=== PATIENT | male | born 1975 | race Caucasian/White ===

== ENCOUNTER 2018-10-03 23:44 | Emergency (ER) | payer OTHER ==
--- NOTE | 2018-10-04 01:49 | ER ---
Nurse's Notes [facility] Name: Tony Warner Age: 43 yrs Sex: Male : 1975 Arrival Date: 10/03/2018 Time: 23:44 Bed 25 Private MD: Diagnosis: Dermatitis, unspecified Presentation: 10/04 00:44 Presenting complaint: Patient states: he has a rash which started as an itch on Thursday bb but now has spread all over pt is diabetic with hypertension but has been off of his medication since May 2018. Transition of care: patient was not received from another setting of care. Onset of symptoms was October 01, 2018. Risk Assessment: Do you want to hurt yourself or someone else? Patient reports no desire to harm self or others. Initial Sepsis Screen: Does the patient meet any 2 criteria? No. Patient's initial sepsis screen is negative. Does the patient have a suspected source of infection? No. Patient's initial sepsis screen is negative. Care prior to arrival: None. 00:44 Method Of Arrival: Ambulatory bb 00:44 Acuity: JIMBO 2 bb Triage Assessment: 02:48 General: Behavior is calm, cooperative. jl3 Historical: - Allergies: 00:46 NKA; bb - Home Meds: 00:46 None [Active]; bb - PMHx: 00:46 Diabetes - NIDDM; Hypertension; CAD; bb - PSHx: 00:46 Heart stents; toe amputations; bb - Immunization history:: Adult Immunizations unknown. - Social history:: Smoking status: Patient uses tobacco products, smokes one pack cigarettes per day. Patient/guardian denies using alcohol, street drugs. - Ebola Screening: : No symptoms or risks identified at this time. Screenin:47 Abuse screen: none noted. Nutritional screening: No deficits noted. Tuberculosis jl3 screening: No symptoms or risk factors identified. Fall Risk None identified. Assessment: 01:08 General: Appears distressed, well developed, well nourished. General: Pt states rash jl3 began "a few days ago." c/o itching and pain to arms, itching to trunk and legs. States Benadryl "only helps a little." Pt also has blisters, redness BLE. All but small toe amputated bilat feet. Pt is diabetic, does not take meds. Pain: Complains of pain in abdomen, right arm, left arm, right leg and left leg. Neuro: No deficits noted. Cardiovascular: No deficits noted. Respiratory: No deficits noted. GI: No deficits noted. : No deficits noted. EENT: No deficits noted. Derm: Rash noted that is itchy, papular, red, raised, urticaria, vesicular, on abdomen, right arm, left arm, right leg and left leg. Derm: Reports itching. Musculoskeletal: No deficits noted. Vital Signs: 00:46 BP 199 / 108; Pulse 105; Resp 18 S; Temp 98.1(O); Pulse Ox 99% on R/A; Weight 127.01 kg bb (R); Height 5 ft. 10 in. (177.80 cm) (R); Pain 0/10; 02:47 BP 176 / 90; Pulse 98; Resp 18; Pulse Ox 97% ; Pain 3/10; jl3 00:46 Body Mass Index 40.18 (127.01 kg, 177.80 cm) bb ED Course: 10/03 23:44 Patient arrived in ED. am2 10/04 00:46 Triage completed. bb 00:46 Arm band placed on left wrist. Patient placed in waiting room, Patient notified of wait bb time. 00:59 Ian Dey RN is Primary Nurse. jl3 01:09 Yang Varma MD is Attending Physician. 02:48 No provider procedures requiring assistance completed. Patient did not have IV access jl3 during this emergency room visit. 02:49 Patient has correct armband on for positive identification. jl3 Administered Medications: 01:52 Drug: predniSONE 40 mg Route: PO; jl3 02:46 Follow up: Response: No adverse reaction jl3 Outcome: 01:48 Discharge ordered by . gs 02:48 Discharged to home ambulatory. jl3 02:48 Condition: stable 02:48 Discharge instructions given to patient, Prescriptions given X 2. 02:49 Patient left the ED. jl3 Signatures: Kayla Alvarado RN RN bb Lowman, John, RN RN jl3 Estella Skinner [facility] Yang Vrama MD MD
--- NOTE | 2018-10-04 01:49 | EDPHYS ---
Physician Documentation [facility] Name: Tony Warner Age: 43 yrs Sex: Male : 1975 Arrival Date: 10/03/2018 Time: 23:44 Bed 25 Private MD: ED Physician Yang Varma HPI: 10/04 02:45 This 43 yrs old Male presents to ER via Ambulatory with complaints of Rash. gs 02:45 The patient's rash thought to be caused by Dermatitis. The rash is located on the gs dorsal aspect of right forearm and palmar aspect of right forearm. The rash is located on the dorsal aspect of left forearm. The rash can be described as macular, papular, raised. Onset: The symptoms/episode began/occurred 5 day(s) ago, and became persistent. Associated signs and symptoms: Pertinent positives: burning sensation, itching, Pertinent negatives: fever, swelling of lips, swelling of throat, vomiting. Severity of symptoms: At their worst the symptoms were moderate in the emergency department the symptoms are unchanged. The patient has experienced similar episodes in the past, a few times. Historical: - Allergies: 00:46 NKA; bb - Home Meds: 00:46 None [Active]; bb - PMHx: 00:46 Diabetes - NIDDM; Hypertension; CAD; bb - PSHx: 00:46 Heart stents; toe amputations; bb - Immunization history:: Adult Immunizations unknown. - Social history:: Smoking status: Patient uses tobacco products, smokes one pack cigarettes per day. Patient/guardian denies using alcohol, street drugs. - Ebola Screening: : No symptoms or risks identified at this time. ROS: 02:45 All other systems are negative. gs Exam: 02:45 Head/Face: Normocephalic, atraumatic. Eyes: Pupils equal round and reactive to light, gs extra-ocular motions intact. Lids and lashes normal. Conjunctiva and sclera are non-icteric and not injected. Cornea within normal limits. Periorbital areas with no swelling, redness, or edema. ENT: Nares patent. No nasal discharge, no septal abnormalities noted. Tympanic membranes are normal and external auditory canals are clear. Oropharynx with no redness, swelling, or masses, exudates, or evidence of obstruction, uvula midline. Mucous membranes moist. Neck: Trachea midline, no thyromegaly or masses palpated, and no cervical lymphadenopathy. Supple, full range of motion without nuchal rigidity, or vertebral point tenderness. No Meningismus. Chest/axilla: Normal chest wall appearance and motion. Nontender with no deformity. No lesions are appreciated. Cardiovascular: Regular rate and rhythm with a normal S1 and S2. No gallops, murmurs, or rubs. Normal PMI, no JVD. No pulse deficits. Respiratory: Lungs have equal breath sounds bilaterally, clear to auscultation and percussion. No rales, rhonchi or wheezes noted. No increased work of breathing, no retractions or nasal flaring. Abdomen/GI: Soft, non-tender, with normal bowel sounds. No distension or tympany. No guarding or rebound. No evidence of tenderness throughout. Back: No spinal tenderness. No costovertebral tenderness. Full range of motion. MS/ Extremity: Pulses equal, no cyanosis. Neurovascular intact. Full, normal range of motion. Neuro: Awake and alert, GCS 15, oriented to person, place, time, and situation. Cranial nerves II-XII grossly intact. Motor strength 5/5 in all extremities. Sensory grossly intact. Cerebellar exam normal. Normal gait. 02:45 Constitutional: The patient appears alert, awake. 02:45 Skin: rash can be described as macular, papular, contact dermatitis, eczema, on the dorsal aspect of left forearm and palmar aspect of right forearm. Vital Signs: 00:46 BP 199 / 108; Pulse 105; Resp 18 S; Temp 98.1(O); Pulse Ox 99% on R/A; Weight 127.01 kg bb (R); Height 5 ft. 10 in. (177.80 cm) (R); Pain 0/10; 02:47 BP 176 / 90; Pulse 98; Resp 18; Pulse Ox 97% ; Pain 3/10; jl3 00:46 Body Mass Index 40.18 (127.01 kg, 177.80 cm) MDM: 01:43 Patient medically screened. 02:45 Data reviewed: vital signs, nurses notes. Counseling: I had a detailed discussion with gs the patient and/or guardian regarding: the historical points, exam findings, and any diagnostic results supporting the discharge/admit diagnosis, the need for outpatient follow up. Response to treatment: the patient's symptoms have mildly improved after treatment, and as a result, I will discharge patient. Administered Medications: 01:52 Drug: predniSONE 40 mg Route: PO; jl3 02:46 Follow up: Response: No adverse reaction jl3 Disposition: 10/04/18 01:48 Discharged to Home. Impression: Dermatitis, unspecified. - Condition is Stable. - Discharge Instructions: Rash. - Prescriptions for Prednisone 20 mg Oral Tablet - take 1 tablet by ORAL route once daily for 5 days; 5 tablet. Triamcinolone Acetonide 0.5 % Topical Cream - apply 1 application by TOPICAL route once daily As needed; 1 tube. - Medication Reconciliation Form, Thank You Letter, Antibiotic Education, Prescription Opioid Use form. - Follow up: Private Physician; When: 2 - 3 days; Reason: Re-evaluation by your physician. Signatures: Kayla Alvarado RN RN bb Ian Dey RN RN jl3 Yang Varma MD MD Corrections: (The following items were deleted from the chart) 02:49 01:48 10/04/2018 01:48 Discharged to Home. Impression: Dermatitis, unspecified. jl3 Condition is Stable. Forms are Medication Reconciliation Form, Thank You Letter, Antibiotic Education, Prescription Opioid Use. Follow up: Private Physician; When: 2 - 3 days; Reason: Re-evaluation by your physician. gs
[2018-10-04] MEDS ORDERED: predniSONE 20 MG TAB ONE (02:02)
== END 2018-10-04 02:49 | disposition home or self-care (01) ==
LOC: ER 23:44
DX: L30.9 Dermatitis, unspecified (principal); I10 Essential (primary) hypertension; F17.210 Nicotine dependence, cigarettes, uncomplicated; Z95.818 Presence of other cardiac implants and grafts
CPT/HCPCS: 99283; J7512

== ENCOUNTER 2018-10-25 20:58 | Emergency (ER) | payer OTHER ==
[2018-10-25 23:16] LABS: Absolute Lymphocytes (CBC) 1.1 K/uL (0.7-4.9); Absolute Monocytes 0.7 K/uL (0.1-1.3); Absolute Neutrophil 5.9 K/uL (1.8-8.0); Basophils % 1.3 % (0-1.3); Eosinophils % 7.6 % (0-4.4); Hematocrit 34.3 % (39.6-49.0); Lymphocytes % 13.3 % (15.3-44.8); MPV 9.5 fL (7.6-11.3); Monocytes % 8.3 % (3.3-12.3); RBC Red Blood Cell Count 3.87 M/uL (4.33-5.43)
[2018-10-25 23:37] LABS: Potassium 4.2 mmol/L (3.5-5.1)
[2018-10-26] MEDS ORDERED: HYDRALAZINE HCL 20 MG/ML VIAL ONE (00:31)
[2018-10-26] MEDS ORDERED: FUROSEMIDE 100 MG/10 ML VIAL IV ONE (00:31)
--- NOTE | 2018-10-26 01:03 | EDPHYS ---
Physician Documentation [facility] Name: Tony Warner Age: 43 yrs Sex: Male : 1975 Arrival Date: 10/25/2018 Time: 21:00 Bed 5 Private MD: Mike Pathak E ED Physician Yang Varma HPI: 10/26 00:57 This 43 yrs old Male presents to ER via Ambulatory with complaints of gs Testicular Swelling. 00:57 Onset: The symptoms/episode began/occurred 1 week(s) ago, and became worse. Associated gs signs and symptoms: Pertinent negatives: abdominal pain. Severity of symptoms: At their worst the symptoms were moderate, in the emergency department the symptoms are unchanged. The patient has experienced similar episodes in the past, a few times. 00:57 generalized swelling off bp meds for some time. gs Historical: - Allergies: 10/25 21:15 NKA; ak1 - PMHx: 21:15 CAD; Diabetes - NIDDM; Hypertension; ak1 - PSHx: 21:15 Heart stents; toe amputations; ak1 - Immunization history:: Adult Immunizations unknown. - Social history:: Smoking status: Patient uses tobacco products, smokes two packs cigarettes per day. - Ebola Screening: : No symptoms or risks identified at this time. ROS: 04 00:57 Cardiovascular: Negative for chest pain, orthopnea, palpitations. gs Respiratory: Negative for shortness of breath. All other systems are negative. Exam: 00:57 Head/Face: Normocephalic, atraumatic. Eyes: Pupils equal round and reactive to light, gs extra-ocular motions intact. Lids and lashes normal. Conjunctiva and sclera are non-icteric and not injected. Cornea within normal limits. Periorbital areas with no swelling, redness, or edema. ENT: Nares patent. No nasal discharge, no septal abnormalities noted. Tympanic membranes are normal and external auditory canals are clear. Oropharynx with no redness, swelling, or masses, exudates, or evidence of obstruction, uvula midline. Mucous membranes moist. Neck: Trachea midline, no thyromegaly or masses palpated, and no cervical lymphadenopathy. Supple, full range of motion without nuchal rigidity, or vertebral point tenderness. No Meningismus. Chest/axilla: Normal chest wall appearance and motion. Nontender with no deformity. No lesions are appreciated. Cardiovascular: Regular rate and rhythm with a normal S1 and S2. No gallops, murmurs, or rubs. Normal PMI, no JVD. No pulse deficits. Respiratory: Lungs have equal breath sounds bilaterally, clear to auscultation and percussion. No rales, rhonchi or wheezes noted. No increased work of breathing, no retractions or nasal flaring. Abdomen/GI: Soft, non-tender, with normal bowel sounds. No distension or tympany. No guarding or rebound. No evidence of tenderness throughout. Skin: Warm, dry with normal turgor. Normal color with no rashes, no lesions, and no evidence of cellulitis. Neuro: Awake and alert, GCS 15, oriented to person, place, time, and situation. Cranial nerves II-XII grossly intact. Motor strength 5/5 in all extremities. Sensory grossly intact. Cerebellar exam normal. Normal gait. 00:57 Constitutional: The patient appears alert, awake. 00:57 : Male external genitalia: swelling, scrotal. 00:57 Musculoskeletal/extremity: Perfusion: the patient is normally perfused throughout, Edema, 2+ to the left upper thigh and right upper thigh is noted. Vital Signs: 10/25 21:15 BP 206 / 117; Pulse 102; Resp 20; Temp 97.7(O); Pulse Ox 100% on R/A; Weight 129.27 kg ak1 (R); Height 5 ft. 10 in. (177.80 cm) (R); Pain 10/10; 22:45 BP 196 / 99; Pulse 94; Resp 18; Pulse Ox 100% on R/A; ea 23:30 BP 214 / 120; Pulse 91; Resp 20; Pulse Ox 99% on R/A; ea 10/26 00:22 BP 194 / 112; Pulse 91; Resp 19; Pulse Ox 97% on R/A; ea 00:36 BP 192 / 95; Pulse 100; Resp 18; Pulse Ox 98% on R/A; ea 10/25 21:15 Body Mass Index 40.89 (129.27 kg, 177.80 cm) ak1 MDM: 10/25 22:10 Patient medically screened. gs 10/26 00:57 Differential diagnosis: torsion, orchitis,peripheral edema kidney disease. Data gs reviewed: vital signs, nurses notes. Counseling: I had a detailed discussion with the patient and/or guardian regarding: the historical points, exam findings, and any diagnostic results supporting the discharge/admit diagnosis, lab results, radiology results, the need for outpatient follow up, nephrology. Response to treatment: the patient's symptoms have markedly improved after treatment. 10/25 21:34 Order name: Urine Microscopic Only; Complete Time: 01:37 10/25 22:10 Order name: CBC with Diff; Complete Time: 00:03 10/25 21:34 Order name: US Scrotum Testicles 10/25 22:10 Order name: Basic Metabolic Panel; Complete Time: 00:03 10/25 21:34 Order name: Urine Dipstick-Ancillary (obtain specimen); Complete Time: :08 Administered Medications: 00:22 Drug: hydrALAZINE 20 mg Route: IV; Rate: calculated rate; Site: right antecubital; ea 00:30 Follow up: Response: No adverse reaction; IV Status: Completed infusion 00:37 Drug: Lasix 60 mg Route: IVP; Site: right antecubital; ea 00:50 Follow up: Response: No adverse reaction ea Disposition: 10/26/18 01:02 Discharged to Home. Impression: Hypertensive chronic kidney disease with stage 1 through stage 4 chronic kidney disease, or unspecified chronic kidney disease. - Condition is Stable. - Discharge Instructions: Hypertension, Peripheral Edema. - Prescriptions for Lasix 80 mg Oral Tablet - take 1 tablet by ORAL route once daily; 10 tablet. Hydralazine 25 mg Oral Tablet - take 1 tablet by ORAL route 2 times per day with food; 20 tablet. - Work release form, Medication Reconciliation Form, Thank You Letter, Antibiotic Education, Prescription Opioid Use form. - Follow up: Nnamdi Varela MD; When: 1 - 2 days; Reason: Re-evaluation by your physician. Signatures: Dispatcher [employer] Em Rousseau RN RN Manuela Leigh RN RN ea Starr, Gregory, MD MD gs Corrections: (The following items were deleted from the chart) 01:51 01:02 10/26/2018 01:02 Discharged to Home. Impression: Hypertensive chronic kidney ea disease with stage 1 through stage 4 chronic kidney disease, or unspecified chronic kidney disease. Condition is Stable. Forms are Medication Reconciliation Form, Thank You Letter, Antibiotic Education, Prescription Opioid Use. Follow up: Nnamdi Varela; When: 1 - 2 days; Reason: Re-evaluation by your physician. gs
--- NOTE | 2018-10-26 01:03 | ER ---
Nurse's Notes [facility] Name: Tony Warner Age: 43 yrs Sex: Male : 1975 Arrival Date: 10/25/2018 Time: 21:00 Bed 5 Private MD: Mike Pathak E Diagnosis: Hypertensive chronic kidney disease with stage 1 through stage 4 chronic kidney disease, or unspecified chronic kidney disease Presentation: 10/25 21:10 Presenting complaint: Patient states: testicular swelling since yesterday. Transition ak1 of care: patient was not received from another setting of care. Onset of symptoms was October 24, 2018. Risk Assessment: Do you want to hurt yourself or someone else? Patient reports no desire to harm self or others. Note pt non compliant with home medications for "at least a month" due to financial issues. Care prior to arrival: None. 21:10 Method Of Arrival: Ambulatory ak1 21:10 Acuity: JIMBO 3 ak1 21:51 Initial Sepsis Screen: Does the patient meet any 2 criteria? HR > 90 bpm. Does the ea patient have a suspected source of infection? Yes: Other: testicular swelling. Triage Assessment: 21:15 General: Appears uncomfortable, obese, Behavior is calm, cooperative. ak1 Historical: - Allergies: 21:15 NKA; ak1 - PMHx: 21:15 CAD; Diabetes - NIDDM; Hypertension; ak1 - PSHx: 21:15 Heart stents; toe amputations; ak1 - Immunization history:: Adult Immunizations unknown. - Social history:: Smoking status: Patient uses tobacco products, smokes two packs cigarettes per day. - Ebola Screening: : No symptoms or risks identified at this time. Screenin:49 Abuse screen: Denies threats or abuse. Nutritional screening: No deficits noted. ea Tuberculosis screening: No symptoms or risk factors identified. Fall Risk None identified. Assessment: 21:45 General: Appears uncomfortable, Behavior is calm, cooperative. Pain: Complains of pain ea in groin. Neuro: Level of Consciousness is awake, alert, obeys commands, Oriented to person, place, time, situation. Cardiovascular: Patient's skin is warm and dry. Respiratory: Airway is patent Respiratory effort is even, unlabored, Respiratory pattern is regular, symmetrical. GI: Abdomen is round. : Reports Pt reports testicles are putting pressure on his penis and it is hard to start a urine stream. Derm: testicles are enlarged. 22:30 Reassessment: Patient and/or family updated on plan of care and expected duration. Pain ea level reassessed. Patient is alert, oriented x 3, equal unlabored respirations, skin warm/dry/pink. 23:35 Reassessment: Patient and/or family updated on plan of care and expected duration. Pain ea level reassessed. Pt resting with eyes closed, respirations even and unlabored, chest expansions even and symmetrical. 10/26 00:45 Reassessment: Patient and/or family updated on plan of care and expected duration. Pain ea level reassessed. Patient is alert, oriented x 3, equal unlabored respirations, skin warm/dry/pink. 01:47 Reassessment: Patient and/or family updated on plan of care and expected duration. Pain ea level reassessed. Patient is alert, oriented x 3, equal unlabored respirations, skin warm/dry/pink. Discharge instruction given to patient, verbalized the understanding of instruction. Vital Signs: 10/25 21:15 BP 206 / 117; Pulse 102; Resp 20; Temp 97.7(O); Pulse Ox 100% on R/A; Weight 129.27 kg ak1 (R); Height 5 ft. 10 in. (177.80 cm) (R); Pain 10/10; 22:45 BP 196 / 99; Pulse 94; Resp 18; Pulse Ox 100% on R/A; ea 23:30 BP 214 / 120; Pulse 91; Resp 20; Pulse Ox 99% on R/A; ea 10/26 00:22 BP 194 / 112; Pulse 91; Resp 19; Pulse Ox 97% on R/A; ea 00:36 BP 192 / 95; Pulse 100; Resp 18; Pulse Ox 98% on R/A; ea 10/25 21:15 Body Mass Index 40.89 (129.27 kg, 177.80 cm) ak1 ED Course: 10/25 21:00 Patient arrived in ED. am2 21:02 Mike Pathak MD is Private Physician. am2 21:05 Patient's name was called from ER lobby. No response. ak1 21:14 Triage completed. ak1 21:15 Arm band placed on Patient placed in an exam room, on a stretcher, Patient notified of ak1 wait time. 21:30 Patient has correct armband on for positive identification. Placed in gown. Bed in low ea position. Call light in reach. Side rails up X 1. 21:32 Yang Varma MD is Attending Physician. gs 21:44 Manuela Hernandez RN is Primary Nurse. ea 22:16 US Scrotum Testicles In Process Unspecified. EDMS 22:55 Inserted saline lock: 20 gauge in right antecubital area, using aseptic technique. ea Blood collected. 0409 01:01 Nnamdi Varela MD is Referral Physician. gs 01:49 No provider procedures requiring assistance completed. IV discontinued, intact, ea bleeding controlled, No redness/swelling at site. Pressure dressing applied. Administered Medications: 00:22 Drug: hydrALAZINE 20 mg Route: IV; Rate: calculated rate; Site: right antecubital; ea 00:30 Follow up: Response: No adverse reaction; IV Status: Completed infusion ea 00:37 Drug: Lasix 60 mg Route: IVP; Site: right antecubital; ea 00:50 Follow up: Response: No adverse reaction ea Outcome: 01:02 Discharge ordered by . gs 01:50 Discharged to home ambulatory. ea 01:50 Condition: improved 01:50 Discharge instructions given to patient, Instructed on discharge instructions, follow up and referral plans. medication usage, Demonstrated understanding of instructions, follow-up care, medications, Prescriptions given X 2. 01:51 Patient left the ED. ea Signatures: Dispatcher [employer] EDOK Em Broussard RN RN ak1 Estella Skinner am Manuela Hernandez RN RN ea Starr, Gregory, MD MD
[2018-10-26 01:29] LABS: Urine Bacteria <20 /HPF (NONE SEEN); Urine Culture Reflex Order NOT NEEDED
--- NOTE | 2018-10-26 12:07 | RAD REPORT ---
EXAM DESCRIPTION: KAILA BLANK [id number] - Scrotum Testicles CLINICAL HISTORY: PAIN COMPARISON: None. TECHNIQUE: US SCROTUM on 10/25/2018 9:34 PM CDT FINDINGS: There is extensive diffuse scrotal wall thickening. The right testicle measures 4.1 x 3.0 x 2.7 cm and is normal in echotexture with patent flow. The right epididymis measures 1.6 cm. Left te sticle measures 4.1 x 2.9 x 2.7 cm and is normal in echotexture with patent flow. Left epididymis stormy sures 1 cm. IMPRESSION: No evidence of testicular torsion or mass. Extensive scrotal wall thickening diffusely. Electronically signed by: Jhony Diaz MD 10/25/2018 10:35 PM CDT Due to temporary technical issues with the PACS/Fluency reporting system, reports are being signed by the in house radiologist as a courtesy to ensure prompt reporting. The interpreting radiologist is f ully responsible for the content of the report.
== END 2018-10-26 01:51 | disposition home or self-care (01) ==
LOC: ER 20:58
DX: I13.10 Hypertensive heart and chronic kidney disease without heart failure, with stage 1 through stage 4 chronic kidney disease, or unspecified chronic kidney disease (principal); N18.9 Chronic kidney disease, unspecified; E11.22 Type 2 diabetes mellitus with diabetic chronic kidney disease; N50.89 Other specified disorders of the male genital organs; F17.210 Nicotine dependence, cigarettes, uncomplicated
CPT/HCPCS: 85025; 80048; 36415; 81015; 76870; 96375; 96374; 99284; J0360

== ENCOUNTER 2018-10-27 15:18 | Inpatient (IN) | payer OTHER ==
[2018-10-27] MEDS ORDERED: FUROSEMIDE 100 MG/10 ML VIAL IV ONE (17:48)
[2018-10-27 17:54] LABS: Absolute Lymphocytes (CBC) 1.2 K/uL (0.7-4.9); Absolute Monocytes 0.6 K/uL (0.1-1.3); Absolute Neutrophil 5.9 K/uL (1.8-8.0); Basophils % 1.2 % (0-1.3); Eosinophils % 7.5 % (0-4.4); Hematocrit 35.9 % (39.6-49.0); Lymphocytes % 14.5 % (15.3-44.8); MPV 9.3 fL (7.6-11.3); Monocytes % 7.7 % (3.3-12.3); RBC Red Blood Cell Count 4.03 M/uL (4.33-5.43)
[2018-10-27 18:02] LABS: Protime INR 1.11
[2018-10-27 18:14] LABS: Albumin 1.8 g/dL (3.4-5.0); Bilirubin Direct 0.2 mg/dL (0-0.2); Bilirubin Total 0.4 mg/dL (0.2-1.0); Magnesium 1.8 mg/dL (1.8-2.4); Potassium 3.7 mmol/L (3.5-5.1); Protein, Total 6.2 g/dL (6.4-8.2)
--- NOTE | 2018-10-27 19:07 | RAD REPORT ---
EXAM DESCRIPTION: RAD - Chest Single View - 10/27/2018 5:31 pm CLINICAL HISTORY: Lower extremity swelling, shortness of breath COMPARISON: August 2016 TECHNIQUE: AP portable chest image was obtained 1726 hours . FINDINGS: No peripheral mass or consolidation. Significant cardiomegaly is present and represents a significant change from August 2016. This could be chamber enlargement, pericardial effusion or a c ombination. Interstitial markings have increased and there is vascular engorgement on the current chayo dy. No measurable pleural effusion and no pneumothorax. No acute bony abnormality seen. No acute aort ic findings suspected. IMPRESSION: Significant cardiomegaly, new from comparison, with a mild CHF/volume overload pattern.
--- NOTE | 2018-10-27 19:15 | ER ---
Nurse's Notes [facility] Name: Tony Warner Age: 43 yrs Sex: Male : 1975 Arrival Date: 10/27/2018 Time: 15:22 Bed 14 Private MD: Diagnosis: Acute diastolic (congestive) heart failure;Acute combined systolic (congestive) and diastolic (congestive) heart failure;Lower extremity swelling, venous stasis Presentation: 10/27 15:25 Presenting complaint: Patient states: i came here Thursday night for the same thing, they tw2 called it peripheral edema and hypertension and sent me home, since then it has gotten more swollen, i tried to urinate and its so swollen i cannot aim. Transition of care: patient was not received from another setting of care. Onset of symptoms was October 27, 2018. Risk Assessment: Do you want to hurt yourself or someone else? Patient reports no desire to harm self or others. Initial Sepsis Screen: Does the patient meet any 2 criteria? No. Patient's initial sepsis screen is negative. Does the patient have a suspected source of infection? No. Patient's initial sepsis screen is negative. Care prior to arrival: None. 15:25 Method Of Arrival: Ambulatory tw2 15:25 Acuity: JIMBO 3 tw2 Triage Assessment: 15:26 General: Appears uncomfortable, unkempt, Behavior is calm, cooperative, appropriate for tw2 age. Pain: Complains of pain in pelvis. : Reports pain testicle. Historical: - Allergies: 15:27 NKA; tw2 - PMHx: 15:27 CAD; Diabetes - NIDDM; Hypertension; tw2 - PSHx: 15:27 Heart stents; toe amputations; tw2 - Immunization history:: Adult Immunizations. - Social history:: Smoking status: Patient uses tobacco products, smokes one pack cigarettes per day. - Ebola Screening: : Patient denies travel to an Ebola-affected area in the 21 days before illness onset. Screenin:10 Abuse screen: Denies threats or abuse. Denies injuries from another. Nutritional sv screening: No deficits noted. Tuberculosis screening: No symptoms or risk factors identified. Fall Risk None identified. Assessment: 16:00 General: Appears in no apparent distress. uncomfortable, obese, Behavior is calm, ph cooperative, appropriate for age, Denies fever, feeling ill. Pain: Complains of pain in groin. Neuro: Level of Consciousness is awake, alert, obeys commands, Oriented to person, place, time, situation. Cardiovascular: Denies chest pain, nausea, palpitations, shortness of breath, Capillary refill < 3 seconds in bilateral fingers Patient's skin is warm and dry. Edema is 4+ to pubic area. Cardiovascular: Edema is 2+ to waist, left midcalf, left ankle, right midcalf and right ankle. Respiratory: Airway is patent Respiratory effort is even, unlabored, Respiratory pattern is regular, symmetrical, Denies shortness of breath at rest. GI: No signs and/or symptoms were reported involving the gastrointestinal system. : Swelling noted on scrotum Denies inability to void. Derm: Skin is intact, Skin is pink, warm \T\ dry. Musculoskeletal: Circulation, motion, and sensation intact. Range of motion: intact in all extremities. 17:10 Reassessment: Informed pt that I would be starting an IV and drawing blood work. Pt sv stated that he would like to speak to the MD before all of this is done. Pt stated that if all they are going to do is double his Lasix then he would rather just do all of this at home where he is more comfortable and he will f/u with his PCP. Informed Dr Espinoza. 18:00 Reassessment: Patient appears in no apparent distress at this time. No changes from sv previously documented assessment. Patient and/or family updated on plan of care and expected duration. Pain level reassessed. Patient is alert, oriented x 3, equal unlabored respirations, skin warm/dry/pink. 19:00 Reassessment: Patient appears in no apparent distress at this time. Patient and/or jb4 family updated on plan of care and expected duration. Pain level reassessed. Patient is alert, oriented x 3, equal unlabored respirations, skin warm/dry/pink. 20:00 Reassessment: Patient appears in no apparent distress at this time. Patient and/or jb4 family updated on plan of care and expected duration. Pain level reassessed. Patient is alert, oriented x 3, equal unlabored respirations, skin warm/dry/pink. 21:00 Reassessment: Patient appears in no apparent distress at this time. Patient and/or jb4 family updated on plan of care and expected duration. Pain level reassessed. Patient is alert, oriented x 3, equal unlabored respirations, skin warm/dry/pink. 21:37 Reassessment: Patient appears in no apparent distress at this time. Patient and/or jb4 family updated on plan of care and expected duration. Pain level reassessed. Patient is alert, oriented x 3, equal unlabored respirations, skin warm/dry/pink. Pt taken to room 206 by dairy lab technician via wheelchair. Vital Signs: 15:26 Pulse 96; Resp 18; Temp 97.9(O); Pulse Ox 97% on R/A; Weight 129.27 kg (R); Height 5 tw2 ft. 10 in. (177.80 cm); Pain 10/10; 15:27 BP 182 / 89; tw2 18:46 BP 182 / 95; Pulse 94; Resp 15; Pulse Ox 99% ; sv 20:33 BP 219 / 101; Pulse 100; Resp 18; Pulse Ox 99% on R/A; jb4 21:16 BP 190 / 95; Pulse 95; Resp 18; Pulse Ox 98% on R/A; jb4 15:26 Body Mass Index 40.89 (129.27 kg, 177.80 cm) tw2 20:33 Given Metoprolol per [employer] orders. jb4 ED Course: 15:22 Patient arrived in ED. mr 15:26 Triage completed. tw2 15:26 Arm band placed on. tw2 15:52 Fili Espinoza MD is Attending Physician. kdr 17:03 Cami Glover RN is Primary Nurse. sv 17:10 Patient has correct armband on for positive identification. Bed in low position. Call sv light in reach. Adult w/ patient. 17:30 Initial lab(s) drawn, by me, sent to lab. Inserted saline lock: 20 gauge in right sv antecubital area, using aseptic technique. Blood collected. Flushed right antecubital with 5 ml normal saline. 17:31 XRAY Chest (1 view) In Process Unspecified. EDMS 17:45 farm machine operator on. Pulse ox on. NIBP on. Door closed. Warm blanket given. Head of bed sv elevated. 17:58 EKG done, by emergency response technician. reviewed by Fili Espinoza MD. sm3 19:09 Report given to Terrance SANCHEZ. sv 19:12 Sylwia Packer MD is Hospitalizing Provider. kdr 19:15 Primary Nurse role handed off by Cami Glover RN sv 19:29 No provider procedures requiring assistance completed. Patient admitted, IV remains in ph place. 19:30 Jennifer Tiwari, RN is Primary Nurse. ph 20:10 Viral Melissa, RN is Primary Nurse. jb4 Administered Medications: 17:48 Drug: Lasix 100 mg Route: IVP; Infused Over: 5 mins; Site: right antecubital; sv 18:15 Follow up: Response: No adverse reaction sv Output: 18:05 Urine: 450ml (Voided); Total: 450ml. sv 19:06 Urine: 400ml (Voided); Total: 850ml. sv Outcome: 19:14 Decision to Hospitalize by Provider. kdr 21:39 Admitted to Med/surg accompanied by tech, via wheelchair, room 206, with chart, Report jb4 called to LAURA Harrington 21:39 Condition: stable 21:39 Discharge instructions given to patient, Instructed on the need for admit, Demonstrated understanding of instructions. 21:40 Patient left the ED. jb4 Signatures: Dispatcher [employer] EDMS Cami Glover RN RN Fili Espinoza MD MD kdr Arana, Jenny mr Jennifer Tiwari RN RN Minerva Davies RN RN 2 Viral Melissa, LAURA RN jb4 Emilee Miller [facility]
--- NOTE | 2018-10-27 19:15 | EDPHYS ---
Physician Documentation [facility] Name: Tony Warner Age: 43 yrs Sex: Male : 1975 Arrival Date: 10/27/2018 Time: 15:22 Bed 14 Private MD: ED Physician Fili Espinoza HPI: 10/27 19:14 This 43 yrs old Male presents to ER via Ambulatory with complaints of kdr Testicular Swelling. 19:14 The patient was seen here on the for the same problem though now it is much worse. kdr He was given 80 lasix QD without any relief. He denies chest pain, SOB or other related issues. Onset: The symptoms/episode began/occurred gradually, at an unknown time. Severity of symptoms: At their worst the symptoms were moderate in the emergency department the symptoms are unchanged. The patient has not experienced similar symptoms in the past. The patient has been recently seen by a physician: The patient has been recently seen at the [facility] Emergency Department, this week. Historical: - Allergies: 15:27 NKA; tw2 - PMHx: 15:27 CAD; Diabetes - NIDDM; Hypertension; tw2 - PSHx: 15:27 Heart stents; toe amputations; tw2 - Immunization history:: Adult Immunizations. - Social history:: Smoking status: Patient uses tobacco products, smokes one pack cigarettes per day. - Ebola Screening: : Patient denies travel to an Ebola-affected area in the 21 days before illness onset. ROS: 19:14 Constitutional: Negative for fever, chills, and weight loss, Eyes: Negative for injury, kdr pain, redness, and discharge, Neck: Negative for injury, pain, and swelling, Cardiovascular: Negative for chest pain, palpitations, and edema, Respiratory: Negative for shortness of breath, cough, wheezing, and pleuritic chest pain, Abdomen/GI: Negative for abdominal pain, nausea, vomiting, diarrhea, and constipation. 19:14 Abdomen/GI: Positive for Denies pain but is tense and swollen for below the umbilicus and suprapubic area. 19:14 : Positive for Swollen penis and scrotum, Negative for urinary symptoms, urinary frequency, small amounts, hematuria. Exam: 19:14 Constitutional: This is a well developed, well nourished patient who is awake, alert, kdr and in no acute distress. Head/Face: Normocephalic, atraumatic. Eyes: Pupils equal round and reactive to light, extra-ocular motions intact. Lids and lashes normal. Conjunctiva and sclera are non-icteric and not injected. Cornea within normal limits. Periorbital areas with no swelling, redness, or edema. Neck: Trachea midline, no thyromegaly or masses palpated, and no cervical lymphadenopathy. Supple, full range of motion without nuchal rigidity, or vertebral point tenderness. No Meningismus. Chest/axilla: Normal chest wall appearance and motion. Nontender with no deformity. No lesions are appreciated. Cardiovascular: Regular rate and rhythm with a normal S1 and S2. No gallops, murmurs, or rubs. Normal PMI, no JVD. No pulse deficits. Respiratory: Lungs have equal breath sounds bilaterally, clear to auscultation and percussion. No rales, rhonchi or wheezes noted. No increased work of breathing, no retractions or nasal flaring. Abdomen/GI: Soft, non-tender, with normal bowel sounds. No distension or tympany. No guarding or rebound. No evidence of tenderness throughout. Back: No spinal tenderness. No costovertebral tenderness. Full range of motion. Neuro: Awake and alert, GCS 15, oriented to person, place, time, and situation. Cranial nerves II-XII grossly intact. Motor strength 5/5 in all extremities. Sensory grossly intact. Cerebellar exam normal. Normal gait. Psych: Awake, alert, with orientation to person, place and time. Behavior, mood, and affect are within normal limits. 19:14 : Male external genitalia: swelling, scrotal, testicle, that is moderate, that is severe. 19:14 Skin: Venous stasis bilateral lower extremimties. Vital Signs: 15:26 Pulse 96; Resp 18; Temp 97.9(O); Pulse Ox 97% on R/A; Weight 129.27 kg (R); Height 5 tw2 ft. 10 in. (177.80 cm); Pain 10/10; 15:27 BP 182 / 89; tw2 18:46 BP 182 / 95; Pulse 94; Resp 15; Pulse Ox 99% ; sv 20:33 BP 219 / 101; Pulse 100; Resp 18; Pulse Ox 99% on R/A; jb4 21:16 BP 190 / 95; Pulse 95; Resp 18; Pulse Ox 98% on R/A; jb4 15:26 Body Mass Index 40.89 (129.27 kg, 177.80 cm) tw2 20:33 Given Metoprolol per [employer] orders. jb4 MDM: 19:14 Patient medically screened. kdr 19:14 Data reviewed: vital signs, nurses notes. Counseling: I had a detailed discussion with kdr the patient and/or guardian regarding: the historical points, exam findings, and any diagnostic results supporting the discharge/admit diagnosis, lab results, radiology results, the need for further work-up and treatment in the hospital. 10/27 17:06 Order name: Basic Metabolic Panel; Complete Time: 19:06 [facility] 10/27 17:06 Order name: CBC with Diff; Complete Time: 19:06 [facility] 10/27 17:06 Order name: LFT's; Complete Time: 19:06 [facility] 10/27 17:06 Order name: Magnesium; Complete Time: 19:06 [facility] 10/27 17:06 Order name: NT PRO-BNP; Complete Time: 19:06 [facility] 10/27 17:06 Order name: PT-INR; Complete Time: 19:06 [facility] 10/27 19:43 Order name: Comprehensive Metabolic Panel [facility] 10/27 19:43 Order name: Comprehensive Metabolic Panel [facility] 10/27 19:43 Order name: Lipid Profile [facility] 10/27 19:43 Order name: Lipid Profile [facility] 10/27 19:44 Order name: Magnesium [facility] 10/27 19:44 Order name: Magnesium [facility] 10/27 19:44 Order name: Phosphorus [facility] 10/27 19:44 Order name: Phosphorus [facility] 10/27 17:06 Order name: EKG - Nurse/Tech; Complete Time: 20:21 [facility] 10/27 17:06 Order name: XRAY Chest (1 view); Complete Time: 19:11 [facility] 10/27 17:06 Order name: EKG; Complete Time: 17:07 [facility] 10/27 17:06 Order name: IV Saline Lock; Complete Time: 17:53 [facility] 10/27 17:06 Order name: Labs collected and sent; Complete Time: 17:53 [facility] 10/27 19:43 Order name: Heart Healthy [facility] 10/27 19:43 Order name: Echo with Doppler [facility] 10/27 19:43 Order name: Echo with Doppler EDMS 10/27 19:44 Order name: NT PRO-BNP [facility] 10/27 19:44 Order name: NT PRO-BNP EDMS 10/27 19:44 Order name: Troponin I EDMS 10/27 19:44 Order name: Troponin I EDMS 10/27 19:44 Order name: Troponin I EDMS 10/27 19:44 Order name: CBC with Automated Diff EDMS 10/27 19:44 Order name: CBC with Automated Diff EDMS 10/27 17:06 Order name: O2 Per Protocol; Complete Time: 17:53 kdr 10/27 17:06 Order name: O2 Sat Monitoring; Complete Time: 17:53 kdr Administered Medications: 17:48 Drug: Lasix 100 mg Route: IVP; Infused Over: 5 mins; Site: right antecubital; sv 18:15 Follow up: Response: No adverse reaction sv Disposition: 10/27/18 19:14 Hospitalization ordered by Sylwia Packer for Inpatient Admission. Preliminary diagnosis are Acute diastolic (congestive) heart failure, Acute combined systolic (congestive) and diastolic (congestive) heart failure, Lower extremity swelling, venous stasis. - Bed requested for Telemetry/MedSurg (Inpatient). - Status is Inpatient Admission. jb4 - Condition is Fair. - Problem is an acute exacerbation. - Symptoms are unchanged. UTI on Admission? No Signatures: Dispatcher [employer] EDAR Cami Glover RN RN sv Webb, Martha, RN RN mw Rittger, Kevin, MD MD [facility] Minerva Davies RN RN 2 Viral Melissa RN RN jb4 Corrections: (The following items were deleted from the chart) 20:33 19:14 Hospitalization Ordered by Sylwia Packer MD for Inpatient Admission. Preliminary mw diagnosis is Acute diastolic (congestive) heart failure; Acute combined systolic (congestive) and diastolic (congestive) heart failure; Lower extremity swelling, venous stasis. Bed requested for Telemetry/MedSurg (Inpatient). Status is Inpatient Admission. Condition is Fair. Problem is an acute exacerbation. Symptoms are unchanged. UTI on Admission? No. kdr 21:40 20:33 10/27/2018 19:14 Hospitalization Ordered by Sylwia Packer MD for Inpatient jb4 Admission. Preliminary diagnosis is Acute diastolic (congestive) heart failure; Acute combined systolic (congestive) and diastolic (congestive) heart failure; Lower extremity swelling, venous stasis. Bed requested for Telemetry/MedSurg (Inpatient). Status is Inpatient Admission. Condition is Fair. Problem is an acute exacerbation. Symptoms are unchanged. UTI on Admission? No. mw
[2018-10-27] MEDS ORDERED: ALBUTEROL 2.5 MG/3 ML NEB SOL NEB PRN (19:39)
[2018-10-27] MEDS ORDERED: IPRATROPIUM BROM 0.5MG/2.5ML NEB PRN (19:39)
[2018-10-27] MEDS ORDERED: ACETAMINOPHEN 500 MG TAB PO PRN (19:39)
[2018-10-27] MEDS: METOPROLOL TAR 50 MG TAB PO SCH (20:44)
[2018-10-27] MEDS ORDERED: METOPROLOL TAR 25 MG TAB ONE (20:54)
[2018-10-28 05:36] LABS: Absolute Lymphocytes (CBC) 1.3 K/uL (0.7-4.9); Absolute Monocytes 0.7 K/uL (0.1-1.3); Absolute Neutrophil 5.2 K/uL (1.8-8.0); Eosinophils % 8.2 % (0-4.4); Lymphocytes % 16.7 % (15.3-44.8); MPV 9.3 fL (7.6-11.3); Monocytes % 8.3 % (3.3-12.3); RBC Red Blood Cell Count 3.72 M/uL (4.33-5.43)
[2018-10-28 05:55] LABS: Albumin 1.6 g/dL (3.4-5.0); Bilirubin Total 0.3 mg/dL (0.2-1.0); Magnesium 1.7 mg/dL (1.8-2.4); Phosphorus 4.5 mg/dL (2.5-4.9); Potassium 3.6 mmol/L (3.5-5.1); Protein, Total 5.6 g/dL (6.4-8.2)
[2018-10-28] MEDS ORDERED: MAGNESIUM SULFATE 1 gm IVPB 1 GM/100 ML BAG IV ONE (08:00)
[2018-10-28] MEDS: ENOXAPARIN 40 MG/0.4 ML SQ SCH ×2 (09:00→10:20)
[2018-10-28] MEDS ORDERED: POTASSIUM CL SA 10 MEQ TAB PO ONE (09:00)
[2018-10-28] MEDS ORDERED: FUROSEMIDE 40 MG/4 ML VIAL IV SCH (09:00)
[2018-10-28 09:05] LABS: Urine Appearance CLEAR; Urine Bilirubin NEGATIVE (NEG); Urine Blood TRACE (NEG); Urine Color YELLOW; Urine Glucose 1+ (NEG); Urine Protein 3+ (NEG); Urine Specific Gravity 1.015 (1.005-1.030)
[2018-10-28 09:07] LABS: Urine Microscopic Reflex ORDER UMIC
[2018-10-28 09:15] LABS: Urine Bacteria NONE SEEN /HPF (NONE SEEN); Urine Culture Reflex Order NOT NEEDED; Urine RBC 20-50 /HPF (NONE SEEN)
--- NOTE | 2018-10-28 10:02 | P.HP ---
Certification for Inpatient Patient admitted to: Inpatient With expected LOS: >2 Midnights Patient will require the following post-hospital care: None Practitioner: I am a practitioner with admitting privileges, knowledge of patient current condition, hospital course, and medical plan of care. Services: Services provided to patient in accordance with Admission requirements found in Title 42 Section 412.3 of the Code of Federal Regulations Patient History Date of Service: 10/27/18 Reason for admission: anasarca History of Present Illness: Patient is a 43-year-old gentleman who came to the hospital with generalized anasarca. Patient was diffusely edematous. And patient was diuresed in the emergency room. He also has wounds on his feet. He has been trying to care for them on his own. He has 2 wounds that are located on his both of his feet. We will consult [facility] to the help manage the wounds. We will also continue with diuresing. Reassess the patient in the morning. Anticipate discharge home in the next 24-48 hours. Allergies NKA Allergy (Uncoded 10/27/18 22:02) Unknown No Known Allergies Allergy (Uncoded 10/27/18 22:02) Unknown Home Medications: Lisinopril 10 mg PO DAILY 10/27/18 Metoprolol Tartrate 25 mg PO BID 10/27/18 - Past Medical/Surgical History Has patient received pneumonia vaccine in the past: No Diabetic: Yes -: CAD -: Diabetes- NIDDM -: Hypertension -: Heart Stent -: toe amputation - Family History Father Medical History: Heart disease, Hypertension - Social History Smoking Status: Current every day smoker Place of Residence: Home Review of Systems 10-point ROS is otherwise unremarkable Physical Examination - Vital Signs Temperature: 97.9 F Blood Pressure: 140/70 Pulse: 88 Respirations: 18 Pulse Ox (%): 96 - Physical Exam General: Alert, In no apparent distress, Oriented x3 HEENT: Atraumatic, PERRLA, Mucous membr. moist/pink, EOMI, Sclerae nonicteric Neck: Supple, 2+ carotid pulse no bruit, No LAD, Without JVD or thyroid abnormality Respiratory: Diminished, Crackles/rales Cardiovascular: Regular rate/rhythm, Normal S1 S2, Systolic murmur Gastrointestinal: Normal bowel sounds, Soft and benign, Non-distended, No tenderness Musculoskeletal: No tenderness, Swelling Integumentary: Diabetic ulcer Neurological: Normal gait, Normal speech, Normal strength at 5/5 x4 extr, Normal tone, Sensation intact, Cranial nerves 3-12 intact, Normal affect Lymphatics: No axilla or inguinal lymphadenopathy - Studies Laboratory Data (last 24 hrs) 10/27/18 17:30: PT 13.0 H, INR 1.11 10/27/18 17:30: WBC 8.5, Hgb 11.6 L, Hct 35.9 L, Plt Count 276 10/27/18 17:30: Sodium 145, Potassium 3.7, BUN 32 H, Creatinine 2.20 H, Glucose 140 H, Magnesium 1.8, Total Bilirubin 0.4, AST 14 L, ALT 16, Alkaline Phosphatase 184 H Assessment & Plan - Problems (Diagnosis) (1) History of diabetic ulcer of foot Current Visit: Yes Status: Acute (2) Anasarca Current Visit: Yes Status: Acute (3) Lower extremity edema Current Visit: Yes Status: Acute (4) CAD (coronary artery disease) Current Visit: Yes Status: Acute (5) DM2 (diabetes mellitus, type 2) Current Visit: Yes Status: Acute (6) HTN (hypertension) Current Visit: Yes Status: Acute - Plan Plan: 1. Continue with IV diuresing 2. Wound care 3. Monitor her volume status closely with strict intake and output 4. Consult wound healing center and may need home health with wound care 5. Monitor renal function closely 6. Monitor electrolytes closely 7. Strict blood pressure and blood sugar control 8. GI DVT prophylaxis Discharge Plan: Home Plan to discharge in: 48 Hours - Advance Directives Does patient have a Living Will: No Does patient have a Durable POA for Healthcare: No - Code Status/Comfort Care Code Status Assessed: Yes Code Status: Full Code Critical Care: No Time Spent Managing PTS Care (In Minutes): 40
[2018-10-28] MEDS: METOPROLOL TAR 50 MG TAB PO SCH ×2 (10:21→22:19)
[2018-10-28] MEDS: ENOXAPARIN 30 MG/0.3 ML SQ SCH (10:39)
--- NOTE | 2018-10-28 12:17 | ECHO ---
HEIGHT: 5 ft 10 in WEIGHT: 286 lb 14.4 oz DATE OF STUDY: 10/28/[address]: Sylwia Packer MD 2-DIMENSIONAL: YES M.MODE: YES DOPPLER: YES COLOR FLOW: YES TDS: PORTABLE: DEFINITY: BUBBLE STUDY: DIAGNOSIS: CONGESTIVE HEART FAILURE CARDIAC HISTORY: CATHERIZATION: YES SURGERY: NO PROSTHETIC VALVE: NO PACEMAKER: NO MEASUREMENTS (cm) DIASTOLIC (NORMALS) SYSTOLIC (NORMALS) IVSd 1.5 (0.6-1.2) LA Diam 4.5 (1.9-4.0) LVEF 45% LVIDd 5.2 (3.5-5.7) LVIDs 4.0 (2.0-3.5) %FS 23% LVPWd 1.5 (0.6-1.2) Ao Diam 3.4 (2.0-3.7) 2 DIMENSIONAL ASSESSMENT: RIGHT ATRIUM: NORMAL LEFT ATRIUM: DILATED RIGHT VENTRICLE: NORMAL LEFT VENTRICLE: NORMAL TRICUSPID VALVE: NORMAL MITRAL VALVE: NORMAL PULMONIC VALVE: NORMAL AORTIC VALVE: THREE LEFTLET SEEN PERICARDIAL EFFUSION: NONE AORTIC ROOT: NORMAL LEFT VENTRICULAR WALL MOTION: NORMAL DOPPLER/COLOR FLOW: MILD TRICUSPID REGURGITATION. NORMAL RIGHT VENTRICULAR SYSTOLIC PRSESURE. COMMENTS: NORMAL LEFT VENTRICULAR EJECTION FRACTION. DILATED LEFT ATRIUM. SMALL PERICARDIAL EFFUSION. MILD TRICUSPID REGURGITATION. TECHNOLOGIST: SAJI RYAN
[2018-10-28 12:33] LABS: Urine Protein/Creatinine Ratio 6.68 ratio (<0.15)
--- NOTE | 2018-10-28 13:56 | RAD REPORT ---
EXAM DESCRIPTION: US - Renal Ultrasound-Complete - 10/28/2018 1:38 pm CLINICAL HISTORY: proteinuria;hypoalbuminemia COMPARISON: No comparisons FINDINGS: Both kidneys are normal in size, shape and echotexture. The right kidney measures 12.5 x 7.7 x 7.2 cm. No hydronephrosis, focal mass or perinephric fluid. The left kidney measures 11.4 x 7.9 x 7.3 cm. No hydronephrosis, focal mass or perinephric fluid. The urinary bladder is incompletely distended without gross abnormality seen. IMPRESSION: Unremarkable renal sonogram.
[2018-10-28] MEDS: FUROSEMIDE 40 MG/4 ML VIAL IV SCH ×2 (14:02→22:19)
[2018-10-28] MEDS ORDERED: ALBUTEROL 2.5 MG/3 ML NEB SOL NEB PRN (15:00)
[2018-10-28] MEDS ORDERED: D50W 25 GM/50 ML SYRINGE IV PRN (17:17)
[2018-10-28] MEDS ORDERED: GLUCAGON 1 MG/VIAL IM PRN (17:17)
[2018-10-28] MEDS ORDERED: cloNIDine HCl 0.1 MG TAB PO ONE (17:23)
[2018-10-28] MEDS: INSULIN -REGULAR HUMAN 50 UNIT/0.5 ML ML SQ SCH ×2 (17:38→21:00)
[2018-10-28] MEDS ORDERED: METOPROLOL TAR 25 MG TAB PO SCH (21:00)
--- NOTE | 2018-10-28 21:10 | RAD REPORT ---
EXAM DESCRIPTION: MRIFoot Left Wo Cont10/28/2018 8:45 pm CLINICAL HISTORY: Left foot pain and swelling COMPARISON: none TECHNIQUE: Axial, sagittal and coronal magnetic resonance imaging of the left foot was obtained. FINDINGS: First, second and third toe amputations. A soft tissue ulceration first digit. Increased signal within the first metatarsal head and neck cons istent with osteomyelitis. Additional abnormal signal within the bones is not felt the represent osteomyelitis. IMPRESSION: Osteomyelitis involving the first metatarsal head and neck
[2018-10-29] MEDS ORDERED: Levofloxacin500mg IV 500 MG/100 ML BAG IV SCH (04:00)
--- NOTE | 2018-10-29 04:10 | CON ---
Date of Consultation: 10/28/2018 Reason For Consultation: Elevated BUN and creatinine, over volume, fluid management. History Of Present Illness: This is 43-year-old gentleman with significant past medical history of diabetes, complicated with neuropathy, has been diagnosed back in 2017; coronary artery disease, status post SC in 2017, status post stent, complicated with congestive heart failure, unknown ejection fraction ; hypertension. The patient unaware about any kidney disease. The patient came to the hospital as for the last few days, he started having shortness of breath, increase in leg swelling. The patient denied any change in his diet. No recent hospitalization, not taking any nonsteroidal. No recent IV contrast. Still compliant with his fluid restriction and his diuresis. The patient complaining some orthopnea. Allergies: NO KNOWN DRUG ALLERGY. PRIMARY WORKUP SHOWED ELEVATION IN BUN AND CREATININE, CREATININE ABOVE 2 GFR AROUND 30. REVIEWING THE RECORD, THE PATIENT HAD, BACK IN 2016, CREATININE 1.5. GFR AROUND 55. Home Medications: Include lisinopril and metoprolol. Past Surgical History: Include PTCA and right toe amputation. Past Medical History: Includes coronary artery disease, complicated with congestive heart failure; diabetes, complicated with neuropathy; hypertension; peripheral vascular disease; toe amputation. Past Surgical History: Includes cardiac cath and toe amputation. Family History: Positive for diabetes and hypertension. Social History: Denied alcohol. Denied drug abuse. Review of Systems: Head and Neck: No red eye. No ear pain. GI: No nausea, no vomiting. : No polyuria. No dysuria. No hematuria. Presentation Team Member: Not applicable. Respiratory: Has shortness of breath. Has orthopnea. Cardiovascular: Has leg swelling. Musculoskeletal: Has fatigue. Neuro: Has neuropathy. Endocrine: No polydipsia. Skin: No rash. Physical Examination: Vital Signs: Blood pressure 195/100, pulse of 85. Chest: Crackles bilateral. Heart: S1, S2. Systolic murmur. Abdomen: Soft, nontender. Extremities: +2 edema. Laboratory Data: H and H 10.8/33. Sodium 145, potassium 3.6, bicarb 27, BUN 30 , creatinine 2.3, calcium 7.4, GFR of 32, magnesium 1.7, protein creatinine of 6 , RBC of 50. Assessment And Plan: 1. Acute kidney injury, on chronic kidney disease, mostly progression of diabetes nephropathy nephrotic-range proteinuria. I am going to go ahead on the presence of anemia to rule out any light chain disease, any autoimmune disease. We will send for full workup including serology and SPEP. Currently, the patient is over volume. I am going to start the patient on increasing Lasix to 40 mg t.i.d. 2. Acute kidney injury on chronic kidney disease secondary to cardiorenal/ diabetes with nephrotic-range proteinuria and hematuria. Light chain disease needs to be ruled out. Autoimmune disease needs to be ruled out. We will send further workup. As I mentioned, the patient is over volume. We will increase Lasix to 40 mg t[address]., place the patient on fluid restriction, and we will follow up. 3. Hypertension. We will utilize the blood pressure for more ultrafiltration. 4. Anemia of chronic kidney disease. We will send further workup. 5. diabetes. As by primary. 6. Anasarca mostly secondary to renal failure on the cardiorenal. Increase Lasix. We will follow up with Cardiology. NESTOR Voice ID: [id number] Report ID: [id number] MTDD
--- NOTE | 2018-10-29 07:29 | P.PN ---
Subjective Date of Service: 10/28/18 Subjective: No new changes, No C/O voiced, Improving Review of Systems 10-point ROS is otherwise unremarkable Physical Examination - Vital Signs Temperature: 97.6 F Blood Pressure: 141/62 Pulse: 85 Respirations: 20 Pulse Ox (%): 93 - Physical Exam General: Alert, In no apparent distress, Oriented x3 HEENT: Atraumatic, PERRLA, EOMI Neck: Supple, JVD not distended Respiratory: Clear to auscultation bilaterally, Normal air movement Cardiovascular: Regular rate/rhythm, Normal S1 S2, No murmurs Gastrointestinal: Normal bowel sounds, Soft and benign, Non-distended, No tenderness Musculoskeletal: No clubbing, No swelling, No tenderness Integumentary: No rashes Neurological: Normal speech, Normal strength at 5/5 x4 extr, Normal tone, Normal affect Lymphatics: No axilla or inguinal lymphadenopathy - Studies Medications List Reviewed: Yes Assessment & Plan - Problems (Diagnosis) (1) History of diabetic ulcer of foot Current Visit: Yes Status: Acute (2) Anasarca Current Visit: Yes Status: Acute (3) Lower extremity edema Current Visit: Yes Status: Acute (4) CAD (coronary artery disease) Current Visit: Yes Status: Acute (5) DM2 (diabetes mellitus, type 2) Current Visit: Yes Status: Acute (6) HTN (hypertension) Current Visit: Yes Status: Acute - Plan Plan: 1. Continue with IV diuresing 2. Wound care-recommended MRI; results pending 3. Monitor volume status closely with strict intake and output; appreciate Nephrology recommendation 4. Monitor renal function closely; patient most likely has nephrotic syndrome 5. Monitor electrolytes closely 6. Strict blood pressure and blood sugar control 7. GI DVT prophylaxis Discharge Plan: Home Plan to discharge in: Greater than 2 days - Advance Directives Does patient have a Living Will: No Does patient have a Durable POA for Healthcare: No - Code Status/Comfort Care Code Status: Full Code Critical Care: No Time Spent Managing PTS Care (In Minutes): 25
[2018-10-29] MEDS: INSULIN -REGULAR HUMAN 50 UNIT/0.5 ML ML SQ SCH (07:30)
--- NOTE | 2018-10-29 07:38 | P.DS ---
Discharge Date: 10/29/18 Disposition: ROUTINE DISCHARGE Discharge Condition: GOOD Reason for Admission: anasarca - Problems (1) History of diabetic ulcer of foot Current Visit: Yes Status: Acute (2) Anasarca Current Visit: Yes Status: Acute (3) Lower extremity edema Current Visit: Yes Status: Acute (4) CAD (coronary artery disease) Current Visit: Yes Status: Acute (5) DM2 (diabetes mellitus, type 2) Current Visit: Yes Status: Acute (6) HTN (hypertension) Current Visit: Yes Status: Acute Brief History of Present Illness: Patient is a 43-year-old gentleman who came to the hospital with generalized anasarca. Patient was diffusely edematous. And patient was diuresed in the emergency room. He also has wounds on his feet. He has been trying to care for them on his own. He has 2 wounds that are located on his both of his feet. [facility] to the help manage the wounds. We will also continue with diuresing. Reassess the patient in the morning. Anticipate discharge home in the next 24-48 hours. Hospital Course: Patient had extensive workup which revealed that patient had nephrotic syndrome from diabetic nephropathy which was causing his fluid retention. Patient also was found have osteomyelitis present MRI. Spoke to patient about both of these issues as well as his echo showing his ejection fraction being around 45%. Patient states he does not want to be in the hospital any longer. He is unable work and unable to pay his bills. He is fairly adamant about leaving. I told him that he will probably lose his toe has eat oral antibiotics probably will not help his infection the way it that they recommended IV antibiotics would. His nephrotic syndrome needs to be better stabilize with better blood sugar control. He will need close follow with a color maker formulator as well as we recommended him going back to see his personnel generalist manager in [place]. I will go ahead and give him oral antibiotics with the understanding that this will probably not heal his osteomyelitis. However, he is not willing to stay in the hospital in get a PICC line placed for IV antibiotics as he would not be able to work. Hopefully patient will follow-up with his physicians so he can get this treated in a more appropriate fashion. In light of the fact that he does not want stay off procedure with discharge him with secondary treatment with oral antibiotics and also given diuretics as well as an YSABEL-inhibitor for is nephrotic syndrome. The knee close follow with a color maker formulator for this as well. For is cardiac status still need to follow with the clinical unit coordinator to help monitor his cardiac status. Vital Signs/Physical Exam: Temp Pulse Resp BP Pulse Ox 97.6 F 85 20 141/62 H 93 10/29/18 07:29 10/29/18 07:29 10/29/18 07:29 10/29/18 07:29 10/29/18 07:29 General: Alert, In no apparent distress, Oriented x3 Laboratory Data at Discharge: WBC 7.9 K/uL (4.3-10.9) 10/28/18 05:07 Hgb 10.8 g/dL (13.6-17.9) L 10/28/18 05:07 Hct 33.0 % (39.6-49.0) L 10/28/18 05:07 Plt Count 292 K/uL (152-406) 10/28/18 05:07 PT 13.0 SECONDS (9.5-12.5) H 10/27/18 17:30 INR 1.11 10/27/18 17:30 Sodium 145 mmol/L (136-145) 10/28/18 05:07 Potassium 3.6 mmol/L (3.5-5.1) 10/28/18 05:07 BUN 30 mg/dL (7-18) H 10/28/18 05:07 Creatinine 2.24 mg/dL (0.55-1.3) H 10/28/18 05:07 Glucose 159 mg/dL (74-106) H 10/28/18 05:07 Phosphorus 4.5 mg/dL (2.5-4.9) 10/28/18 05:07 Magnesium 1.7 mg/dL (1.8-2.4) L 10/28/18 05:07 Total Bilirubin 0.3 mg/dL (0.2-1.0) 10/28/18 05:07 AST 9 U/L (15-37) L 10/28/18 05:07 ALT 13 U/L (12-78) 10/28/18 05:07 Alkaline Phosphatase 170 U/L (45-117) H 10/28/18 05:07 Troponin I 0.02 ng/mL (0.0-0.045) 10/28/18 22:56 Triglycerides 108 mg/dL (<150) 10/28/18 05:07 Cholesterol 120 mg/dL (<200) 10/28/18 05:07 HDL Cholesterol 45 mg/dL (40-60) 10/28/18 05:07 Cholesterol/HDL Ratio 2.67 10/28/18 05:07 Home Medications: Lisinopril 10 mg PO DAILY 10/27/18 Metoprolol Tartrate 25 mg PO BID 10/27/18 Ciprofloxacin HCl 500 mg PO BID #60 tablet 10/29/18 Furosemide [Lasix] 40 mg PO DAILY #30 tablet 10/29/18 Lisinopril [Prinivil*] 10 mg PO DAILY #30 tab 10/29/18 Metoprolol Tartrate [Lopressor*] 25 mg PO BID #60 tab 10/29/18 Potassium Chloride [K-Dur] 10 meq PO DAILY #30 tab.er.prt 10/29/18 New Medications: Ciprofloxacin HCl 500 mg PO BID #60 tablet Furosemide [Lasix] 40 mg PO DAILY #30 tablet Lisinopril [Prinivil*] 10 mg PO DAILY #30 tab Metoprolol Tartrate [Lopressor*] 25 mg PO BID #60 tab Potassium Chloride [K-Dur] 10 meq PO DAILY #30 tab.er.prt Patient Discharge Instructions: OK TO DC IV AND DC HOME PATIENT DOES NOT WANT TO BE IN THE HOSPITAL ANY LONGER. FOLLOW-UP WITH PRIMARY CARE PROVIDER IN 1-2 WEEKS. FOLLOW-UP WITH CARDIOLOGY IN 1-2 WEEKS. FOLLOW-UP WITH NEPHROLOGY IN 1-2 WEEKS. FOLLOW-UP WITH SHEETROCK APPLICATOR IN 1-2 WEEKS. RETURN TO THE ER IF symptoms worsen. CALL or TEXT DR. ROMERO AT [phone] IF ANY QUESTIONS REGARDING HOSPITAL STAY. PLEASE CALL THE FLOOR AT [phone] IF ANY MEDICATION OR NURSING QUESTIONS. Diet: AHA Activity: Fall precautions Time spent managing pt's care (in minutes): 30
[2018-10-29] MEDS: ENOXAPARIN 30 MG/0.3 ML SQ SCH (07:54)
[2018-10-29] MEDS: FUROSEMIDE 40 MG/4 ML VIAL IV SCH (07:54)
[2018-10-29] MEDS: METOPROLOL TAR 50 MG TAB PO SCH (07:58)
--- NOTE | 2018-10-29 08:08 | RAD REPORT ---
EXAM DESCRIPTION: MRI - Foot Right Wo Cont - 10/28/2018 9:07 pm CLINICAL HISTORY: Open wound near the right first toe amputation site, soft tissue swelling, right f oot pain COMPARISON: MRI left foot October 28 TECHNIQUE: Multiplanar imaging of the right foot was performed using T1 weighted, T2 fat saturation and T2 stir sequencing. FINDINGS: No fracture changes are present. The second and third toes and distal second and third met atarsals have been resected. Degenerative changes are seen in the fourth and fifth toes. First toe parada s been resected. No abscess or drainable fluid collection in the soft tissues. There is prominent soft tissue edema th roughout the foot. No abscess or drainable fluid collection identifiable. No gross bone destruction of the first metatarsal. Abnormal hyperintense T2 signal is present in the head and distal shaft first metatarsal. Decreased T1 signal is present in the distal shaft and head o f the first metatarsal as well. The T1 signal abnormality is less prominent than seen on the left sukhdev t. No gross bone destruction at the distal first metatarsal. Osteomyelitis is still likely though thi s is less definitive than seen on the left foot. IMPRESSION: Abnormal signal intensity in the right first metatarsal head and distal shaft most likel y osteomyelitis. Findings are not quite as prominent as seen in the corresponding region of the left foot. No abscess or drainable fluid in the soft tissues. Prominent edematous or inflammatory soft tissue sw elling is present around the right foot.
[2018-10-29] MEDS ORDERED: LISINOPRIL 10 MG TAB PO SCH (09:00)
[2018-10-29] MEDS ORDERED: MEDIHONEY 44 ML TOPICAL TUBE TOP SCH (09:00)
== END 2018-10-29 10:00 | disposition home or self-care (01) | DRG 637 ==
LOC: ER 15:18 → ERHOLD 19:47 → 2ND 21:23
PROVIDERS: ADMIT Hospitalist; ATTEND Hospitalist
DX: E11.69 Type 2 diabetes mellitus with other specified complication (principal); I50.21 Acute systolic (congestive) heart failure; I13.0 Hypertensive heart and chronic kidney disease with heart failure and stage 1 through stage 4 chronic kidney disease, or unspecified chronic kidney disease; M86.9 Osteomyelitis, unspecified; N04.9 Nephrotic syndrome with unspecified morphologic changes; I25.10 Atherosclerotic heart disease of native coronary artery without angina pectoris; F17.210 Nicotine dependence, cigarettes, uncomplicated; E11.621 Type 2 diabetes mellitus with foot ulcer; E11.40 Type 2 diabetes mellitus with diabetic neuropathy, unspecified; E11.51 Type 2 diabetes mellitus with diabetic peripheral angiopathy without gangrene; E11.21 Type 2 diabetes mellitus with diabetic nephropathy; E11.22 Type 2 diabetes mellitus with diabetic chronic kidney disease; N18.3 Chronic kidney disease, stage 3 (moderate); R80.9 Proteinuria, unspecified; D63.1 Anemia in chronic kidney disease; R31.9 Hematuria, unspecified; N50.89 Other specified disorders of the male genital organs; I87.8 Other specified disorders of veins; Z89.421 Acquired absence of other right toe(s); Z95.5 Presence of coronary angioplasty implant and graft
CPT/HCPCS: 36415; 71045; 76770; 76870; 80048; 80053; 80061; 80076; 81003; 81015; 82570; 82962; 83735; 83880; 84100; 84156; 84484; 85025; 85610; 86038; 87070; 87077; 87186; 87205; 93306; 96374; 96375; 99284; 99285; J0360; J1650; J1940; J3475

== ENCOUNTER 2019-06-03 11:09 | Emergency (ER) | payer OTHER ==
[2019-06-03] MEDS ORDERED: ETOMIDATE 20 MG/10 ML VIAL IV ONE (11:10)
[2019-06-03] MEDS ORDERED: SUCCINYLCHOLINE 20 MG/ML (10 ML) IV ONE (11:10)
[2019-06-03] MEDS ORDERED: VECURONIUM 10 MG/VIAL IV ONE ×2 (11:10→11:16)
[2019-06-03] MEDS ORDERED: NA CHLORIDE 0.9% 1,000 ML ONE (11:17)
[2019-06-03] MEDS ORDERED: RSI MEDICATION KIT IV ONE (11:17)
[2019-06-03 11:24] LABS: Absolute Lymphocytes (CBC) 1.5 K/uL (0.7-4.9); Basophils % 1.3 % (0-1.3); Hematocrit 30.9 % (39.6-49.0); Lymphocytes % 22.2 % (15.3-44.8); RBC Red Blood Cell Count 3.47 M/uL (4.33-5.43)
[2019-06-03 11:28] LABS: Protime INR 1.02
[2019-06-03] MEDS ORDERED: FOSPHENYTOIN PE 1,000 MG in NA CHLORIDE 0.9% 100 ML IV ONE (11:30)
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
--- NOTE | 2019-06-03 11:59 | RAD REPORT ---
EXAM DESCRIPTION: CT - Ct Stroke Brain Wo Cont - 06/03/2019 11:29 am CLINICAL HISTORY: CONFUSED Headache, drowsiness, CVA symptomology COMPARISON: Head Brain Wo Cont dated 08/24/2016 TECHNIQUE: All CT scans are performed using dose optimization technique as appropriate and may inclu de automated exposure control or mA/KV adjustment according to patient size. FINDINGS: Large acute intercerebral hematoma is present within the left frontotemporal region and le ft anterior basal ganglia measuring 6 x 3 cm.Mild surrounding brain edema is seen with 5 mm of left-t o-right midline shift. No hydrocephalus. The paranasal sinuses and mastoids are clear. The calvarium is intact. IMPRESSION: Large (6 x 3 cm) left frontotemporal acute intercerebral hematoma. 5 mm [id number] mi dline shift. The findings were discussed with Dr. Espinoza in the ER On 06/03/2019 at 11:11 a.m. by telephone.
--- NOTE | 2019-06-03 12:00 | RAD REPORT ---
EXAM DESCRIPTION: Jose Manuel Single View06/03/2019 11:50 am CLINICAL HISTORY: Shortness breath COMPARISON: October 2018 FINDINGS: An endotracheal tube has its tip 4 centimeters above nuria. Nasogastric tube is present within the stomach Moderate bilateral pulmonary opacities probably pulmonary edema The heart is mildly to moderately enlarged
--- NOTE | 2019-06-03 12:00 | EDPHYS ---
Physician Documentation [facility] Name: Tony Warner Age: 43 yrs Sex: Male : 1975 Arrival Date: 06/03/2019 Time: 11:12 Bed 3 Private MD: ED Physician Fili Espinoza HPI: 06/03 11:35 This 43 yrs old Male presents to ER via EMS with complaints of S/S of kdr Possible Stroke, Unresponsive. 11:35 The patient's problem is reported as altered mental status. kdr 11:49 Onset: The symptoms/episode began/occurred acutely, suddenly, just prior to arrival. kdr Duration: This was a single incident. Context: the episode(s) was witnessed, by co-worker(s), symptoms became apparent. The symptoms are alleviated by nothing. The symptoms are aggravated by nothing. Associated signs and symptoms: The patient has no apparent associated signs or symptoms. Severity of symptoms: At their worst the symptoms were incapacitating in the emergency department the symptoms are unchanged. Patient's baseline: Neuro: alert and fully oriented, Motor: no deficits, Ambulation: walks without assistance, Speech: normal, The patient has a previous history of CVA. It is unknown whether or not the patient has had similar symptoms in the past. Historical: - Allergies: 11:20 NKA; sg - PMHx: 11:20 CAD; Hypertension; Diabetes - NIDDM; CVA; sg - PSHx: 11:20 Heart stents; toe amputations; sg - Immunization history:: Adult Immunizations unknown. - Social history:: Smoking status: unknown. - Ebola Screening: : Patient denies exposure to infectious person Patient denies travel to an Ebola-affected area in the 21 days before illness onset. ROS: 11:49 Constitutional: Unable to assess kdr 11:49 Unable to obtain ROS due to altered mental status, patient being uncooperative, patient is on ventilator. Exam: 11:49 Constitutional: This is a well developed, well nourished patient who is awake, alert, kdr and in no acute distress. Head/Face: Normocephalic, atraumatic. Eyes: Pupils equal round and reactive to light, extra-ocular motions intact. Lids and lashes normal. Conjunctiva and sclera are non-icteric and not injected. Cornea within normal limits. Periorbital areas with no swelling, redness, or edema. Neck: Trachea midline, no thyromegaly or masses palpated, and no cervical lymphadenopathy. Supple, full range of motion without nuchal rigidity, or vertebral point tenderness. No Meningismus. Chest/axilla: Normal chest wall appearance and motion. Nontender with no deformity. No lesions are appreciated. Cardiovascular: Regular rate and rhythm with a normal S1 and S2. No gallops, murmurs, or rubs. Normal PMI, no JVD. No pulse deficits. Respiratory: Lungs have equal breath sounds bilaterally, clear to auscultation and percussion. No rales, rhonchi or wheezes noted. No increased work of breathing, no retractions or nasal flaring. Abdomen/GI: Soft, non-tender, with normal bowel sounds. No distension or tympany. No guarding or rebound. No evidence of tenderness throughout. Back: No spinal tenderness. No costovertebral tenderness. Full range of motion. Skin: Warm, dry with normal turgor. Normal color with no rashes, no lesions, and no evidence of cellulitis. MS/ Extremity: Pulses equal, no cyanosis. Neurovascular intact. Full, normal range of motion. Psych: Awake, alert, with orientation to person, place and time. Behavior, mood, and affect are within normal limits. 11:49 Neuro: Orientation: unable to test, the patient is comatose. 19:20 Radiologist reports: Negative kdr Vital Signs: 11:19 BP 210 / 105; Pulse 88; Resp 19; Pulse Ox 100% on R/A; Weight 113.4 kg; ss 11:44 BP 254 / 112; Pulse 108; Resp 14 A; ss 11:49 BP 233 / 103; Pulse 111; Resp 12; Pulse Ox 100% on ETT vent; ss 11:56 BP 208 / 88; Pulse 99; Resp 12; Pulse Ox 100% on ETT vent; ss Procedures: 11:49 Intubation: Ventilated with 100% NRB prior to procedure. O2 saturation prior to kdr procedure was 100 %. Intubated orally using # 3 Eros blade with 7.5 mm ETT. was successful on first attempt. Ventilated with Ambu bag. ventilator. Tube secured with ETT cooper Placement verified by CO2 detector with (+) color change, auscultating bilateral breath sounds, O2 saturation after procedure was 100 %. Patient tolerated well. MDM: 11:49 Data reviewed: vital signs, nurses notes, lab test result(s), radiologic studies. kdr Counseling: I had a detailed discussion with the patient and/or guardian regarding: the historical points, exam findings, and any diagnostic results supporting the discharge/admit diagnosis, lab results, radiology results, the need to transfer to another facility. ED course: The patient was stable in the ED. His mental status did not improve prior to intubation. His BP was initially resistant to Cardene despite adjusting the dosing upwards at above normal rate. 11:58 Patient medically screened. kdr 06/03 11:17 Order name: Basic Metabolic Panel sg 06/03 11:17 Order name: CBC with Diff sg 06/03 11:17 Order name: Protime (+inr) 06/03 11:17 Order name: Ptt, Activated 06/03 11:17 Order name: CT Stroke Brain w/o Contrast 06/03 11:34 Order name: Glucose, Ancillary Testing EDMS 06/03 11:17 Order name: Stroke CXR 1 View 06/03 11:17 Order name: EKG; Complete Time: 11:18 06/03 11:17 Order name: Accucheck; Complete Time: 12:36 06/03 11:17 Order name: Cardiac monitoring; Complete Time: 12:37 06/03 11:17 Order name: EKG - Nurse/Tech; Complete Time: 12:37 06/03 11:17 Order name: IV Saline Lock; Complete Time: 12:37 06/03 11:17 Order name: Labs collected and sent; Complete Time: 12:36 06/03 11:17 Order name: NPO; Complete Time: 12:36 06/03 11:17 Order name: O2 Per Protocol; Complete Time: 12:36 06/03 11:17 Order name: O2 Sat Monitoring; Complete Time: 12:36 06/03 11:17 Order name: Stroke Swallow Screen; Complete Time: 12:36 sg Administered Medications: 11:24 Drug: Etomidate 20 mg Route: IVP; Site: left antecubital; ss 11:30 Follow up: Response: No adverse reaction [id number] 11:25 Drug: Succinylcholine 100 mg Route: IVP; Site: left antecubital; ss 11:30 Follow up: Response: No adverse reaction 7 11:30 Drug: CEREbyx 1 grams Route: IVPB; Site: right wrist; ss 11:45 Follow up: IV Status: Completed infusion 11:30 Drug: VecuroNIUM 10 mg Route: IVP; Site: left antecubital; ss 11:30 Follow up: Response: No adverse reaction 11:35 Drug: niCARdipine (25mg/250ml) 5 mg/hr {Note: administered to L AC by LAURA Douglas. ss Started at 5 mg/hr.} Route: IV; Rate: calculated rate; Site: left antecubital; 11:45 Follow up: IV Status: Infusion continued upon transfer 7 12:00 Drug: fentaNYL (PF) 50 mcg Route: IVP; Site: left antecubital; 12:01 Follow up: Response: No adverse reaction 7 Point of Care Testing: Blood Glucose: 11:25 Blood Glucose: 101 mg/dL; Ranges: Critical Glucose Levels:Adult <50 mg/dl or >400 mg/dl <40 mg/dl or >180 mg/dl Disposition: 06/03/19 11:58 Transfer ordered to [facility]. Diagnosis is Subarachnoid Bleed. - Reason for transfer: Higher level of care. - Accepting physician is Ahmed. - Condition is Critical. - Problem is new. - Symptoms are unchanged. Signatures: Dispatcher [employer] Ezra Thacker RN RN Fili Espinoza MD MD kdr Smirch, Shelby, RN RN ss Leal, Jahala, RN RN [id number] Corrections: (The following items were deleted from the chart) 12:36 11:58 06/03/2019 11:58 Transfer ordered to [facility]. ss Diagnosis is Subarachnoid Bleed. Reason for transfer: Higher level of care. Accepting physician is Ahmed. Condition is Critical. Problem is new. Symptoms are unchanged. kdr
[2019-06-03] MEDS ORDERED: FENTANYL CITR 100 MCG/2 ML ONE (12:01)
[2019-06-03 12:44] VITALS: O2SAT 100
[2019-06-03 12:52] VITALS: BP 208/88
--- NOTE | 2019-06-03 16:51 | EKG ---
Test Date: 2019-06-03 Test Time: 11:16:46 Rig Mechanic: VANESSA MEASUREMENT RESULTS: Intervals: Rate: 86 WY: 190 QRSD: 96 QT: 434 QTc: 519 [place]: P: 75 WY: 190 QRS: 45 T: 82 INTERPRETIVE STATEMENTS: Normal sinus rhythm Prolonged QT Abnormal ECG Compared to ECG 10/27/2018 17:33:21 Prolonged QT interval now present Myocardial infarct finding no longer present Electronically Signed On 06-03-19 16:49:46 STORE KEEPER by Tho Lay
== END 2019-06-03 12:36 | disposition short-term general hospital (02) ==
LOC: ER 11:09
PROC: 0BH17EZ Insertion of Endotracheal Airway into Trachea, Via Natural or Artificial Opening (ICD-10-PCS; principal; 2019-06-03)
PROC: 5A1935Z Respiratory Ventilation, Less than 24 Consecutive Hours (ICD-10-PCS; 2019-06-03)
DX: I60.9 Nontraumatic subarachnoid hemorrhage, unspecified (principal); Z95.5 Presence of coronary angioplasty implant and graft
CPT/HCPCS: 93005; 85025; 80048; 36415; 85610; 82947; 85730; 70450; 71045; 31500 ×2; 51702; 99291; 94002; J0330; J3010; Q2009; J7030

== ENCOUNTER 2019-06-10 13:37 | Inpatient (IN) | payer OTHER ==
--- NOTE | 2019-06-10 14:54 | R.PREADM ---
SCREENING DATE AND TIME 06/10/2019 13:44 (BOOM STICK WORKER) ANTICIPATED REHAB ADMISSION DATE 06/12/2019 REFERRING FACILITY [facility] REFERRAL DATE AND TIME 06/10/2019 13:44 (BOOM STICK WORKER) ACUTE ADMIT DATE 06/03/2019 Previous Rehabilitation(s): No. REFERRING PHYSICIAN Walter Phan REHAB FACILITY [facility] CLINICAL LIAISON Elmer Briones PHYSICIAN REVIEWER Dr. Kodak Leslie M.D. [id number] [id number] NAME KAILA BLANK ADDRESS [address] [facility] PHONE [facility] [id number] DATE OF 1975 AGE 43 SSN# [id number] GENDER male MARITAL STATUS RACE white ADMIT FROM 02 - [facility] PRE-HOSPITAL LIVING SETTING 01 - Home (private home/apt. board/care, assisted living, snf, transitional living) HOME TYPE AND DETAILS Type of home: single family house # of steps to enter the residence: 0 # of steps within the residence: 0 # of levels in the residence: 1 PRE-HOSPITAL LIVING WITH Alone FAMILY SUPPORT Yes PRIMARY FAMILY CONTACT NAME Meghan Blank PRIMARY FAMILY CONTACT PHONE PHONE PRIMARY FAMILY CONTACT ON ADM.? no IS PRIMARY FAMILY CONTACT AUTH. REP.? no 1ST EMERGENCY CONTACT Meghan Blank 1ST CONTACT PHONE PHONE 1ST CONTACT ON ADM. no IS 1ST CONTACT AUTH. REP.? no PHONE 2ND CONTACT ON ADM.? 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 No ANOTHER DEMOCRAT RESPONSIBLE? No ONSET DATE 06/03/2019 REHAB IMPAIRMENT CATEGORY (ANNI): 01 Stroke (STR) MEETS 60% rule AFFECTED EXTREMITIES: RLE, and RUE PRIMARY DIAGNOSIS-RELATED SURGERIES: No surgeries related to the primary diagnosis were performed. SUMMARY OF ACUTE HOSPITALIZATION: Pt. is a 43 yo Right-handed white male. On 06/03/2019 Pt. presented to [facility] with sudden onset of right-side weakness. On 06/03/2019 he was admitted to [facility] with diagnosis Nontraumatic intracerebral hemorrhage, unspecified (I61.9) . His impairment category is Stroke 01 - Right Body (Left Brain) (01.2). Pre-morbidly, Pt. was independent/mod-I in Locomotion, Self-Care, Endurance, Balance, Transfers Contr ol, Social Cognition, Safety Awareness, Communication, Functional mobility, and Sphincter Control; an d he had good Ambulation. Currently, he has deficits of Locomotion, Self-Care, Endurance, Balance, Transfers Control, Ambulatio n, and Functional mobility. Pt. is now referred to [facility] for acute in-patient rehabilitation in order to maximize patient's functional independence in activities of daily living, strength, ROM, and mobi lity. Patient has realistic goal of being discharged at assistance level 6-Cari to reside at Home with Fam desiree/Relatives. MEDICATION ALLERGIES: No Known Drug Allergies (NKDA) ENVIRONMENTAL ALLERGIES: - Substance Allergies None Known - Other Allergies None Known CODE STATUS: Full code WEIGHT/HEIGHT/BMI: WEIGHT 236 lbs HEIGHT 5' 8" BMI 35.9 DIET: - Diet Type Regular - Diet - Solid Texture Regular - Diet - Liquid Texture Regular - Tube Feed N/A REVIEW OF SYSTEMS: - Gen Alert and awake Lying in bed No apparent distress Oriented to: person, time, and place - Vital Signs Vital signs stable, afebrile - CVS RRR VITAL SIGNS Temperature: 98 F SBP/DBP: 174/92 Pulse: 74 Resp: 17 Vital signs stable, afebrile MEDICATIONS/TREATMENT: Other- See attached MAR (Medication Administration Record). CURRENT SPHINCTER CONTROL: Pre-hospital bladder status: continent # of bladder accidents in the last 7 days prior to screenin Pre-hospital bowel status: continent # of bowel accidents in the last 7 days prior to screenin Last Bowel Movement Date: 06/10/2019 CURRENT LOCOMOTION STATUS: distance traveled in wheelchair 0 feet distance walked 0 feet DETAILED CURRENT FUNCTIONAL STATUS: - Bladder accident frequency: Ind - No accidents in the past 7 days - Bowel accident frequency: Ind - No accidents in the past 7 days - Walking score based on distance walked: 1(<=50ft) - Wheelchair score based on distance traveled: 1(<=50ft) QI SCORES: - Self-Care A. Eating 88-Not attempted due to medical condition or safety concerns B. Oral hygiene 05-Setup or clean-up assistance C. Toileting hygiene 01-Dependent E. Shower/bathe self 88-Not attempted due to medical condition or safety concerns F. Upper body dressing 01-Dependent G. Lower body dressing 01-Dependent H. Putting on/taking off footwear 88-Not attempted due to medical condition or safety concerns - Mobility A. Roll left and right 01-Dependent B. Sit to lying 01-Dependent C. Lying to sitting on side of bed 01-Dependent D. Sit to stand 01-Dependent E. Chair/nmd-wr-xfola transfer 01-Dependent F. Toilet transfer 01-Dependent G. Car transfer 88-Not attempted due to medical condition or safety concerns I. Walk 10 feet 88-Not attempted due to medical condition or safety concerns J. Walk 50 feet with two turns 88-Not attempted due to medical condition or safety concerns K. Walk 150 feet 88-Not attempted due to medical condition or safety concerns L. Walking 10 feet on uneven surfaces 88-Not attempted due to medical condition or safety concerns M. 1 step (curb) 88-Not attempted due to medical condition or safety concerns N. 4 steps 88-Not attempted due to medical condition or safety concerns O. 12 steps 88-Not attempted due to medical condition or safety concerns P. Picking up object 88-Not attempted due to medical condition or safety concerns R. Wheel 50 feet with two turns 88-Not attempted due to medical condition or safety concerns S. Wheel 150 feet 88-Not attempted due to medical condition or safety concerns - Bladder and Bowel Bladder continence 0-Always continent Bowel continence 0-Always continent - Endurance Poor - Balance Poor - Safety Awareness Fair CURRENT [facility]. DEFICITS: Mobility, Endurance, Balance, Safety Awareness, and Self-Care CURRENT / PREVIOUS ASSISTIVE DEVICES: 3-in-1 Commode [facility] Raised Toilet Rolling Walker Shower Chair Wheelchair HISTORY OF FALLS. HAS THE PATIENT HAD TWO OR MORE FALLS IN THE PAST YEAR OR ANY FALL WITH INJURY IN T HE PAST YEAR?: No PRIOR SURGERY. DID THE PATIENT HAVE MAJOR SURGERY DURING THE 100 DAYS PRIOR TO ADMISSION?: No THERAPY NOTES FROM ACUTE CARE: Attached. SPECIAL NEEDS: - Safety Concerns Skin breakdown precautions needed due to skin breakdown risk PRECAUTIONS: - Weight Bearing Precaution WBAT right LE PATIENT NEEDS ACTIVE AND ONGOING THERAPEUTIC INTERVENTION OF MULTIPLE THERAPY DISCIPLINES, INCLUDING: - Occupational Therapy Cognitive Retraining. Visual Perceptual Training. - Dietary and Nutrition Adequate Nutrition. Nutritional Education. Nutritional Supplements. - Speech Therapy Cognitive Training. Expressive Language Skills. Memory Strategies. Receptive Language Skills. Speech Intelligibility Training. PATIENT NEEDS CLOSE MEDICAL SUPERVISION BY A REHABILITATION PHYSICIAN FOR: Coordination of Treatment Team PATIENT REQUIRES 24X7 REHAB NURSING FOR MEDICAL AND FUNCTIONAL MGT. OF THE FOLLOWING DEFICITS: Disease Management Medication Management Patient/Family Education Providing Safe Environment PATIENT REQUIRES INTENSIVE, COORDINATED INTERDISCIPLINARY APPROACH TO REHAB: Arranging Home Equipment/Services Discharge Planning Family Intervention/Training Anchorer/Case Management PATIENT REHAB POTENTIAL: Janki BLANK is able and expected to receive 3 hours of individualized therapy daily on at least 5 of e very 7 days Janki BLANK's prognosis for significant practical improvement within a reasonable period of time appea rs Good Expected level of measurable improvement will be of a practical value to Janki BLANK's functional capa city or adaptations to impairments Has a viable Discharge Plan Medically appropriate; condition is sufficiently stable to participate in intensive rehab program DISCHARGE PLAN: - Estimated Length of Stay (days) 17. - Consensus on plan Discharge plan has been discussed with primary caregiver. Patient/Family is in agreement with the miguel n. Primary caregiver is in agreement with the plan. - Patient/Family Goals Return home with assistance. - Planned Living Setting Upon Discharge Home, to live alone. RECOMMENDED CARE LEVEL: IRF RECOMMENDATION DETAILS: Recommended Admission to Comprehensive Rehabilitation Program to Increase Functional [place] SCREENER'S COMPLETENESS CONFIRMATION: - Screening Confirmation The patient data collection on this preadmission screening form is finished PHYSICIANS REVIEW AND ADMISSION DETERMINATION Admit - Based on my review of the Pre-Admission Screening results, in my medical judgment and experie nce, I concur with the findings and recommend admission to [facility], as this patient requires an IRF level of care. SIGNATURE PANEL: Clinical Liaison - [electronically] signed by Reta Xiong on 06/10/2019 at 13:59 (BOOM STICK WORKER) Clinical Liaison - [electronically] signed by Elmer Briones on 06/10/2019 at 14:06 (BOOM STICK WORKER) Physician Reviewer - [electronically] signed by Dr. Kodak Leslie M.D. on 06/10/2019 at 14:52 (BOOM STICK WORKER )
[2019-06-10] MEDS: HYDRALAZINE HCL 25 MG TABLET FT SCH (22:01)
[2019-06-11] MEDS ORDERED: TRAZODONE 50 MG TABLET PO PRN (00:27)
[2019-06-11] MEDS ORDERED: GLUCAGON 1 MG/VIAL IM PRN (00:28)
[2019-06-11] MEDS ORDERED: D50W 25 GM/50 ML SYRINGE/VIAL IV PRN (00:28)
[2019-06-11] MEDS ORDERED: NEPRO 1,000 ML BOT FT SCH (01:00)
[2019-06-11 02:57] LABS: Urine Appearance CLEAR; Urine Bilirubin NEGATIVE (NEG); Urine Blood 1+ (NEG); Urine Color YELLOW; Urine Glucose 1+ (NEG); Urine Protein 2+ (NEG); Urine Specific Gravity 1.015 (1.005-1.030); Urine Urobilinogen 0.2 mg/dL (0.2-1.0); Urine pH 5.5 (5.0-7.0)
[2019-06-11 03:22] LABS: Urine Bacteria <20 /HPF (NONE SEEN); Urine Culture Reflex Order NOT NEEDED
[2019-06-11] MEDS: carvediloL 25 MG TAB FT SCH ×2 (05:12→18:14)
[2019-06-11 05:48] LABS: Absolute Lymphocytes (CBC) 1.2 K/uL (0.7-4.9); Basophils % 1.5 % (0-1.3); Hematocrit 29.9 % (39.6-49.0); Lymphocytes % 14.7 % (15.3-44.8); MPV 10.1 fL (7.6-11.3); RBC Red Blood Cell Count 3.27 M/uL (4.33-5.43)
[2019-06-11 05:49] VITALS: BMI 33.9
[2019-06-11] MEDS: INSULIN -REGULAR HUMAN 50 UNIT/0.5 ML ML SQ SCH ×3 (06:00→18:00)
[2019-06-11 06:44] LABS: Albumin 2.3 g/dL (3.4-5.0); Magnesium 2.6 mg/dL (1.8-2.4); Potassium 4.4 mmol/L (3.5-5.1); Prealbumin 25.5 mg/dL (20-40)
[2019-06-11] MEDS: HYDRALAZINE HCL 25 MG TABLET FT SCH ×3 (10:00→20:41)
[2019-06-11] MEDS ORDERED: INFLUENZA VACCINE (for 3y+) 0.5 ML DOSE IMVAC ONE (10:00)
[2019-06-11] MEDS: AMLODIPINE 10 MG TAB FT SCH (10:00)
--- NOTE | 2019-06-11 12:48 | FAST ---
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 Kodak Leslie M.D. ROLL LEFT AND RIGHT: ROLL LEFT AND RIGHT - STEP 1: Does the patient complete the activity by him/herself with no assistance (physical, verbal/nonverbal cueing, setup/clean-up)? No. ROLL LEFT AND RIGHT - STEP 2: Does the patient need only setup/clean-up assistance from one helper? No. ROLL LEFT AND RIGHT - STEP 3: Does the patient need only verbal/nonverbal cueing or touching/steadying/contact guard assistance fro m one helper? No. ROLL LEFT AND RIGHT - STEP 4: Does the patient need physical assistance - for example lifting or trunk support from one helper - wi th the helper providing less than half of the effort? No. ROLL LEFT AND RIGHT - STEP 5: Does the patient need physical assistance - for example lifting or trunk support from one helper - wi th the helper providing more than half of the effort? Yes. 1. [id number] ADMISSION PERFORMANCE: Substantial/maximal assistance CODE: 02 [id number] - COMMENTS: Patient able to initiate rolling to R side, total A rolling to L side. SIT TO LYING: SIT TO LYING - STEP 1: Does the patient complete the activity by him/herself with no assistance (physical, verbal/nonverbal cueing, setup/clean-up)? No. SIT TO LYING - STEP 2: Does the patient need only setup/clean-up assistance from one helper? No. SIT TO LYING - STEP 3: Does the patient need only verbal/nonverbal cueing or touching/steadying/contact guard assistance fro m one helper? No. SIT TO LYING - STEP 4: Does the patient need physical assistance - for example lifting or trunk support from one helper - wi th the helper providing less than half of the effort? No. SIT TO LYING - STEP 5: Does the patient need physical assistance - for example lifting or trunk support from one helper - wi th the helper providing more than half of the effort? No. SIT TO LYING - STEP 6: Does the helper provide all of the effort? OR Is the assistance of two or more helpers required to co mplete the activity? Yes. 1. [id number] ADMISSION PERFORMANCE: Dependent CODE: [id number] - COMMENTS: Patient requires Total A to achieve supine position from sitting. LYING TO SITTING: LYING TO SITTING ON SIDE OF BED - STEP 1: Does the patient complete the activity by him/herself with no assistance (physical, verbal/nonverbal cueing, setup/clean-up)? No. LYING TO SITTING ON SIDE OF BED - STEP 2: Does the patient need only setup/clean-up assistance from one helper? No. LYING TO SITTING ON SIDE OF BED - STEP 3: Does the patient need only verbal/nonverbal cueing or touching/steadying/contact guard assistance fro m one helper? No. LYING TO SITTING ON SIDE OF BED - STEP 4: Does the patient need physical assistance - for example lifting or trunk support from one helper - wi th the helper providing less than half of the effort? No. LYING TO SITTING ON SIDE OF BED - STEP 5: Does the patient need physical assistance - for example lifting or trunk support from one helper - wi th the helper providing more than half of the effort? No. LYING TO SITTING ON SIDE OF BED - STEP 6: Does the helper provide all of the effort? OR Is the assistance of two or more helpers required to co mplete the activity? Yes. 1. [id number] ADMISSION PERFORMANCE: Dependent CODE: [id number] - COMMENTS: Total A supine to sitting with help on trunk and RLE. SIT TO STAND: SIT TO STAND - STEP 1: Does the patient complete the activity by him/herself with no assistance (physical, verbal/nonverbal cueing, setup/clean-up)? No. SIT TO STAND - STEP 2: Does the patient need only setup/clean-up assistance from one helper? No. SIT TO STAND - STEP 3: Does the patient need only verbal/nonverbal cueing or touching/steadying/contact guard assistance fro m one helper? No. SIT TO STAND - STEP 4: Does the patient need physical assistance - for example lifting or trunk support from one helper - wi th the helper providing less than half of the effort? No. SIT TO STAND - STEP 5: Does the patient need physical assistance - for example lifting or trunk support from one helper - wi th the helper providing more than half of the effort? No. SIT TO STAND - STEP 6: Does the helper provide all of the effort? OR Is the assistance of two or more helpers required to co mplete the activity? Yes. 1. [id number] ADMISSION PERFORMANCE: Dependent CODE: [id number] - COMMENTS: Pt requires +2 person Max Assist to achieve standing using // bar TRANSFERS: BED, CHAIR: CHAIR/XUS-JL-XNSLD TRANSFER - STEP 1: Does the patient complete the activity by him/herself with no assistance (physical, verbal/nonverbal cueing, setup/clean-up)? No. CHAIR/[id number]-[id number] TRANSFER - STEP 2: Does the patient need only setup/clean-up assistance from one helper? No. CHAIR/UAK-VW-MUMYO TRANSFER - STEP 3: Does the patient need only verbal/nonverbal cueing or touching/steadying/contact guard assistance fro m one helper? No. CHAIR/NWA-IV-XCYWZ TRANSFER - STEP 4: Does the patient need physical assistance - for example lifting or trunk support from one helper - wi th the helper providing less than half of the effort? No. CHAIR/IMJ-JF-MDAFT TRANSFER - STEP 5: Does the patient need physical assistance - for example lifting or trunk support from one helper - wi th the helper providing more than half of the effort? No. CHAIR/MBK-LU-NXBIP TRANSFER - STEP 6: Does the helper provide all of the effort? OR Is the assistance of two or more helpers required to co mplete the activity? Yes. 1. [id number] ADMISSION PERFORMANCE: Dependent CODE: [id number] - COMMENTS: Patient requires +2 person Max A bed<->w/c using sliding board TRANSFER TOILET: TOILET TRANSFER - STEP 1: Does the patient complete the activity by him/herself with no assistance (physical, verbal/nonverbal cueing, setup/clean-up)? No. TOILET TRANSFER - STEP 2: Does the patient need only setup/clean-up assistance from one helper? No. TOILET TRANSFER - STEP 3: Does the patient need only verbal/nonverbal cueing or touching/steadying/contact guard assistance fro m one helper? No. TOILET TRANSFER - STEP 4: Does the patient need physical assistance - for example lifting or trunk support from one helper - wi th the helper providing less than half of the effort? No. TOILET TRANSFER - STEP 5: Does the patient need physical assistance - for example lifting or trunk support from one helper - wi th the helper providing more than half of the effort? No. TOILET TRANSFER - STEP 6: Does the helper provide all of the effort? OR Is the assistance of two or more helpers required to co mplete the activity? Yes. 1. [id number] ADMISSION PERFORMANCE: Dependent CODE: [id number] - COMMENTS: Patient requires +2 Person Max A toilet transfers, pt exhibit an impulsive behavior. TRANSFERS: CAR: Not attempted due to medical condition or safety concerns CODE: [id number] - COMMENTS: Total A with car transfer WALK 10 FEET: Not attempted due to medical condition or safety concerns CODE: 88 [id number] - COMMENTS: Unable at this time due to medical condition WALK 50 FEET: Not attempted due to medical condition or safety concerns CODE: 88 WALK 150 FEET: Not attempted due to medical condition or safety concerns CODE: 88 WALK 10 FEET UNEVEN: Not attempted due to medical condition or safety concerns CODE: 88 1 STEP (CURB): Not attempted due to medical condition or safety concerns CODE: 88 4 STEPS: Not attempted due to medical condition or safety concerns CODE: 88 12 STEPS: PICKING UP OBJECT: Not attempted due to medical condition or safety concerns CODE: 88 DOES THE PATIENT USE A WHEELCHAIR/SCOOTER? Q1. DOES THE PATIENT USE A WHEELCHAIR/SCOOTER?: Yes CODE: 1 WHEEL 50 FEET WITH TWO TURNS: WHEEL 50 FEET WITH TWO TURNS - STEP 1: Does the patient complete the activity by him/herself with no assistance (physical, verbal/nonverbal cueing, setup/clean-up)? No. WHEEL 50 FEET WITH TWO TURNS - STEP 2: Does the patient need only setup/clean-up assistance from one helper? No. WHEEL 50 FEET WITH TWO TURNS - STEP 3: Does the patient need only verbal/nonverbal cueing or touching/steadying/contact guard assistance fro m one helper? No. WHEEL 50 FEET WITH TWO TURNS - STEP 4: Does the patient need physical assistance - for example lifting or trunk support from one helper - wi th the helper providing less than half of the effort? No. WHEEL 50 FEET WITH TWO TURNS - STEP 5: Does the patient need physical assistance - for example lifting or trunk support from one helper - wi th the helper providing more than half of the effort? Yes. 1. [id number] ADMISSION PERFORMANCE: Substantial/maximal assistance CODE: 70R - COMMENTS: Patient requires Mod A with turning, min A with straight path with use of LUE/LE INDICATE THE TYPE OF WHEELCHAIR/SCOOTER USED: RR1. INDICATE THE TYPE OF WHEELCHAIR/SCOOTER USED.: Manual CODE: 1 WHEEL 150 FEET: WHEEL 150 FEET - STEP 1: Does the patient complete the activity by him/herself with no assistance (physical, verbal/nonverbal cueing, setup/clean-up)? No. WHEEL 150 FEET - STEP 2: Does the patient need only setup/clean-up assistance from one helper? No. WHEEL 150 FEET - STEP 3: Does the patient need only verbal/nonverbal cueing or touching/steadying/contact guard assistance fro m one helper? No. WHEEL 150 FEET - STEP 4: Does the patient need physical assistance - for example lifting or trunk support from one helper - wi th the helper providing less than half of the effort? No. WHEEL 150 FEET - STEP 5: Does the patient need physical assistance - for example lifting or trunk support from one helper - wi th the helper providing more than half of the effort? Yes. 1. [id number] ADMISSION PERFORMANCE: Substantial/maximal assistance CODE: S - COMMENTS: Patient completed 180ft with w/c mobility Min/Mod A on a hallway. INDICATE THE TYPE OF WHEELCHAIR/SCOOTER USED: SS1. INDICATE THE TYPE OF WHEELCHAIR/SCOOTER USED.: Manual CODE: 1 BLADDER AND BOWEL: CODE: EXPR CODE: EXPR SIGNATURE PANEL: The following modified sections: 1. [id number] Admission Performance, PE3462B - Comments:, [id number] - Com ments:, 1. [id number] Admission Performance, LZ0685K - Comments:, 1. VR0441M Admission Performance, GG 70D - Comments:, [id number] - Comments:, JI3498V - Comments:, CH2096M - Comments:, [id number] - Comments:, SM6092G - Comments:, [id number] - Comments:, [id number] - Comments:, 1. [id number] Admission Performance, GG01 70F - Comments:, 1. YM5814V Admission Performance, RS2238L - Comments:, [id number] - Comments:, Q1. Does the patient use a wheelchair/scooter?, 1. XP9106F Admission Performance, 1. QI0595K Admission Perfor kim, NQ6387L - Comments:, RR1. Indicate the type of wheelchair/scooter used., 1. QK8263L Admission Performance, Code, 1. IS0623J Admission Performance, Code, SE4539A - Comments:, SS1. Indicate the typ e of wheelchair/scooter used., 1. YC6313T Admission Performance, 1. WU8480N Admission Performance, 1. XH8306D Admission Performance, 1. PL3510A Admission Performance, 1. ME6220Y Admission Performance, 1 . IM7359S Admission Performance were [electronically] signed by Speedy Torres on Sat Jun 11 2019 12 :47:20 GMT-0600 (Central Standard Time)
--- NOTE | 2019-06-11 13:05 | FAST ---
ENCOUNTER DATE AND TIME: 06/11/2019 08:00 (LVN) NAME KAILA BLANK DATE OF : 1975 DATE OF ADMISSION: 06/10/2019 18:25 (LVN) PHONE: AGE: 43 N# [id number] GENDER: Male ENCOUNTER PHYSICIAN: Dr. Kodak Leslie M.D. EATING: Not assessed/no information CODE: - ORAL HYGIENE: Not assessed/no information CODE: - TOILETING HYGIENE: Not assessed/no information CODE: - BATHING: Not assessed/no information SHOWER/BATHE SELF - STEP 1: Does the patient complete the activity by him/herself with no assistance (physical, verbal/nonverbal cueing, setup/clean-up)? No. SHOWER/BATHE SELF - STEP 2: Does the patient need only setup/clean-up assistance from one helper? No. SHOWER/BATHE SELF - STEP 3: Does the patient need only verbal/nonverbal cueing or touching/steadying/contact guard assistance fro m one helper? No. SHOWER/BATHE SELF - STEP 4: Does the patient need physical assistance - for example lifting or trunk support from one helper - wi th the helper providing less than half of the effort? No. SHOWER/BATHE SELF - STEP 5: Does the patient need physical assistance - for example lifting or trunk support from one helper - wi th the helper providing more than half of the effort? No. SHOWER/BATHE SELF - STEP 6: Does the helper provide all of the effort? OR Is the assistance of two or more helpers required to co mplete the activity? Yes. 1. [id number] ADMISSION PERFORMANCE: Dependent CODE: [id number] - COMMENTS: X2 people assist DRESSING - UPPER BODY: Not attempted due to environmental limitations (e.g., lack of equipment, weather constraints) CODE: 10 DRESSING - LOWER BODY: DRESSING - LOWER BODY - STEP 1: Does the patient complete the activity by him/herself with no assistance (physical, verbal/nonverbal cueing, setup/clean-up)? No. DRESSING - LOWER BODY - STEP 2: Does the patient need only setup/clean-up assistance from one helper? No. DRESSING - LOWER BODY - STEP 3: Does the patient need only verbal/nonverbal cueing or touching/steadying/contact guard assistance fro m one helper? No. DRESSING - LOWER BODY - STEP 4: Does the patient need physical assistance - for example lifting or trunk support from one helper - wi th the helper providing less than half of the effort? No. DRESSING - LOWER BODY - STEP 5: Does the patient need physical assistance - for example lifting or trunk support from one helper - wi th the helper providing more than half of the effort? No. DRESSING - LOWER BODY - STEP 6: Does the helper provide all of the effort? OR Is the assistance of two or more helpers required to co mplete the activity? Yes. 1. [id number] ADMISSION PERFORMANCE: Dependent CODE: 01 PUTTING ON/TAKING OFF FOOTWEAR: FOOTWEAR - STEP 1: Does the patient complete the activity by him/herself with no assistance (physical, verbal/nonverbal cueing, setup/clean-up)? No. FOOTWEAR - STEP 2: Does the patient need only setup/clean-up assistance from one helper? No. FOOTWEAR - STEP 3: Does the patient need only verbal/nonverbal cueing or touching/steadying/contact guard assistance fro m one helper? No. FOOTWEAR - STEP 4: Does the patient need physical assistance - for example lifting or trunk support from one helper - wi th the helper providing less than half of the effort? No. FOOTWEAR - STEP 5: Does the patient need physical assistance - for example lifting or trunk support from one helper - wi th the helper providing more than half of the effort? No. FOOTWEAR - STEP 6: Does the helper provide all of the effort? OR Is the assistance of two or more helpers required to co mplete the activity? Yes. 1. ADMISSION PERFORMANCE: Dependent CODE: 01 DOES THE PATIENT USE A WHEELCHAIR/SCOOTER? CODE: EXPR INDICATE THE TYPE OF WHEELCHAIR/SCOOTER USED: CODE: EXPR INDICATE THE TYPE OF WHEELCHAIR/SCOOTER USED: CODE: EXPR BLADDER AND BOWEL: CODE: EXPR CODE: EXPR SIGNATURE PANEL: The following modified sections: 1. [id number] Admission Performance, RN1850C - Comments:, 1. [id number] Ad mission Performance, 1. [id number] Admission Performance were [electronically] signed by Katie Lopez OT on Sat Jun 11 2019 13:04:10 T-0600 (Central Standard Time)
[2019-06-11] MEDS ORDERED: APIXABAN 2.5 MG TABLET PO SCH (20:00)
--- NOTE | 2019-06-11 20:10 | R.HP ---
FACILITY: [facility] ENCOUNTER DATE AND TIME: 06/11/2019 20:05 (WOOD AND HARDWARE OUTFITTER) MR#: [id number] NAME KAILA BLANK ADDRESS: [address] [place]: [place] [address] PHONE: DATE OF : 1975 AGE: 43 SSN# [id number] GENDER: Male DEXTERITY Right-handed MARITAL STATUS RACE White PRE-HOSPITAL LIVING SETTING 01 - Home (private home/apt. board/care, assisted living, custodial, transitional living) PRE-HOSPITAL LIVING WITH Alone ENCOUNTER PHYSICIAN: Dr. Kodak Leslie M.D. REFERRING DOCTOR: Walter Phan DATE OF ADMISSION: 06/10/2019 18:25 (WOOD AND HARDWARE OUTFITTER) REFERRING FACILITY [facility] HOME TYPE AND DETAILS: Type of home: single family house # of steps to enter the residence: 0 # of steps within the residence: 0 # of levels in the residence: 1 ONSET DATE: 06/03/2019 PRIMARY DIAGNOSIS-RELATED SURGERIES: No surgeries related to the primary diagnosis were performed. HISTORY OF PRESENT ILLNESS (HPI): Pt. is a 43 yo Right-handed white male. On 06/03/2019 Pt. presented to [facility] with sudden onset of right-side weakness. On 06/03/2019 he was admitted to [facility] with diagnosis Nontraumatic intracerebral hemorrhage, unspecified (I61.9) . His impairment category is Stroke 01 - Right Body (Left Brain) (01.2). Pre-morbidly, Pt. was independent/mod-I in Locomotion, Self-Care, Endurance, Balance, Transfers Contr ol, Social Cognition, Safety Awareness, Communication, Functional mobility, and Sphincter Control; an d he had good Ambulation. Currently, he has deficits of Locomotion, Self-Care, Endurance, Balance, Transfers Control, Ambulatio n, and Functional mobility. Pt. is now referred to [facility] for acute in-patient rehabilitation in order to maximize patient's functional independence in activities of daily living, strength, ROM, and mobi lity. Patient has realistic goal of being discharged at assistance level 6-Cari to reside at Home with Fam desiree/Relatives. MEDICATION ALLERGIES: No Known Drug Allergies (NKDA) ENVIRONMENTAL ALLERGIES: - Substance Allergies None Known - Other Allergies None Known FAMILY HISTORY: Family history is not contributory. SOCIAL HISTORY: - Home Living Alone REVIEW OF SYSTEMS: - Gen No Chills No Fatigue No Fever - Eyes No Double Vision No itchiness - ENMT Difficulty Swallowing - CVS Chest Discomfort No Chest Pain No Fatigue No Weight Gain - Resp No Cough Shortness of Breath - GI Continent No Abdominal Pain No Constipation No Diarrhea - Continent No Painful Urination No Urinary Urgency Valladares Cath in place - MSK No Joint Pain No Muscle Cramps Stiffness - Skin No Itching No Rash No Suspicious Lesions - Neuro Coordination Difficulty No Difficulty with Concentration No Memory Loss No Seizures Weakness - Psych No Anxiety No Depression No HIV Exposure No Persistent Infections No Seasonal Allergies - Endo No Cold/Heat Intolerance No Excessive Hunger No Excessive Thirst No Excessive Urination PHYSICAL EXAM - Gen Alert and awake Lying in bed No apparent distress Oriented to: person, time, and place - Skin No breakdown Normacephalic - Eyes No abnormalities - ENMT No abnormalities - Neck No abnormalities - CVS RRR - Chest Mildly decreased breath sounds bilaterally. - Resp Bilateral congestion. - Abd +bowel sounds - GI nondistended Deferred - Valladares catheter - Ext No significant edema - MSK 4+/5 weakness in right lower extremity - Neuro 4/5 strength right lower extremity. - Psych No abnormalities VITAL SIGNS Temperature: 98 F SBP/DBP: 174/92 Pulse: 74 Resp: 17 NURSING: - Shower allowing shower - Bladder care per protocol - Skin care per protocol PRECAUTIONS: - Weight Bearing Precaution WBAT right LE ACTIVITIES OOB only with supervision QI SCORES: - Self-Care A. Eating 88-Not attempted due to medical condition or safety concerns B. Oral hygiene 05-Setup or clean-up assistance C. Toileting hygiene 01-Dependent E. Shower/bathe self 88-Not attempted due to medical condition or safety concerns F. Upper body dressing 01-Dependent G. Lower body dressing 01-Dependent H. Putting on/taking off footwear 88-Not attempted due to medical condition or safety concerns - Mobility A. Roll left and right 01-Dependent B. Sit to lying 01-Dependent C. Lying to sitting on side of bed 01-Dependent D. Sit to stand 01-Dependent E. Chair/jef-rx-qgqez transfer 01-Dependent F. Toilet transfer 01-Dependent G. Car transfer 88-Not attempted due to medical condition or safety concerns I. Walk 10 feet 88-Not attempted due to medical condition or safety concerns J. Walk 50 feet with two turns 88-Not attempted due to medical condition or safety concerns K. Walk 150 feet 88-Not attempted due to medical condition or safety concerns L. Walking 10 feet on uneven surfaces 88-Not attempted due to medical condition or safety concerns M. 1 step (curb) 88-Not attempted due to medical condition or safety concerns N. 4 steps 88-Not attempted due to medical condition or safety concerns O. 12 steps 88-Not attempted due to medical condition or safety concerns P. Picking up object 88-Not attempted due to medical condition or safety concerns R. Wheel 50 feet with two turns 88-Not attempted due to medical condition or safety concerns S. Wheel 150 feet 88-Not attempted due to medical condition or safety concerns - Bladder and Bowel Bladder continence 0-Always continent Bowel continence 0-Always continent - Endurance Poor - Balance Poor - Safety Awareness Fair CURRENT FUNC. DEFICITS: Mobility, Endurance, Balance, Safety Awareness, and Self-Care MEDICATIONS: - Other See attached MAR (Medication Administration Record) ASSESSMENT: Pt. is a 43 yo Right-handed white male.On 06/03/2019 Pt. presented to [facility] with sudden onset of right-side weakness.On 06/03/2019 he was admitted to [facility] with diagnosis Nontraumatic intracerebral hemorrhage, unspecified (I61.9) .His impairment category is Str carmen 01 - Right Body (Left Brain) (01.2).Pre-morbidly, Pt. was independent/mod-I in Locomotion, Self- Care, Endurance, Balance, Transfers Control, Social Cognition, Safety Awareness, Communication, Funct ional mobility, and Sphincter Control; and he had good Ambulation.Currently, he has deficits of Locom otion, Self-Care, Endurance, Balance, Transfers Control, Ambulation, and Functional mobility.Pt. is n ow referred to [facility] for acute in-patient rehabilitation in order to maxi theodore patient's functional independence in activities of daily living, strength, ROM, and mobility.- R ehab Goal Patient has realistic goal of being discharged at assistance level 6-Cari to reside at Home with Fam desiree/Relatives. for Dementia, TBI, Stroke, or others - Physical Therapy Gait dysfunction - to improve, our physical therapists will perform initial evaluation of pt's status upon admission and devise an individualized program for Gait Training, and Wheel Chair mobility Inability to transfer - to improve, our physical therapists will perform initial evaluation of pt's s tatus upon admission and devise an individualized program for Bed mobility Need for home safety evaluation - to improve, our physical therapists will perform initial evaluation of pt's status upon admission and devise an individualized program for Home Evaluation Need in caregiver upon discharge - to improve, our physical therapists will perform initial evaluatio n of pt's status upon admission and devise an individualized program for Caregiver Training New precaution - to improve, our physical therapists will perform initial evaluation of pt's status u keith admission and devise an individualized program for Patient precaution education Edema - to improve, our physical therapists will perform initial evaluation of pt's status upon admi ssion and devise an individualized program for Elevation Training, and Lymphedema Therapy Poor balance - to improve, our physical therapists will perform initial evaluation of pt's status upo n admission and devise an individualized program for Balance Training Poor endurance - to improve, our physical therapists will perform initial evaluation of pt's status u keith admission and devise an individualized program for Endurance Training Weakness - to improve, our physical therapists will perform initial evaluation of pt's status upon ad mission and devise an individualized program for Aquatic Therapy, Neuromuscular Reeducation, and Stre ngthening Achieving independence - to improve, our physical therapists will perform initial evaluation of pt's status upon admission and devise an individualized program for Community Reintegration Activities - Occupational Therapy ADL deficits - to improve, our occupation therapists will perform initial evaluation of pt's status u keith admission and devise an individualized program for Bathing, Bed mobility, Community Reintegration , Cooking, Dressing, Eating, Fine Motor Skills, Grooming, Homemaking, Kitchen Mobility, Laundry, Angeline ent Education, Safety Awareness, Splinting - Positioning, Transfers(Toilet, Tub, Shower), and Wheel C hair Management Need for direct care specialist - to improve, our occupation therapists will perform initial evaluation of pt's s tatus upon admission and devise an individualized program for Caregiver Training Weakness - to improve, our occupation therapists will perform initial evaluation of pt's status upon admission and devise an individualized program for Aquatic Therapy, Balance, Endurance, UE ROM, and U E strengthening MEDICAL PLAN: - Diet Type Start Regular - Diet - Liquid Texture Start Regular - Tube Feed Start N/A - Bladder care per protocol - Weight Bearing Precaution WBAT right LE - Skin care per protocol - Other See attached MAR (Medication Administration Record) - Diet - Solid Texture Regular - Shower shower DISCHARGE PLAN: - Estimated Length of Stay (days) 17. - Consensus on plan Discharge plan has been discussed with primary caregiver. Patient/Family is in agreement with the miguel n. Primary caregiver is in agreement with the plan. - Patient/Family Goals Return home with assistance. - Planned Living Setting Upon Discharge Home, to live alone. SIGNATURE PANEL: (WOOD AND HARDWARE OUTFITTER)
[2019-06-11] MEDS: MELATONIN 3 MG TABLET PO SCH (20:40)
[2019-06-11] MEDS ORDERED: MELATONIN 3 MG TABLET PO SCH (21:00)
[2019-06-12] MEDS: carvediloL 25 MG TAB FT SCH ×2 (05:15→16:56)
[2019-06-12] MEDS: INSULIN -REGULAR HUMAN 50 UNIT/0.5 ML ML SQ SCH ×4 (06:00→17:12)
[2019-06-12 06:19] LABS: Potassium 4.5 mmol/L (3.5-5.1)
[2019-06-12] MEDS: APIXABAN 2.5 MG TABLET FT SCH ×2 (08:20→20:43)
[2019-06-12] MEDS: HYDRALAZINE HCL 25 MG TABLET FT SCH ×3 (08:20→20:44)
[2019-06-12] MEDS: AMLODIPINE 10 MG TAB FT SCH (08:20)
[2019-06-12] MEDS: DULOXETINE 20 MG CAP PO SCH (08:20)
[2019-06-12] MEDS ORDERED: D50W 25 GM/50 ML VIAL IV PRN (19:00)
[2019-06-12] MEDS: ACETAMINOPHEN 500 MG TAB PO PRN (20:43)
[2019-06-12] MEDS: MELATONIN 3 MG TABLET PO SCH (20:44)
[2019-06-12] MEDS: NICOTINE 14 MG/PAT TD SCH (22:11)
--- NOTE | 2019-06-13 02:13 | FAST ---
SHIFT START DATE/TIME: 06/12/2019 19:00 (TOP TILE DECORATOR) SHIFT END DATE/TIME: 06/13/2019 07:00 (TOP TILE DECORATOR) NAME KAILA BLANK DATE OF : 1975 DATE OF ADMISSION: 06/10/2019 18:25 (TOP TILE DECORATOR) PHONE: AGE: 43 N# [id number] GENDER: Male ENCOUNTER PHYSICIAN: Dr. Kodak Leslie M.D. EATING: Not assessed/no information CODE: - ORAL HYGIENE: ORAL HYGIENE - STEP 1: Does the patient complete the activity by him/herself with no assistance (physical, verbal/nonverbal cueing, setup/clean-up)? No. ORAL HYGIENE - STEP 2: Does the patient need only setup/clean-up assistance from one helper? Yes. 1. [id number] ADMISSION PERFORMANCE: Setup or clean-up assistance CODE: 05 TOILETING HYGIENE: Not assessed/no information CODE: - BATHING: Not assessed/no information CODE: - DRESSING - UPPER BODY: Not assessed/no information CODE: - DRESSING - LOWER BODY: Not assessed/no information CODE: - PUTTING ON/TAKING OFF FOOTWEAR: Not assessed/no information CODE: - TRANSFERS: CAR: Not assessed/no information CODE: - WALK 10 FEET: Not assessed/no information CODE: - 1 STEP (CURB): Not assessed/no information CODE: - PICKING UP OBJECT: Not assessed/no information CODE: - DOES THE PATIENT USE A WHEELCHAIR/SCOOTER? CODE: EXPR WHEEL 50 FEET WITH TWO TURNS: Not assessed/no information CODE: - INDICATE THE TYPE OF WHEELCHAIR/SCOOTER USED: CODE: EXPR WHEEL 150 FEET: Not assessed/no information CODE: - INDICATE THE TYPE OF WHEELCHAIR/SCOOTER USED: CODE: EXPR BLADDER AND BOWEL: H350. BLADDER CONTINENCE (3-DAY ASSESSMENT PERIOD): Not applicable (e.g., indwelling catheter) CODE: 9 H400. BOWEL CONTINENCE (3-DAY ASSESSMENT PERIOD): Always continent CODE: 0
[2019-06-13] MEDS: carvediloL 25 MG TAB FT SCH ×2 (05:23→17:35)
[2019-06-13] MEDS: INSULIN -REGULAR HUMAN 50 UNIT/0.5 ML ML SQ SCH ×4 (06:00→21:00)
[2019-06-13 07:41] LABS: Potassium 4.5 mmol/L (3.5-5.1)
[2019-06-13] MEDS: AMLODIPINE 10 MG TAB FT SCH (07:55)
[2019-06-13] MEDS: DULOXETINE 20 MG CAP PO SCH (07:55)
[2019-06-13] MEDS: APIXABAN 2.5 MG TABLET FT SCH ×2 (07:56→20:03)
[2019-06-13] MEDS: NICOTINE 14 MG/PAT TD SCH (07:56)
[2019-06-13] MEDS ORDERED: D50W 25 GM/50 ML SYRINGE/VIAL IV PRN (10:41)
[2019-06-13] MEDS ORDERED: GLUCERNA 1.5 CAL 1,000 ML BOT FT SCH (11:00)
[2019-06-13] MEDS: HYDRALAZINE HCL 25 MG TABLET FT SCH ×3 (12:01→20:04)
--- NOTE | 2019-06-13 12:21 | RAD REPORT ---
EXAM DESCRIPTION: RAD - Barium Swallow Modified - 06/13/2019 12:13 pm CLINICAL HISTORY: dysphagia COMPARISON: Renal Ultrasound-Complete dated 10/28/2018 TECHNIQUE: The patient was given liquid, semi-solid and solid forms of barium. Lateral view fluorosc opic imaging was performed in conjunction with speech pathology service. FINDINGS: Laryngeal penetration :not cleared with nectar Aspiration: no cough with thin and nectar Pharyngeal residue: vallecular , pyriform<posterior wall with puree and gram cracker, reduced to mild with honey liquid wash x2 swallows Other : Dobbhoff tube significantly reduces pharyngoesophageal space, suspect pharyngeal residues marlene l decrease s/p removal Total fluoroscopy time: 2 minutes and 21 seconds
--- NOTE | 2019-06-13 15:40 | PAPE ---
PATIENT: [facility] MR# [id number] REFERRING DOCTOR Walter Phan EVALUATION DATE AND TIME 06/11/2019 20:10 (MACHINE TAPER) NAME KAILA BLANK DATE OF 1975 AGE 43 PHONE SSN# [id number] GENDER male EVALUATING PHYSICIAN Dr. Kodak Leslie M.D. ONSET DATE 06/03/2019 POST-ADMISSION FUNCTIONAL/MEDICAL STATUS: - Bladder Same accident frequency: Ind - No accidents in the past 7 days - Bowel Same accident frequency: Ind - No accidents in the past 7 days - Walking Same score based on distance walked: 1(<=50ft) - Wheelchair Same score based on distance traveled: 1(<=50ft) STATUS CHANGE EVALUATION: No change in Functional or Medical Status is identified compared with Pre-Admission screening. PATIENT NEEDS CLOSE MEDICAL SUPERVISION BY A REHABILITATION PHYSICIAN FOR: Coordination of Treatment Team PATIENT REQUIRES 24X7 REHAB NURSING FOR MEDICAL AND FUNCTIONAL MGT. OF THE FOLLOWING DEFICITS: Disease Management Medication Management Patient/Family Education Providing Safe Environment PATIENT REQUIRES INTENSIVE, COORDINATED INTERDISCIPLINARY APPROACH TO REHAB: Arranging Home Equipment/Services Discharge Planning Family Intervention/Training Sapphire Stylus Grinder/Case Management LIST OF IDENTIFIED AND POTENTIAL PROBLEMS: Alteration in leisure activities Bladder, Incontinence Bowel, Incontinence Infection, Actual or Potential Mobility Impaired Pain, Alteration in Comfort Self Care Deficit Skin Integrity, Actual or Potential Urinary Tract Infection (UTI), Actual or Potential PATIENT COULD BE AT RISK FOR COMPLICATIONS FROM ADVERSE MEDICAL CONDITIONS DUE TO HIS/HER COMORBIDITI ES AND THE RIGORS OF THE INTENSIVE REHABILLITATION PROGRAM. METHODS OR INTERVENTIONS TO AVOID COMPLIC ATIONS INCLUDE: - Bleeding Stroke patients assessed for lethargy or change in status. - Infection Clinical staff to assess and manage the signs and symptoms of infection including fever, redness, war mth, etc. - Urinary Tract Infection - Aspiration Clinical staff will assess and manage coughing, drooling, congestion. - Falls Patient will be evaluated for Fall Precautions and will be placed on Fall Precautions as indicated pe r protocol. - Skin Breakdown Nursing will assess skin daily using assessment tool and will place on Skin Breakdown Precautions as indicated per protocol. - Pain Clinical staff may employ non-medication methods such as massage, distraction, decrease stimulus, etc . as needed. Clinical staff will assess patient's pain level every shift per protocol to assess and e nsure pain management effectiveness. Medications will be given and the pain level re-assessed. PRELIMINARY PLAN OF CARE: - Physical Therapy Patient needs Physical Therapy for a daily minimum of 1.5 hours at least 5 out of 7 days, to improve: Mobility, Strengthening, Transfers, Stretching, ROM, Endurance, Ability to manage stairs, Gait, and Balance. - Speech Therapy Patient needs Speech Therapy for a daily minimum of 0.5 hours at least 5 out of 7 days, to improve: S wallowing, Cognition, Language Skills, and Compensatory Strategies. - Rehabilitation Nursing Patient requires 24x7 Rehabilitation Nursing for: Pain Issues, Identifying and preventing risk factor s, Monitoring and reporting current medical conditions, Assisting with ambulation and transfer, Sabina ting with all ADL-s, Teaching patients about disease process and medications, Family teaching, Provid ing safe environment, Bowel and Bladder Issues, Skin Integrity, and Medication Management. Patient needs Sapphire Stylus Grinder and/or Case Management for: Discharge Planning, Arranging Home Equipmen t or Services, and Family Interventions. - Dietary and Nutrition Services Patient needs Dietary and Nutrition Services for: Adequate Nutrition, Nutritional Supplements, and Nu tritional Education. - Occupational Therapy Patient needs Occupational Therapy for a daily minimum of 1.5 hours at least 5 out of 7 days, to impr ove Activities of Daily Living, including: Eating, Grooming, Bathing, Dressing, Toileting, Toilet Tra nsfers, Community Reintegration, Higher functional activities, Adaptive Equipment, Splinting, Househo ld Tasks, and Other activities as determined. QI SCORES: - Self-Care A. Eating 88-Not attempted due to medical condition or safety concerns B. Oral hygiene 05-Setup or clean-up assistance C. Toileting hygiene 01-Dependent E. Shower/bathe self 88-Not attempted due to medical condition or safety concerns F. Upper body dressing 01-Dependent G. Lower body dressing 01-Dependent H. Putting on/taking off footwear 88-Not attempted due to medical condition or safety concerns - Mobility A. Roll left and right 01-Dependent B. Sit to lying 01-Dependent C. Lying to sitting on side of bed 01-Dependent D. Sit to stand 01-Dependent E. Chair/pvn-xq-[id number] transfer 01-Dependent F. Toilet transfer 01-Dependent G. Car transfer 88-Not attempted due to medical condition or safety concerns I. Walk 10 feet 88-Not attempted due to medical condition or safety concerns J. Walk 50 feet with two turns 88-Not attempted due to medical condition or safety concerns K. Walk 150 feet 88-Not attempted due to medical condition or safety concerns L. Walking 10 feet on uneven surfaces 88-Not attempted due to medical condition or safety concerns M. 1 step (curb) 88-Not attempted due to medical condition or safety concerns N. 4 steps 88-Not attempted due to medical condition or safety concerns O. 12 steps 88-Not attempted due to medical condition or safety concerns P. Picking up object 88-Not attempted due to medical condition or safety concerns R. Wheel 50 feet with two turns 88-Not attempted due to medical condition or safety concerns S. Wheel 150 feet 88-Not attempted due to medical condition or safety concerns - Bladder and Bowel Bladder continence 0-Always continent Bowel continence 0-Always continent - Endurance Poor - Balance Poor - Safety Awareness Fair POTENTIAL FUNCTIONAL GOALS FOR PATIENT TO ACHIEVE BY DISCHARGE: - Safety Precaution Patient will remain free from falls or injury at time of discharge. - Bed Mobility Patient will perform bed mobility at 4-Shivam level of assistance. - Transfers Patient will complete transfers from bed to chair at 4-Shivam level of assistance. - Mobility Patient will ambulate 150 ft with 4-Shivam level of assistance with RW. PATIENT REHAB POTENTIAL Janki BLANK is able and expected to receive 3 hours of individualized therapy daily on at least 5 of e very 7 days Janki BLANK's prognosis for significant practical improvement within a reasonable period of time appea rs Good Expected level of measurable improvement will be of a practical value to Janki BLANK's functional capa city or adaptations to impairments Has a viable Discharge Plan Medically appropriate; condition is sufficiently stable to participate in intensive rehab program DISCHARGE PLAN: - Estimated Length of Stay (days) 17. - Consensus on plan Discharge plan has been discussed with primary caregiver. Patient/Family is in agreement with the miguel n. Primary caregiver is in agreement with the plan. - Patient/Family Goals Return home with assistance. - Planned Living Setting Upon Discharge Home, to live alone. CONCLUSION ON REHABILITATION NECESSITY: I have evaluated patient's pre-admission functional status and, comparing it to the patient's post-ad mission functional status now, I conclude that the pre-admission assessment was accurate. Patient's c ondition on admission supports the medical necessity of admission to [facility]. It is safe to proceed with patient's therapy program. SIGNATURE PANEL: (MACHINE TAPER)
--- NOTE | 2019-06-13 15:40 | R.PN ---
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 Pt denied any Shortness of Breath. Still has elevated Na and Cl but improving. Elevated cardiac exercise physiologist of 2.89 but improved from 2.92. Elevated glu cose 133 to 177. Low calcium of 8.0. VITAL SIGNS Temperature: 97.4 F SBP/DBP: 153/73 Pulse: 65 Resp: 16 MEDICATION ALLERGIES: No Known Drug Allergies (NKDA) ENVIRONMENTAL ALLERGIES: - Substance Allergies None Known - Other Allergies None Known NURSING: - Shower allowing shower - Bladder care per protocol - Skin care per protocol PRECAUTIONS: - Weight Bearing Precaution WBAT right LE ACTIVITIES OOB only with supervision THERAPIES: - Occupational Therapy Cognitive Retraining. Visual Perceptual Training. - Dietary and Nutrition Adequate Nutrition. Nutritional Education. Nutritional Supplements. - Speech Therapy Cognitive Training. Expressive Language Skills. Memory Strategies. Receptive Language Skills. Speech Intelligibility Training. PHYSICAL EXAM - Gen Alert and awake Lying in bed No apparent distress Oriented to: person, time, and place - Skin No breakdown Normacephalic - Eyes No abnormalities - ENMT No abnormalities - Neck No abnormalities - CVS RRR - Chest Mildly decreased breath sounds bilaterally. - Resp Bilateral congestion. - Abd +bowel sounds - GI nondistended Deferred - Valladares catheter - Ext No significant edema - MSK 4+/5 weakness in right lower extremity - Neuro 4/5 strength right lower extremity. - Psych No abnormalities ASSESSMENT: Pt. is a 43 yo Right-handed white male.On 06/03/2019 Pt. presented to [facility] with sudden onset of right-side weakness.On 06/03/2019 he was admitted to [facility] with diagnosis Nontraumatic intracerebral hemorrhage, unspecified (I61.9) .His impairment category is Str carmen 01 - Right Body (Left Brain) (01.2).Pre-morbidly, Pt. was independent/mod-I in Locomotion, Self- Care, Endurance, Balance, Transfers Control, Social Cognition, Safety Awareness, Communication, Funct ional mobility, and Sphincter Control; and he had good Ambulation.Currently, he has deficits of Locom otion, Self-Care, Endurance, Balance, Transfers Control, Ambulation, and Functional mobility.Pt. is n ow referred to [facility] for acute in-patient rehabilitation in order to maxi theodore patient's functional independence in activities of daily living, strength, ROM, and mobility.- R ehab Goal Patient has realistic goal of being discharged at assistance level 6-Cari to reside at Home with Fam desiree/Relatives. MDM/PLAN: - Physical Therapy Gait dysfunction - to improve, our physical therapists will perform initial evaluation of pt's statu s upon admission and devise an individualized program for Gait Training, and Wheel Chair mobility Inability to transfer - to improve, our physical therapists will perform initial evaluation of pt's status upon admission and devise an individualized program for Bed mobility Need for home safety evaluation - to improve, our physical therapists will perform initial evaluatio n of pt's status upon admission and devise an individualized program for Home Evaluation Need in caregiver upon discharge - to improve, our physical therapists will perform initial evaluati on of pt's status upon admission and devise an individualized program for Caregiver Training New precaution - to improve, our physical therapists will perform initial evaluation of pt's status upon admission and devise an individualized program for Patient precaution education Edema - to improve, our physical therapists will perform initial evaluation of pt's status upon admis jhony and devise an individualized program for Elevation Training, and Lymphedema Therapy Poor balance - to improve, our physical therapists will perform initial evaluation of pt's status up on admission and devise an individualized program for Balance Training Poor endurance - to improve, our physical therapists will perform initial evaluation of pt's status upon admission and devise an individualized program for Endurance Training Weakness - to improve, our physical therapists will perform initial evaluation of pt's status upon a dmission and devise an individualized program for Aquatic Therapy, Neuromuscular Reeducation, and Str engthening Achieving independence - to improve, our physical therapists will perform initial evaluation of pt's status upon admission and devise an individualized program for Community Reintegration Activities - Occupational Therapy ADL deficits - to improve, our occupation therapists will perform initial evaluation of pt's status upon admission and devise an individualized program for Bathing, Bed mobility, Community Reintegratio n, Cooking, Dressing, Eating, Fine Motor Skills, Grooming, Homemaking, Kitchen Mobility, Laundry, Pat ient Education, Safety Awareness, Splinting - Positioning, Transfers(Toilet, Tub, Shower), and Wheel Chair Management Need for child adolescent care - to improve, our occupation therapists will perform initial evaluation of pt's status upon admission and devise an individualized program for Caregiver Training Weakness - to improve, our occupation therapists will perform initial evaluation of pt's status upon admission and devise an individualized program for Aquatic Therapy, Balance, Endurance, UE ROM, and UE strengthening - Other See attached MAR (Medication Administration Record) - Diet Type Continue Regular - Diet - Liquid Texture Continue Regular - Tube Feed Continue N/A - Bladder care per protocol - Weight Bearing Precaution WBAT right LE - Skin care per protocol - Diet - Solid Texture Continue Regular - Shower allowing shower for Dementia, TBI, Stroke, or others FUNCTIONAL STATUS: UPDATED AT WEEKLY TEAM CONFERENCE - Bladder Same accident frequency: 7-Ind - No accidents in the past 7 days - Bowel Same accident frequency: 7-Ind - No accidents in the past 7 days - Walking Same score based on distance walked: 1(<=50ft) - Wheelchair Same score based on distance traveled: 1(<=50ft) FUNCTIONAL STATUS: - Self-Care A. Eating maxA B. Grooming modA C. Bathing maxA D. Dressing - Upper modA E. Dressing - Lower maxA F. Toileting maxA - Sphincter Control G. Bladder control maxA H. Bowel control modA - Transfers Control I. Bed/Chair/Wheelchair maxA J. Toilet maxA K. Tub/Shower Cari - Locomotion L. Walk/Wheelchair (W) modA M. Stairs Dep - Communication N. Comprehension (B) Shivam O. Expression (B) Shivam - Social Cognition P. Social Interaction Cari Q. Problem Solving Cari R. Memory Cari - Endurance Good - Balance Good - Safety Awareness Good QI SCORES: - Self-Care A. Eating 88-Not attempted due to medical condition or safety concerns B. Oral hygiene 05-Setup or clean-up assistance C. Toileting hygiene 01-Dependent E. Shower/bathe self 88-Not attempted due to medical condition or safety concerns F. Upper body dressing 01-Dependent G. Lower body dressing 01-Dependent H. Putting on/taking off footwear 88-Not attempted due to medical condition or safety concerns - Mobility A. Roll left and right 01-Dependent B. Sit to lying 01-Dependent C. Lying to sitting on side of bed 01-Dependent D. Sit to stand 01-Dependent E. Chair/[id number]-df-[id number] transfer 01-Dependent F. Toilet transfer 01-Dependent G. Car transfer 88-Not attempted due to medical condition or safety concerns I. Walk 10 feet 88-Not attempted due to medical condition or safety concerns J. Walk 50 feet with two turns 88-Not attempted due to medical condition or safety concerns K. Walk 150 feet 88-Not attempted due to medical condition or safety concerns L. Walking 10 feet on uneven surfaces 88-Not attempted due to medical condition or safety concerns M. 1 step (curb) 88-Not attempted due to medical condition or safety concerns N. 4 steps 88-Not attempted due to medical condition or safety concerns O. 12 steps 88-Not attempted due to medical condition or safety concerns P. Picking up object 88-Not attempted due to medical condition or safety concerns R. Wheel 50 feet with two turns 88-Not attempted due to medical condition or safety concerns S. Wheel 150 feet 88-Not attempted due to medical condition or safety concerns - Bladder and Bowel Bladder continence 0-Always continent Bowel continence 0-Always continent - Endurance Poor - Balance Poor - Safety Awareness Fair CURRENT FUNC. DEFICITS: Mobility, Endurance, Balance, Safety Awareness, and Self-Care SIGNATURE PANEL: (BEATER BOSS)
--- NOTE | 2019-06-13 18:09 | FAST ---
SHIFT START DATE/TIME: 06/13/2019 07:00 (SPOOL WINDER) SHIFT END DATE/TIME: 06/13/2019 19:00 (SPOOL WINDER) NAME KAILA BLANK DATE OF : 1975 DATE OF ADMISSION: 06/10/2019 18:25 (SPOOL WINDER) PHONE: AGE: 43 N# [id number] GENDER: Male ENCOUNTER PHYSICIAN: Dr. Kodak Leslie M.D. 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 EATING: EATING - STEP 1: Does the patient complete the activity by him/herself with no assistance (physical, verbal/nonverbal cueing, setup/clean-up)? No. EATING - STEP 2: Does the patient need only setup/clean-up assistance from one helper? No. EATING - STEP 3: Does the patient need only verbal/nonverbal cueing or touching/steadying/contact guard assistance fro m one helper? Yes. 1. [id number] ADMISSION PERFORMANCE: Supervision or touching assistance CODE: 04 ORAL HYGIENE: ORAL HYGIENE - STEP 1: Does the patient complete the activity by him/herself with no assistance (physical, verbal/nonverbal cueing, setup/clean-up)? No. ORAL HYGIENE - STEP 2: Does the patient need only setup/clean-up assistance from one helper? No. ORAL HYGIENE - STEP 3: Does the patient need only verbal/nonverbal cueing or touching/steadying/contact guard assistance fro m one helper? No. ORAL HYGIENE - STEP 4: Does the patient need physical assistance - for example lifting or trunk support from one helper - wi th the helper providing less than half of the effort? Yes. 1. [id number] ADMISSION PERFORMANCE: Partial/moderate assistance CODE: 03 TOILETING HYGIENE: TOILETING HYGIENE - STEP 1: Does the patient complete the activity by him/herself with no assistance (physical, verbal/nonverbal cueing, setup/clean-up)? No. TOILETING HYGIENE - STEP 2: Does the patient need only setup/clean-up assistance from one helper? No. TOILETING HYGIENE - STEP 3: Does the patient need only verbal/nonverbal cueing or touching/steadying/contact guard assistance fro m one helper? No. TOILETING HYGIENE - STEP 4: Does the patient need physical assistance - for example lifting or trunk support from one helper - wi th the helper providing less than half of the effort? Yes. 1. [id number] ADMISSION PERFORMANCE: Partial/moderate assistance CODE: 03 BATHING: Not assessed/no information CODE: - DRESSING - UPPER BODY: Not assessed/no information CODE: - DRESSING - LOWER BODY: Not assessed/no information CODE: - PUTTING ON/TAKING OFF FOOTWEAR: Not assessed/no information CODE: - ROLL LEFT AND RIGHT: ROLL LEFT AND RIGHT - STEP 1: Does the patient complete the activity by him/herself with no assistance (physical, verbal/nonverbal cueing, setup/clean-up)? No. ROLL LEFT AND RIGHT - STEP 2: Does the patient need only setup/clean-up assistance from one helper? No. ROLL LEFT AND RIGHT - STEP 3: Does the patient need only verbal/nonverbal cueing or touching/steadying/contact guard assistance fro m one helper? No. ROLL LEFT AND RIGHT - STEP 4: Does the patient need physical assistance - for example lifting or trunk support from one helper - wi th the helper providing less than half of the effort? No. ROLL LEFT AND RIGHT - STEP 5: Does the patient need physical assistance - for example lifting or trunk support from one helper - wi th the helper providing more than half of the effort? Yes. 1. [id number] ADMISSION PERFORMANCE: Substantial/maximal assistance CODE: 02 SIT TO LYING: Not assessed/no information CODE: - LYING TO SITTING: Not assessed/no information CODE: - SIT TO STAND: SIT TO STAND - STEP 1: Does the patient complete the activity by him/herself with no assistance (physical, verbal/nonverbal cueing, setup/clean-up)? No. SIT TO STAND - STEP 2: Does the patient need only setup/clean-up assistance from one helper? No. SIT TO STAND - STEP 3: Does the patient need only verbal/nonverbal cueing or touching/steadying/contact guard assistance fro m one helper? No. SIT TO STAND - STEP 4: Does the patient need physical assistance - for example lifting or trunk support from one helper - wi th the helper providing less than half of the effort? No. SIT TO STAND - STEP 5: Does the patient need physical assistance - for example lifting or trunk support from one helper - wi th the helper providing more than half of the effort? Yes. 1. [id number] ADMISSION PERFORMANCE: Substantial/maximal assistance CODE: 02 TRANSFERS: BED, CHAIR: CHAIR/[id number] TRANSFER - STEP 1: Does the patient complete the activity by him/herself with no assistance (physical, verbal/nonverbal cueing, setup/clean-up)? No. CHAIR/[id number] TRANSFER - STEP 2: Does the patient need only setup/clean-up assistance from one helper? No. CHAIR/[id number] TRANSFER - STEP 3: Does the patient need only verbal/nonverbal cueing or touching/steadying/contact guard assistance fro m one helper? No. CHAIR/[id number] TRANSFER - STEP 4: Does the patient need physical assistance - for example lifting or trunk support from one helper - wi th the helper providing less than half of the effort? No. CHAIR/HTS-[id number] TRANSFER - STEP 5: Does the patient need physical assistance - for example lifting or trunk support from one helper - wi th the helper providing more than half of the effort? Yes. 1. [id number] ADMISSION PERFORMANCE: Substantial/maximal assistance CODE: 02 TRANSFER TOILET: TOILET TRANSFER - STEP 1: Does the patient complete the activity by him/herself with no assistance (physical, verbal/nonverbal cueing, setup/clean-up)? No. TOILET TRANSFER - STEP 2: Does the patient need only setup/clean-up assistance from one helper? No. TOILET TRANSFER - STEP 3: Does the patient need only verbal/nonverbal cueing or touching/steadying/contact guard assistance fro m one helper? No. TOILET TRANSFER - STEP 4: Does the patient need physical assistance - for example lifting or trunk support from one helper - wi th the helper providing less than half of the effort? No. TOILET TRANSFER - STEP 5: Does the patient need physical assistance - for example lifting or trunk support from one helper - wi th the helper providing more than half of the effort? Yes. 1. [id number] ADMISSION PERFORMANCE: Substantial/maximal assistance CODE: 02 TRANSFERS: CAR: Not assessed/no information CODE: - WALK 10 FEET: Not assessed/no information CODE: - 1 STEP (CURB): Not assessed/no information CODE: - PICKING UP OBJECT: Not assessed/no information CODE: - DOES THE PATIENT USE A WHEELCHAIR/SCOOTER? CODE: EXPR WHEEL 50 FEET WITH TWO TURNS: Not assessed/no information CODE: - INDICATE THE TYPE OF WHEELCHAIR/SCOOTER USED: CODE: EXPR WHEEL 150 FEET: Not assessed/no information CODE: - INDICATE THE TYPE OF WHEELCHAIR/SCOOTER USED: CODE: EXPR BLADDER AND BOWEL: H350. BLADDER CONTINENCE (3-DAY ASSESSMENT PERIOD): Incontinent less than daily (e.g., once or twice during the 3-day assessment period) CODE: 2 H400. BOWEL CONTINENCE (3-DAY ASSESSMENT PERIOD): Frequently incontinent (2 or more episodes of bowel incontinence, but at least one continent bowel mo vement) CODE: 2 SIGNATURE PANEL: The following modified sections: 1. [id number] Admission Performance, 1. [id number] Admission Performance, 1. [id number] Admission Performance, 1. [id number] Admission Performance, 1. [id number] Admission Performance, 1. [id number] Admission Performance, 1. [id number] Admission Performance, 1. [id number] Admission Performance , 1. [id number] Admission Performance, 1. [id number] Admission Performance, 1. [id number] Admission Performanc e, Code, H350. Bladder Continence (3-day assessment period), H400. Bowel Continence (3-day assessment period) were [electronically] signed by Bg Hsieh on ThuJun 13 2019 18:08:48 GMT-0600 ([place])
--- NOTE | 2019-06-13 19:16 | RAD REPORT ---
EXAM DESCRIPTION: RAD - Chest Single View - 06/13/2019 7:08 pm CLINICAL HISTORY: R/O aspiration Pneumonia Chest pain. COMPARISON: Chest Single View dated 06/03/2019; Chest Single View dated 10/27/2018; Chest Single View dated 08/24/2016 FINDINGS: Portable technique limits examination quality. The lungs are grossly clear. The heart is normal in size. No displaced fractures. IMPRESSION: No acute intrathoracic process suspected.
[2019-06-13] MEDS: MELATONIN 3 MG TABLET PO SCH (20:03)
[2019-06-13] MEDS ORDERED: GLUCAGON 1 MG/VIAL IM PRN (20:59)
[2019-06-14] MEDS: carvediloL 25 MG TAB FT SCH ×2 (05:32→16:59)
[2019-06-14 06:31] LABS: Potassium 4.3 mmol/L (3.5-5.1)
[2019-06-14] MEDS: INSULIN -REGULAR HUMAN 50 UNIT/0.5 ML ML SQ SCH ×4 (07:30→19:35)
[2019-06-14] MEDS: NICOTINE 14 MG/PAT TD SCH (08:30)
[2019-06-14] MEDS: DULOXETINE 20 MG CAP PO SCH (08:30)
[2019-06-14] MEDS: AMLODIPINE 10 MG TAB FT SCH (08:30)
[2019-06-14] MEDS: APIXABAN 2.5 MG TABLET FT SCH ×2 (08:31→19:38)
[2019-06-14] MEDS: HYDRALAZINE HCL 25 MG TABLET FT SCH ×3 (10:12→19:37)
[2019-06-14] MEDS: ACETAMINOPHEN 500 MG TAB PO PRN (10:12)
--- NOTE | 2019-06-14 10:56 | FAST ---
SHIFT START DATE/TIME: 06/14/2019 07:00 (SIX SIGMA BLACK BELT ENGINEER) SHIFT END DATE/TIME: 06/14/2019 19:00 (SIX SIGMA BLACK BELT ENGINEER) NAME KAILA BLANK DATE OF : 1975 DATE OF ADMISSION: 06/10/2019 18:25 (SIX SIGMA BLACK BELT ENGINEER) PHONE: AGE: 43 N# [id number] GENDER: Male ENCOUNTER PHYSICIAN: Dr. Kodak Leslie M.D. 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 EATING: EATING - STEP 1: Does the patient complete the activity by him/herself with no assistance (physical, verbal/nonverbal cueing, setup/clean-up)? No. EATING - STEP 2: Does the patient need only setup/clean-up assistance from one helper? No. EATING - STEP 3: Does the patient need only verbal/nonverbal cueing or touching/steadying/contact guard assistance fro m one helper? Yes. 1. [id number] ADMISSION PERFORMANCE: Supervision or touching assistance CODE: 04 ORAL HYGIENE: ORAL HYGIENE - STEP 1: Does the patient complete the activity by him/herself with no assistance (physical, verbal/nonverbal cueing, setup/clean-up)? No. ORAL HYGIENE - STEP 2: Does the patient need only setup/clean-up assistance from one helper? No. ORAL HYGIENE - STEP 3: Does the patient need only verbal/nonverbal cueing or touching/steadying/contact guard assistance fro m one helper? Yes. 1. [id number] ADMISSION PERFORMANCE: Supervision or touching assistance CODE: 04 TOILETING HYGIENE: TOILETING HYGIENE - STEP 1: Does the patient complete the activity by him/herself with no assistance (physical, verbal/nonverbal cueing, setup/clean-up)? No. TOILETING HYGIENE - STEP 2: Does the patient need only setup/clean-up assistance from one helper? No. TOILETING HYGIENE - STEP 3: Does the patient need only verbal/nonverbal cueing or touching/steadying/contact guard assistance fro m one helper? No. TOILETING HYGIENE - STEP 4: Does the patient need physical assistance - for example lifting or trunk support from one helper - wi th the helper providing less than half of the effort? No. TOILETING HYGIENE - STEP 5: Does the patient need physical assistance - for example lifting or trunk support from one helper - wi th the helper providing more than half of the effort? Yes. 1. [id number] ADMISSION PERFORMANCE: Substantial/maximal assistance CODE: 02 BATHING: Not assessed/no information CODE: - DRESSING - UPPER BODY: DRESSING - UPPER BODY - STEP 1: Does the patient complete the activity by him/herself with no assistance (physical, verbal/nonverbal cueing, setup/clean-up)? No. DRESSING - UPPER BODY - STEP 2: Does the patient need only setup/clean-up assistance from one helper? No. DRESSING - UPPER BODY - STEP 3: Does the patient need only verbal/nonverbal cueing or touching/steadying/contact guard assistance fro m one helper? No. DRESSING - UPPER BODY - STEP 4: Does the patient need physical assistance - for example lifting or trunk support from one helper - wi th the helper providing less than half of the effort? Yes. 1. [id number] ADMISSION PERFORMANCE: Partial/moderate assistance CODE: 03 DRESSING - LOWER BODY: DRESSING - LOWER BODY - STEP 1: Does the patient complete the activity by him/herself with no assistance (physical, verbal/nonverbal cueing, setup/clean-up)? No. DRESSING - LOWER BODY - STEP 2: Does the patient need only setup/clean-up assistance from one helper? No. DRESSING - LOWER BODY - STEP 3: Does the patient need only verbal/nonverbal cueing or touching/steadying/contact guard assistance fro m one helper? No. DRESSING - LOWER BODY - STEP 4: Does the patient need physical assistance - for example lifting or trunk support from one helper - wi th the helper providing less than half of the effort? Yes. 1. [id number] ADMISSION PERFORMANCE: Partial/moderate assistance CODE: 03 PUTTING ON/TAKING OFF FOOTWEAR: Not assessed/no information CODE: - ROLL LEFT AND RIGHT: Not assessed/no information CODE: - SIT TO LYING: Not assessed/no information CODE: - LYING TO SITTING: Not assessed/no information CODE: - SIT TO STAND: SIT TO STAND - STEP 1: Does the patient complete the activity by him/herself with no assistance (physical, verbal/nonverbal cueing, setup/clean-up)? No. SIT TO STAND - STEP 2: Does the patient need only setup/clean-up assistance from one helper? No. SIT TO STAND - STEP 3: Does the patient need only verbal/nonverbal cueing or touching/steadying/contact guard assistance fro m one helper? No. SIT TO STAND - STEP 4: Does the patient need physical assistance - for example lifting or trunk support from one helper - wi th the helper providing less than half of the effort? No. SIT TO STAND - STEP 5: Does the patient need physical assistance - for example lifting or trunk support from one helper - wi th the helper providing more than half of the effort? Yes. 1. [id number] ADMISSION PERFORMANCE: Substantial/maximal assistance CODE: 02 TRANSFERS: BED, CHAIR: CHAIR/VVT-JM-[id number] TRANSFER - STEP 1: Does the patient complete the activity by him/herself with no assistance (physical, verbal/nonverbal cueing, setup/clean-up)? No. CHAIR/[id number] TRANSFER - STEP 2: Does the patient need only setup/clean-up assistance from one helper? No. CHAIR/SDU-ZZ-[id number] TRANSFER - STEP 3: Does the patient need only verbal/nonverbal cueing or touching/steadying/contact guard assistance fro m one helper? No. CHAIR/[id number]-[id number] TRANSFER - STEP 4: Does the patient need physical assistance - for example lifting or trunk support from one helper - wi th the helper providing less than half of the effort? No. CHAIR/[id number]-[id number] TRANSFER - STEP 5: Does the patient need physical assistance - for example lifting or trunk support from one helper - wi th the helper providing more than half of the effort? Yes. 1. [id number] ADMISSION PERFORMANCE: Substantial/maximal assistance CODE: 02 TRANSFER TOILET: TOILET TRANSFER - STEP 1: Does the patient complete the activity by him/herself with no assistance (physical, verbal/nonverbal cueing, setup/clean-up)? No. TOILET TRANSFER - STEP 2: Does the patient need only setup/clean-up assistance from one helper? No. TOILET TRANSFER - STEP 3: Does the patient need only verbal/nonverbal cueing or touching/steadying/contact guard assistance fro m one helper? No. TOILET TRANSFER - STEP 4: Does the patient need physical assistance - for example lifting or trunk support from one helper - wi th the helper providing less than half of the effort? No. TOILET TRANSFER - STEP 5: Does the patient need physical assistance - for example lifting or trunk support from one helper - wi th the helper providing more than half of the effort? Yes. 1. [id number] ADMISSION PERFORMANCE: Substantial/maximal assistance CODE: 02 TRANSFERS: CAR: Not assessed/no information CODE: - WALK 10 FEET: Not assessed/no information CODE: - 1 STEP (CURB): Not assessed/no information CODE: - PICKING UP OBJECT: Not assessed/no information CODE: - DOES THE PATIENT USE A WHEELCHAIR/SCOOTER? CODE: EXPR WHEEL 50 FEET WITH TWO TURNS: Not assessed/no information CODE: - INDICATE THE TYPE OF WHEELCHAIR/SCOOTER USED: CODE: EXPR WHEEL 150 FEET: Not assessed/no information CODE: - INDICATE THE TYPE OF WHEELCHAIR/SCOOTER USED: CODE: EXPR BLADDER AND BOWEL: H350. BLADDER CONTINENCE (3-DAY ASSESSMENT PERIOD): Incontinent daily (at least once a day) CODE: 3 H400. BOWEL CONTINENCE (3-DAY ASSESSMENT PERIOD): Frequently incontinent (2 or more episodes of bowel incontinence, but at least one continent bowel mo vement) CODE: 2 SIGNATURE PANEL: The following modified sections: 1. [id number] Admission Performance, 1. [id number] Admission Performance, 1. [id number] Admission Performance, 1. HD7259v Admission Performance, 1. [id number] Admission Performance, 1. [id number] Admission Performance, 1. [id number] Admission Performance, 1. [id number] Admission Performance , 1. [id number] Admission Performance, Code, H350. Bladder Continence (3-day assessment period), H350. B ladder Continence (3-day assessment period), H400. Bowel Continence (3-day assessment period) were [e lectronically] signed by Bg Hsieh on ThuJun 14 2019 10:55:21 GMT-0600 (Central Standard Time)
--- NOTE | 2019-06-14 14:22 | FAST ---
ENCOUNTER DATE AND TIME: 06/14/2019 08:00 (LIVESTOCK COMMISSION AGENT) NAME KAILA BLANK DATE OF : 1975 DATE OF ADMISSION: 06/10/2019 18:25 (LIVESTOCK COMMISSION AGENT) PHONE: AGE: 43 N# [id number] GENDER: Male ENCOUNTER PHYSICIAN: Dr. Kodak Leslie M.D. 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 ROLL LEFT AND RIGHT: ROLL LEFT AND RIGHT - STEP 1: Does the patient complete the activity by him/herself with no assistance (physical, verbal/nonverbal cueing, setup/clean-up)? No. ROLL LEFT AND RIGHT - STEP 2: Does the patient need only setup/clean-up assistance from one helper? No. ROLL LEFT AND RIGHT - STEP 3: Does the patient need only verbal/nonverbal cueing or touching/steadying/contact guard assistance fro m one helper? No. ROLL LEFT AND RIGHT - STEP 4: Does the patient need physical assistance - for example lifting or trunk support from one helper - wi th the helper providing less than half of the effort? No. ROLL LEFT AND RIGHT - STEP 5: Does the patient need physical assistance - for example lifting or trunk support from one helper - wi th the helper providing more than half of the effort? Yes. 1. [id number] ADMISSION PERFORMANCE: Substantial/maximal assistance CODE: 02 SIT TO LYING: SIT TO LYING - STEP 1: Does the patient complete the activity by him/herself with no assistance (physical, verbal/nonverbal cueing, setup/clean-up)? No. SIT TO LYING - STEP 2: Does the patient need only setup/clean-up assistance from one helper? No. SIT TO LYING - STEP 3: Does the patient need only verbal/nonverbal cueing or touching/steadying/contact guard assistance fro m one helper? No. SIT TO LYING - STEP 4: Does the patient need physical assistance - for example lifting or trunk support from one helper - wi th the helper providing less than half of the effort? No. SIT TO LYING - STEP 5: Does the patient need physical assistance - for example lifting or trunk support from one helper - wi th the helper providing more than half of the effort? Yes. 1. [id number] ADMISSION PERFORMANCE: Substantial/maximal assistance CODE: 02 LYING TO SITTING: LYING TO SITTING ON SIDE OF BED - STEP 1: Does the patient complete the activity by him/herself with no assistance (physical, verbal/nonverbal cueing, setup/clean-up)? No. LYING TO SITTING ON SIDE OF BED - STEP 2: Does the patient need only setup/clean-up assistance from one helper? No. LYING TO SITTING ON SIDE OF BED - STEP 3: Does the patient need only verbal/nonverbal cueing or touching/steadying/contact guard assistance fro m one helper? No. LYING TO SITTING ON SIDE OF BED - STEP 4: Does the patient need physical assistance - for example lifting or trunk support from one helper - wi th the helper providing less than half of the effort? No. LYING TO SITTING ON SIDE OF BED - STEP 5: Does the patient need physical assistance - for example lifting or trunk support from one helper - wi th the helper providing more than half of the effort? Yes. 1. [id number] ADMISSION PERFORMANCE: Substantial/maximal assistance CODE: 02 SIT TO STAND: SIT TO STAND - STEP 1: Does the patient complete the activity by him/herself with no assistance (physical, verbal/nonverbal cueing, setup/clean-up)? No. SIT TO STAND - STEP 2: Does the patient need only setup/clean-up assistance from one helper? No. SIT TO STAND - STEP 3: Does the patient need only verbal/nonverbal cueing or touching/steadying/contact guard assistance fro m one helper? No. SIT TO STAND - STEP 4: Does the patient need physical assistance - for example lifting or trunk support from one helper - wi th the helper providing less than half of the effort? Yes. 1. [id number] ADMISSION PERFORMANCE: Partial/moderate assistance CODE: 03 TRANSFERS: BED, CHAIR: CHAIR/ALF-SO-[id number] TRANSFER - STEP 1: Does the patient complete the activity by him/herself with no assistance (physical, verbal/nonverbal cueing, setup/clean-up)? No. CHAIR/ERC-YE-[id number] TRANSFER - STEP 2: Does the patient need only setup/clean-up assistance from one helper? No. CHAIR/PYH-KL-[id number] TRANSFER - STEP 3: Does the patient need only verbal/nonverbal cueing or touching/steadying/contact guard assistance fro m one helper? No. CHAIR/QYC-JY-[id number] TRANSFER - STEP 4: Does the patient need physical assistance - for example lifting or trunk support from one helper - wi th the helper providing less than half of the effort? No. CHAIR/HIL-TM-VLSUG TRANSFER - STEP 5: Does the patient need physical assistance - for example lifting or trunk support from one helper - wi th the helper providing more than half of the effort? Yes. 1. [id number] ADMISSION PERFORMANCE: Substantial/maximal assistance CODE: 02 TRANSFER TOILET: TOILET TRANSFER - STEP 1: Does the patient complete the activity by him/herself with no assistance (physical, verbal/nonverbal cueing, setup/clean-up)? No. TOILET TRANSFER - STEP 2: Does the patient need only setup/clean-up assistance from one helper? No. TOILET TRANSFER - STEP 3: Does the patient need only verbal/nonverbal cueing or touching/steadying/contact guard assistance fro m one helper? No. TOILET TRANSFER - STEP 4: Does the patient need physical assistance - for example lifting or trunk support from one helper - wi th the helper providing less than half of the effort? No. TOILET TRANSFER - STEP 5: Does the patient need physical assistance - for example lifting or trunk support from one helper - wi th the helper providing more than half of the effort? Yes. 1. [id number] ADMISSION PERFORMANCE: Substantial/maximal assistance CODE: 02 TRANSFERS: CAR: Not attempted due to environmental limitations (e.g., lack of equipment, weather constraints) CODE: 10 WALK 10 FEET: Not attempted due to medical condition or safety concerns CODE: 88 1 STEP (CURB): Not attempted due to medical condition or safety concerns CODE: 88 PICKING UP OBJECT: Not attempted due to medical condition or safety concerns CODE: 88 DOES THE PATIENT USE A WHEELCHAIR/SCOOTER? Q1. DOES THE PATIENT USE A WHEELCHAIR/SCOOTER?: Yes CODE: 1 WHEEL 50 FEET WITH TWO TURNS: WHEEL 50 FEET WITH TWO TURNS - STEP 1: Does the patient complete the activity by him/herself with no assistance (physical, verbal/nonverbal cueing, setup/clean-up)? No. WHEEL 50 FEET WITH TWO TURNS - STEP 2: Does the patient need only setup/clean-up assistance from one helper? No. WHEEL 50 FEET WITH TWO TURNS - STEP 3: Does the patient need only verbal/nonverbal cueing or touching/steadying/contact guard assistance fro m one helper? Yes. 1. [id number] ADMISSION PERFORMANCE: Supervision or touching assistance CODE: 04 INDICATE THE TYPE OF WHEELCHAIR/SCOOTER USED: RR1. INDICATE THE TYPE OF WHEELCHAIR/SCOOTER USED.: Manual CODE: 1 WHEEL 150 FEET: Not attempted due to medical condition or safety concerns CODE: 88 INDICATE THE TYPE OF WHEELCHAIR/SCOOTER USED: CODE: EXPR BLADDER AND BOWEL: CODE: EXPR CODE: EXPR SIGNATURE PANEL: The following modified sections: 1. [id number] Admission Performance, 1. [id number] Admission Performance, 1. AO2090A Admission Performance, 1. [id number] Admission Performance, 1. [id number] Admission Performance, 1. [id number] Admission Performance, Q1. Does the patient use a wheelchair/scooter?, 1. [id number] Admissi on Performance, RR1. Indicate the type of wheelchair/scooter used., Code were [electronically] signed by Regis Chow PT on ThuJun 14 2019 14:21:07 GMT-0600 (Central Standard Time)
[2019-06-14] MEDS: MELATONIN 3 MG TABLET PO SCH (19:38)
[2019-06-15] MEDS: carvediloL 25 MG TAB FT SCH ×2 (05:09→17:10)
[2019-06-15 06:35] LABS: Absolute Lymphocytes (CBC) 1.5 K/uL (0.7-4.9); Basophils % 0.9 % (0-1.3); Hematocrit 31.1 % (39.6-49.0); MPV 10.6 fL (7.6-11.3); RBC Red Blood Cell Count 3.44 M/uL (4.33-5.43)
[2019-06-15 06:55] LABS: Albumin 2.4 g/dL (3.4-5.0); Magnesium 2.7 mg/dL (1.8-2.4); Potassium 4.7 mmol/L (3.5-5.1); Prealbumin 31.6 mg/dL (20-40)
[2019-06-15] MEDS: INSULIN -REGULAR HUMAN 50 UNIT/0.5 ML ML SQ SCH ×4 (07:30→20:24)
[2019-06-15] MEDS: NICOTINE 14 MG/PAT TD SCH (09:11)
[2019-06-15] MEDS: AMLODIPINE 10 MG TAB FT SCH (09:12)
[2019-06-15] MEDS: APIXABAN 2.5 MG TABLET FT SCH ×2 (09:12→20:25)
[2019-06-15] MEDS: DULOXETINE 20 MG CAP PO SCH (09:12)
[2019-06-15] MEDS: HYDRALAZINE HCL 25 MG TABLET FT SCH ×3 (09:12→20:25)
--- NOTE | 2019-06-15 09:32 | P.RH.PN ---
Estimated Length of Stay: 24 Expected Discharge Date: 07/03/19 Discharge Disposition Plan: Home Family Support: Yes Vital Signs: Last Vital Signs Temp 96.8 F 06/15/19 06:59 Pulse 67 06/15/19 09:12 Resp 16 06/15/19 06:59 BP 139/71 06/15/19 09:12 Pulse Ox 96 06/15/19 06:59 Laboratory: Laboratory Last Values WBC 10.2 K/uL (4.3-10.9) D 06/15/19 06:20 RBC 3.44 M/uL (4.33-5.43) L 06/15/19 06:20 Hgb 10.6 g/dL (13.6-17.9) L 06/15/19 06:20 Hct 31.1 % (39.6-49.0) L 06/15/19 06:20 MCV 90.4 fL (80-100) 06/15/19 06:20 MCH 30.7 pg (27.0-35.0) 06/15/19 06:20 MCHC 34.0 g/dL (32.0-36.0) 06/15/19 06:20 RDW 13.7 % (12.1-15.2) 06/15/19 06:20 Plt Count 200 K/uL (152-406) 06/15/19 06:20 MPV 10.6 fL (7.6-11.3) 06/15/19 06:20 Neutrophils % 75.5 % (41.7-73.7) H 06/15/19 06:20 Lymphocytes % 15.0 % (15.3-44.8) L 06/15/19 06:20 Monocytes % 6.4 % (3.3-12.3) 06/15/19 06:20 Eosinophils % 2.2 % (0-4.4) 06/15/19 06:20 Basophils % 0.9 % (0-1.3) 06/15/19 06:20 Absolute Neutrophils 7.7 K/uL (1.8-8.0) 06/15/19 06:20 Absolute Lymphocytes 1.5 K/uL (0.7-4.9) 06/15/19 06:20 Absolute Monocytes 0.7 K/uL (0.1-1.3) 06/15/19 06:20 Absolute Eosinophils 0.2 K/uL (0-0.5) 06/15/19 06:20 Absolute Basophils 0.1 K/uL (0-0.5) 06/15/19 06:20 Sodium 148 mmol/L (136-145) H 06/15/19 06:20 Potassium 4.7 mmol/L (3.5-5.1) 06/15/19 06:20 Chloride 120 mmol/L (98-107) H 06/15/19 06:20 Carbon Dioxide 22 mmol/L (21-32) 06/15/19 06:20 BUN 70 mg/dL (7-18) H 06/15/19 06:20 Creatinine 2.59 mg/dL (0.55-1.3) H 06/15/19 06:20 Estimated GFR 27 mL/min (=/>90) L 06/15/19 06:20 Glucose 175 mg/dL (74-106) H 06/15/19 06:20 POC Glucose 163 mg/dl (65-120) H 06/15/19 07:06 Calcium 8.0 mg/dL (8.5-10.1) L 06/15/19 06:20 Magnesium 2.7 mg/dL (1.8-2.4) H 06/15/19 06:20 Albumin 2.4 g/dL (3.4-5.0) L 06/15/19 06:20 Prealbumin 31.6 mg/dL (20-40) 06/15/19 06:20 Urine Color Yellow 06/11/19 01:48 Urine Appearance Clear 06/11/19 01:48 Urine pH 5.5 (5.0-7.0) 06/11/19 01:48 Ur Specific [place] 1.015 (1.005-1.030) 06/11/19 01:48 Urine Ketones Negative (NEG) 06/11/19 01:48 Urine Blood 1+ (NEG) H 06/11/19 01:48 Urine Nitrite Negative (NEG) 06/11/19 01:48 Urine Bilirubin Negative (NEG) 06/11/19 01:48 Urine Urobilinogen 0.2 mg/dL (0.2-1.0) 06/11/19 01:48 Ur Leukocyte Esterase Negative (NEG) 06/11/19 01:48 Urine RBC 10-20 /HPF (NONE SEEN) H 06/11/19 01:48 Urine WBC <5 /HPF (<5) 06/11/19 01:48 Ur Squamous Epith Cells <5 /HPF (NONE SEEN) 06/11/19 01:48 Urine Bacteria <20 /HPF (NONE SEEN) 06/11/19 01:48 Hyaline Casts 0-5 /LPF (NONE SEEN) 06/11/19 01:48 Urine Culture Reflexed Not needed 06/11/19 01:48 Urine Glucose 1+ (NEG) H 06/11/19 01:48 Urine Total Protein 2+ (NEG) H 06/11/19 01:48 Weight: 223 lb 4.8 oz Wound Present: Yes Closed Surgical Incision Present: Yes Negative Pressure Wound Therapy Present: No Physician Update: He is poorly compliant with speech therapy. He is refusing additive to his thin liquid to reduce the aspiration risk. He appears confused at time and has difficult with comprehension. His family is giving his ice chips and water without thickener. His WBCs are normal, Hgb is normal. 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 He is depressed and is taking Cymbalta. Will discuss his course with his family. Medical Issues: Patient is incontinent daily with bladder and occasional incontinent with bowel. Functional Improvement: pt is demonstrating a willingness to participate; however, depression is causing a limitation in her tolerance to activity and physical performance. pt continues to require skilled PT services to enhance his functional capabilities and safety with mobility and self cares. 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 Patient exhibits significant word-finding difficulties and becomes frustrated by them. Patient obtained a 4/30 on the MOCA and a Bedside Aphasia Score of 51. Patient had a Modified Barium Swallow study done on 06/13/19 which revealed silent aspiration with cup sip thin and deep laryngeal penetration with nectar, with poor cued cough. Patient is currently on pureed solids and honey thickened liquids, which he constantly complains about and requests for water. Patient tolerated 17/20 controlled trials of thin liquid (ice water) by tsp with head turned to the R without overt s/s of aspiration. Summary: Patient's care plan and terminal superintendent goals have been reviewed and revised as necessary. Please see the Rehabilitation Signature page for all necessary signatures.
--- NOTE | 2019-06-15 15:43 | FAST ---
ENCOUNTER DATE AND TIME: 06/15/2019 08:00 (FARMER GENERAL) NAME KAILA BLANK DATE OF : 1975 DATE OF ADMISSION: 06/10/2019 18:25 (FARMER GENERAL) PHONE: AGE: 43 N# [id number] GENDER: Male ENCOUNTER PHYSICIAN: Dr. Kodak Leslie M.D. 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 EATING: Not assessed/no information CODE: - ORAL HYGIENE: ORAL HYGIENE - STEP 1: Does the patient complete the activity by him/herself with no assistance (physical, verbal/nonverbal cueing, setup/clean-up)? No. ORAL HYGIENE - STEP 2: Does the patient need only setup/clean-up assistance from one helper? No. ORAL HYGIENE - STEP 3: Does the patient need only verbal/nonverbal cueing or touching/steadying/contact guard assistance fro m one helper? Yes. 1. [id number] ADMISSION PERFORMANCE: Supervision or touching assistance CODE: 04 TOILETING HYGIENE: TOILETING HYGIENE - STEP 1: Does the patient complete the activity by him/herself with no assistance (physical, verbal/nonverbal cueing, setup/clean-up)? No. TOILETING HYGIENE - STEP 2: Does the patient need only setup/clean-up assistance from one helper? No. TOILETING HYGIENE - STEP 3: Does the patient need only verbal/nonverbal cueing or touching/steadying/contact guard assistance fro m one helper? No. TOILETING HYGIENE - STEP 4: Does the patient need physical assistance - for example lifting or trunk support from one helper - wi th the helper providing less than half of the effort? No. TOILETING HYGIENE - STEP 5: Does the patient need physical assistance - for example lifting or trunk support from one helper - wi th the helper providing more than half of the effort? No. TOILETING HYGIENE - STEP 6: Does the helper provide all of the effort? OR Is the assistance of two or more helpers required to co mplete the activity? Yes. 1. [id number] ADMISSION PERFORMANCE: Dependent CODE: 01 BATHING: SHOWER/BATHE SELF - STEP 1: Does the patient complete the activity by him/herself with no assistance (physical, verbal/nonverbal cueing, setup/clean-up)? No. SHOWER/BATHE SELF - STEP 2: Does the patient need only setup/clean-up assistance from one helper? No. SHOWER/BATHE SELF - STEP 3: Does the patient need only verbal/nonverbal cueing or touching/steadying/contact guard assistance fro m one helper? No. SHOWER/BATHE SELF - STEP 4: Does the patient need physical assistance - for example lifting or trunk support from one helper - wi th the helper providing less than half of the effort? Yes. 1. [id number] ADMISSION PERFORMANCE: Partial/moderate assistance CODE: 03 DRESSING - UPPER BODY: DRESSING - UPPER BODY - STEP 1: Does the patient complete the activity by him/herself with no assistance (physical, verbal/nonverbal cueing, setup/clean-up)? No. DRESSING - UPPER BODY - STEP 2: Does the patient need only setup/clean-up assistance from one helper? No. DRESSING - UPPER BODY - STEP 3: Does the patient need only verbal/nonverbal cueing or touching/steadying/contact guard assistance fro m one helper? No. DRESSING - UPPER BODY - STEP 4: Does the patient need physical assistance - for example lifting or trunk support from one helper - wi th the helper providing less than half of the effort? Yes. 1. [id number] ADMISSION PERFORMANCE: Partial/moderate assistance CODE: 03 DRESSING - LOWER BODY: DRESSING - LOWER BODY - STEP 1: Does the patient complete the activity by him/herself with no assistance (physical, verbal/nonverbal cueing, setup/clean-up)? No. DRESSING - LOWER BODY - STEP 2: Does the patient need only setup/clean-up assistance from one helper? No. DRESSING - LOWER BODY - STEP 3: Does the patient need only verbal/nonverbal cueing or touching/steadying/contact guard assistance fro m one helper? No. DRESSING - LOWER BODY - STEP 4: Does the patient need physical assistance - for example lifting or trunk support from one helper - wi th the helper providing less than half of the effort? No. DRESSING - LOWER BODY - STEP 5: Does the patient need physical assistance - for example lifting or trunk support from one helper - wi th the helper providing more than half of the effort? Yes. 1. [id number] ADMISSION PERFORMANCE: Substantial/maximal assistance CODE: 02 PUTTING ON/TAKING OFF FOOTWEAR: FOOTWEAR - STEP 1: Does the patient complete the activity by him/herself with no assistance (physical, verbal/nonverbal cueing, setup/clean-up)? No. FOOTWEAR - STEP 2: Does the patient need only setup/clean-up assistance from one helper? No. FOOTWEAR - STEP 3: Does the patient need only verbal/nonverbal cueing or touching/steadying/contact guard assistance fro m one helper? No. FOOTWEAR - STEP 4: Does the patient need physical assistance - for example lifting or trunk support from one helper - wi th the helper providing less than half of the effort? No. FOOTWEAR - STEP 5: Does the patient need physical assistance - for example lifting or trunk support from one helper - wi th the helper providing more than half of the effort? No. FOOTWEAR - STEP 6: Does the helper provide all of the effort? OR Is the assistance of two or more helpers required to co mplete the activity? Yes. 1. [id number] ADMISSION PERFORMANCE: Dependent CODE: 01 DOES THE PATIENT USE A WHEELCHAIR/SCOOTER? CODE: EXPR INDICATE THE TYPE OF WHEELCHAIR/SCOOTER USED: CODE: EXPR INDICATE THE TYPE OF WHEELCHAIR/SCOOTER USED: CODE: EXPR BLADDER AND BOWEL: CODE: EXPR CODE: EXPR SIGNATURE PANEL: The following modified sections: 1. [id number] Admission Performance, 1. [id number] Admission Performance, 1. [id number] Admission Performance, 1. [id number] Admission Performance, 1. [id number] Admission Performance, 1. [id number] Admission Performance, 1. [id number] Admission Performance were [electronically] signed by Mir Lopez OT on ThuJun 15 2019 15:42:37 GMT-0600 (Central Standard Time)
[2019-06-15] MEDS: MELATONIN 3 MG TABLET PO SCH (20:26)
[2019-06-16] MEDS: carvediloL 25 MG TAB FT SCH ×2 (05:17→17:25)
[2019-06-16] MEDS: INSULIN -REGULAR HUMAN 50 UNIT/0.5 ML ML SQ SCH ×4 (07:30→20:45)
[2019-06-16] MEDS: NICOTINE 14 MG/PAT TD SCH (08:00)
[2019-06-16] MEDS: DULOXETINE 20 MG CAP PO SCH (08:19)
[2019-06-16] MEDS: APIXABAN 2.5 MG TABLET FT SCH ×2 (08:20→20:38)
[2019-06-16] MEDS: AMLODIPINE 10 MG TAB FT SCH (08:20)
[2019-06-16] MEDS: HYDRALAZINE HCL 25 MG TABLET FT SCH ×3 (08:20→20:43)
[2019-06-16 13:30] LABS: Absolute Lymphocytes (CBC) 1.5 K/uL (0.7-4.9); Hematocrit 33.1 % (39.6-49.0); RBC Red Blood Cell Count 3.69 M/uL (4.33-5.43)
[2019-06-16] MEDS: ONDANSETRON 4 MG (ODT) TAB PO PRN ×2 (13:40→19:37)
[2019-06-16 13:46] LABS: Potassium 4.9 mmol/L (3.5-5.1)
--- NOTE | 2019-06-16 13:49 | FAST ---
SHIFT START DATE/TIME: 06/15/2019 07:00 (COPIER REPAIR TECHNICIAN) SHIFT END DATE/TIME: 06/15/2019 19:00 (COPIER REPAIR TECHNICIAN) NAME KAILA BLANK DATE OF : 1975 DATE OF ADMISSION: 06/10/2019 18:25 (COPIER REPAIR TECHNICIAN) PHONE: AGE: 43 N# [id number] GENDER: Male ENCOUNTER PHYSICIAN: Dr. Kodak Leslie M.D. 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 EATING: EATING - STEP 1: Does the patient complete the activity by him/herself with no assistance (physical, verbal/nonverbal cueing, setup/clean-up)? No. EATING - STEP 2: Does the patient need only setup/clean-up assistance from one helper? No. EATING - STEP 3: Does the patient need only verbal/nonverbal cueing or touching/steadying/contact guard assistance fro m one helper? Yes. 1. [id number] ADMISSION PERFORMANCE: Supervision or touching assistance CODE: 04 ORAL HYGIENE: ORAL HYGIENE - STEP 1: Does the patient complete the activity by him/herself with no assistance (physical, verbal/nonverbal cueing, setup/clean-up)? No. ORAL HYGIENE - STEP 2: Does the patient need only setup/clean-up assistance from one helper? No. ORAL HYGIENE - STEP 3: Does the patient need only verbal/nonverbal cueing or touching/steadying/contact guard assistance fro m one helper? Yes. 1. [id number] ADMISSION PERFORMANCE: Supervision or touching assistance CODE: 04 TOILETING HYGIENE: TOILETING HYGIENE - STEP 1: Does the patient complete the activity by him/herself with no assistance (physical, verbal/nonverbal cueing, setup/clean-up)? No. TOILETING HYGIENE - STEP 2: Does the patient need only setup/clean-up assistance from one helper? No. TOILETING HYGIENE - STEP 3: Does the patient need only verbal/nonverbal cueing or touching/steadying/contact guard assistance fro m one helper? No. TOILETING HYGIENE - STEP 4: Does the patient need physical assistance - for example lifting or trunk support from one helper - wi th the helper providing less than half of the effort? Yes. 1. [id number] ADMISSION PERFORMANCE: Partial/moderate assistance CODE: 03 BATHING: Not assessed/no information CODE: - DRESSING - UPPER BODY: DRESSING - UPPER BODY - STEP 1: Does the patient complete the activity by him/herself with no assistance (physical, verbal/nonverbal cueing, setup/clean-up)? No. DRESSING - UPPER BODY - STEP 2: Does the patient need only setup/clean-up assistance from one helper? No. DRESSING - UPPER BODY - STEP 3: Does the patient need only verbal/nonverbal cueing or touching/steadying/contact guard assistance fro m one helper? No. DRESSING - UPPER BODY - STEP 4: Does the patient need physical assistance - for example lifting or trunk support from one helper - wi th the helper providing less than half of the effort? No. DRESSING - UPPER BODY - STEP 5: Does the patient need physical assistance - for example lifting or trunk support from one helper - wi th the helper providing more than half of the effort? Yes. 1. [id number] ADMISSION PERFORMANCE: Substantial/maximal assistance CODE: 02 DRESSING - LOWER BODY: DRESSING - LOWER BODY - STEP 1: Does the patient complete the activity by him/herself with no assistance (physical, verbal/nonverbal cueing, setup/clean-up)? No. DRESSING - LOWER BODY - STEP 2: Does the patient need only setup/clean-up assistance from one helper? No. DRESSING - LOWER BODY - STEP 3: Does the patient need only verbal/nonverbal cueing or touching/steadying/contact guard assistance fro m one helper? No. DRESSING - LOWER BODY - STEP 4: Does the patient need physical assistance - for example lifting or trunk support from one helper - wi th the helper providing less than half of the effort? No. DRESSING - LOWER BODY - STEP 5: Does the patient need physical assistance - for example lifting or trunk support from one helper - wi th the helper providing more than half of the effort? Yes. 1. [id number] ADMISSION PERFORMANCE: Substantial/maximal assistance CODE: 02 PUTTING ON/TAKING OFF FOOTWEAR: FOOTWEAR - STEP 1: Does the patient complete the activity by him/herself with no assistance (physical, verbal/nonverbal cueing, setup/clean-up)? No. FOOTWEAR - STEP 2: Does the patient need only setup/clean-up assistance from one helper? No. FOOTWEAR - STEP 3: Does the patient need only verbal/nonverbal cueing or touching/steadying/contact guard assistance fro m one helper? No. FOOTWEAR - STEP 4: Does the patient need physical assistance - for example lifting or trunk support from one helper - wi th the helper providing less than half of the effort? No. FOOTWEAR - STEP 5: Does the patient need physical assistance - for example lifting or trunk support from one helper - wi th the helper providing more than half of the effort? Yes. 1. [id number] ADMISSION PERFORMANCE: Substantial/maximal assistance CODE: 02 ROLL LEFT AND RIGHT: ROLL LEFT AND RIGHT - STEP 1: Does the patient complete the activity by him/herself with no assistance (physical, verbal/nonverbal cueing, setup/clean-up)? No. ROLL LEFT AND RIGHT - STEP 2: Does the patient need only setup/clean-up assistance from one helper? No. ROLL LEFT AND RIGHT - STEP 3: Does the patient need only verbal/nonverbal cueing or touching/steadying/contact guard assistance fro m one helper? No. ROLL LEFT AND RIGHT - STEP 4: Does the patient need physical assistance - for example lifting or trunk support from one helper - wi th the helper providing less than half of the effort? No. ROLL LEFT AND RIGHT - STEP 5: Does the patient need physical assistance - for example lifting or trunk support from one helper - wi th the helper providing more than half of the effort? Yes. 1. [id number] ADMISSION PERFORMANCE: Substantial/maximal assistance CODE: 02 SIT TO LYING: SIT TO LYING - STEP 1: Does the patient complete the activity by him/herself with no assistance (physical, verbal/nonverbal cueing, setup/clean-up)? No. SIT TO LYING - STEP 2: Does the patient need only setup/clean-up assistance from one helper? No. SIT TO LYING - STEP 3: Does the patient need only verbal/nonverbal cueing or touching/steadying/contact guard assistance fro m one helper? No. SIT TO LYING - STEP 4: Does the patient need physical assistance - for example lifting or trunk support from one helper - wi th the helper providing less than half of the effort? No. SIT TO LYING - STEP 5: Does the patient need physical assistance - for example lifting or trunk support from one helper - wi th the helper providing more than half of the effort? Yes. 1. [id number] ADMISSION PERFORMANCE: Substantial/maximal assistance CODE: 02 LYING TO SITTING: LYING TO SITTING ON SIDE OF BED - STEP 1: Does the patient complete the activity by him/herself with no assistance (physical, verbal/nonverbal cueing, setup/clean-up)? No. LYING TO SITTING ON SIDE OF BED - STEP 2: Does the patient need only setup/clean-up assistance from one helper? No. LYING TO SITTING ON SIDE OF BED - STEP 3: Does the patient need only verbal/nonverbal cueing or touching/steadying/contact guard assistance fro m one helper? No. LYING TO SITTING ON SIDE OF BED - STEP 4: Does the patient need physical assistance - for example lifting or trunk support from one helper - wi th the helper providing less than half of the effort? No. LYING TO SITTING ON SIDE OF BED - STEP 5: Does the patient need physical assistance - for example lifting or trunk support from one helper - wi th the helper providing more than half of the effort? Yes. 1. [id number] ADMISSION PERFORMANCE: Substantial/maximal assistance CODE: 02 SIT TO STAND: SIT TO STAND - STEP 1: Does the patient complete the activity by him/herself with no assistance (physical, verbal/nonverbal cueing, setup/clean-up)? No. SIT TO STAND - STEP 2: Does the patient need only setup/clean-up assistance from one helper? No. SIT TO STAND - STEP 3: Does the patient need only verbal/nonverbal cueing or touching/steadying/contact guard assistance fro m one helper? No. SIT TO STAND - STEP 4: Does the patient need physical assistance - for example lifting or trunk support from one helper - wi th the helper providing less than half of the effort? No. SIT TO STAND - STEP 5: Does the patient need physical assistance - for example lifting or trunk support from one helper - wi th the helper providing more than half of the effort? Yes. 1. [id number] ADMISSION PERFORMANCE: Substantial/maximal assistance CODE: 02 TRANSFERS: BED, CHAIR: CHAIR/[id number] TRANSFER - STEP 1: Does the patient complete the activity by him/herself with no assistance (physical, verbal/nonverbal cueing, setup/clean-up)? No. CHAIR/[id number] TRANSFER - STEP 2: Does the patient need only setup/clean-up assistance from one helper? No. CHAIR/[id number] TRANSFER - STEP 3: Does the patient need only verbal/nonverbal cueing or touching/steadying/contact guard assistance fro m one helper? No. CHAIR/[id number] TRANSFER - STEP 4: Does the patient need physical assistance - for example lifting or trunk support from one helper - wi th the helper providing less than half of the effort? No. CHAIR/[id number] TRANSFER - STEP 5: Does the patient need physical assistance - for example lifting or trunk support from one helper - wi th the helper providing more than half of the effort? No. CHAIR/[id number] TRANSFER - STEP 6: Does the helper provide all of the effort? OR Is the assistance of two or more helpers required to co mplete the activity? Yes. 1. [id number] ADMISSION PERFORMANCE: Dependent CODE: 01 TRANSFER TOILET: TOILET TRANSFER - STEP 1: Does the patient complete the activity by him/herself with no assistance (physical, verbal/nonverbal cueing, setup/clean-up)? No. TOILET TRANSFER - STEP 2: Does the patient need only setup/clean-up assistance from one helper? No. TOILET TRANSFER - STEP 3: Does the patient need only verbal/nonverbal cueing or touching/steadying/contact guard assistance fro m one helper? No. TOILET TRANSFER - STEP 4: Does the patient need physical assistance - for example lifting or trunk support from one helper - wi th the helper providing less than half of the effort? No. TOILET TRANSFER - STEP 5: Does the patient need physical assistance - for example lifting or trunk support from one helper - wi th the helper providing more than half of the effort? No. TOILET TRANSFER - STEP 6: Does the helper provide all of the effort? OR Is the assistance of two or more helpers required to co mplete the activity? Yes. 1. [id number] ADMISSION PERFORMANCE: Dependent CODE: 01 TRANSFERS: CAR: Not assessed/no information CODE: - WALK 10 FEET: Not assessed/no information CODE: - 1 STEP (CURB): Not assessed/no information CODE: - PICKING UP OBJECT: Not assessed/no information CODE: - DOES THE PATIENT USE A WHEELCHAIR/SCOOTER? Q1. DOES THE PATIENT USE A WHEELCHAIR/SCOOTER?: Yes CODE: 1 WHEEL 50 FEET WITH TWO TURNS: Not assessed/no information CODE: - INDICATE THE TYPE OF WHEELCHAIR/SCOOTER USED: RR1. INDICATE THE TYPE OF WHEELCHAIR/SCOOTER USED.: Manual CODE: 1 WHEEL 150 FEET: Not assessed/no information CODE: - INDICATE THE TYPE OF WHEELCHAIR/SCOOTER USED: SS1. INDICATE THE TYPE OF WHEELCHAIR/SCOOTER USED.: Manual CODE: 1 BLADDER AND BOWEL: H350. BLADDER CONTINENCE (3-DAY ASSESSMENT PERIOD): Always incontinent CODE: 4 H400. BOWEL CONTINENCE (3-DAY ASSESSMENT PERIOD): Always incontinent (no episodes of continent bowel movements) CODE: 3 SIGNATURE PANEL: The following modified sections: 1. [id number] Admission Performance, 1. [id number] Admission Performance, 1. [id number] Admission Performance, 1. [id number] Admission Performance, 1. CJ3439h Admission Performance, 1. [id number] Admission Performance, 1. [id number] Admission Performance, 1. [id number] Admission Performance , 1. UK3086E Admission Performance, 1. [id number] Admission Performance, 1. [id number] Admission Performanc e, 1. [id number] Admission Performance, 1. [id number] Admission Performance, 1. [id number] Admission Performan ce, 1. [id number] Admission Performance, Q1. Does the patient use a wheelchair/scooter?, RR1. Indicate t he type of wheelchair/scooter used., Code, SS1. Indicate the type of wheelchair/scooter used., H350. Bladder Continence (3-day assessment period), H400. Bowel Continence (3-day assessment period) were [ electronically] signed by Amelia Prince C.N.A. on ThuJun 16 2019 13:48:34 GMT-0600 (Central Standard Time)
[2019-06-16] MEDS: NA CHLORIDE 0.9% 1,000 ML IV SCH (14:36)
--- NOTE | 2019-06-16 14:40 | FAST ---
SHIFT START DATE/TIME: 06/16/2019 07:00 (ASSISTANT LABORATORY DIRECTOR) SHIFT END DATE/TIME: 06/16/2019 19:00 (ASSISTANT LABORATORY DIRECTOR) NAME KAILA BLANK DATE OF : 1975 DATE OF ADMISSION: 06/10/2019 18:25 (ASSISTANT LABORATORY DIRECTOR) PHONE: AGE: 43 N# [id number] GENDER: Male ENCOUNTER PHYSICIAN: Dr. Kodak Leslie M.D. 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 EATING: EATING - STEP 1: Does the patient complete the activity by him/herself with no assistance (physical, verbal/nonverbal cueing, setup/clean-up)? No. EATING - STEP 2: Does the patient need only setup/clean-up assistance from one helper? No. EATING - STEP 3: Does the patient need only verbal/nonverbal cueing or touching/steadying/contact guard assistance fro m one helper? Yes. 1. [id number] ADMISSION PERFORMANCE: Supervision or touching assistance CODE: 04 ORAL HYGIENE: ORAL HYGIENE - STEP 1: Does the patient complete the activity by him/herself with no assistance (physical, verbal/nonverbal cueing, setup/clean-up)? No. ORAL HYGIENE - STEP 2: Does the patient need only setup/clean-up assistance from one helper? No. ORAL HYGIENE - STEP 3: Does the patient need only verbal/nonverbal cueing or touching/steadying/contact guard assistance fro m one helper? Yes. 1. [id number] ADMISSION PERFORMANCE: Supervision or touching assistance CODE: 04 TOILETING HYGIENE: TOILETING HYGIENE - STEP 1: Does the patient complete the activity by him/herself with no assistance (physical, verbal/nonverbal cueing, setup/clean-up)? No. TOILETING HYGIENE - STEP 2: Does the patient need only setup/clean-up assistance from one helper? No. TOILETING HYGIENE - STEP 3: Does the patient need only verbal/nonverbal cueing or touching/steadying/contact guard assistance fro m one helper? No. TOILETING HYGIENE - STEP 4: Does the patient need physical assistance - for example lifting or trunk support from one helper - wi th the helper providing less than half of the effort? No. TOILETING HYGIENE - STEP 5: Does the patient need physical assistance - for example lifting or trunk support from one helper - wi th the helper providing more than half of the effort? Yes. 1. [id number] ADMISSION PERFORMANCE: Substantial/maximal assistance CODE: 02 BATHING: Not assessed/no information CODE: - DRESSING - UPPER BODY: DRESSING - UPPER BODY - STEP 1: Does the patient complete the activity by him/herself with no assistance (physical, verbal/nonverbal cueing, setup/clean-up)? No. DRESSING - UPPER BODY - STEP 2: Does the patient need only setup/clean-up assistance from one helper? No. DRESSING - UPPER BODY - STEP 3: Does the patient need only verbal/nonverbal cueing or touching/steadying/contact guard assistance fro m one helper? Yes. 1. [id number] ADMISSION PERFORMANCE: Supervision or touching assistance CODE: 04 DRESSING - LOWER BODY: DRESSING - LOWER BODY - STEP 1: Does the patient complete the activity by him/herself with no assistance (physical, verbal/nonverbal cueing, setup/clean-up)? No. DRESSING - LOWER BODY - STEP 2: Does the patient need only setup/clean-up assistance from one helper? No. DRESSING - LOWER BODY - STEP 3: Does the patient need only verbal/nonverbal cueing or touching/steadying/contact guard assistance fro m one helper? No. DRESSING - LOWER BODY - STEP 4: Does the patient need physical assistance - for example lifting or trunk support from one helper - wi th the helper providing less than half of the effort? Yes. 1. [id number] ADMISSION PERFORMANCE: Partial/moderate assistance CODE: 03 PUTTING ON/TAKING OFF FOOTWEAR: FOOTWEAR - STEP 1: Does the patient complete the activity by him/herself with no assistance (physical, verbal/nonverbal cueing, setup/clean-up)? No. FOOTWEAR - STEP 2: Does the patient need only setup/clean-up assistance from one helper? No. FOOTWEAR - STEP 3: Does the patient need only verbal/nonverbal cueing or touching/steadying/contact guard assistance fro m one helper? No. FOOTWEAR - STEP 4: Does the patient need physical assistance - for example lifting or trunk support from one helper - wi th the helper providing less than half of the effort? No. FOOTWEAR - STEP 5: Does the patient need physical assistance - for example lifting or trunk support from one helper - wi th the helper providing more than half of the effort? Yes. 1. [id number] ADMISSION PERFORMANCE: Substantial/maximal assistance CODE: 02 ROLL LEFT AND RIGHT: ROLL LEFT AND RIGHT - STEP 1: Does the patient complete the activity by him/herself with no assistance (physical, verbal/nonverbal cueing, setup/clean-up)? No. ROLL LEFT AND RIGHT - STEP 2: Does the patient need only setup/clean-up assistance from one helper? No. ROLL LEFT AND RIGHT - STEP 3: Does the patient need only verbal/nonverbal cueing or touching/steadying/contact guard assistance fro m one helper? No. ROLL LEFT AND RIGHT - STEP 4: Does the patient need physical assistance - for example lifting or trunk support from one helper - wi th the helper providing less than half of the effort? No. ROLL LEFT AND RIGHT - STEP 5: Does the patient need physical assistance - for example lifting or trunk support from one helper - wi th the helper providing more than half of the effort? Yes. 1. [id number] ADMISSION PERFORMANCE: Substantial/maximal assistance CODE: 02 SIT TO LYING: SIT TO LYING - STEP 1: Does the patient complete the activity by him/herself with no assistance (physical, verbal/nonverbal cueing, setup/clean-up)? No. SIT TO LYING - STEP 2: Does the patient need only setup/clean-up assistance from one helper? No. SIT TO LYING - STEP 3: Does the patient need only verbal/nonverbal cueing or touching/steadying/contact guard assistance fro m one helper? No. SIT TO LYING - STEP 4: Does the patient need physical assistance - for example lifting or trunk support from one helper - wi th the helper providing less than half of the effort? No. SIT TO LYING - STEP 5: Does the patient need physical assistance - for example lifting or trunk support from one helper - wi th the helper providing more than half of the effort? Yes. 1. [id number] ADMISSION PERFORMANCE: Substantial/maximal assistance CODE: 02 LYING TO SITTING: LYING TO SITTING ON SIDE OF BED - STEP 1: Does the patient complete the activity by him/herself with no assistance (physical, verbal/nonverbal cueing, setup/clean-up)? No. LYING TO SITTING ON SIDE OF BED - STEP 2: Does the patient need only setup/clean-up assistance from one helper? No. LYING TO SITTING ON SIDE OF BED - STEP 3: Does the patient need only verbal/nonverbal cueing or touching/steadying/contact guard assistance fro m one helper? No. LYING TO SITTING ON SIDE OF BED - STEP 4: Does the patient need physical assistance - for example lifting or trunk support from one helper - wi th the helper providing less than half of the effort? No. LYING TO SITTING ON SIDE OF BED - STEP 5: Does the patient need physical assistance - for example lifting or trunk support from one helper - wi th the helper providing more than half of the effort? Yes. 1. [id number] ADMISSION PERFORMANCE: Substantial/maximal assistance CODE: 02 SIT TO STAND: SIT TO STAND - STEP 1: Does the patient complete the activity by him/herself with no assistance (physical, verbal/nonverbal cueing, setup/clean-up)? No. SIT TO STAND - STEP 2: Does the patient need only setup/clean-up assistance from one helper? No. SIT TO STAND - STEP 3: Does the patient need only verbal/nonverbal cueing or touching/steadying/contact guard assistance fro m one helper? No. SIT TO STAND - STEP 4: Does the patient need physical assistance - for example lifting or trunk support from one helper - wi th the helper providing less than half of the effort? No. SIT TO STAND - STEP 5: Does the patient need physical assistance - for example lifting or trunk support from one helper - wi th the helper providing more than half of the effort? Yes. 1. [id number] ADMISSION PERFORMANCE: Substantial/maximal assistance CODE: 02 TRANSFERS: BED, CHAIR: CHAIR/[id number] TRANSFER - STEP 1: Does the patient complete the activity by him/herself with no assistance (physical, verbal/nonverbal cueing, setup/clean-up)? No. CHAIR/[id number] TRANSFER - STEP 2: Does the patient need only setup/clean-up assistance from one helper? No. CHAIR/[id number] TRANSFER - STEP 3: Does the patient need only verbal/nonverbal cueing or touching/steadying/contact guard assistance fro m one helper? No. CHAIR/[id number] TRANSFER - STEP 4: Does the patient need physical assistance - for example lifting or trunk support from one helper - wi th the helper providing less than half of the effort? No. CHAIR/[id number] TRANSFER - STEP 5: Does the patient need physical assistance - for example lifting or trunk support from one helper - wi th the helper providing more than half of the effort? Yes. 1. [id number] ADMISSION PERFORMANCE: Substantial/maximal assistance CODE: 02 TRANSFER TOILET: TOILET TRANSFER - STEP 1: Does the patient complete the activity by him/herself with no assistance (physical, verbal/nonverbal cueing, setup/clean-up)? No. TOILET TRANSFER - STEP 2: Does the patient need only setup/clean-up assistance from one helper? No. TOILET TRANSFER - STEP 3: Does the patient need only verbal/nonverbal cueing or touching/steadying/contact guard assistance fro m one helper? Yes. 1. [id number] ADMISSION PERFORMANCE: Supervision or touching assistance CODE: 04 TRANSFERS: CAR: Not assessed/no information CODE: - WALK 10 FEET: Not assessed/no information CODE: - 1 STEP (CURB): Not assessed/no information CODE: - PICKING UP OBJECT: Not assessed/no information CODE: - DOES THE PATIENT USE A WHEELCHAIR/SCOOTER? Q1. DOES THE PATIENT USE A WHEELCHAIR/SCOOTER?: Yes CODE: 1 WHEEL 50 FEET WITH TWO TURNS: WHEEL 50 FEET WITH TWO TURNS - STEP 1: Does the patient complete the activity by him/herself with no assistance (physical, verbal/nonverbal cueing, setup/clean-up)? No. WHEEL 50 FEET WITH TWO TURNS - STEP 2: Does the patient need only setup/clean-up assistance from one helper? No. WHEEL 50 FEET WITH TWO TURNS - STEP 3: Does the patient need only verbal/nonverbal cueing or touching/steadying/contact guard assistance fro m one helper? Yes. 1. [id number] ADMISSION PERFORMANCE: Supervision or touching assistance CODE: 04 INDICATE THE TYPE OF WHEELCHAIR/SCOOTER USED: RR1. INDICATE THE TYPE OF WHEELCHAIR/SCOOTER USED.: Manual CODE: 1 WHEEL 150 FEET: WHEEL 150 FEET - STEP 1: Does the patient complete the activity by him/herself with no assistance (physical, verbal/nonverbal cueing, setup/clean-up)? No. WHEEL 150 FEET - STEP 2: Does the patient need only setup/clean-up assistance from one helper? No. WHEEL 150 FEET - STEP 3: Does the patient need only verbal/nonverbal cueing or touching/steadying/contact guard assistance fro m one helper? No. WHEEL 150 FEET - STEP 4: Does the patient need physical assistance - for example lifting or trunk support from one helper - wi th the helper providing less than half of the effort? No. WHEEL 150 FEET - STEP 5: Does the patient need physical assistance - for example lifting or trunk support from one helper - wi th the helper providing more than half of the effort? Yes. 1. [id number] ADMISSION PERFORMANCE: Substantial/maximal assistance CODE: 02 INDICATE THE TYPE OF WHEELCHAIR/SCOOTER USED: SS1. INDICATE THE TYPE OF WHEELCHAIR/SCOOTER USED.: Manual CODE: 1 BLADDER AND BOWEL: H350. BLADDER CONTINENCE (3-DAY ASSESSMENT PERIOD): Incontinent daily (at least once a day) CODE: 3 H400. BOWEL CONTINENCE (3-DAY ASSESSMENT PERIOD): Always continent CODE: 0 SIGNATURE PANEL: The following modified sections: 1. [id number] Admission Performance, 1. [id number] Admission Performance, 1. [id number] Admission Performance, 1. [id number] Admission Performance, 1. [id number] Admission Performance, 1. [id number] Admission Performance, 1. CE7852w Admission Performance, 1. CS6505D Admission Performance , 1. [id number] Admission Performance, 1. [id number] Admission Performance, 1. VK0859H Admission Performanc e, 1. LI7529S Admission Performance, 1. [id number] Admission Performance, 1. [id number] Admission Performan ce, 1. [id number] Admission Performance, 1. [id number] Admission Performance, Q1. Does the patient use a wh eelchair/scooter?, 1. [id number] Admission Performance, RR1. Indicate the type of wheelchair/scooter use d., 1. [id number] Admission Performance, Code, SS1. Indicate the type of wheelchair/scooter used., H350. Bladder Continence (3-day assessment period), H400. Bowel Continence (3-day assessment period), 1. G H8158u Admission Performance, 1. GY2006x Admission Performance, 1. YA8959m Admission Performance were [electronically] signed by Amelia Prince C.N.A. on ThuJun 16 2019 14:39:21 T-0600 ([address] Time)
[2019-06-16 19:08] LABS: Blood Morphology Comment NOT SEEN (NOT SEEN); Platelet Estimate ADEQ; Urine White Blood Cell Casts OK
[2019-06-16] MEDS: MELATONIN 3 MG TABLET PO SCH (20:39)
[2019-06-17] MEDS: NA CHLORIDE 0.9% 1,000 ML IV SCH (01:44)
[2019-06-17] MEDS: carvediloL 25 MG TAB FT SCH ×2 (05:26→17:16)
[2019-06-17 06:01] LABS: Absolute Lymphocytes (CBC) 1.9 K/uL (0.7-4.9); Basophils % 0.8 % (0-1.3); Hematocrit 31.3 % (39.6-49.0); Lymphocytes % 14.9 % (15.3-44.8); MPV 10.8 fL (7.6-11.3); RBC Red Blood Cell Count 3.46 M/uL (4.33-5.43)
[2019-06-17 06:04] LABS: Potassium 5.2 mmol/L (3.5-5.1)
[2019-06-17] MEDS: INSULIN -REGULAR HUMAN 50 UNIT/0.5 ML ML SQ SCH ×4 (07:04→19:33)
[2019-06-17] MEDS: DULOXETINE 20 MG CAP PO SCH (08:00)
[2019-06-17] MEDS: ONDANSETRON 4 MG (ODT) TAB PO PRN (08:20)
[2019-06-17] MEDS: HYDRALAZINE HCL 25 MG TABLET FT SCH ×3 (08:21→19:33)
[2019-06-17] MEDS: NICOTINE 14 MG/PAT TD SCH (08:21)
[2019-06-17] MEDS: APIXABAN 2.5 MG TABLET FT SCH ×2 (08:22→19:33)
[2019-06-17] MEDS: AMLODIPINE 10 MG TAB FT SCH (08:23)
--- NOTE | 2019-06-17 11:07 | P.CNS ---
Date of Consult: 06/17/19 patient seen/examined. this is a young man of 43 yrs of age with recent CVA and sigificant right sided hemiparesis. he is wheel chair bound. had an NG tube, d/ broderick last thursday. he is not able to eat as well and on exam looks dehydrated and volume depleted. his bp is under reasonable control with sbp running in 120 range. fs glucose is being monitored and patient is on insulin. vs stable lungs cta cvs rrr abd soft/nt/nd difficulty with speech. ext trace right lower ext edema. (has been wheel chair bound and not moving right leg/arm). skin is dry. nasal mucosa seems dry. labs: reviewed. meds: reviewed. a/p lainey/? ckd hx/ patient has not sought attention for his dm/htn management in past. now with cva. has volume depletion 2nd to poor po intake. likely some component of prerenal azotemia. sodium on higher side. would d/c ns and start 1/ 2 ns at 100 ccs/hour. repeat labs on thursday. judious po intake as per speech recommendations, awaiting barium swallow. his bp is reasonable currently; continue to monitor. ucx did not show any growth indicative of infection and cxray on 06/13 was ok. wbc is very slightly elevated, ? due to dehydration. if develops fever or change in condition or wbc does not improve or worsens, may need worked up with repeat cxray, ua. check cbc/bmp thursday.
--- NOTE | 2019-06-17 11:59 | RAD REPORT ---
EXAM DESCRIPTION: RAD - Barium Swallow Modified - 06/17/2019 11:53 am CLINICAL HISTORY: Diet upgrade/dysphagia FINDINGS: Laryngeal penetration: not cleared with nectar at end of study (fatigue) Trace Aspiration with NO cough with thin residue. Pharyngeal residue: Vallecular and pyriform. both mild with honey, puree and sonny cracker. Barium tablet passed into UES with out incident. Twenty-two fluoroscopic spot series obtained. Fluoroscopy time 3.2 minutes
[2019-06-17] MEDS: NACHLORIDE 0.45% 1,000 ML IV SCH ×2 (12:39→22:37)
[2019-06-17] MEDS: MELATONIN 3 MG TABLET PO SCH (19:33)
[2019-06-18] MEDS: carvediloL 25 MG TAB FT SCH ×2 (05:01→16:56)
[2019-06-18] MEDS: INSULIN -REGULAR HUMAN 50 UNIT/0.5 ML ML SQ SCH ×4 (07:16→20:01)
[2019-06-18] MEDS: NACHLORIDE 0.45% 1,000 ML IV SCH ×2 (08:27→16:58)
[2019-06-18] MEDS: AMLODIPINE 10 MG TAB FT SCH (08:28)
[2019-06-18] MEDS: HYDRALAZINE HCL 25 MG TABLET FT SCH ×3 (08:28→18:58)
[2019-06-18] MEDS: APIXABAN 2.5 MG TABLET FT SCH ×2 (08:28→18:58)
[2019-06-18] MEDS: NICOTINE 14 MG/PAT TD SCH (08:29)
--- NOTE | 2019-06-18 15:15 | R.PN ---
ENCOUNTER DATE AND TIME: 06/18/2019 15:12 (GEOTHERMAL OPERATIONS MANAGER) NAME KAILA BLANK DATE OF : 1975 DATE OF ADMISSION: 06/10/2019 18:25 (GEOTHERMAL OPERATIONS MANAGER) Nontraumatic subdural hemorrhage, unspecified (I62.00) CHIEF COMPLAINT: Hemorrhagic stroke with residual right sided weakness SUBJECTIVE: Pt denied any depression. Pt denied any Shortness of Breath. Still has elevated Na and Cl but improving. Elevated floor worker well service of 2.89 but improved from 2.92. Elevated glu cose 133 to 177. Low calcium of 8.0. He has dense right arm and leg paresis with marked dysphagia. He has iv fluids going due to poor oral liquid intake. The renal service is seeing him. VITAL SIGNS Temperature: 98.1 F SBP/DBP: 139/81 Pulse: 68 Resp: 14 MEDICATION ALLERGIES: No Known Drug Allergies (NKDA) ENVIRONMENTAL ALLERGIES: - Substance Allergies None Known - Other Allergies None Known NURSING: - Shower allowing shower - Bladder care per protocol - Skin care per protocol PRECAUTIONS: - Weight Bearing Precaution WBAT right LE ACTIVITIES OOB only with supervision THERAPIES: - Occupational Therapy Cognitive Retraining. Visual Perceptual Training. - Dietary and Nutrition Adequate Nutrition. Nutritional Education. Nutritional Supplements. - Speech Therapy Cognitive Training. Expressive Language Skills. Memory Strategies. Receptive Language Skills. Speech Intelligibility Training. PHYSICAL EXAM - Gen Alert and awake Lying in bed No apparent distress Oriented to: person, time, and place - Skin No breakdown Normacephalic - Eyes No abnormalities - ENMT No abnormalities - Neck No abnormalities - CVS RRR - Chest Mildly decreased breath sounds bilaterally. - Resp Bilateral congestion. - Abd +bowel sounds - GI nondistended Deferred - Valladares catheter - Ext No significant edema - MSK 4+/5 weakness in right lower extremity - Neuro 4/5 strength right lower extremity. - Psych No abnormalities ASSESSMENT: Pt. is a 43 yo Right-handed white male.On 06/03/[address] [facility] with sudden onset of right-side weakness.On 06/03/2019 he [address] to [facility] with diagnosis Nontraumatic intracerebral hemorrhage, unspecified (I61.9) .His impairment category is Str carmen 01 - Right Body (Left Brain) (01.2).Pre-morbidly, Pt. was independent/mod-I in Locomotion, Self- Care, Endurance, Balance, Transfers Control, Social Cognition, Safety Awareness, Communication, Funct ional mobility, and Sphincter Control; and he had good Ambulation.Currently, he has deficits of Locom otion, Self-Care, Endurance, Balance, Transfers Control, Ambulation, and Functional mobility.Pt. is n ow referred to [facility] for acute in-patient rehabilitation in order to maxi theodore patient's functional independence in activities of daily living, strength, ROM, and mobility.- R ehab Goal Patient has realistic goal of being discharged at assistance level 6-Cari to reside at Home with Fam desiree/Relatives. MDM/PLAN: - Physical Therapy Gait dysfunction - to improve, our physical therapists will perform initial evaluation of pt's statu s upon admission and devise an individualized program for Gait Training, and Wheel Chair mobility Inability to transfer - to improve, our physical therapists will perform initial evaluation of pt's status upon admission and devise an individualized program for Bed mobility Need for home safety evaluation - to improve, our physical therapists will perform initial evaluatio n of pt's status upon admission and devise an individualized program for Home Evaluation Need in caregiver upon discharge - to improve, our physical therapists will perform initial evaluati on of pt's status upon admission and devise an individualized program for Caregiver Training New precaution - to improve, our physical therapists will perform initial evaluation of pt's status upon admission and devise an individualized program for Patient precaution education Edema - to improve, our physical therapists will perform initial evaluation of pt's status upon admi ssion and devise an individualized program for Elevation Training, and Lymphedema Therapy Poor balance - to improve, our physical therapists will perform initial evaluation of pt's status up on admission and devise an individualized program for Balance Training Poor endurance - to improve, our physical therapists will perform initial evaluation of pt's status upon admission and devise an individualized program for Endurance Training Weakness - to improve, our physical therapists will perform initial evaluation of pt's status upon a dmission and devise an individualized program for Aquatic Therapy, Neuromuscular Reeducation, and Str engthening Achieving independence - to improve, our physical therapists will perform initial evaluation of pt's status upon admission and devise an individualized program for Community Reintegration Activities - Occupational Therapy ADL deficits - to improve, our occupation therapists will perform initial evaluation of pt's status upon admission and devise an individualized program for Bathing, Bed mobility, Community Reintegratio n, Cooking, Dressing, Eating, Fine Motor Skills, Grooming, Homemaking, Kitchen Mobility, Laundry, Pat ient Education, Safety Awareness, Splinting - Positioning, Transfers(Toilet, Tub, Shower), and Wheel Chair Management Need for wound care specialist - to improve, our occupation therapists will perform initial evaluation of pt's status upon admission and devise an individualized program for Caregiver Training Weakness - to improve, our occupation therapists will perform initial evaluation of pt's status upon admission and devise an individualized program for Aquatic Therapy, Balance, Endurance, UE ROM, and UE strengthening - Other See attached MAR (Medication Administration Record) - Diet Type Continue Regular - Diet - Liquid Texture Continue Regular - Tube Feed Continue N/A - Bladder care per protocol - Weight Bearing Precaution WBAT right LE - Skin care per protocol - Diet - Solid Texture Continue Regular - Shower allowing shower for Dementia, TBI, Stroke, or others FUNCTIONAL STATUS: UPDATED AT WEEKLY TEAM CONFERENCE - Bladder Same accident frequency: 7-Ind - No accidents in the past 7 days - Bowel Same accident frequency: 7-Ind - No accidents in the past 7 days - Walking Same score based on distance walked: 1(<=50ft) - Wheelchair Same score based on distance traveled: 1(<=50ft) FUNCTIONAL STATUS: - Self-Care A. Eating maxA B. Grooming modA C. Bathing maxA D. Dressing - Upper modA E. Dressing - Lower maxA F. Toileting maxA - Sphincter Control G. Bladder control maxA H. Bowel control modA - Transfers Control I. Bed/Chair/Wheelchair maxA J. Toilet maxA K. Tub/Shower Cari - Locomotion L. Walk/Wheelchair (W) modA M. Stairs Dep - Communication N. Comprehension (B) Shivam O. Expression (B) Shivam - Social Cognition P. Social Interaction Cari Q. Problem Solving Cari R. Memory Cari - Endurance Good - Balance Good - Safety Awareness Good QI SCORES: - Self-Care A. Eating 88-Not attempted due to medical condition or safety concerns B. Oral hygiene 05-Setup or clean-up assistance C. Toileting hygiene 01-Dependent E. Shower/bathe self 88-Not attempted due to medical condition or safety concerns F. Upper body dressing 01-Dependent G. Lower body dressing 01-Dependent H. Putting on/taking off footwear 88-Not attempted due to medical condition or safety concerns - Mobility A. Roll left and right 01-Dependent B. Sit to lying 01-Dependent C. Lying to sitting on side of bed 01-Dependent D. Sit to stand 01-Dependent E. Chair/[id number] transfer 01-Dependent F. Toilet transfer 01-Dependent G. Car transfer 88-Not attempted due to medical condition or safety concerns I. Walk 10 feet 88-Not attempted due to medical condition or safety concerns J. Walk 50 feet with two turns 88-Not attempted due to medical condition or safety concerns K. Walk 150 feet 88-Not attempted due to medical condition or safety concerns L. Walking 10 feet on uneven surfaces 88-Not attempted due to medical condition or safety concerns M. 1 step (curb) 88-Not attempted due to medical condition or safety concerns N. 4 steps 88-Not attempted due to medical condition or safety concerns O. 12 steps 88-Not attempted due to medical condition or safety concerns P. Picking up object 88-Not attempted due to medical condition or safety concerns R. Wheel 50 feet with two turns 88-Not attempted due to medical condition or safety concerns S. Wheel 150 feet 88-Not attempted due to medical condition or safety concerns - Bladder and Bowel Bladder continence 0-Always continent Bowel continence 0-Always continent - Endurance Poor - Balance Poor - Safety Awareness Fair CURRENT FUNC. DEFICITS: Mobility, Endurance, Balance, Safety Awareness, and Self-Care SIGNATURE PANEL: (GEOTHERMAL OPERATIONS MANAGER)
[2019-06-18] MEDS: MELATONIN 3 MG TABLET PO SCH (18:58)
[2019-06-19] MEDS: NACHLORIDE 0.45% 1,000 ML IV SCH ×2 (02:55→12:15)
[2019-06-19] MEDS: carvediloL 25 MG TAB FT SCH ×2 (05:07→16:59)
[2019-06-19] MEDS: INSULIN -REGULAR HUMAN 50 UNIT/0.5 ML ML SQ SCH ×4 (07:26→20:07)
[2019-06-19] MEDS: NICOTINE 14 MG/PAT TD SCH (08:35)
[2019-06-19] MEDS: APIXABAN 2.5 MG TABLET FT SCH ×2 (08:36→20:07)
[2019-06-19] MEDS: AMLODIPINE 10 MG TAB FT SCH (08:37)
[2019-06-19] MEDS: HYDRALAZINE HCL 25 MG TABLET FT SCH ×3 (08:37→20:07)
[2019-06-19] MEDS ORDERED: DOCUSATE NA/SENNA CONC 1 TAB PO PRN (15:03)
[2019-06-19] MEDS ORDERED: POLYETHYL GLY 3350 17 GM/DOSE PO PRN (15:03)
[2019-06-19] MEDS: MELATONIN 3 MG TABLET PO SCH (20:07)
[2019-06-19] MEDS ORDERED: ARIPiprazole 5 MG TAB PO SCH (21:00)
[2019-06-20] MEDS: NACHLORIDE 0.45% 1,000 ML IV SCH ×2 (00:33→10:31)
[2019-06-20] MEDS: carvediloL 25 MG TAB FT SCH ×2 (05:14→17:06)
[2019-06-20 06:07] LABS: Absolute Lymphocytes (CBC) 1.7 K/uL (0.7-4.9); Basophils % 0.7 % (0-1.3); Hematocrit 31.3 % (39.6-49.0); MPV 10.6 fL (7.6-11.3); RBC Red Blood Cell Count 3.52 M/uL (4.33-5.43)
[2019-06-20 06:18] LABS: Potassium 4.9 mmol/L (3.5-5.1)
[2019-06-20] MEDS: INSULIN -REGULAR HUMAN 50 UNIT/0.5 ML ML SQ SCH ×4 (06:41→20:24)
[2019-06-20] MEDS ORDERED: ARIPiprazole 5 MG TAB PO SCH (08:00)
[2019-06-20] MEDS: APIXABAN 2.5 MG TABLET FT SCH ×2 (08:04→19:06)
[2019-06-20] MEDS: AMLODIPINE 10 MG TAB FT SCH (08:04)
[2019-06-20] MEDS: NICOTINE 14 MG/PAT TD SCH (08:04)
[2019-06-20] MEDS: HYDRALAZINE HCL 25 MG TABLET FT SCH ×3 (09:56→20:01)
[2019-06-20] MEDS: ACETAMINOPHEN 500 MG TAB PO PRN (10:33)
--- NOTE | 2019-06-20 12:16 | RAD REPORT ---
EXAM DESCRIPTION: CT - Head Brain Wo Cont - 06/20/2019 11:35 am CLINICAL HISTORY: changes to speech Headache, drowsiness, history of CVA. COMPARISON: <Comparisons> TECHNIQUE: All CT scans are performed using dose optimization technique as appropriate and may inclu de automated exposure control or mA/KV adjustment according to patient size. FINDINGS: Since the 06/03/2019 comparative study, there has been an increase in the degree of vasoge checo edema in the left cerebral hemisphere. The previously noted intercerebral hematoma component appe ars mildly decreased in size. Zupw-wm-hlrys midline shift/subfalcine herniation persists and appears moderately progressive since the comparative study now measuring maximally 11 mm.Mild evidence of rig ht-sided ventricular system dilatation is seen caused by this most compatible with mild ventricular t rapping on the right. The paranasal sinuses and mastoids are clear. The calvarium is intact. IMPRESSION: Since 06/03/2019 study, there has been moderate increase in the degree of left cerebral hemisphere vasogenic edema, djza-qb-nrqoj subfalcine herniation and right ventricular system dilatati on as detailed.
--- NOTE | 2019-06-20 16:25 | FAST ---
SHIFT START DATE/TIME: 06/20/2019 07:00 (IRRIGATION ENGINEER) SHIFT END DATE/TIME: 06/20/2019 19:00 (IRRIGATION ENGINEER) NAME KAILA BLANK DATE OF : 1975 DATE OF ADMISSION: 06/10/2019 18:25 (IRRIGATION ENGINEER) PHONE: AGE: 43 N# [id number] GENDER: Male ENCOUNTER PHYSICIAN: Dr. Kodak Leslie M.D. 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 EATING: EATING - STEP 1: Does the patient complete the activity by him/herself with no assistance (physical, verbal/nonverbal cueing, setup/clean-up)? No. EATING - STEP 2: Does the patient need only setup/clean-up assistance from one helper? No. EATING - STEP 3: Does the patient need only verbal/nonverbal cueing or touching/steadying/contact guard assistance fro m one helper? No. EATING - STEP 4: Does the patient need physical assistance - for example lifting or trunk support from one helper - wi th the helper providing less than half of the effort? Yes. 1. [id number] ADMISSION PERFORMANCE: Partial/moderate assistance CODE: 03 ORAL HYGIENE: Not assessed/no information CODE: - TOILETING HYGIENE: TOILETING HYGIENE - STEP 1: Does the patient complete the activity by him/herself with no assistance (physical, verbal/nonverbal cueing, setup/clean-up)? No. TOILETING HYGIENE - STEP 2: Does the patient need only setup/clean-up assistance from one helper? No. TOILETING HYGIENE - STEP 3: Does the patient need only verbal/nonverbal cueing or touching/steadying/contact guard assistance fro m one helper? No. TOILETING HYGIENE - STEP 4: Does the patient need physical assistance - for example lifting or trunk support from one helper - wi th the helper providing less than half of the effort? No. TOILETING HYGIENE - STEP 5: Does the patient need physical assistance - for example lifting or trunk support from one helper - wi th the helper providing more than half of the effort? No. TOILETING HYGIENE - STEP 6: Does the helper provide all of the effort? OR Is the assistance of two or more helpers required to co mplete the activity? Yes. 1. [id number] ADMISSION PERFORMANCE: Dependent CODE: 01 BATHING: Not assessed/no information CODE: - DRESSING - UPPER BODY: DRESSING - UPPER BODY - STEP 1: Does the patient complete the activity by him/herself with no assistance (physical, verbal/nonverbal cueing, setup/clean-up)? No. DRESSING - UPPER BODY - STEP 2: Does the patient need only setup/clean-up assistance from one helper? No. DRESSING - UPPER BODY - STEP 3: Does the patient need only verbal/nonverbal cueing or touching/steadying/contact guard assistance fro m one helper? No. DRESSING - UPPER BODY - STEP 4: Does the patient need physical assistance - for example lifting or trunk support from one helper - wi th the helper providing less than half of the effort? No. DRESSING - UPPER BODY - STEP 5: Does the patient need physical assistance - for example lifting or trunk support from one helper - wi th the helper providing more than half of the effort? No. DRESSING - UPPER BODY - STEP 6: Does the helper provide all of the effort? OR Is the assistance of two or more helpers required to co mplete the activity? Yes. 1. [id number] ADMISSION PERFORMANCE: Dependent CODE: 01 DRESSING - LOWER BODY: DRESSING - LOWER BODY - STEP 1: Does the patient complete the activity by him/herself with no assistance (physical, verbal/nonverbal cueing, setup/clean-up)? No. DRESSING - LOWER BODY - STEP 2: Does the patient need only setup/clean-up assistance from one helper? No. DRESSING - LOWER BODY - STEP 3: Does the patient need only verbal/nonverbal cueing or touching/steadying/contact guard assistance fro m one helper? No. DRESSING - LOWER BODY - STEP 4: Does the patient need physical assistance - for example lifting or trunk support from one helper - wi th the helper providing less than half of the effort? No. DRESSING - LOWER BODY - STEP 5: Does the patient need physical assistance - for example lifting or trunk support from one helper - wi th the helper providing more than half of the effort? No. DRESSING - LOWER BODY - STEP 6: Does the helper provide all of the effort? OR Is the assistance of two or more helpers required to co mplete the activity? Yes. 1. [id number] ADMISSION PERFORMANCE: Dependent CODE: 01 PUTTING ON/TAKING OFF FOOTWEAR: FOOTWEAR - STEP 1: Does the patient complete the activity by him/herself with no assistance (physical, verbal/nonverbal cueing, setup/clean-up)? No. FOOTWEAR - STEP 2: Does the patient need only setup/clean-up assistance from one helper? No. FOOTWEAR - STEP 3: Does the patient need only verbal/nonverbal cueing or touching/steadying/contact guard assistance fro m one helper? No. FOOTWEAR - STEP 4: Does the patient need physical assistance - for example lifting or trunk support from one helper - wi th the helper providing less than half of the effort? No. FOOTWEAR - STEP 5: Does the patient need physical assistance - for example lifting or trunk support from one helper - wi th the helper providing more than half of the effort? No. FOOTWEAR - STEP 6: Does the helper provide all of the effort? OR Is the assistance of two or more helpers required to co mplete the activity? Yes. 1. [id number] ADMISSION PERFORMANCE: Dependent CODE: 01 ROLL LEFT AND RIGHT: ROLL LEFT AND RIGHT - STEP 1: Does the patient complete the activity by him/herself with no assistance (physical, verbal/nonverbal cueing, setup/clean-up)? No. ROLL LEFT AND RIGHT - STEP 2: Does the patient need only setup/clean-up assistance from one helper? No. ROLL LEFT AND RIGHT - STEP 3: Does the patient need only verbal/nonverbal cueing or touching/steadying/contact guard assistance fro m one helper? No. ROLL LEFT AND RIGHT - STEP 4: Does the patient need physical assistance - for example lifting or trunk support from one helper - wi th the helper providing less than half of the effort? No. ROLL LEFT AND RIGHT - STEP 5: Does the patient need physical assistance - for example lifting or trunk support from one helper - wi th the helper providing more than half of the effort? No. ROLL LEFT AND RIGHT - STEP 6: Does the helper provide all of the effort? OR Is the assistance of two or more helpers required to co mplete the activity? Yes. 1. [id number] ADMISSION PERFORMANCE: Dependent CODE: 01 SIT TO LYING: SIT TO LYING - STEP 1: Does the patient complete the activity by him/herself with no assistance (physical, verbal/nonverbal cueing, setup/clean-up)? No. SIT TO LYING - STEP 2: Does the patient need only setup/clean-up assistance from one helper? No. SIT TO LYING - STEP 3: Does the patient need only verbal/nonverbal cueing or touching/steadying/contact guard assistance fro m one helper? No. SIT TO LYING - STEP 4: Does the patient need physical assistance - for example lifting or trunk support from one helper - wi th the helper providing less than half of the effort? No. SIT TO LYING - STEP 5: Does the patient need physical assistance - for example lifting or trunk support from one helper - wi th the helper providing more than half of the effort? No. SIT TO LYING - STEP 6: Does the helper provide all of the effort? OR Is the assistance of two or more helpers required to co mplete the activity? Yes. 1. [id number] ADMISSION PERFORMANCE: Dependent CODE: 01 LYING TO SITTING: LYING TO SITTING ON SIDE OF BED - STEP 1: Does the patient complete the activity by him/herself with no assistance (physical, verbal/nonverbal cueing, setup/clean-up)? No. LYING TO SITTING ON SIDE OF BED - STEP 2: Does the patient need only setup/clean-up assistance from one helper? No. LYING TO SITTING ON SIDE OF BED - STEP 3: Does the patient need only verbal/nonverbal cueing or touching/steadying/contact guard assistance fro m one helper? No. LYING TO SITTING ON SIDE OF BED - STEP 4: Does the patient need physical assistance - for example lifting or trunk support from one helper - wi th the helper providing less than half of the effort? No. LYING TO SITTING ON SIDE OF BED - STEP 5: Does the patient need physical assistance - for example lifting or trunk support from one helper - wi th the helper providing more than half of the effort? No. LYING TO SITTING ON SIDE OF BED - STEP 6: Does the helper provide all of the effort? OR Is the assistance of two or more helpers required to co mplete the activity? Yes. 1. [id number] ADMISSION PERFORMANCE: Dependent CODE: 01 SIT TO STAND: SIT TO STAND - STEP 1: Does the patient complete the activity by him/herself with no assistance (physical, verbal/nonverbal cueing, setup/clean-up)? No. SIT TO STAND - STEP 2: Does the patient need only setup/clean-up assistance from one helper? No. SIT TO STAND - STEP 3: Does the patient need only verbal/nonverbal cueing or touching/steadying/contact guard assistance fro m one helper? No. SIT TO STAND - STEP 4: Does the patient need physical assistance - for example lifting or trunk support from one helper - wi th the helper providing less than half of the effort? No. SIT TO STAND - STEP 5: Does the patient need physical assistance - for example lifting or trunk support from one helper - wi th the helper providing more than half of the effort? No. SIT TO STAND - STEP 6: Does the helper provide all of the effort? OR Is the assistance of two or more helpers required to co mplete the activity? Yes. 1. [id number] ADMISSION PERFORMANCE: Dependent CODE: 01 TRANSFERS: BED, CHAIR: CHAIR/[id number] TRANSFER - STEP 1: Does the patient complete the activity by him/herself with no assistance (physical, verbal/nonverbal cueing, setup/clean-up)? No. CHAIR/[id number] TRANSFER - STEP 2: Does the patient need only setup/clean-up assistance from one helper? No. CHAIR/[id number] TRANSFER - STEP 3: Does the patient need only verbal/nonverbal cueing or touching/steadying/contact guard assistance fro m one helper? No. CHAIR/[id number] TRANSFER - STEP 4: Does the patient need physical assistance - for example lifting or trunk support from one helper - wi th the helper providing less than half of the effort? No. CHAIR/[id number]-[id number] TRANSFER - STEP 5: Does the patient need physical assistance - for example lifting or trunk support from one helper - wi th the helper providing more than half of the effort? No. CHAIR/[id number] TRANSFER - STEP 6: Does the helper provide all of the effort? OR Is the assistance of two or more helpers required to co mplete the activity? Yes. 1. [id number] ADMISSION PERFORMANCE: Dependent CODE: 01 TRANSFER TOILET: TOILET TRANSFER - STEP 1: Does the patient complete the activity by him/herself with no assistance (physical, verbal/nonverbal cueing, setup/clean-up)? No. TOILET TRANSFER - STEP 2: Does the patient need only setup/clean-up assistance from one helper? No. TOILET TRANSFER - STEP 3: Does the patient need only verbal/nonverbal cueing or touching/steadying/contact guard assistance fro m one helper? No. TOILET TRANSFER - STEP 4: Does the patient need physical assistance - for example lifting or trunk support from one helper - wi th the helper providing less than half of the effort? No. TOILET TRANSFER - STEP 5: Does the patient need physical assistance - for example lifting or trunk support from one helper - wi th the helper providing more than half of the effort? No. TOILET TRANSFER - STEP 6: Does the helper provide all of the effort? OR Is the assistance of two or more helpers required to co mplete the activity? Yes. 1. [id number] ADMISSION PERFORMANCE: Dependent CODE: 01 TRANSFERS: CAR: Not assessed/no information CODE: - WALK 10 FEET: Not assessed/no information CODE: - 1 STEP (CURB): Not assessed/no information CODE: - PICKING UP OBJECT: Not assessed/no information CODE: - DOES THE PATIENT USE A WHEELCHAIR/SCOOTER? Q1. DOES THE PATIENT USE A WHEELCHAIR/SCOOTER?: Yes CODE: 1 WHEEL 50 FEET WITH TWO TURNS: WHEEL 50 FEET WITH TWO TURNS - STEP 1: Does the patient complete the activity by him/herself with no assistance (physical, verbal/nonverbal cueing, setup/clean-up)? No. WHEEL 50 FEET WITH TWO TURNS - STEP 2: Does the patient need only setup/clean-up assistance from one helper? No. WHEEL 50 FEET WITH TWO TURNS - STEP 3: Does the patient need only verbal/nonverbal cueing or touching/steadying/contact guard assistance fro m one helper? No. WHEEL 50 FEET WITH TWO TURNS - STEP 4: Does the patient need physical assistance - for example lifting or trunk support from one helper - wi th the helper providing less than half of the effort? No. WHEEL 50 FEET WITH TWO TURNS - STEP 5: Does the patient need physical assistance - for example lifting or trunk support from one helper - wi th the helper providing more than half of the effort? No. WHEEL 50 FEET WITH TWO TURNS - STEP 6: Does the helper provide all of the effort? OR Is the assistance of two or more helpers required to co mplete the activity? Yes. 1. [id number] ADMISSION PERFORMANCE: Dependent CODE: 01 INDICATE THE TYPE OF WHEELCHAIR/SCOOTER USED: RR1. INDICATE THE TYPE OF WHEELCHAIR/SCOOTER USED.: Manual CODE: 1 WHEEL 150 FEET: WHEEL 150 FEET - STEP 1: Does the patient complete the activity by him/herself with no assistance (physical, verbal/nonverbal cueing, setup/clean-up)? No. WHEEL 150 FEET - STEP 2: Does the patient need only setup/clean-up assistance from one helper? No. WHEEL 150 FEET - STEP 3: Does the patient need only verbal/nonverbal cueing or touching/steadying/contact guard assistance fro m one helper? No. WHEEL 150 FEET - STEP 4: Does the patient need physical assistance - for example lifting or trunk support from one helper - wi th the helper providing less than half of the effort? No. WHEEL 150 FEET - STEP 5: Does the patient need physical assistance - for example lifting or trunk support from one helper - wi th the helper providing more than half of the effort? No. WHEEL 150 FEET - STEP 6: Does the helper provide all of the effort? OR Is the assistance of two or more helpers required to co mplete the activity? Yes. 1. [id number] ADMISSION PERFORMANCE: Dependent CODE: 01 INDICATE THE TYPE OF WHEELCHAIR/SCOOTER USED: SS1. INDICATE THE TYPE OF WHEELCHAIR/SCOOTER USED.: Manual CODE: 1 BLADDER AND BOWEL: H350. BLADDER CONTINENCE (3-DAY ASSESSMENT PERIOD): Incontinent less than daily (e.g., once or twice during the 3-day assessment period) CODE: 2 H400. BOWEL CONTINENCE (3-DAY ASSESSMENT PERIOD): Occasionally incontinent (one episode of bowel incontinence) CODE: 1 SIGNATURE PANEL: The following modified sections: 1. [id number] Admission Performance, 1. [id number] Admission Performance, 1. PW7541i Admission Performance, 1. [id number] Admission Performance, 1. EP2772i Admission Performance, 1. HH3857M Admission Performance, 1. [id number] Admission Performance, 1. [id number] Admission Performance , 1. [id number] Admission Performance, 1. [id number] Admission Performance, 1. [id number] Admission Performanc e, Q1. Does the patient use a wheelchair/scooter?, 1. [id number] Admission Performance, RR1. Indicate th e type of wheelchair/scooter used., 1. [id number] Admission Performance, Code, SS1. Indicate the type of wheelchair/scooter used., H350. Bladder Continence (3-day assessment period), H400. Bowel Continence (3-day assessment period) were [electronically] signed by Amelia Prince C.N.A. on ThuJun 20 2019 16 :25:02 GMT-0600 (Central Standard Time)
[2019-06-20] MEDS ORDERED: dexAMETHasone 4 MG/ML VIAL IV SCH (18:00)
[2019-06-20] MEDS ORDERED: HYDROCODONE/APAP 5/325 MG TAB PO PRN (18:56)
--- NOTE | 2019-06-20 19:42 | P.PN ---
Date of Service: 06/20/19 Vital Signs Temp Pulse Resp BP Pulse Ox 97 F 70 18 143/71 H 96 06/20/19 07:12 06/20/19 17:07 06/20/19 19:06 06/20/19 17:07 06/20/19 19:06 Medications Acetaminophen (Tylenol -Extra Strength) 500 mg PO Q6H PRN PRN Reason: Pain scale 2-4 (Mild) Stop: 07/11/19 16:43 Last Admin: 06/20/19 10:33 Dose: 500 mg Hydrocodone Bitart/Acetaminophen (Minerva 5/325) 1 tab PO Q4H PRN PRN Reason: Pain scale 5-7 (Moderate) Stop: 07/20/19 18:57 Last Admin: 06/20/19 19:06 Dose: 1 tab Amlodipine Besylate (Norvasc) 10 mg FT DAILY [facility] Stop: 07/11/19 08:01 Last Admin: 06/20/19 08:04 Dose: 10 mg Apixaban (Eliquis) 2.5 mg FT BID [facility] Stop: 07/11/19 20:01 Last Admin: 06/20/19 19:06 Dose: 2.5 mg Aripiprazole (Abilify) 5 mg PO DAILY [facility] Stop: 07/20/19 08:01 Last Admin: 06/20/19 08:04 Dose: 5 mg Carvedilol (Coreg) 25 mg FT BID 6AM 6PM [facility] Stop: 07/11/19 06:01 Last Admin: 06/20/19 17:06 Dose: 25 mg Dextrose (Dextrose 50% Syringe) 12.5 gm IV PRN PRN; Protocol PRN Reason: HYPOGLYCEMIA Stop: 07/13/19 10:42 Glucagon (Glucagen) 1 mg IM 1X PRN; Protocol PRN Reason: HYPOGLYCEMIA Stop: 07/13/19 21:00 Hydralazine HCl (Apresoline) 50 mg FT TID [facility] Stop: 07/10/19 21:01 Last Admin: 06/20/19 13:55 Dose: 50 mg Insulin Human Regular (Novolin -R) 0 unit SQ ACHS [facility]; Protocol Stop: 07/13/19 21:01 Last Admin: 06/20/19 16:16 Dose: Not Given Melatonin (Melatonin) 3 mg PO BEDTIME [facility] Stop: 07/17/19 21:01 Last Admin: 06/19/19 20:07 Dose: 3 mg Nicotine (Nicoderm) 14 mg TD DAILY [facility] Stop: 07/12/19 22:01 Last Admin: 06/20/19 08:04 Dose: 14 mg Ondansetron HCl (Zofran) 4 mg PO Q6H PRN PRN Reason: NAUSEA / VOMITING Stop: 07/16/19 12:48 Last Admin: 06/17/19 08:20 Dose: 4 mg Polyethylene Glycol (Glycolax) 17 gm PO DAILY PRN PRN Reason: CONSTIPATION Stop: 07/19/19 15:04 Last Admin: 06/19/19 15:21 Dose: 17 gm Senna/Docusate Sodium (Senokot-S) 2 tab PO BEDTIME PRN PRN Reason: CONSTIPATION Stop: 07/19/19 15:04 Lab Results (last 24 hrs) 06/20/19 : Sodium Cancelled, Potassium Cancelled, Chloride Cancelled, Carbon Dioxide Cancelled, BUN Cancelled, Creatinine Cancelled, Estimated GFR Cancelled , Glucose Cancelled, Calcium Cancelled 06/20/19 : WBC Cancelled, RBC Cancelled, Hgb Cancelled, Hct Cancelled, MCV Cancelled, MCH Cancelled, MCHC Cancelled, RDW Cancelled, Plt Count Cancelled, MPV Cancelled, Plt Distribution Width Cancelled, Absolute Nucleated RBC Cancelled, Neutrophils % Cancelled, Lymphocytes % Cancelled, Monocytes % Cancelled, Eosinophils % Cancelled, Basophils % Cancelled, Nucleated RBC % Cancelled, Absolute Neutrophils Cancelled, Absolute Lymphocytes Cancelled, Absolute Monocytes Cancelled, Absolute Eosinophils Cancelled, Absolute Basophils Cancelled, Diff Path Review Cancelled 06/20/19 16:14: POC Glucose 158 H 06/20/19 11:53: POC Glucose 188 H 06/20/19 05:46: WBC 13.0 H, RBC 3.52 L, Hgb 10.8 L, Hct 31.3 L, MCV 88.8, MCH 30.8, MCHC 34.7, RDW 14.2, Plt Count 205, MPV 10.6, Neutrophils % 78.8 H, Lymphocytes % 13.0 L, Monocytes % 6.3, Eosinophils % 1.2, Basophils % 0.7, Absolute Neutrophils 10.2 H, Absolute Lymphocytes 1.7, Absolute Monocytes 0.8, Absolute Eosinophils 0.2, Absolute Basophils 0.1 06/20/19 05:46: Sodium 142, Potassium 4.9, Chloride 116 H, Carbon Dioxide 22, BUN 53 H, Creatinine 2.31 H, Estimated GFR 31 L, Glucose 157 H, Calcium 8.0 L 06/19/19 19:32: POC Glucose 165 H Microbiology Results 06/11/19 01:48 Catheterized Urine [place] Count - Final 06/11/19 01:48 Catheterized Urine - Final No growth. Assessment/ Plan: Nephrology CPS stable without CP or SOB. No acute events overnight. Case reviewed with his daughter at the bedside. Vitals, medications, blood work and imaging reviewed in the chart. NAD. MMM. Neck supple. CTA. RRR. Soft Abd. No C/C/E. No rash. Somnolent. No Speech. A/ LAVON improving Hypernatremia. Hyperkalemia. 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 Hypocalcemia. Moderate malnutrition. Anemia in chronic illness. P/ Continue current POC and Medications. AM labs. Daily weight. No NSAIDs. Titrate antihypertensives as needed. Titate insulin as needed. Encourage nutrition. PT as tolerated. Case reviewed with Dr. Leslie. Plan for transfer due to cerebral edema. EXAM DESCRIPTION: CT - Head Brain Wo Cont - 06/20/2019 11:35 am CLINICAL HISTORY: changes to speech Headache, drowsiness, history of CVA. COMPARISON: <Comparisons> TECHNIQUE: All CT scans are performed using dose optimization technique as appropriate and may include automated exposure control or mA/KV adjustment according to patient size. FINDINGS: Since the 06/03/2019 comparative study, there has been an increase in the degree of vasogenic edema in the left cerebral hemisphere. The previously noted intercerebral hematoma component appears mildly decreased in size. Ewmw-bj-cddih midline shift/subfalcine herniation persists and appears moderately progressive since the comparative study now measuring maximally 11 mm.Mild evidence of right-sided ventricular system dilatation is seen caused by this most compatible with mild ventricular trapping on the right. The paranasal sinuses and mastoids are clear. The calvarium is intact. IMPRESSION: Since 06/03/2019 study, there has been moderate increase in the degree of left cerebral hemisphere vasogenic edema, pbiw-lg-[id number] subfalcine herniation and right ventricular system dilatation as detailed.
[2019-06-20] MEDS: MELATONIN 3 MG TABLET PO SCH (20:25)
[2019-06-20 21:27] VITALS: BP 160/71; TEMP 97.2
[2019-06-21] MEDS ORDERED: ENOXAPARIN 40 MG/0.4 ML SQ SCH (08:00)
--- NOTE | 2019-06-21 10:32 | R.PN ---
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 Pt denied any Shortness of Breath. Still has elevated Na and Cl but improving. Elevated nipple maker of 2.89 but improved from 2.92. Elevated glu cose 133 to 177. Low calcium of 8.0. He has dense right arm and leg paresis with marked dysphagia. He has iv fluids going due to poor oral liquid intake. The renal service is seeing him. He is more lethargic today requiring stimulation to stay alert and responsive. He has mild left arm w eakness. He continues to have dense right arm and leg weakness with 0-1/5 strength in the right upper and lower extremity. A stat head CT scan revealed 11 mm left to right mid-line shift increased from 5 mm in about 2 weeks. He will be transferred to [facility] for a higher level of care. VITAL SIGNS Temperature: 97.2 F SBP/DBP: 160/71 Pulse: 68 Resp: 16 MEDICATION ALLERGIES: No Known Drug Allergies (NKDA) ENVIRONMENTAL ALLERGIES: - Substance Allergies None Known - Other Allergies None Known NURSING: - Shower allowing shower - Bladder care per protocol - Skin care per protocol PRECAUTIONS: - Weight Bearing Precaution WBAT right LE ACTIVITIES OOB only with supervision THERAPIES: - Occupational Therapy Cognitive Retraining. Visual Perceptual Training. - Dietary and Nutrition Adequate Nutrition. Nutritional Education. Nutritional Supplements. - Speech Therapy Cognitive Training. Expressive Language Skills. Memory Strategies. Receptive Language Skills. Speech Intelligibility Training. PHYSICAL EXAM - Gen Alert and awake Lying in bed No apparent distress Oriented to: person, time, and place - Skin No breakdown Normacephalic - Eyes No abnormalities - ENMT No abnormalities - Neck No abnormalities - CVS RRR - Chest Mildly decreased breath sounds bilaterally. - Resp Bilateral congestion. - Abd +bowel sounds - GI nondistended Deferred - Valladares catheter - Ext No significant edema - MSK 4+/5 weakness in right lower extremity - Neuro 4/5 strength right lower extremity. - Psych No abnormalities ASSESSMENT: Pt. is a 43 yo Right-handed white male.On 06/03/2019 Pt. presented to [facility] with sudden onset of right-side weakness.On 06/03/2019 he was admitted to [facility] with diagnosis Nontraumatic intracerebral hemorrhage, unspecified (I61.9) .His impairment category is Str carmen 01 - Right Body (Left Brain) (01.2).Pre-morbidly, Pt. was independent/mod-I in Locomotion, Self- Care, Endurance, Balance, Transfers Control, Social Cognition, Safety Awareness, Communication, Funct ional mobility, and Sphincter Control; and he had good Ambulation.Currently, he has deficits of Locom otion, Self-Care, Endurance, Balance, Transfers Control, Ambulation, and Functional mobility.Pt. is n ow referred to [facility] for acute in-patient rehabilitation in order to maxi theodore patient's functional independence in activities of daily living, strength, ROM, and mobility.- R ehab Goal Patient has realistic goal of being discharged at assistance level 6-Cari to reside at Home with Fam desiree/Relatives. MDM/PLAN: - Physical Therapy Gait dysfunction - to improve, our physical therapists will perform initial evaluation of pt's statu s upon admission and devise an individualized program for Gait Training, and Wheel Chair mobility Inability to transfer - to improve, our physical therapists will perform initial evaluation of pt's status upon admission and devise an individualized program for Bed mobility Need for home safety evaluation - to improve, our physical therapists will perform initial evaluatio n of pt's status upon admission and devise an individualized program for Home Evaluation Need in caregiver upon discharge - to improve, our physical therapists will perform initial evaluati on of pt's status upon admission and devise an individualized program for Caregiver Training New precaution - to improve, our physical therapists will perform initial evaluation of pt's status upon admission and devise an individualized program for Patient precaution education Edema - to improve, our physical therapists will perform initial evaluation of pt's status upon admi ssion and devise an individualized program for Elevation Training, and Lymphedema Therapy Poor balance - to improve, our physical therapists will perform initial evaluation of pt's status up on admission and devise an individualized program for Balance Training Poor endurance - to improve, our physical therapists will perform initial evaluation of pt's status upon admission and devise an individualized program for Endurance Training Weakness - to improve, our physical therapists will perform initial evaluation of pt's status upon a dmission and devise an individualized program for Aquatic Therapy, Neuromuscular Reeducation, and Str engthening Achieving independence - to improve, our physical therapists will perform initial evaluation of pt's status upon admission and devise an individualized program for Community Reintegration Activities - Occupational Therapy ADL deficits - to improve, our occupation therapists will perform initial evaluation of pt's status upon admission and devise an individualized program for Bathing, Bed mobility, Community Reintegratio n, Cooking, Dressing, Eating, Fine Motor Skills, Grooming, Homemaking, Kitchen Mobility, Laundry, Pat ient Education, Safety Awareness, Splinting - Positioning, Transfers(Toilet, Tub, Shower), and Wheel Chair Management Need for physician locums urgent care - to improve, our occupation therapists will perform initial evaluation of pt's status upon admission and devise an individualized program for Caregiver Training Weakness - to improve, our occupation therapists will perform initial evaluation of pt's status upon admission and devise an individualized program for Aquatic Therapy, Balance, Endurance, UE ROM, and UE strengthening - Other See attached MAR (Medication Administration Record) - Diet Type Continue Regular - Diet - Liquid Texture Continue Regular - Tube Feed Continue N/A - Bladder care per protocol - Weight Bearing Precaution WBAT right LE - Skin care per protocol - Diet - Solid Texture Continue Regular - Shower allowing shower for Dementia, TBI, Stroke, or others FUNCTIONAL STATUS: UPDATED AT WEEKLY TEAM CONFERENCE - Bladder Same accident frequency: 7-Ind - No accidents in the past 7 days - Bowel Same accident frequency: 7-Ind - No accidents in the past 7 days - Walking Same score based on distance walked: 1(<=50ft) - Wheelchair Same score based on distance traveled: 1(<=50ft) FUNCTIONAL STATUS: - Self-Care A. Eating maxA B. Grooming modA C. Bathing maxA D. Dressing - Upper modA E. Dressing - Lower maxA F. Toileting maxA - Sphincter Control G. Bladder control maxA H. Bowel control modA - Transfers Control I. Bed/Chair/Wheelchair maxA J. Toilet maxA K. Tub/Shower Cari - Locomotion L. Walk/Wheelchair (W) modA M. Stairs Dep - Communication N. Comprehension (B) Shivam O. Expression (B) Shivam - Social Cognition P. Social Interaction Cari Q. Problem Solving Cari R. Memory Cari - Endurance Good - Balance Good - Safety Awareness Good QI SCORES: - Self-Care A. Eating 88-Not attempted due to medical condition or safety concerns B. Oral hygiene 05-Setup or clean-up assistance C. Toileting hygiene 01-Dependent E. Shower/bathe self 88-Not attempted due to medical condition or safety concerns F. Upper body dressing 01-Dependent G. Lower body dressing 01-Dependent H. Putting on/taking off footwear 88-Not attempted due to medical condition or safety concerns - Mobility A. Roll left and right 01-Dependent B. Sit to lying 01-Dependent C. Lying to sitting on side of bed 01-Dependent D. Sit to stand 01-Dependent E. Chair/vvs-tb-outby transfer 01-Dependent F. Toilet transfer 01-Dependent G. Car transfer 88-Not attempted due to medical condition or safety concerns I. Walk 10 feet 88-Not attempted due to medical condition or safety concerns J. Walk 50 feet with two turns 88-Not attempted due to medical condition or safety concerns K. Walk 150 feet 88-Not attempted due to medical condition or safety concerns L. Walking 10 feet on uneven surfaces 88-Not attempted due to medical condition or safety concerns M. 1 step (curb) 88-Not attempted due to medical condition or safety concerns N. 4 steps 88-Not attempted due to medical condition or safety concerns O. 12 steps 88-Not attempted due to medical condition or safety concerns P. Picking up object 88-Not attempted due to medical condition or safety concerns R. Wheel 50 feet with two turns 88-Not attempted due to medical condition or safety concerns S. Wheel 150 feet 88-Not attempted due to medical condition or safety concerns - Bladder and Bowel Bladder continence 0-Always continent Bowel continence 0-Always continent - Endurance Poor - Balance Poor - Safety Awareness Fair CURRENT FUNC. DEFICITS: Mobility, Endurance, Balance, Safety Awareness, and Self-Care SIGNATURE PANEL: (COUNTERPERSON)
--- NOTE | 2019-07-06 17:37 | R.DS ---
FACILITY [facility] MR# [id number] NAME KAILA BLANK ADDRESS [address] [facility] [place] [address] PHONE DATE OF 1975 AGE 43 SSN# [id number] GENDER Male DEXTERITY Right-handed MARITAL STATUS RACE White ENCOUNTER PHYSICIAN Dr. Kodak Leslie M.D. REFERRING DOCTOR Walter Phan REFERRING FACILITY 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 DATE OF ADMISSION 06/10/2019 18:25 (BILINGUAL SCHOOL PSYCHOLOGIST) MEDICATION ALLERGIES: No Known Drug Allergies (NKDA) ENVIRONMENTAL ALLERGIES: - Substance Allergies None Known - Other Allergies None Known DISCHARGE MEDICATIONS: Other- ContinueSee attached MAR (Medication Administration Record). NURSING: - Shower allowing shower - Bladder care per protocol - Skin care per protocol PRECAUTIONS: - Weight Bearing Precaution WBAT right LE ACTIVITIES OOB only with supervision THERAPIES: - Occupational Therapy Cognitive Retraining Visual Perceptual Training - Dietary and Nutrition Adequate Nutrition Nutritional Education Nutritional Supplements - Speech Therapy Cognitive Training Expressive Language Skills Memory Strategies Receptive Language Skills Speech Intelligibility Training HISTORY OF PRESENT ILLNESS: Pt. is a 43 yo Right-handed white male.On 06/03/[address] [facility] with sudden onset of right-side weakness.On 06/03/2019 he was admitted to [facility] with diagnosis Nontraumatic intracerebral hemorrhage, unspecified (I61.9) .His impairment category is Str carmen 01 - Right Body (Left Brain) (01.2).Pre-morbidly, Pt. was independent/mod-I in Locomotion, Self- Care, Endurance, Balance, Transfers Control, Social Cognition, Safety Awareness, Communication, Funct ional mobility, and Sphincter Control; and he had good Ambulation.Currently, he has deficits of Locom otion, Self-Care, Endurance, Balance, Transfers Control, Ambulation, and Functional mobility.Pt. is n ow referred to [facility] for acute in-patient rehabilitation in order to maxi theodore patient's functional independence in activities of daily living, strength, ROM, and mobility.- R ehab Goal Patient has realistic goal of being discharged at assistance level 6-Cari to reside at Home with Fam desriee/Relatives. DIET - LIQUID TEXTURE: On 06/10/2019 Pt was upgraded to Regular Diet - Liquid Texture. DIET - SOLID TEXTURE: On 06/10/2019 Pt was upgraded to Regular Diet - Solid Texture. DIET TYPE: On 06/10/2019 Pt was upgraded to Regular Diet Type. TUBE FEED: On 06/10/2019 Pt was changed to N/A Tube Feed. WEIGHT BEARING PRECAUTION: On 06/10/2019 the following precautions were added for the patient: Weight Bearing Precaution - WBAT right LE. On 06/11/2019 the following precautions were added for the patient: Weight Bearing Precaution - WBAT right LE. On 06/13/2019 the following precautions were removed for the patient: Weight Bearing Precaution - WB AT right LE. On 06/18/2019 the following precautions were added for the patient: Weight Bearing Precaution - WBAT right LE. DISCHARGE PHYSICAL EXAM - Gen Alert and awake Lying in bed No apparent distress Oriented to: person, time, and place - Skin No breakdown Normacephalic - Eyes No abnormalities - ENMT No abnormalities - Neck No abnormalities - CVS RRR - Chest Mildly decreased breath sounds bilaterally. - Resp Bilateral congestion. - Abd +bowel sounds - GI nondistended Deferred - Valladares catheter - Ext No significant edema - MSK 4+/5 weakness in right lower extremity - Neuro 4/5 strength right lower extremity. - Psych No abnormalities DISCHARGE FUNCTIONAL/MEDICAL STATUS: - N/A New Mr. Blank was discharged to [facility] due to worsening confusion and somnolence with 11 mm le ft to right [employer]ELD [employer] midline shift. FUNCTIONAL STATUS: - Self-Care A. Eating 2-maxA B. Grooming 3-modA C. Bathing 2-maxA D. Dressing - Upper 3-modA E. Dressing - Lower 2-maxA F. Toileting 2-maxA - Sphincter Control G. Bladder control 2-maxA H. Bowel control 3-modA - Transfers Control I. Bed/Chair/Wheelchair 2-maxA J. Toilet 2-maxA K. Tub/Shower 6-Cari - Locomotion L. Walk/Wheelchair (W) 3-modA M. Stairs 1-Dep - Communication N. Comprehension (B) 4-Shivam O. Expression (B) 4-Shivam - Social Cognition P. Social Interaction 6-Cari Q. Problem Solving 6-Cari R. Memory 6-Cari - Endurance Good - Balance Good - Safety Awareness Good QI SCORES: - Self-Care A. Eating 88-Not attempted due to medical condition or safety concerns B. Oral hygiene 05-Setup or clean-up assistance C. Toileting hygiene 01-Dependent E. Shower/bathe self 88-Not attempted due to medical condition or safety concerns F. Upper body dressing 01-Dependent G. Lower body dressing 01-Dependent H. Putting on/taking off footwear 88-Not attempted due to medical condition or safety concerns - Mobility A. Roll left and right 01-Dependent B. Sit to lying 01-Dependent C. Lying to sitting on side of bed 01-Dependent D. Sit to stand 01-Dependent E. Chair/ejf-de-ypgjj transfer 01-Dependent F. Toilet transfer 01-Dependent G. Car transfer 88-Not attempted due to medical condition or safety concerns I. Walk 10 feet 88-Not attempted due to medical condition or safety concerns J. Walk 50 feet with two turns 88-Not attempted due to medical condition or safety concerns K. Walk 150 feet 88-Not attempted due to medical condition or safety concerns L. Walking 10 feet on uneven surfaces 88-Not attempted due to medical condition or safety concerns M. 1 step (curb) 88-Not attempted due to medical condition or safety concerns N. 4 steps 88-Not attempted due to medical condition or safety concerns O. 12 steps 88-Not attempted due to medical condition or safety concerns P. Picking up object 88-Not attempted due to medical condition or safety concerns R. Wheel 50 feet with two turns 88-Not attempted due to medical condition or safety concerns S. Wheel 150 feet 88-Not attempted due to medical condition or safety concerns - Bladder and Bowel Bladder continence 0-Always continent Bowel continence 0-Always continent - Endurance Poor - Balance Poor - Safety Awareness Fair DISCHARGE INSTRUCTIONS: - N/A Lovenox 40 mg sq daily. DISCHARGE PLAN, FOLLOW UP CARE PROVISIONS: - Estimated Length of Stay (days) 17. - Consensus on plan Discharge plan has been discussed with primary caregiver. Patient/Family is in agreement with the miguel n. Primary caregiver is in agreement with the plan. - Patient/Family Goals Return home with assistance. - Planned Living Setting Upon Discharge Home, to live alone. SIGNATURE PANEL: (BILINGUAL SCHOOL PSYCHOLOGIST)
== END 2019-06-20 21:34 | disposition short-term general hospital (02) | DRG 57 ==
LOC: 5TH 18:25
PROVIDERS: ADMIT Psychiatry & Neurology Neurology with Special Qualifications in Child Neurology; ATTEND Psychiatry & Neurology Neurology with Special Qualifications in Child Neurology
DX: I69.10 Unspecified sequelae of nontraumatic intracerebral hemorrhage (principal); N17.9 Acute kidney failure, unspecified; I69.151 Hemiplegia and hemiparesis following nontraumatic intracerebral hemorrhage affecting right dominant side; E87.0 Hyperosmolality and hypernatremia; I12.9 Hypertensive chronic kidney disease with stage 1 through stage 4 chronic kidney disease, or unspecified chronic kidney disease; N18.3 Chronic kidney disease, stage 3 (moderate); I69.120 Aphasia following nontraumatic intracerebral hemorrhage; I69.190 Apraxia following nontraumatic intracerebral hemorrhage; I69.191 Dysphagia following nontraumatic intracerebral hemorrhage; R32 Unspecified urinary incontinence; R15.9 Full incontinence of feces; Z91.81 History of falling; Z99.3 Dependence on wheelchair; E86.0 Dehydration; E11.22 Type 2 diabetes mellitus with diabetic chronic kidney disease; E87.5 Hyperkalemia; E83.51 Hypocalcemia; D63.8 Anemia in other chronic diseases classified elsewhere
CPT/HCPCS: 36415; 70450; 71045; 74230; 80048; 81001; 82040; 82947; 83735; 84134; 85025; 87086; 87088; 92507; 92523; 92526; 92610; 92611; 97110; 97112; 97124; 97161; 97530; 97542; J7030

== ENCOUNTER 2019-06-24 13:57 | Inpatient (IN) | payer OTHER ==
--- NOTE | 2019-06-24 16:24 | R.PREADM ---
SCREENING DATE AND TIME 06/24/2019 14:11 (CONSULTING SERVICES MANAGER) ANTICIPATED REHAB ADMISSION DATE 06/26/2019 REFERRING FACILITY [facility] REFERRAL DATE AND TIME 06/24/2019 14:11 (CONSULTING SERVICES MANAGER) ACUTE ADMIT DATE 06/20/2019 Previous Rehabilitation(s): No. REFERRING PHYSICIAN Meliza Kovacs REHAB FACILITY [facility] CLINICAL LIAISON Elmer Briones PHYSICIAN REVIEWER Dr. Kodak Leslie M.D. MR# [id number] [id number] NAME KAILA BLANK ADDRESS [address] [facility] [place] [place] [id number] DATE OF 1975 AGE 43 SSN# [id number] GENDER male MARITAL STATUS Single (Never ) RACE white PREF. LANGUAGE (IF NON-BURMESE) [place] Citizen ADMIT FROM 02 - [facility] PRE-HOSPITAL LIVING SETTING 01 - Home (private home/apt. board/care, assisted living, halfway, transitional living) HOME TYPE AND DETAILS Type of home: mobile home # of steps to enter the residence: 1 # of steps within the residence: 1 # of levels in the residence: 1 PRE-HOSPITAL LIVING WITH Family/Relatives FAMILY SUPPORT Yes PRIMARY FAMILY CONTACT NAME Osvaldo Blank PRIMARY FAMILY CONTACT PHONE PHONE PRIMARY FAMILY CONTACT ON ADM.? no IS PRIMARY FAMILY CONTACT AUTH. REP.? no 1ST EMERGENCY CONTACT Osvaldo Blank 1ST CONTACT PHONE PHONE 1ST CONTACT ON ADM. no IS 1ST CONTACT AUTH. REP.? no PHONE 2ND CONTACT ON ADM.? 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 No ANOTHER [employer] RESPONSIBLE? No PRIMARY REHAB/ACUTE DIAGNOSIS: Hemorrhage in the left basal ganglia REHAB IMPAIRMENT CATEGORY (ANNI): 01 Stroke (STR) MEETS 60% rule AFFECTED EXTREMITIES: RLE, and RUE PRIMARY DIAGNOSIS-RELATED SURGERIES: No surgeries related to the primary diagnosis were performed. COMORBID REHAB/ACUTE DIAGNOSES: - Tier 3 Acute kidney failure, unspecified (N17.9) - Non-Tiered Encephalopathy, unspecified (G93.40) Essential (primary) hypertension (I10) SUMMARY OF ACUTE HOSPITALIZATION: Pt. is a 43 yo Right-handed white male. On 06/20/2019 Pt. presented to [facility] with sudden onset of right-side weakness. On 06/20/2019 he was admitted to [facility] with diagnosis Hemorrhage in t he left basal ganglia. His impairment category is Stroke 01 - Right Body (Left Brain) (01.2). Pre-morbidly, Pt. was independent/mod-I in Locomotion, Self-Care, Endurance, Communication, pain limi ting function, Safety Awareness and Self-Care, and Sphincter Control; and he had good Balance. Currently, he has deficits of Locomotion, Self-Care, Endurance, Balance, Transfers Control, Safety Aw areness, Ambulation, Social Cognition, pain limiting function, Safety Awareness and Self-Care, Functi onal mobility, and Sphincter Control. Pt. is now referred to [facility] for acute in-patient rehabilitation in order to maximize patient's functional independence in activities of daily living, strength, ROM, and mobi lity. Patient has realistic goal of being discharged at assistance level 6-Cari to reside at Home with Fam desiree/Relatives. Kaila Blank is a 43 year old male [facility] He was independent with ADLs and self care. On 06/20/2019, patient was having generalized weakness, excessive sleepiness, lethargic, not participating in activities. He is now medically stable but in need of 24-hour nursing, doctor supervision and oversite while receiving active and ongoing participate in 3 hours of therapy a day/15 hours per week and receive care with an intensive interdisciplinary approach. PAST MEDICAL HISTORY Acute kidney failure, unspecified (N17.9) Encephalopathy, unspecified (G93.40) Essential (primary) hypertension (I10) MEDICATION ALLERGIES: No Known Drug Allergies (NKDA) ENVIRONMENTAL ALLERGIES: - Substance Allergies None Known - Other Allergies None Known CODE STATUS: Do not intubate(DNI) WEIGHT/HEIGHT/BMI: WEIGHT 219 lbs HEIGHT 5' 5'9" BMI 36.4 DIET: - Diet Type Regular - Diet - Solid Texture Regular - Diet - Liquid Texture Regular - Tube Feed N/A REVIEW OF SYSTEMS: - Gen Alert and awake Lying in bed No apparent distress Oriented to: person, time, and place - Vital Signs Temperature: 98 F SBP/DBP: 150/81 Pulse:74 Resp: 8 Vital signs stable, afebrile - CVS RRR VITAL SIGNS Temperature: 98 F SBP/DBP: 150/81 Pulse: 74 Resp: 8 Vital signs stable, afebrile MEDICATIONS/TREATMENT: Other- See attached MAR (Medication Administration Record). CURRENT SPHINCTER CONTROL: Pre-hospital bladder status: unspecified # of bladder accidents in the last 7 days prior to screenin Pre-hospital bowel status: unspecified # of bowel accidents in the last 7 days prior to screenin Last Bowel Movement Date: 06/24/2019 CURRENT LOCOMOTION STATUS: distance traveled in wheelchair 0 feet distance walked 0 feet DETAILED CURRENT FUNCTIONAL STATUS: - Bladder accident frequency: Ind - No accidents in the past 7 days - Bowel accident frequency: Ind - No accidents in the past 7 days - Walking score based on distance walked: 1(<=50ft) - Wheelchair score based on distance traveled: 1(<=50ft) QI SCORES: - Self-Care A. Eating 05-Setup or clean-up assistance B. Oral hygiene 05-Setup or clean-up assistance C. Toileting hygiene 02-Substantial/maximal assistance E. Shower/bathe self 88-Not attempted due to medical condition or safety concerns F. Upper body dressing 02-Substantial/maximal assistance G. Lower body dressing 02-Substantial/maximal assistance H. Putting on/taking off footwear 88-Not attempted due to medical condition or safety concerns - Mobility A. Roll left and right 02-Substantial/maximal assistance B. Sit to lying 02-Substantial/maximal assistance C. Lying to sitting on side of bed 02-Substantial/maximal assistance D. Sit to stand 04-Supervision or touching assistance E. Chair/yrv-jp-fnbie transfer 02-Substantial/maximal assistance F. Toilet transfer 02-Substantial/maximal assistance G. Car transfer 88-Not attempted due to medical condition or safety concerns I. Walk 10 feet 88-Not attempted due to medical condition or safety concerns J. Walk 50 feet with two turns 88-Not attempted due to medical condition or safety concerns K. Walk 150 feet 88-Not attempted due to medical condition or safety concerns L. Walking 10 feet on uneven surfaces 88-Not attempted due to medical condition or safety concerns M. 1 step (curb) 88-Not attempted due to medical condition or safety concerns N. 4 steps 88-Not attempted due to medical condition or safety concerns O. 12 steps 88-Not attempted due to medical condition or safety concerns P. Picking up object 88-Not attempted due to medical condition or safety concerns R. Wheel 50 feet with two turns 88-Not attempted due to medical condition or safety concerns S. Wheel 150 feet 88-Not attempted due to medical condition or safety concerns - Bladder and Bowel Bladder continence 3-Incontinent daily Bowel continence 3-Always incontinent - Endurance Poor - Balance Poor - Safety Awareness Poor CURRENT [facility]. DEFICITS: Self-Care, Mobility, Endurance, Balance, and Safety Awareness CURRENT / PREVIOUS ASSISTIVE DEVICES: 3-in-1 Commode [facility] Hospital Bed Rolling Walker Wheelchair HISTORY OF FALLS. HAS THE PATIENT HAD TWO OR MORE FALLS IN THE PAST YEAR OR ANY FALL WITH INJURY IN T HE PAST YEAR?: No PRIOR SURGERY. DID THE PATIENT HAVE MAJOR SURGERY DURING THE 100 DAYS PRIOR TO ADMISSION?: No THERAPY NOTES FROM ACUTE CARE: Attached. SPECIAL NEEDS: - Safety Concerns Skin breakdown precautions needed due to skin breakdown risk PRECAUTIONS: - Weight Bearing Precaution WBAT right LE PATIENT NEEDS ACTIVE AND ONGOING THERAPEUTIC INTERVENTION OF MULTIPLE THERAPY DISCIPLINES, INCLUDING: - Occupational Therapy Cognitive Retraining. Visual Perceptual Training. - Dietary and Nutrition Adequate Nutrition. Nutritional Education. Nutritional Supplements. - Speech Therapy Cognitive Training. Expressive Language Skills. Memory Strategies. Receptive Language Skills. Speech Intelligibility Training. PATIENT NEEDS CLOSE MEDICAL SUPERVISION BY A REHABILITATION PHYSICIAN FOR: Coordination of Treatment Team Medical and Co-Morbidity Management PATIENT REQUIRES 24X7 REHAB NURSING FOR MEDICAL AND FUNCTIONAL MGT. OF THE FOLLOWING DEFICITS: Disease Management Medication Management Patient/Family Education Providing Safe Environment PATIENT REQUIRES INTENSIVE, COORDINATED INTERDISCIPLINARY APPROACH TO REHAB: Arranging Home Equipment/Services Discharge Planning Family Intervention/Training Resident In Diagnostic Radiology/Case Management PATIENT REHAB POTENTIAL: Janki BLANK is able and expected to receive 3 hours of individualized therapy daily on at least 5 of e very 7 days Janki BLANK's prognosis for significant practical improvement within a reasonable period of time appea rs Good Expected level of measurable improvement will be of a practical value to Janki BLANK's functional capa city or adaptations to impairments Has a viable Discharge Plan Medically appropriate; condition is sufficiently stable to participate in intensive rehab program DISCHARGE PLAN: - Estimated Length of Stay (days) 17. - Consensus on plan Discharge plan has been discussed with primary caregiver. Patient/Family is in agreement with the miguel n. Primary caregiver is in agreement with the plan. - Patient/Family Goals Return home with assistance. - Planned Living Setting Upon Discharge Home, to live with Family/Relatives. RECOMMENDED CARE LEVEL: IRF RECOMMENDATION DETAILS: Recommended Admission to Comprehensive Rehabilitation Program to Increase Functional Bridger SCREENER'S COMPLETENESS CONFIRMATION: - Screening Confirmation The patient data collection on this preadmission screening form is finished PHYSICIANS REVIEW AND ADMISSION DETERMINATION Admit - Based on my review of the Pre-Admission Screening results, in my medical judgment and experie nce, I concur with the findings and recommend admission to [facility], as this patient requires an IRF level of care. SIGNATURE PANEL: Clinical Liaison - [electronically] signed by Reta Xiong on 06/24/2019 at 15:05 (CONSULTING SERVICES MANAGER) Clinical Liaison - [electronically] signed by Elmer Briones on 06/24/2019 at 15:07 (CONSULTING SERVICES MANAGER) Physician Reviewer - [electronically] signed by Dr. Kodak Leslie M.D. on 06/24/2019 at 16:23 (CONSULTING SERVICES MANAGER )
--- OUTSIDE RECORDS SUMMARY | 2019-06-24 22:39 | XMS REPORT ---
:1975 Author Organization [facility] Address [address] [place] [address] [address]. [address] [place] [address] Care Team Providers Name Role Phone MEGAN FARAH Unavailable Unavailable Problems This patient has no known problems. Allergies, Adverse Reactions, Alerts This patient has no known allergies or adverse reactions. Medications This patient has no known medications. Results Test Description Test Time Test Comments Text Results Atomic Results Result Comments POCT-GLUCOSE METER 2019-06-24 17:19:00 Test Item Value Reference Range Comments POC-GLUCOSE METER (BEAKER) 152 mg/dL 70-110 : TESTED AT [address] (test cphd=2705) [place], [address]: Gastroenterology Manager/Stock Room Manager [id number] for FERNANDEZ, YVETTE POCT-GLUCOSE [id number] 12:39:00 Test Item Value Reference Range Comments POC-GLUCOSE METER (BEAKER) 158 mg/dL 70-110 : TESTED AT [address] (test hlio=0857) [facility], [address]: Gastroenterology Manager/Stock Room Manager [id number] for FERNANDEZ, YVETTE POCT-GLUCOSE [id number] 08:56:00 Test Item Value Reference Range Comments POC-GLUCOSE METER (BEAKER) 97 mg/dL 70-110 : TESTED AT [address] (test viob=3286) [facility], [address]: Gastroenterology Manager/Stock Room Manager [id number] for FERNANDEZ, YVETTE [id number] 07:00:00 Test Item Value Reference Range Comments PHOSPHORUS (BEAKER) (test qkjv=685) 3.6 mg/dL 2.3-4.7 [id number] 07:00:00 Test Item Value Reference Range Comments MAGNESIUM (BEAKER) (test ysdg=256) 1.8 mg/dL 1.6-2.6 BASIC METABOLIC [id number] 07:00:00 Test Item Value Reference Range Comments SODIUM (BEAKER) (test 136 meq/L 136-145 dqwb=839) POTASSIUM (BEAKER) (test 5.0 meq/L 3.5-5.1 uigf=822) CHLORIDE (BEAKER) (test 112 meq/L 98-107 mwfw=388) CO2 (BEAKER) (test 19 meq/L 22-29 lcwo=536) BLOOD UREA NITROGEN 39 mg/dL 7-21 (BEAKER) (test zdhc=639) CREATININE (BEAKER) (test 2.32 mg/dL 0.57-1.25 aefb=562) GLUCOSE RANDOM (BEAKER) 104 mg/dL 70-105 (test zoyb=246) CALCIUM (BEAKER) (test 8.5 mg/dL 8.4-10.2 rocr=365) EGFR (BEAKER) (test 31 mL/min/1.73 sq m ESTIMATED GFR IS NOT tjsz=4000) ACCURATE CREATININE CLEARANCE IN PREDICTING GLOMERULAR FILTRATION RATE. ESTIMATED GFR IS NOT APPLICABLE FOR DIALYSIS PATIENTS. [id number] 06:18:00 Test Item Value Reference Range Comments PARTIAL THROMBOPLASTIN TIME (BEAKER) (test 28.0 seconds 22.5-36.0 imdx=848) PROTHROMBIN TIME/[id number] 06:17:00 Test Item Value Reference Range Comments PROTIME (BEAKER) (test mayi=192) 13.9 seconds 11.9-14.2 INR (BEAKER) (test usan=234) 1.1 <=5.9 Effective 12/15/2018: PT Reference Range ChangeNew: 11.9-14.2 Previous: 11.7- 14.7RECOMMENDED COUMADIN/WARFARIN INR THERAPY RANGESSTANDARD DOSE: 2.0-3.0 Includes: PROPHYLAXIS for venous thrombosis, systemic embolization; TREATMENT for venous thrombosis and/or pulmonary embolus.HIGH RISK: Target INR is2.5-3.5 for patients wiht mechanical heart valves.CBC (HEMOGRAM ONLY)2019-06-24 06:10:00 Test Item Value Reference Range Comments WHITE BLOOD CELL COUNT (BEAKER) (test htve=448) 9.2 K/ L 3.5-10.5 RED BLOOD CELL COUNT (BEAKER) (test pvvw=863) 3.50 M/ L 4.63-6.08 HEMOGLOBIN (BEAKER) (test wjjt=632) 10.6 GM/DL 13.7-17.5 HEMATOCRIT (BEAKER) (test xiab=155) 31.8 % 40.1-51.0 MEAN CORPUSCULAR VOLUME (BEAKER) (test cyij=040) 90.9 fL 79.0-92.2 MEAN CORPUSCULAR HEMOGLOBIN (BEAKER) (test 30.3 pg 25.7-32.2 fzyn=587) MEAN CORPUSCULAR HEMOGLOBIN CONC (BEAKER) (test 33.3 GM/DL 32.3-36.5 tcib=389) RED CELL DISTRIBUTION WIDTH (BEAKER) (test 13.2 % 11.6-14.4 qfdp=046) PLATELET COUNT (BEAKER) (test gfkr=100) 191 K/CU MM 150-450 MEAN PLATELET VOLUME (BEAKER) (test gjuk=756) 12.2 fL 9.4-12.4 NUCLEATED RED BLOOD CELLS (BEAKER) (test 0 /100 WBC 0-0 ryht=458) POCT-GLUCOSE [id number] 21:14:00 Test Item Value Reference Range Comments POC-GLUCOSE METER (BEAKER) 146 mg/dL 70-110 : TESTED AT [address] (test hvfj=2923) [facility], [address]: Gastroenterology Manager/Stock Room Manager [id number] for Rowena Monroe POCT-GLUCOSE [id number] 17:42:00 Test Item Value Reference Range Comments POC-GLUCOSE METER (BEAKER) 122 mg/dL 70-110 : TESTED AT [address] (test ucdq=8525) [facility], [address]: Gastroenterology Manager/Stock Room Manager [id number] for BROWN, MARICRUZ POCT-GLUCOSE [id number] 12:20:00 Test Item Value Reference Range Comments POC-GLUCOSE METER (BEAKER) 170 mg/dL 70-110 : TESTED AT [address] (test lfpv=3637) [facility], [address]: Gastroenterology Manager/Stock Room Manager [id number] for BROWN, MARICRUZ POCT-GLUCOSE [id number] 08:33:00 Test Item Value Reference Range Comments POC-GLUCOSE METER (BEAKER) 113 mg/dL 70-110 : TESTED AT [facility] [address] (test geug=6358) [facility], [address]: Gastroenterology Manager/Stock Room Manager [id number] for MARICRUZ LLANOS BASIC METABOLIC [id number] 06:12:00 Test Item Value Reference Range Comments SODIUM (BEAKER) (test 138 meq/L 136-145 wlug=516) POTASSIUM (BEAKER) (test 4.8 meq/L 3.5-5.1 goqy=642) CHLORIDE (BEAKER) (test 113 meq/L 98-107 lcue=907) CO2 (BEAKER) (test 21 meq/L 22-29 wbnc=879) BLOOD UREA NITROGEN 47 mg/dL 7-21 (BEAKER) (test shed=503) CREATININE (BEAKER) (test 2.68 mg/dL 0.57-1.25 wdhf=597) GLUCOSE RANDOM (BEAKER) 136 mg/dL 70-105 (test njvf=288) CALCIUM (BEAKER) (test 8.4 mg/dL 8.4-10.2 ygfe=715) EGFR (BEAKER) (test 26 mL/min/1.73 sq m ESTIMATED GFR IS NOT vzpm=9004) ACCURATE CREATININE CLEARANCE IN PREDICTING GLOMERULAR FILTRATION RATE. ESTIMATED GFR IS NOT APPLICABLE FOR DIALYSIS PATIENTS. [id number] 06:11:00 Test Item Value Reference Range Comments PHOSPHORUS (BEAKER) (test hamg=811) 4.3 mg/dL 2.3-4.7 [id number] 06:11:00 Test Item Value Reference Range Comments MAGNESIUM (BEAKER) (test jclw=699) 2.0 mg/dL 1.6-2.6 PROTHROMBIN TIME/[id number] 05:54:00 Test Item Value Reference Range Comments PROTIME (BEAKER) (test dbxr=810) 13.7 seconds 11.9-14.2 INR (BEAKER) (test bvyl=059) 1.1 <=5.9 Effective 12/15/2018: PT Reference Range ChangeNew: 11.9-14.2 Previous: 11.7- 14.7RECOMMENDED COUMADIN/WARFARIN INR THERAPY RANGESSTANDARD DOSE: 2.0-3.0 Includes: PROPHYLAXIS for venous thrombosis, systemic embolization; TREATMENT for venous thrombosis and/or pulmonary embolus.HIGH RISK: Target INR is2.5-3.5 for patients wiht mechanical heart valves.[id number] 05:54:00 Test Item Value Reference Range Comments PARTIAL THROMBOPLASTIN TIME (BEAKER) (test 30.6 seconds 22.5-36.0 avei=988) CBC (HEMOGRAM ONLY)2019-06-23 05:50:00 Test Item Value Reference Range Comments WHITE BLOOD CELL COUNT (BEAKER) (test vzsi=096) 9.3 K/ L 3.5-10.5 RED BLOOD CELL COUNT (BEAKER) (test arfs=755) 3.41 M/ L 4.63-6.08 HEMOGLOBIN (BEAKER) (test ftcp=674) 10.3 GM/DL 13.7-17.5 HEMATOCRIT (BEAKER) (test wnwb=364) 30.9 % 40.1-51.0 MEAN CORPUSCULAR VOLUME (BEAKER) (test arnj=334) 90.6 fL 79.0-92.2 MEAN CORPUSCULAR HEMOGLOBIN (BEAKER) (test 30.2 pg 25.7-32.2 atbs=621) MEAN CORPUSCULAR HEMOGLOBIN CONC (BEAKER) (test 33.3 GM/DL 32.3-36.5 lrdg=318) RED CELL DISTRIBUTION WIDTH (BEAKER) (test 13.3 % 11.6-14.4 uwqw=896) PLATELET COUNT (BEAKER) (test hqgo=244) 191 K/CU MM 150-450 MEAN PLATELET VOLUME (BEAKER) (test lvon=701) 12.5 fL 9.4-12.4 NUCLEATED RED BLOOD CELLS (BEAKER) (test 0 /100 WBC 0-0 rsgq=908) POCT-GLUCOSE [id number] 22:32:00 Test Item Value Reference Range Comments POC-GLUCOSE METER (BEAKER) 102 mg/dL 70-110 : TESTED AT [place] [address] [facility] (test lslm=3335) [facility], [address]: Gastroenterology Manager/Stock Room Manager [id number] for OSMAR GREENE POCT-GLUCOSE [id number] 22:29:00 Test Item Value Reference Range Comments POC-GLUCOSE METER (BEAKER) 145 mg/dL 70-110 : TESTED AT [facility] [employer] [facility] (test ygno=1670) [facility], [address]: Gastroenterology Manager/Stock Room Manager [id number] for MAITE MONROE POCT-GLUCOSE [id number] 12:38:00 Test Item Value Reference Range Comments POC-GLUCOSE METER (BEAKER) 308 mg/dL 70-110 : Notified RN/MD: TESTED AT (test zksr=9757) [facility] [address] [facility], [address]: Gastroenterology Manager/Stock Room Manager [id number] for NAMITA CEVALLOS [id number] 11:42:00 Test Item Value Reference Range Comments THYROID STIMULATING HORMONE (BEAKER) (test 3.42 uIU/mL 0.35-4.94 garo=981) LACTIC ACID, [id number] 11:09:00 Test Item Value Reference Range Comments LACTATE BLOOD VENOUS (2) (BEAKER) (test 0.7 mmol/L 0.5-2.2 vbca=4647) KETONE, [id number] 10:42:00 Test Item Value Reference Range Comments KETONES, BLOOD (BEAKER) (test wlhd=1931) < mmol/L <0.4 KETONES=0.2BLOOD GAS, [id number] 10:29:00 Test Item Value Reference Range Comments PH ARTERIAL (BEAKER) (test rsfi=617) 7.38 7.35-7.45 PCO2 ARTERIAL (BEAKER) (test srfo=802) 33 mmHg 35-45 PO2 ARTERIAL (BEAKER) (test vewz=066) 153 mmHg 80-90 O2 SATURATION ARTERIAL (BEAKER) (test wtda=556) 99.0 % 96.0-97.0 HCO3 ARTERIAL (BEAKER) (test zcgb=255) 19 mmol/L 21-29 BASE EXCESS ARTERIAL (BEAKER) (test ufzs=187) -5.0 mmol/L -2.0-3.0 PATIENT TEMPERATURE (BEAKER) (test wtyp=3308) 36.5 C FIO2 (BEAKER) (test kpdr=9608) 21.0 % POCT-GLUCOSE [id number] 08:11:00 Test Item Value Reference Range Comments POC-GLUCOSE METER (BEAKER) 115 mg/dL 70-110 : TESTED AT [place] [id number] [facility] (test bxbp=7374) [facility], [address]: Gastroenterology Manager/Stock Room Manager [id number] for NAMITA CEVALLOS [id number] 04:40:00 Test Item Value Reference Range Comments PARTIAL THROMBOPLASTIN TIME (BEAKER) (test 32.0 seconds 22.5-36.0 nbey=879) BASIC METABOLIC [id number] 04:39:00 Test Item Value Reference Range Comments SODIUM (BEAKER) (test 135 meq/L 136-145 uxjm=449) POTASSIUM (BEAKER) (test 4.7 meq/L 3.5-5.1 Specimen slightly avga=650) hemolyzed CHLORIDE (BEAKER) (test 112 meq/L 98-107 lvaz=648) CO2 (BEAKER) (test 16 meq/L 22-29 xsnx=865) BLOOD UREA NITROGEN 53 mg/dL 7-21 (BEAKER) (test gvfp=959) CREATININE (BEAKER) (test 2.86 mg/dL 0.57-1.25 Specimen slightly wryh=980) hemolyzed GLUCOSE RANDOM (BEAKER) 114 mg/dL 70-105 (test wkwr=894) CALCIUM (BEAKER) (test 8.0 mg/dL 8.4-10.2 fege=038) EGFR (BEAKER) (test 24 mL/min/1.73 sq m ESTIMATED GFR IS NOT rfxl=2719) ACCURATE CREATININE CLEARANCE IN PREDICTING GLOMERULAR FILTRATION RATE. ESTIMATED GFR IS NOT APPLICABLE FOR DIALYSIS PATIENTS. PROTHROMBIN TIME/[id number] 04:39:00 Test Item Value Reference Range Comments PROTIME (BEAKER) (test dtac=271) 14.0 seconds 11.9-14.2 INR (BEAKER) (test twcq=984) 1.1 <=5.9 Effective 12/15/2018: PT Reference Range ChangeNew: 11.9-14.2 Previous: 11.7- 14.7RECOMMENDED COUMADIN/WARFARIN INR THERAPY RANGESSTANDARD DOSE: 2.0-3.0 Includes: PROPHYLAXIS for venous thrombosis, systemic embolization; TREATMENT for venous thrombosis and/or pulmonary embolus.HIGH RISK: Target INR is2.5-3.5 for patients wiht mechanical heart valves.[id number] 04:33:00 Test Item Value Reference Range Comments MAGNESIUM (BEAKER) (test 2.0 mg/dL 1.6-2.6 Specimen slightly hemolyzed fupa=259) [id number] 04:33:00 Test Item Value Reference Range Comments PHOSPHORUS (BEAKER) (test 4.9 mg/dL 2.3-4.7 Specimen slightly hemolyzed eqwj=491) CBC (HEMOGRAM ONLY)2019-06-22 04:19:00 Test Item Value Reference Range Comments WHITE BLOOD CELL COUNT (BEAKER) (test ayzz=218) 9.8 K/ L 3.5-10.5 RED BLOOD CELL COUNT (BEAKER) (test jzzr=830) 3.29 M/ L 4.63-6.08 HEMOGLOBIN (BEAKER) (test uetx=709) 9.8 GM/DL 13.7-17.5 HEMATOCRIT (BEAKER) (test mfjk=671) 30.2 % 40.1-51.0 MEAN CORPUSCULAR VOLUME (BEAKER) (test fawk=300) 91.8 fL 79.0-92.2 MEAN CORPUSCULAR HEMOGLOBIN (BEAKER) (test 29.8 pg 25.7-32.2 kgph=101) MEAN CORPUSCULAR HEMOGLOBIN CONC (BEAKER) (test 32.5 GM/DL 32.3-36.5 jcfs=916) RED CELL DISTRIBUTION WIDTH (BEAKER) (test 13.5 % 11.6-14.4 miub=923) PLATELET COUNT (BEAKER) (test odbo=702) 208 K/CU MM 150-450 MEAN PLATELET VOLUME (BEAKER) (test vbkk=685) 12.1 fL 9.4-12.4 NUCLEATED RED BLOOD CELLS (BEAKER) (test 0 /100 WBC 0-0 xzzv=828) POCT-GLUCOSE [id number] 21:55:00 Test Item Value Reference Range Comments POC-GLUCOSE METER (BEAKER) 118 mg/dL 70-110 : TESTED AT [facility] [address] [facility] (test sxyy=7729) [facility], [address]: Gastroenterology Manager/Stock Room Manager [id number] for MAITE MONROE POCT-GLUCOSE [id number] 17:36:00 Test Item Value Reference Range Comments POC-GLUCOSE METER (BEAKER) 152 mg/dL 70-110 : TESTED AT [facility] [address] [facility] (test fajm=6421) [facility], [address]: Gastroenterology Manager/Stock Room Manager [id number] for NAMITA CEVALLOS EEG AWAKE AND [id number] 17:10:00Reason for exam:->seizuresACC: [id number] EE Start time: 09:16 Stop time: 09:37 ICD-10: R56.9 CPT Code : 97798 HISTORY:Mr. Warner is 43 y.o right handed male w/ pmh of poorly controlled htn and DM type 2 who was notedto be progressively lethargic a CTH revealed moderate increase in degree of left cerebral hemispherevasogenic edema , left to right 11 mm subfalcine shift. Pt was transferred to [facility] for HLOC. Concern for seizure. MEDICATIONS: None TECHNICAL SUMMARY: This is a digital video EEG recorded with 32 input channels reviewed with bipolar and referential montages using the modified combinatorial system nomenclature. DESCRIPTION OF RECORD: During the Maximally alert state, there is an 8 Hz right sided posterior dominant rhythm seen occasionally. There is no PDR on the left. There is generalized polymorphic delta slowing that is reactive intermixed with theta but overall, the left hemisphere has less fast frequency activity. There is lateralized slowing and reduction of faster frequencies over left hemisphere. HV: Hyperventilation was not performed. PHOTIC STIMULATION: Photic stimulation was done from 1-20 Hz; no photic driving was seen; photoparoxysmal responses were absent. VIDEO EVENTS: None Noted ELECTROCARDIOGRAM EVENTS: Normal Sinus Rhythm, HR 60 IMPRESSION: Abnormal Drowsy/lethargic EEG 1. Lateralized left hemisphere slowing and decrease in faster frequencies on the left. 2. Absent left occipital posterior dominant rhythm 3. Generalized polymorphic delta slowing, reactive, worse on the left. COMMENT: Generalized slowing is consistent with a moderatedegree of encephalopathy. Lateralized slowing over left hemisphere could be secondary to structural abnormality. An EEG without epileptiform discharges does not exclude the possibility of epilepsy. It the clinical suspicion of epilepsy remains, consider additional EEG recordings. Sylwia Greene MD Neurophysiology Fellow Phani Peraza M.D., FACNS, FAAN, DAI Professor of Neurology, [facility] [employer] Director, [facility] Head, [facility] POCT-GLUCOSE [id number] 12 :25:00 Test Item Value Reference Range Comments POC-GLUCOSE METER (BEAKER) 156 mg/dL 70-110 : Notified RN/MD: TESTED AT (test hwtt=0355) [facility] [address] [facility], [address]: Gastroenterology Manager/Stock Room Manager [id number] for NAMITA CEVALLOS HEMOGLOBIN [id number] 09:58:00 Test Item Value Reference Range Comments HEMOGLOBIN A1C (BEAKER) (test vlcn=857) 6.8 % 4.3-6.1 CT, BRAIN, WITHOUT [id number] 07:52:00FINAL REPORT CT Head without contrast CLINICAL HISTORY: ich TECHNIQUE: Contiguous axial CT images through the head without contrast. This exam was performed according to the departmental dose optimization program which includes automated exposure control, adjustment of the mA and/or kV according to the patient size, and/or use of an iterative reconstruction technique. COMPARISON: None FINDINGS: There is subacute appearing hemorrhage in the left basal ganglia spanning approximately 6.5 cm AP by 3.0 cm TV by 3.5 cm CC. There is prominent surrounding parenchymal edema throughoutthe left cerebral white matter extending into the anterior temporal lobe and inferior frontal lobe. Edema also tracks into the descending corticospinal tracks in the left brain stem. Mass effect effaces the left lateral ventricle with rightward midline shift of the septum pellucidum by 1.1 cm. There is asymmetric enlargement of the right lateral ventricle compatible with ventricular entrapment. There are no extra- axial fluid collections. The skull is intact. The visualized paranasal sinuses are well-aerated. IMPRESSION: Subacute appearing hemorrhage in the left basal ganglia with prominent edema and mass effect, including right ventricular entrapment. Comparison with outside imaging is recommended. Signed: Jasmyne Clements MDReport Verified Date/Time: 06/21/2019 07:52:44 Reading Location: [facility] B1 C013V Neuro Reading Room POCT-GLUCOSE [id number] 07:07:00 Test Item Value Reference Range Comments POC-GLUCOSE METER (BEAKER) 117 mg/dL 70-110 : TESTED AT [place] [id number] [facility] (test qzrx=8512) [facility], [address]: Gastroenterology Manager/Stock Room Manager [id number] for MARISSA DUPREE URINALYSIS W/ REFLEX URINE [id number] 04:29:00 Test Item Value Reference Range Comments COLOR (BEAKER) (test vbay=420) Light Yellow CLARITY (BEAKER) (test oicc=042) Clear SPECIFIC GRAVITY UA (BEAKER) (test yjnr=792) 1.015 1.001-1.035 PH UA (BEAKER) (test vpqm=486) 5.5 5.0-8.0 PROTEIN UA (BEAKER) (test jlim=372) 100 mg/dL Negative GLUCOSE UA (BEAKER) (test yxic=359) 100 mg/dL Negative KETONES UA (BEAKER) (test mqxz=609) Negative Negative BILIRUBIN UA (BEAKER) (test lhwp=316) Negative Negative BLOOD UA (BEAKER) (test djsh=684) Negative Negative NITRITE UA (BEAKER) (test fjom=526) Negative Negative LEUKOCYTE ESTERASE UA (BEAKER) (test evhx=556) Negative Negative UROBILINOGEN UA (BEAKER) (test vyxf=603) 0.2 mg/dL 0.2-1.0 RBC UA (BEAKER) (test anhd=241) 4 /HPF WBC UA (BEAKER) (test oesr=885) 1 /HPF MUCUS (BEAKER) (test vjiz=9457) Rare SQUAMOUS EPITHELIAL (BEAKER) (test pxjg=722) < /HPF HYALINE CASTS (BEAKER) (test iduo=439) 1 /LPF YEAST (BEAKER) (test xtrq=3561) Occasional SOURCE(BEAKER) (test xlmw=6107) TROPONIN [id number] 02:50:00 Test Item Value Reference Range Comments TROPONIN I (BEAKER) (test rpgu=992) 0.01 ng/mL 0.00-0.03 Troponin I (TnI) levels must be interpreted in the context of the presenting symptoms and the clinical findings. Elevated TnI levels indicate myocardial damage, but are not specific for ischemic heart disease. Elevated TnI levels are seen in patients with other cardiac conditions (including myocarditis and congestive heart failure), and slight TnI elevations occur in patients with other conditions, including sepsis, renal failure, acidosis, acute neurological disease, and persistent tachyarrhythmia.RAD, CHEST, 1 VIEW, NON [id number] 02:08:00Reason for exam:->pre-opShould this be performed at the bedside?-> YesFINAL REPORT History: Preoperative evaluation, surgery unspecified. Comparison: None. Findings: A single view of the chest is submitted. The cardiomediastinal contours are unremarkable. There is no focal consolidation, pneumothorax, large pleural effusion or evidence of overt pulmonary edema. There is no acute bony abnormality. Impression: No acute abnormality. Signed: Sid Jerome MDReport Verified Date/Time: 06/21/2019 02: 08:31 [id number] 01:45:00 Test Item Value Reference Range Comments PARTIAL THROMBOPLASTIN TIME (BEAKER) (test 34.3 seconds 22.5-36.0 aazc=709) PROTHROMBIN TIME/[id number] 01:44:00 Test Item Value Reference Range Comments PROTIME (BEAKER) (test uabo=931) 15.1 seconds 11.9-14.2 INR (BEAKER) (test agny=678) 1.3 <=5.9 Effective 12/15/2018: PT Reference Range ChangeNew: 11.9-14.2 Previous: 11.7- 14.7RECOMMENDED COUMADIN/WARFARIN INR THERAPY RANGESSTANDARD DOSE: 2.0-3.0 Includes: PROPHYLAXIS for venous thrombosis, systemic embolization; TREATMENT for venous thrombosis and/or pulmonary embolus.HIGH RISK: Target INR is2.5-3.5 for patients wiht mechanical heart valves.BASIC METABOLIC [id number] 01:39: 00 Test Item Value Reference Range Comments SODIUM (BEAKER) (test 136 meq/L 136-145 kacc=825) POTASSIUM (BEAKER) (test 5.0 meq/L 3.5-5.1 tdwd=940) CHLORIDE (BEAKER) (test 112 meq/L 98-107 uivt=681) CO2 (BEAKER) (test 17 meq/L 22-29 nxvv=319) BLOOD UREA NITROGEN 53 mg/dL 7-21 (BEAKER) (test crjo=888) CREATININE (BEAKER) (test 2.40 mg/dL 0.57-1.25 ryoh=741) GLUCOSE RANDOM (BEAKER) 172 mg/dL 70-105 (test xyul=180) CALCIUM (BEAKER) (test 8.2 mg/dL 8.4-10.2 fhlt=232) EGFR (BEAKER) (test 29 mL/min/1.73 sq m ESTIMATED GFR IS NOT rnak=1843) ACCURATE CREATININE CLEARANCE IN PREDICTING GLOMERULAR FILTRATION RATE. ESTIMATED GFR IS NOT APPLICABLE FOR DIALYSIS PATIENTS. [id number] 01:29:00 Test Item Value Reference Range Comments PHOSPHORUS (BEAKER) (test fnvf=655) 4.2 mg/dL 2.3-4.7 [id number] 01:29:00 Test Item Value Reference Range Comments MAGNESIUM (BEAKER) (test qlvd=440) 2.1 mg/dL 1.6-2.6 HEPATIC FUNCTION [id number] 01:29:00 Test Item Value Reference Range Comments TOTAL PROTEIN (BEAKER) (test gdbj=021) 6.3 gm/dL 6.0-8.3 ALBUMIN (BEAKER) (test esry=6131) 3.0 g/dL 3.5-5.0 BILIRUBIN TOTAL (BEAKER) (test bskh=116) 0.4 mg/dL 0.2-1.2 BILIRUBIN DIRECT (BEAKER) (test lnwr=284) 0.2 mg/dL 0.1-0.5 ALKALINE PHOSPHATASE (BEAKER) (test zdhh=794) 184 U/L 40-150 AST (SGOT) (BEAKER) (test idzz=090) 18 U/L 5-34 ALT (SGPT) (BEAKER) (test ocwo=401) 34 U/L 6-55 CBC (HEMOGRAM ONLY)2019-06-21 01:08:00 Test Item Value Reference Range Comments WHITE BLOOD CELL COUNT (BEAKER) (test fawy=946) 12.1 K/ L 3.5-10.5 RED BLOOD CELL COUNT (BEAKER) (test pmrz=022) 3.34 M/ L 4.63-6.08 HEMOGLOBIN (BEAKER) (test ctsr=134) 10.1 GM/DL 13.7-17.5 HEMATOCRIT (BEAKER) (test ynzr=281) 30.2 % 40.1-51.0 MEAN CORPUSCULAR VOLUME (BEAKER) (test yufl=951) 90.4 fL 79.0-92.2 MEAN CORPUSCULAR HEMOGLOBIN (BEAKER) (test 30.2 pg 25.7-32.2 lwju=539) MEAN CORPUSCULAR HEMOGLOBIN CONC (BEAKER) (test 33.4 GM/DL 32.3-36.5 ifim=551) RED CELL DISTRIBUTION WIDTH (BEAKER) (test 13.4 % 11.6-14.4 mbzx=811) PLATELET COUNT (BEAKER) (test qerm=912) 208 K/CU MM 150-450 MEAN PLATELET VOLUME (BEAKER) (test ffrk=323) 11.6 fL 9.4-12.4 NUCLEATED RED BLOOD CELLS (BEAKER) (test 0 /100 WBC 0-0 veee=960) PROTHROMBIN TIME/[id number] 00:48:00 Test Item Value Reference Range Comments PROTIME (BEAKER) (test lsmx=481) 14.3 seconds 11.9-14.2 INR (BEAKER) (test pwxh=669) 1.2 <=5.9 Effective 12/15/2018: PT Reference Range ChangeNew: 11.9-14.2 Previous: 11.7- 14.7RECOMMENDED COUMADIN/WARFARIN INR THERAPY RANGESSTANDARD DOSE: 2.0-3.0 Includes: PROPHYLAXIS for venous thrombosis, systemic embolization; TREATMENT for venous thrombosis and/or pulmonary embolus.HIGH RISK: Target INR is2.5-3.5 for patients wiht mechanical heart valves.[id number] 00:48:00 Test Item Value Reference Range Comments PARTIAL THROMBOPLASTIN TIME (BEAKER) (test 32.3 seconds 22.5-36.0 rcdg=999) POCT-GLUCOSE [id number] 00:15:00 Test Item Value Reference Range Comments POC-GLUCOSE METER (BEAKER) 167 mg/dL 70-110 : TESTED AT [facility] [address] (test tmoi=8097) [facility], [id number]: Gastroenterology Manager/Stock Room Manager [id number] for MARISSA DUPREE
[2019-06-25] MEDS ORDERED: GLUCAGON 1 MG/VIAL IM PRN (02:52)
[2019-06-25] MEDS ORDERED: D50W 25 GM/50 ML SYRINGE/VIAL IV PRN (02:52)
[2019-06-25] MEDS: carvediloL 12.5 MG TAB PO SCH ×2 (05:13→17:28)
[2019-06-25] MEDS ORDERED: carvediloL 12.5 MG TAB PO SCH (06:00)
[2019-06-25 06:35] LABS: Absolute Lymphocytes (CBC) 1.4 K/uL (0.7-4.9); Basophils % 0.8 % (0-1.3); Hematocrit 32.2 % (39.6-49.0); Lymphocytes % 17.1 % (15.3-44.8); MPV 10.7 fL (7.6-11.3); RBC Red Blood Cell Count 3.59 M/uL (4.33-5.43)
[2019-06-25 07:00] LABS: Albumin 2.5 g/dL (3.4-5.0); Potassium 4.7 mmol/L (3.5-5.1); Prealbumin 26.2 mg/dL (20-40)
[2019-06-25] MEDS: INSULIN -REGULAR HUMAN 50 UNIT/0.5 ML ML SQ SCH ×4 (07:30→21:00)
[2019-06-25] MEDS: DOCUSATE NA/SENNA CONC 1 TAB PO SCH ×2 (08:00→20:00)
[2019-06-25] MEDS: AMLODIPINE 10 MG TAB PO SCH (08:00)
[2019-06-25] MEDS: NIFEDIPINE XL 30 MG TABLET PO SCH (11:15)
[2019-06-25] MEDS: HYDRALAZINE HCL 25 MG TABLET PO SCH ×3 (11:16→21:05)
--- NOTE | 2019-06-25 12:12 | FAST ---
ENCOUNTER DATE AND TIME: 06/25/2019 08:00 ([employer]) NAME KAILA BLANK DATE OF : 1975 DATE OF ADMISSION: 06/24/2019 22:33 ([employer]) PHONE: AGE: 43 N# [id number] GENDER: Male ENCOUNTER PHYSICIAN: Dr. Kodak Leslie M.D. ADMISSION DIAGNOSIS: - Stroke 01 - Right Body (Left Brain) (01.2) Hemorrhage in the left basal ganglia. ROLL LEFT AND RIGHT: ROLL LEFT AND RIGHT - STEP 1: Does the patient complete the activity by him/herself with no assistance (physical, verbal/nonverbal cueing, setup/clean-up)? No. ROLL LEFT AND RIGHT - STEP 2: Does the patient need only setup/clean-up assistance from one helper? No. ROLL LEFT AND RIGHT - STEP 3: Does the patient need only verbal/nonverbal cueing or touching/steadying/contact guard assistance fro m one helper? No. ROLL LEFT AND RIGHT - STEP 4: Does the patient need physical assistance - for example lifting or trunk support from one helper - wi th the helper providing less than half of the effort? No. ROLL LEFT AND RIGHT - STEP 5: Does the patient need physical assistance - for example lifting or trunk support from one helper - wi th the helper providing more than half of the effort? Yes. 1. [id number] ADMISSION PERFORMANCE: Substantial/maximal assistance CODE: 02 SIT TO LYING: SIT TO LYING - STEP 1: Does the patient complete the activity by him/herself with no assistance (physical, verbal/nonverbal cueing, setup/clean-up)? No. SIT TO LYING - STEP 2: Does the patient need only setup/clean-up assistance from one helper? No. SIT TO LYING - STEP 3: Does the patient need only verbal/nonverbal cueing or touching/steadying/contact guard assistance fro m one helper? No. SIT TO LYING - STEP 4: Does the patient need physical assistance - for example lifting or trunk support from one helper - wi th the helper providing less than half of the effort? No. SIT TO LYING - STEP 5: Does the patient need physical assistance - for example lifting or trunk support from one helper - wi th the helper providing more than half of the effort? Yes. 1. [id number] ADMISSION PERFORMANCE: Substantial/maximal assistance CODE: 02 LYING TO SITTING: LYING TO SITTING ON SIDE OF BED - STEP 1: Does the patient complete the activity by him/herself with no assistance (physical, verbal/nonverbal cueing, setup/clean-up)? No. LYING TO SITTING ON SIDE OF BED - STEP 2: Does the patient need only setup/clean-up assistance from one helper? No. LYING TO SITTING ON SIDE OF BED - STEP 3: Does the patient need only verbal/nonverbal cueing or touching/steadying/contact guard assistance fro m one helper? No. LYING TO SITTING ON SIDE OF BED - STEP 4: Does the patient need physical assistance - for example lifting or trunk support from one helper - wi th the helper providing less than half of the effort? No. LYING TO SITTING ON SIDE OF BED - STEP 5: Does the patient need physical assistance - for example lifting or trunk support from one helper - wi th the helper providing more than half of the effort? Yes. 1. [id number] ADMISSION PERFORMANCE: Substantial/maximal assistance CODE: 02 SIT TO STAND: SIT TO STAND - STEP 1: Does the patient complete the activity by him/herself with no assistance (physical, verbal/nonverbal cueing, setup/clean-up)? No. SIT TO STAND - STEP 2: Does the patient need only setup/clean-up assistance from one helper? No. SIT TO STAND - STEP 3: Does the patient need only verbal/nonverbal cueing or touching/steadying/contact guard assistance fro m one helper? No. SIT TO STAND - STEP 4: Does the patient need physical assistance - for example lifting or trunk support from one helper - wi th the helper providing less than half of the effort? Yes. 1. [id number] ADMISSION PERFORMANCE: Partial/moderate assistance CODE: 03 TRANSFERS: BED, CHAIR: CHAIR/[id number] TRANSFER - STEP 1: Does the patient complete the activity by him/herself with no assistance (physical, verbal/nonverbal cueing, setup/clean-up)? No. CHAIR/[id number] TRANSFER - STEP 2: Does the patient need only setup/clean-up assistance from one helper? No. CHAIR/[id number]-[id number] TRANSFER - STEP 3: Does the patient need only verbal/nonverbal cueing or touching/steadying/contact guard assistance fro m one helper? No. CHAIR/[id number] TRANSFER - STEP 4: Does the patient need physical assistance - for example lifting or trunk support from one helper - wi th the helper providing less than half of the effort? No. CHAIR/[id number]-ZO-[id number] TRANSFER - STEP 5: Does the patient need physical assistance - for example lifting or trunk support from one helper - wi th the helper providing more than half of the effort? Yes. 1. [id number] ADMISSION PERFORMANCE: Substantial/maximal assistance CODE: 02 TRANSFER TOILET: TOILET TRANSFER - STEP 1: Does the patient complete the activity by him/herself with no assistance (physical, verbal/nonverbal cueing, setup/clean-up)? No. TOILET TRANSFER - STEP 2: Does the patient need only setup/clean-up assistance from one helper? No. TOILET TRANSFER - STEP 3: Does the patient need only verbal/nonverbal cueing or touching/steadying/contact guard assistance fro m one helper? No. TOILET TRANSFER - STEP 4: Does the patient need physical assistance - for example lifting or trunk support from one helper - wi th the helper providing less than half of the effort? No. TOILET TRANSFER - STEP 5: Does the patient need physical assistance - for example lifting or trunk support from one helper - wi th the helper providing more than half of the effort? Yes. 1. [id number] ADMISSION PERFORMANCE: Substantial/maximal assistance CODE: 02 TRANSFERS: CAR: Not attempted due to environmental limitations (e.g., lack of equipment, weather constraints) CODE: 10 WALK 10 FEET: Not attempted due to medical condition or safety concerns CODE: 88 1 STEP (CURB): Not attempted due to medical condition or safety concerns CODE: 88 PICKING UP OBJECT: Not attempted due to medical condition or safety concerns CODE: 88 DOES THE PATIENT USE A WHEELCHAIR/SCOOTER? Q1. DOES THE PATIENT USE A WHEELCHAIR/SCOOTER?: Yes CODE: 1 WHEEL 50 FEET WITH TWO TURNS: Not attempted due to medical condition or safety concerns CODE: 88 INDICATE THE TYPE OF WHEELCHAIR/SCOOTER USED: RR1. INDICATE THE TYPE OF WHEELCHAIR/SCOOTER USED.: Manual CODE: 1 WHEEL 150 FEET: Not attempted due to medical condition or safety concerns CODE: 88 INDICATE THE TYPE OF WHEELCHAIR/SCOOTER USED: SS1. INDICATE THE TYPE OF WHEELCHAIR/SCOOTER USED.: Manual CODE: 1 BLADDER AND BOWEL: CODE: EXPR CODE: EXPR SIGNATURE PANEL: The following modified sections: 1. [id number] Admission Performance, 1. [id number] Admission Performance, 1. [id number] Admission Performance, 1. [id number] Admission Performance, 1. [id number] Admission Performance, 1. [id number] Admission Performance, 1. [id number] Admission Performance, 1. [id number] Admission Performance , Q1. Does the patient use a wheelchair/scooter?, RR1. Indicate the type of wheelchair/scooter used., Code, SS1. Indicate the type of wheelchair/scooter used. were [electronically] signed by Regis sarmiento PT on ThuJun 25 2019 12:12:07 GMT-0600 (Central Standard Time)
--- NOTE | 2019-06-25 14:53 | R.HP ---
FACILITY: [facility] ENCOUNTER DATE AND TIME: 06/25/2019 14:46 (INFECTION PREVENTION COORDINATOR) MR#: [id number] NAME KAILA WARNER ADDRESS: [address] CITY: [place] [address]IP [address] PHONE: DATE OF : 1975 AGE: 43 SSN# [id number] GENDER: Male DEXTERITY Right-handed MARITAL STATUS Single (Never ) RACE White PRE-HOSPITAL LIVING SETTING 01 - Home (private home/apt. board/care, assisted living, snf, transitional living) PRE-HOSPITAL LIVING WITH Family/Relatives ENCOUNTER PHYSICIAN: Dr. Kodak Leslie M.D. REFERRING DOCTOR: pawan Kovacs DATE OF ADMISSION: 06/24/2019 22:33 (INFECTION PREVENTION COORDINATOR) REFERRING FACILITY [facility] HOME TYPE AND DETAILS: Type of home: mobile home # of steps to enter the residence: 1 # of steps within the residence: 1 # of levels in the residence: 1 ADMISSION DIAGNOSIS: Hemorrhage in the left basal ganglia PRIMARY DIAGNOSIS-RELATED SURGERIES: No surgeries related to the primary diagnosis were performed. SECONDARY/COMORBID DIAGNOSES (TIERED): - Tier 3 Acute kidney failure, unspecified (N17.9) - Non-Tiered Encephalopathy, unspecified (G93.40) Essential (primary) hypertension (I10) HISTORY OF PRESENT ILLNESS (HPI): Pt. is a 43 yo Right-handed white male. On 06/20/2019 Pt. presented to [facility] with sudden onset of right-side weakness. On 06/20/2019 he was admitted to [facility] with diagnosis Hemorrhage in t he left basal ganglia. His impairment category is Stroke 01 - Right Body (Left Brain) (01.2). Pre-morbidly, Pt. was independent/mod-I in Locomotion, Self-Care, Endurance, Communication, pain limi ting function, Safety Awareness and Self-Care, and Sphincter Control; and he had good Balance. Currently, he has deficits of Locomotion, Self-Care, Endurance, Balance, Transfers Control, Safety Aw areness, Ambulation, Social Cognition, pain limiting function, Safety Awareness and Self-Care, Functi onal mobility, and Sphincter Control. Pt. is now referred to [facility] for acute in-patient rehabilitation in order to maximize patient's functional independence in activities of daily living, strength, ROM, and mobi lity. Patient has realistic goal of being discharged at assistance level 6-Cari to reside at Home with Fam desiree/Relatives. Kaila Warner is a 43 year old [facility] He was independent with ADLs and self care. On 06/20/2019, patient was having generalized weakness, excessive sleepiness, lethargic, not participating in activities. He is now medically stable but in need of 24-hour nursing, doctor supervision and oversite while receiving active and ongoing participate in 3 hours of therapy a day/15 hours per week and receive care with an intensive interdisciplinary approach. MEDICATION ALLERGIES: No Known Drug Allergies (NKDA) ENVIRONMENTAL ALLERGIES: - Substance Allergies None Known - Other Allergies None Known PAST MEDICAL HISTORY: Acute kidney failure, unspecified (N17.9) Encephalopathy, unspecified (G93.40) Essential (primary) hypertension (I10) FAMILY HISTORY: Family history is not contributory. SOCIAL HISTORY: - Home Living Family/Relatives REVIEW OF SYSTEMS: - Gen No Chills No Fatigue No Fever - Eyes No Double Vision No itchiness - ENMT Difficulty Swallowing - CVS No Chest Discomfort No Chest Pain Fatigue No Weight Gain - Resp No Cough No Shortness of Breath - GI Continent No Abdominal Pain Constipation No Diarrhea - Continent No Kidney Pain No Painful Urination No Urinary Urgency - MSK No Joint Pain Muscle Cramps Stiffness - Skin No Itching No Rash No Suspicious Lesions - Neuro Coordination Difficulty Difficulty with Concentration Memory Loss No Seizures Weakness - Psych No Anxiety No Depression No HIV Exposure No Persistent Infections No Seasonal Allergies - Endo No Cold/Heat Intolerance No Excessive Hunger No Excessive Thirst No Excessive Urination PHYSICAL EXAM - Gen Alert and awake Lying in bed No apparent distress Oriented to: person, time, and place - Skin No breakdown Normacephalic - Eyes No abnormalities - ENMT No abnormalities - Neck No abnormalities No cervical adenopathy - CVS RRR - Chest No abnormalities - Resp CTA bilaterally - Abd Soft - GI Non distended Deferred - No abnormalities - Ext Mild right upper and lower extremity edema. - MSK 1/5 weakness in right upper and lower extremities. - Neuro 1/5 weakness in right upper and lower extremities. - Psych Moderate depression. VITAL SIGNS Temperature: 98 F SBP/DBP: 150/81 Pulse: 74 Resp: 12 NURSING: - Shower allowing shower - Bladder care per protocol - Skin care per protocol PRECAUTIONS: - Weight Bearing Precaution WBAT right LE ACTIVITIES OOB only with supervision QI SCORES: - Self-Care A. Eating 05-Setup or clean-up assistance B. Oral hygiene 05-Setup or clean-up assistance C. Toileting hygiene 02-Substantial/maximal assistance E. Shower/bathe self 88-Not attempted due to medical condition or safety concerns F. Upper body dressing 02-Substantial/maximal assistance G. Lower body dressing 02-Substantial/maximal assistance H. Putting on/taking off footwear 88-Not attempted due to medical condition or safety concerns - Mobility A. Roll left and right 02-Substantial/maximal assistance B. Sit to lying 02-Substantial/maximal assistance C. Lying to sitting on side of bed 02-Substantial/maximal assistance D. Sit to stand 04-Supervision or touching assistance E. Chair/yve-fd-[id number] transfer 02-Substantial/maximal assistance F. Toilet transfer 02-Substantial/maximal assistance G. Car transfer 88-Not attempted due to medical condition or safety concerns I. Walk 10 feet 88-Not attempted due to medical condition or safety concerns J. Walk 50 feet with two turns 88-Not attempted due to medical condition or safety concerns K. Walk 150 feet 88-Not attempted due to medical condition or safety concerns L. Walking 10 feet on uneven surfaces 88-Not attempted due to medical condition or safety concerns M. 1 step (curb) 88-Not attempted due to medical condition or safety concerns N. 4 steps 88-Not attempted due to medical condition or safety concerns O. 12 steps 88-Not attempted due to medical condition or safety concerns P. Picking up object 88-Not attempted due to medical condition or safety concerns R. Wheel 50 feet with two turns 88-Not attempted due to medical condition or safety concerns S. Wheel 150 feet 88-Not attempted due to medical condition or safety concerns - Bladder and Bowel Bladder continence 3-Incontinent daily Bowel continence 3-Always incontinent - Endurance Poor - Balance Poor - Safety Awareness Poor CURRENT FUNC. DEFICITS: Self-Care, Mobility, Endurance, Balance, and Safety Awareness MEDICATIONS: - Other See attached MAR (Medication Administration Record) ASSESSMENT: Pt. is a 43 yo Right-handed white male.On 06/20/2019 Pt. presented to [facility] with sudden onset of right-side weakness.On 06/20/2019 he was admitted to [facility] with diagnosis Hemorrhage in the left basal ganglia.His impairment category is Stro ke 01 - Right Body (Left Brain) (01.2).Pre-morbidly, Pt. was independent/mod-I in Locomotion, Self-C are, Endurance, Communication, pain limiting function, Safety Awareness and Self-Care, and Sphincter Control; and he had good Balance.Currently, he has deficits of Locomotion, Self-Care, Endurance, Cali nce, Transfers Control, Safety Awareness, Ambulation, Social Cognition, pain limiting function, Safet y Awareness and Self-Care, Functional mobility, and Sphincter Control.Pt. is now referred to [facility] for acute in-patient rehabilitation in order to maximize patient's function al independence in activities of daily living, strength, ROM, and mobility.- Rehab Goal Patient has realistic goal of being discharged at assistance level 6-Cari to reside at Home with Fam desiree/Relatives. Kaila Warner is a 43 year old male [facility] He was independent with ADLs and self care. On 06/20/2019, patient was having generalized weakness, excessive sleepiness, lethargic, not participating in activities. He is now medically stable but in need of 24-hour nursing, doctor supervision and oversite while receiving active and ongoing participate in 3 hours of therapy a day/15 hours per week and receive care with an intensive interdisciplinary approach.REHAB PLAN: for Dementia, TBI, Stroke, or others - Physical Therapy Gait dysfunction - to improve, our physical therapists will perform initial evaluation of pt's status upon admission and devise an individualized program for Gait Training, and Wheel Chair mobility Inability to transfer - to improve, our physical therapists will perform initial evaluation of pt's s tatus upon admission and devise an individualized program for Bed mobility Need for home safety evaluation - to improve, our physical therapists will perform initial evaluation of pt's status upon admission and devise an individualized program for Home Evaluation Need in caregiver upon discharge - to improve, our physical therapists will perform initial evaluatio n of pt's status upon admission and devise an individualized program for Caregiver Training New precaution - to improve, our physical therapists will perform initial evaluation of pt's status u keith admission and devise an individualized program for Patient precaution education Edema - to improve, our physical therapists will perform initial evaluation of pt's status upon admi ssion and devise an individualized program for Elevation Training, and Lymphedema Therapy Poor balance - to improve, our physical therapists will perform initial evaluation of pt's status upo n admission and devise an individualized program for Balance Training Poor endurance - to improve, our physical therapists will perform initial evaluation of pt's status u keith admission and devise an individualized program for Endurance Training Weakness - to improve, our physical therapists will perform initial evaluation of pt's status upon ad mission and devise an individualized program for Aquatic Therapy, Neuromuscular Reeducation, and Stre ngthening Achieving independence - to improve, our physical therapists will perform initial evaluation of pt's status upon admission and devise an individualized program for Community Reintegration Activities - Occupational Therapy ADL deficits - to improve, our occupation therapists will perform initial evaluation of pt's status u keith admission and devise an individualized program for Bathing, Bed mobility, Community Reintegration , Cooking, Dressing, Eating, Fine Motor Skills, Grooming, Homemaking, Kitchen Mobility, Laundry, Angeline ent Education, Safety Awareness, Splinting - Positioning, Transfers(Toilet, Tub, Shower), and Wheel C hair Management Cognitive deficits - to improve, our occupation therapists will perform initial evaluation of pt's st atus upon admission and devise an individualized program for Cognition - orientation Need for health care marketing manager - to improve, our occupation therapists will perform initial evaluation of pt's s tatus upon admission and devise an individualized program for Caregiver Training Weakness - to improve, our occupation therapists will perform initial evaluation of pt's status upon admission and devise an individualized program for Aquatic Therapy, Balance, Endurance, UE ROM, and U E strengthening MEDICAL PLAN: - Diet Type Start Regular - Diet - Liquid Texture Start Regular - Tube Feed Start N/A - Bladder care per protocol - Weight Bearing Precaution WBAT right LE - Skin care per protocol - Other See attached MAR (Medication Administration Record) - Diet - Solid Texture Regular - Shower shower DISCHARGE PLAN: - Estimated Length of Stay (days) 17. - Consensus on plan Discharge plan has been discussed with primary caregiver. Patient/Family is in agreement with the miguel n. Primary caregiver is in agreement with the plan. - Patient/Family Goals Return home with assistance. - Planned Living Setting Upon Discharge Home, to live with Family/Relatives. SIGNATURE PANEL: (INFECTION PREVENTION COORDINATOR)
--- NOTE | 2019-06-25 14:56 | PAPE ---
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 Kodak Leslie M.D. ADMISSION DIAGNOSIS: Hemorrhage in the left basal ganglia SECONDARY/COMORBID DIAGNOSES TIERED: - Tier 3 Acute kidney failure, unspecified (N17.9) - Non-Tiered Encephalopathy, unspecified (G93.40) Essential (primary) hypertension (I10) POST-ADMISSION FUNCTIONAL/MEDICAL STATUS: - Bladder Same accident frequency: Ind - No accidents in the past 7 days - Bowel Same accident frequency: Ind - No accidents in the past 7 days - Walking Same score based on distance walked: 1(<=50ft) - Wheelchair Same score based on distance traveled: 1(<=50ft) STATUS CHANGE EVALUATION: No change in Functional or Medical Status is identified compared with Pre-Admission screening. PATIENT NEEDS CLOSE MEDICAL SUPERVISION BY A REHABILITATION PHYSICIAN FOR: Coordination of Treatment Team Medical and Co-Morbidity Management PATIENT REQUIRES 24X7 REHAB NURSING FOR MEDICAL AND FUNCTIONAL MGT. OF THE FOLLOWING DEFICITS: Disease Management Medication Management Patient/Family Education Providing Safe Environment PATIENT REQUIRES INTENSIVE, COORDINATED INTERDISCIPLINARY APPROACH TO REHAB: Arranging Home Equipment/Services Discharge Planning Family Intervention/Training Last Dipper/Case Management LIST OF IDENTIFIED AND POTENTIAL PROBLEMS: Alteration in leisure activities Bladder, Incontinence Blood Pressure, Hypertension/hypotension Issues Bowel, Incontinence Infection, Actual or Potential Mobility Impaired Pain, Alteration in Comfort Self Care Deficit Skin Integrity, Actual or Potential Urinary Tract Infection (UTI), Actual or Potential PATIENT COULD BE AT RISK FOR COMPLICATIONS FROM ADVERSE MEDICAL CONDITIONS DUE TO HIS/HER COMORBIDITI ES AND THE RIGORS OF THE INTENSIVE REHABILLITATION PROGRAM. METHODS OR INTERVENTIONS TO AVOID COMPLIC ATIONS INCLUDE: - Bleeding Stroke patients assessed for lethargy or change in status. - Infection Clinical staff to assess and manage the signs and symptoms of infection including fever, redness, war mth, etc. - Urinary Tract Infection - Aspiration Clinical staff will assess and manage coughing, drooling, congestion. - Falls Patient will be evaluated for Fall Precautions and will be placed on Fall Precautions as indicated pe r protocol. - Skin Breakdown Nursing will assess skin daily using assessment tool and will place on Skin Breakdown Precautions as indicated per protocol. - Pain Clinical staff may employ non-medication methods such as massage, distraction, decrease stimulus, etc . as needed. Clinical staff will assess patient's pain level every shift per protocol to assess and e nsure pain management effectiveness. Medications will be given and the pain level re-assessed. PRELIMINARY PLAN OF CARE: - Physical Therapy Patient needs Physical Therapy for a daily minimum of 1.5 hours at least 5 out of 7 days, to improve: Mobility, Strengthening, Transfers, Stretching, ROM, Endurance, Ability to manage stairs, Gait, and Balance. - Speech Therapy Patient needs Speech Therapy for a daily minimum of 0.5 hours at least 5 out of 7 days, to improve: S wallowing, Cognition, Language Skills, and Compensatory Strategies. - Rehabilitation Nursing Patient requires 24x7 Rehabilitation Nursing for: Pain Issues, Identifying and preventing risk factor s, Monitoring and reporting current medical conditions, Assisting with ambulation and transfer, Sabina ting with all ADL-s, Teaching patients about disease process and medications, Family teaching, Provid ing safe environment, Bowel and Bladder Issues, Skin Integrity, and Medication Management. Patient needs Last Dipper and/or Case Management for: Discharge Planning, Arranging Home Equipmen t or Services, and Family Interventions. - Dietary and Nutrition Services Patient needs Dietary and Nutrition Services for: Adequate Nutrition, Nutritional Supplements, and Nu tritional Education. - Occupational Therapy Patient needs Occupational Therapy for a daily minimum of 1.5 hours at least 5 out of 7 days, to impr ove Activities of Daily Living, including: Eating, Grooming, Bathing, Dressing, Toileting, Toilet Tra nsfers, Community Reintegration, Higher functional activities, Adaptive Equipment, Splinting, Househo ld Tasks, and Other activities as determined. QI SCORES: - Self-Care A. Eating 05-Setup or clean-up assistance B. Oral hygiene 05-Setup or clean-up assistance C. Toileting hygiene 02-Substantial/maximal assistance E. Shower/bathe self 88-Not attempted due to medical condition or safety concerns F. Upper body dressing 02-Substantial/maximal assistance G. Lower body dressing 02-Substantial/maximal assistance H. Putting on/taking off footwear 88-Not attempted due to medical condition or safety concerns - Mobility A. Roll left and right 02-Substantial/maximal assistance B. Sit to lying 02-Substantial/maximal assistance C. Lying to sitting on side of bed 02-Substantial/maximal assistance D. Sit to stand 04-Supervision or touching assistance E. Chair/hiz-wx-ahczi transfer 02-Substantial/maximal assistance F. Toilet transfer 02-Substantial/maximal assistance G. Car transfer 88-Not attempted due to medical condition or safety concerns I. Walk 10 feet 88-Not attempted due to medical condition or safety concerns J. Walk 50 feet with two turns 88-Not attempted due to medical condition or safety concerns K. Walk 150 feet 88-Not attempted due to medical condition or safety concerns L. Walking 10 feet on uneven surfaces 88-Not attempted due to medical condition or safety concerns M. 1 step (curb) 88-Not attempted due to medical condition or safety concerns N. 4 steps 88-Not attempted due to medical condition or safety concerns O. 12 steps 88-Not attempted due to medical condition or safety concerns P. Picking up object 88-Not attempted due to medical condition or safety concerns R. Wheel 50 feet with two turns 88-Not attempted due to medical condition or safety concerns S. Wheel 150 feet 88-Not attempted due to medical condition or safety concerns - Bladder and Bowel Bladder continence 3-Incontinent daily Bowel continence 3-Always incontinent - Endurance Poor - Balance Poor - Safety Awareness Poor POTENTIAL FUNCTIONAL GOALS FOR PATIENT TO ACHIEVE BY DISCHARGE: - Safety Precaution Patient will remain free from falls or injury at time of discharge. - Bed Mobility Patient will perform bed mobility at 4-Shivam level of assistance. - Transfers Patient will complete transfers from bed to chair at 4-Shivam level of assistance. - Mobility Patient will ambulate 150 ft with 4-Shivam level of assistance with RW. PATIENT REHAB POTENTIAL Janki BLANK is able and expected to receive 3 hours of individualized therapy daily on at least 5 of e very 7 days Janki BLANK's prognosis for significant practical improvement within a reasonable period of time appea rs Good Expected level of measurable improvement will be of a practical value to Janki BLANK's functional capa city or adaptations to impairments Has a viable Discharge Plan Medically appropriate; condition is sufficiently stable to participate in intensive rehab program DISCHARGE PLAN: - Estimated Length of Stay (days) 17. - Consensus on plan Discharge plan has been discussed with primary caregiver. Patient/Family is in agreement with the miguel n. Primary caregiver is in agreement with the plan. - Patient/Family Goals Return home with assistance. - Planned Living Setting Upon Discharge Home, to live with Family/Relatives. CONCLUSION ON REHABILITATION NECESSITY: I have evaluated patient's pre-admission functional status and, comparing it to the patient's post-ad mission functional status now, I conclude that the pre-admission assessment was accurate. Patient's c ondition on admission supports the medical necessity of admission to IRF. It is safe to proceed with patient's therapy program. SIGNATURE PANEL: (BURIAL VAULT DELIVERER AND INSTALLER)
[2019-06-25] MEDS: ENOXAPARIN 40 MG/0.4 ML SQ SCH (15:18)
--- NOTE | 2019-06-25 15:44 | FAST ---
SHIFT START DATE/TIME: 06/25/2019 07:00 (FURNITURE ASSEMBLER) SHIFT END DATE/TIME: 06/25/2019 19:00 (FURNITURE ASSEMBLER) NAME KAILA BLANK DATE OF : 1975 DATE OF ADMISSION: 06/24/2019 22:33 (FURNITURE ASSEMBLER) PHONE: AGE: 43 N# [id number] GENDER: Male ENCOUNTER PHYSICIAN: Dr. Kodak Leslie M.D. ADMISSION DIAGNOSIS: - Stroke 01 - Right Body (Left Brain) (01.2) Hemorrhage in the left basal ganglia. EATING: EATING - STEP 1: Does the patient complete the activity by him/herself with no assistance (physical, verbal/nonverbal cueing, setup/clean-up)? No. EATING - STEP 2: Does the patient need only setup/clean-up assistance from one helper? No. EATING - STEP 3: Does the patient need only verbal/nonverbal cueing or touching/steadying/contact guard assistance fro m one helper? Yes. 1. [id number] ADMISSION PERFORMANCE: Supervision or touching assistance CODE: 04 ORAL HYGIENE: Not assessed/no information CODE: - TOILETING HYGIENE: TOILETING HYGIENE - STEP 1: Does the patient complete the activity by him/herself with no assistance (physical, verbal/nonverbal cueing, setup/clean-up)? No. TOILETING HYGIENE - STEP 2: Does the patient need only setup/clean-up assistance from one helper? No. TOILETING HYGIENE - STEP 3: Does the patient need only verbal/nonverbal cueing or touching/steadying/contact guard assistance fro m one helper? No. TOILETING HYGIENE - STEP 4: Does the patient need physical assistance - for example lifting or trunk support from one helper - wi th the helper providing less than half of the effort? No. TOILETING HYGIENE - STEP 5: Does the patient need physical assistance - for example lifting or trunk support from one helper - wi th the helper providing more than half of the effort? No. TOILETING HYGIENE - STEP 6: Does the helper provide all of the effort? OR Is the assistance of two or more helpers required to co mplete the activity? Yes. 1. [id number] ADMISSION PERFORMANCE: Dependent CODE: 01 BATHING: Not assessed/no information CODE: - DRESSING - UPPER BODY: Not assessed/no information CODE: - DRESSING - LOWER BODY: Not assessed/no information DRESSING - LOWER BODY - STEP 1: Does the patient complete the activity by him/herself with no assistance (physical, verbal/nonverbal cueing, setup/clean-up)? No. DRESSING - LOWER BODY - STEP 2: Does the patient need only setup/clean-up assistance from one helper? No. DRESSING - LOWER BODY - STEP 3: Does the patient need only verbal/nonverbal cueing or touching/steadying/contact guard assistance fro m one helper? No. DRESSING - LOWER BODY - STEP 4: Does the patient need physical assistance - for example lifting or trunk support from one helper - wi th the helper providing less than half of the effort? No. DRESSING - LOWER BODY - STEP 5: Does the patient need physical assistance - for example lifting or trunk support from one helper - wi th the helper providing more than half of the effort? No. DRESSING - LOWER BODY - STEP 6: Does the helper provide all of the effort? OR Is the assistance of two or more helpers required to co mplete the activity? Yes. 1. [id number] ADMISSION PERFORMANCE: Dependent CODE: 01 PUTTING ON/TAKING OFF FOOTWEAR: FOOTWEAR - STEP 1: Does the patient complete the activity by him/herself with no assistance (physical, verbal/nonverbal cueing, setup/clean-up)? No. FOOTWEAR - STEP 2: Does the patient need only setup/clean-up assistance from one helper? No. FOOTWEAR - STEP 3: Does the patient need only verbal/nonverbal cueing or touching/steadying/contact guard assistance fro m one helper? No. FOOTWEAR - STEP 4: Does the patient need physical assistance - for example lifting or trunk support from one helper - wi th the helper providing less than half of the effort? No. FOOTWEAR - STEP 5: Does the patient need physical assistance - for example lifting or trunk support from one helper - wi th the helper providing more than half of the effort? No. FOOTWEAR - STEP 6: Does the helper provide all of the effort? OR Is the assistance of two or more helpers required to co mplete the activity? Yes. 1. [id number] ADMISSION PERFORMANCE: Dependent CODE: 01 ROLL LEFT AND RIGHT: ROLL LEFT AND RIGHT - STEP 1: Does the patient complete the activity by him/herself with no assistance (physical, verbal/nonverbal cueing, setup/clean-up)? No. ROLL LEFT AND RIGHT - STEP 2: Does the patient need only setup/clean-up assistance from one helper? No. ROLL LEFT AND RIGHT - STEP 3: Does the patient need only verbal/nonverbal cueing or touching/steadying/contact guard assistance fro m one helper? No. ROLL LEFT AND RIGHT - STEP 4: Does the patient need physical assistance - for example lifting or trunk support from one helper - wi th the helper providing less than half of the effort? No. ROLL LEFT AND RIGHT - STEP 5: Does the patient need physical assistance - for example lifting or trunk support from one helper - wi th the helper providing more than half of the effort? Yes. 1. [id number] ADMISSION PERFORMANCE: Substantial/maximal assistance CODE: 02 SIT TO LYING: SIT TO LYING - STEP 1: Does the patient complete the activity by him/herself with no assistance (physical, verbal/nonverbal cueing, setup/clean-up)? No. SIT TO LYING - STEP 2: Does the patient need only setup/clean-up assistance from one helper? No. SIT TO LYING - STEP 3: Does the patient need only verbal/nonverbal cueing or touching/steadying/contact guard assistance fro m one helper? No. SIT TO LYING - STEP 4: Does the patient need physical assistance - for example lifting or trunk support from one helper - wi th the helper providing less than half of the effort? No. SIT TO LYING - STEP 5: Does the patient need physical assistance - for example lifting or trunk support from one helper - wi th the helper providing more than half of the effort? Yes. 1. [id number] ADMISSION PERFORMANCE: Substantial/maximal assistance CODE: 02 LYING TO SITTING: LYING TO SITTING ON SIDE OF BED - STEP 1: Does the patient complete the activity by him/herself with no assistance (physical, verbal/nonverbal cueing, setup/clean-up)? No. LYING TO SITTING ON SIDE OF BED - STEP 2: Does the patient need only setup/clean-up assistance from one helper? No. LYING TO SITTING ON SIDE OF BED - STEP 3: Does the patient need only verbal/nonverbal cueing or touching/steadying/contact guard assistance fro m one helper? No. LYING TO SITTING ON SIDE OF BED - STEP 4: Does the patient need physical assistance - for example lifting or trunk support from one helper - wi th the helper providing less than half of the effort? No. LYING TO SITTING ON SIDE OF BED - STEP 5: Does the patient need physical assistance - for example lifting or trunk support from one helper - wi th the helper providing more than half of the effort? Yes. 1. [id number] ADMISSION PERFORMANCE: Substantial/maximal assistance CODE: 02 SIT TO STAND: SIT TO STAND - STEP 1: Does the patient complete the activity by him/herself with no assistance (physical, verbal/nonverbal cueing, setup/clean-up)? No. SIT TO STAND - STEP 2: Does the patient need only setup/clean-up assistance from one helper? No. SIT TO STAND - STEP 3: Does the patient need only verbal/nonverbal cueing or touching/steadying/contact guard assistance fro m one helper? No. SIT TO STAND - STEP 4: Does the patient need physical assistance - for example lifting or trunk support from one helper - wi th the helper providing less than half of the effort? No. SIT TO STAND - STEP 5: Does the patient need physical assistance - for example lifting or trunk support from one helper - wi th the helper providing more than half of the effort? Yes. 1. [id number] ADMISSION PERFORMANCE: Substantial/maximal assistance CODE: 02 TRANSFERS: BED, CHAIR: CHAIR/[id number] TRANSFER - STEP 1: Does the patient complete the activity by him/herself with no assistance (physical, verbal/nonverbal cueing, setup/clean-up)? No. CHAIR/[id number] TRANSFER - STEP 2: Does the patient need only setup/clean-up assistance from one helper? No. CHAIR/FPR-KS-AURAL TRANSFER - STEP 3: Does the patient need only verbal/nonverbal cueing or touching/steadying/contact guard assistance fro m one helper? No. CHAIR/[id number] TRANSFER - STEP 4: Does the patient need physical assistance - for example lifting or trunk support from one helper - wi th the helper providing less than half of the effort? No. CHAIR/[id number] TRANSFER - STEP 5: Does the patient need physical assistance - for example lifting or trunk support from one helper - wi th the helper providing more than half of the effort? Yes. 1. [id number] ADMISSION PERFORMANCE: Substantial/maximal assistance CODE: 02 TRANSFER TOILET: TOILET TRANSFER - STEP 1: Does the patient complete the activity by him/herself with no assistance (physical, verbal/nonverbal cueing, setup/clean-up)? No. TOILET TRANSFER - STEP 2: Does the patient need only setup/clean-up assistance from one helper? No. TOILET TRANSFER - STEP 3: Does the patient need only verbal/nonverbal cueing or touching/steadying/contact guard assistance fro m one helper? No. TOILET TRANSFER - STEP 4: Does the patient need physical assistance - for example lifting or trunk support from one helper - wi th the helper providing less than half of the effort? No. TOILET TRANSFER - STEP 5: Does the patient need physical assistance - for example lifting or trunk support from one helper - wi th the helper providing more than half of the effort? Yes. 1. [id number] ADMISSION PERFORMANCE: Substantial/maximal assistance CODE: 02 TRANSFERS: CAR: Not assessed/no information CODE: - WALK 10 FEET: Not assessed/no information CODE: - 1 STEP (CURB): Not assessed/no information CODE: - PICKING UP OBJECT: Not assessed/no information CODE: - DOES THE PATIENT USE A WHEELCHAIR/SCOOTER? Q1. DOES THE PATIENT USE A WHEELCHAIR/SCOOTER?: Yes CODE: 1 WHEEL 50 FEET WITH TWO TURNS: Not assessed/no information CODE: - INDICATE THE TYPE OF WHEELCHAIR/SCOOTER USED: RR1. INDICATE THE TYPE OF WHEELCHAIR/SCOOTER USED.: Manual CODE: 1 WHEEL 150 FEET: Not assessed/no information CODE: - INDICATE THE TYPE OF WHEELCHAIR/SCOOTER USED: SS1. INDICATE THE TYPE OF WHEELCHAIR/SCOOTER USED.: Manual CODE: 1 BLADDER AND BOWEL: H350. BLADDER CONTINENCE (3-DAY ASSESSMENT PERIOD): Incontinent daily (at least once a day) CODE: 3 H400. BOWEL CONTINENCE (3-DAY ASSESSMENT PERIOD): Always incontinent (no episodes of continent bowel movements) CODE: 3 SIGNATURE PANEL: The following modified sections: 1. [id number] Admission Performance, 1. [id number] Admission Performance, 1. [id number] Admission Performance, 1. [id number] Admission Performance, 1. [id number] Admission Performance, 1. [id number] Admission Performance, 1. [id number] Admission Performance, 1. [id number] Admission Performance , 1. [id number] Admission Performance, 1. [id number] Admission Performance, 1. [id number] Admission Performanc e, 1. [id number] Admission Performance, Q1. Does the patient use a wheelchair/scooter?, RR1. Indicate th e type of wheelchair/scooter used., Code, SS1. Indicate the type of wheelchair/scooter used., H350. B ladder Continence (3-day assessment period), H400. Bowel Continence (3-day assessment period) were [e lectronically] signed by Amelia Prince C.N.A. on ThuJun 25 2019 15:43:40 GMT-0600 (Central Standard Time)
--- NOTE | 2019-06-25 15:49 | FAST ---
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 Kodak Leslie M.D. ADMISSION DIAGNOSIS: - Stroke 01 - Right Body (Left Brain) (01.2) Hemorrhage in the left basal ganglia. EATING: Not assessed/no information CODE: - ORAL HYGIENE: Not assessed/no information CODE: - TOILETING HYGIENE: Not assessed/no information CODE: - BATHING: SHOWER/BATHE SELF - STEP 1: Does the patient complete the activity by him/herself with no assistance (physical, verbal/nonverbal cueing, setup/clean-up)? No. SHOWER/BATHE SELF - STEP 2: Does the patient need only setup/clean-up assistance from one helper? No. SHOWER/BATHE SELF - STEP 3: Does the patient need only verbal/nonverbal cueing or touching/steadying/contact guard assistance fro m one helper? No. SHOWER/BATHE SELF - STEP 4: Does the patient need physical assistance - for example lifting or trunk support from one helper - wi th the helper providing less than half of the effort? No. SHOWER/BATHE SELF - STEP 5: Does the patient need physical assistance - for example lifting or trunk support from one helper - wi th the helper providing more than half of the effort? Yes. 1. [id number] ADMISSION PERFORMANCE: Substantial/maximal assistance CODE: 02 DRESSING - UPPER BODY: Not attempted due to environmental limitations (e.g., lack of equipment, weather constraints) CODE: 10 DRESSING - LOWER BODY: DRESSING - LOWER BODY - STEP 1: Does the patient complete the activity by him/herself with no assistance (physical, verbal/nonverbal cueing, setup/clean-up)? No. DRESSING - LOWER BODY - STEP 2: Does the patient need only setup/clean-up assistance from one helper? No. DRESSING - LOWER BODY - STEP 3: Does the patient need only verbal/nonverbal cueing or touching/steadying/contact guard assistance fro m one helper? No. DRESSING - LOWER BODY - STEP 4: Does the patient need physical assistance - for example lifting or trunk support from one helper - wi th the helper providing less than half of the effort? No. DRESSING - LOWER BODY - STEP 5: Does the patient need physical assistance - for example lifting or trunk support from one helper - wi th the helper providing more than half of the effort? No. DRESSING - LOWER BODY - STEP 6: Does the helper provide all of the effort? OR Is the assistance of two or more helpers required to co mplete the activity? Yes. 1. [id number] ADMISSION PERFORMANCE: Dependent CODE: 01 PUTTING ON/TAKING OFF FOOTWEAR: FOOTWEAR - STEP 1: Does the patient complete the activity by him/herself with no assistance (physical, verbal/nonverbal cueing, setup/clean-up)? No. FOOTWEAR - STEP 2: Does the patient need only setup/clean-up assistance from one helper? No. FOOTWEAR - STEP 3: Does the patient need only verbal/nonverbal cueing or touching/steadying/contact guard assistance fro m one helper? No. FOOTWEAR - STEP 4: Does the patient need physical assistance - for example lifting or trunk support from one helper - wi th the helper providing less than half of the effort? No. FOOTWEAR - STEP 5: Does the patient need physical assistance - for example lifting or trunk support from one helper - wi th the helper providing more than half of the effort? No. FOOTWEAR - STEP 6: Does the helper provide all of the effort? OR Is the assistance of two or more helpers required to co mplete the activity? Yes. 1. [id number] ADMISSION PERFORMANCE: Dependent CODE: 01 DOES THE PATIENT USE A WHEELCHAIR/SCOOTER? CODE: EXPR INDICATE THE TYPE OF WHEELCHAIR/SCOOTER USED: CODE: EXPR INDICATE THE TYPE OF WHEELCHAIR/SCOOTER USED: CODE: EXPR BLADDER AND BOWEL: CODE: EXPR CODE: EXPR SIGNATURE PANEL: The following modified sections: 1. [id number] Admission Performance, 1. [id number] Admission Performance, 1. [id number] Admission Performance were [electronically] signed by Katie Lopez OT on Sat Jun 25 15:48:17 GMT-0600 (Central Standard Time)
[2019-06-25] MEDS: ATORVASTATIN 40 MG TAB PO SCH (21:04)
[2019-06-26] MEDS: carvediloL 12.5 MG TAB PO SCH ×2 (05:27→17:15)
[2019-06-26] MEDS: INSULIN -REGULAR HUMAN 50 UNIT/0.5 ML ML SQ SCH ×4 (07:30→20:19)
[2019-06-26] MEDS: ENOXAPARIN 40 MG/0.4 ML SQ SCH ×2 (08:00→16:27)
[2019-06-26] MEDS: NIFEDIPINE XL 30 MG TABLET PO SCH (08:10)
[2019-06-26] MEDS: AMLODIPINE 10 MG TAB PO SCH (08:10)
[2019-06-26] MEDS: DOCUSATE NA/SENNA CONC 1 TAB PO SCH ×2 (08:11→19:40)
[2019-06-26] MEDS: HYDRALAZINE HCL 25 MG TABLET PO SCH ×3 (10:14→19:41)
[2019-06-26] MEDS: ATORVASTATIN 40 MG TAB PO SCH (19:39)
[2019-06-26] MEDS: ACETAMINOPHEN 500 MG TAB PO PRN (19:40)
[2019-06-27] MEDS: ACETAMINOPHEN 500 MG TAB PO PRN ×2 (01:20→12:03)
[2019-06-27] MEDS: carvediloL 12.5 MG TAB PO SCH ×2 (05:21→17:16)
[2019-06-27] MEDS: INSULIN -REGULAR HUMAN 50 UNIT/0.5 ML ML SQ SCH ×4 (07:30→20:10)
[2019-06-27] MEDS: AMLODIPINE 10 MG TAB PO SCH (08:00)
[2019-06-27] MEDS: DOCUSATE NA/SENNA CONC 1 TAB PO SCH ×2 (08:16→20:10)
[2019-06-27] MEDS: NIFEDIPINE XL 30 MG TABLET PO SCH (08:16)
[2019-06-27] MEDS: HYDRALAZINE HCL 25 MG TABLET PO SCH ×3 (09:00→20:10)
--- NOTE | 2019-06-27 10:39 | FAST ---
SHIFT START DATE/TIME: 06/27/2019 07:00 (KOSHER BUTCHER) SHIFT END DATE/TIME: 06/27/2019 19:00 (KOSHER BUTCHER) NAME KAILA BLANK DATE OF : 1975 DATE OF ADMISSION: 06/24/2019 22:33 (KOSHER BUTCHER) PHONE: AGE: 43 N# [id number] GENDER: Male ENCOUNTER PHYSICIAN: Dr. Kodak Leslie M.D. ADMISSION DIAGNOSIS: - Stroke 01 - Right Body (Left Brain) (01.2) Hemorrhage in the left basal ganglia. EATING: EATING - STEP 1: Does the patient complete the activity by him/herself with no assistance (physical, verbal/nonverbal cueing, setup/clean-up)? No. EATING - STEP 2: Does the patient need only setup/clean-up assistance from one helper? No. EATING - STEP 3: Does the patient need only verbal/nonverbal cueing or touching/steadying/contact guard assistance fro m one helper? Yes. 1. [id number] ADMISSION PERFORMANCE: Supervision or touching assistance CODE: 04 ORAL HYGIENE: ORAL HYGIENE - STEP 1: Does the patient complete the activity by him/herself with no assistance (physical, verbal/nonverbal cueing, setup/clean-up)? No. ORAL HYGIENE - STEP 2: Does the patient need only setup/clean-up assistance from one helper? No. ORAL HYGIENE - STEP 3: Does the patient need only verbal/nonverbal cueing or touching/steadying/contact guard assistance fro m one helper? Yes. 1. [id number] ADMISSION PERFORMANCE: Supervision or touching assistance CODE: 04 TOILETING HYGIENE: TOILETING HYGIENE - STEP 1: Does the patient complete the activity by him/herself with no assistance (physical, verbal/nonverbal cueing, setup/clean-up)? No. TOILETING HYGIENE - STEP 2: Does the patient need only setup/clean-up assistance from one helper? No. TOILETING HYGIENE - STEP 3: Does the patient need only verbal/nonverbal cueing or touching/steadying/contact guard assistance fro m one helper? No. TOILETING HYGIENE - STEP 4: Does the patient need physical assistance - for example lifting or trunk support from one helper - wi th the helper providing less than half of the effort? Yes. 1. [id number] ADMISSION PERFORMANCE: Partial/moderate assistance CODE: 03 BATHING: Not assessed/no information CODE: - DRESSING - UPPER BODY: Not assessed/no information CODE: - DRESSING - LOWER BODY: Not assessed/no information CODE: - PUTTING ON/TAKING OFF FOOTWEAR: Not assessed/no information CODE: - ROLL LEFT AND RIGHT: ROLL LEFT AND RIGHT - STEP 1: Does the patient complete the activity by him/herself with no assistance (physical, verbal/nonverbal cueing, setup/clean-up)? No. ROLL LEFT AND RIGHT - STEP 2: Does the patient need only setup/clean-up assistance from one helper? No. ROLL LEFT AND RIGHT - STEP 3: Does the patient need only verbal/nonverbal cueing or touching/steadying/contact guard assistance fro m one helper? Yes. 1. [id number] ADMISSION PERFORMANCE: Supervision or touching assistance CODE: 04 SIT TO LYING: SIT TO LYING - STEP 1: Does the patient complete the activity by him/herself with no assistance (physical, verbal/nonverbal cueing, setup/clean-up)? No. SIT TO LYING - STEP 2: Does the patient need only setup/clean-up assistance from one helper? No. SIT TO LYING - STEP 3: Does the patient need only verbal/nonverbal cueing or touching/steadying/contact guard assistance fro m one helper? No. SIT TO LYING - STEP 4: Does the patient need physical assistance - for example lifting or trunk support from one helper - wi th the helper providing less than half of the effort? Yes. 1. [id number] ADMISSION PERFORMANCE: Partial/moderate assistance CODE: 03 LYING TO SITTING: LYING TO SITTING ON SIDE OF BED - STEP 1: Does the patient complete the activity by him/herself with no assistance (physical, verbal/nonverbal cueing, setup/clean-up)? No. LYING TO SITTING ON SIDE OF BED - STEP 2: Does the patient need only setup/clean-up assistance from one helper? No. LYING TO SITTING ON SIDE OF BED - STEP 3: Does the patient need only verbal/nonverbal cueing or touching/steadying/contact guard assistance fro m one helper? No. LYING TO SITTING ON SIDE OF BED - STEP 4: Does the patient need physical assistance - for example lifting or trunk support from one helper - wi th the helper providing less than half of the effort? No. LYING TO SITTING ON SIDE OF BED - STEP 5: Does the patient need physical assistance - for example lifting or trunk support from one helper - wi th the helper providing more than half of the effort? Yes. 1. [id number] ADMISSION PERFORMANCE: Substantial/maximal assistance CODE: 02 SIT TO STAND: SIT TO STAND - STEP 1: Does the patient complete the activity by him/herself with no assistance (physical, verbal/nonverbal cueing, setup/clean-up)? No. SIT TO STAND - STEP 2: Does the patient need only setup/clean-up assistance from one helper? No. SIT TO STAND - STEP 3: Does the patient need only verbal/nonverbal cueing or touching/steadying/contact guard assistance fro m one helper? No. SIT TO STAND - STEP 4: Does the patient need physical assistance - for example lifting or trunk support from one helper - wi th the helper providing less than half of the effort? No. SIT TO STAND - STEP 5: Does the patient need physical assistance - for example lifting or trunk support from one helper - wi th the helper providing more than half of the effort? Yes. 1. [id number] ADMISSION PERFORMANCE: Substantial/maximal assistance CODE: 02 TRANSFERS: BED, CHAIR: CHAIR/[id number] TRANSFER - STEP 1: Does the patient complete the activity by him/herself with no assistance (physical, verbal/nonverbal cueing, setup/clean-up)? No. CHAIR/[id number] TRANSFER - STEP 2: Does the patient need only setup/clean-up assistance from one helper? No. CHAIR/[id number] TRANSFER - STEP 3: Does the patient need only verbal/nonverbal cueing or touching/steadying/contact guard assistance fro m one helper? No. CHAIR/[id number] TRANSFER - STEP 4: Does the patient need physical assistance - for example lifting or trunk support from one helper - wi th the helper providing less than half of the effort? No. CHAIR/[id number] TRANSFER - STEP 5: Does the patient need physical assistance - for example lifting or trunk support from one helper - wi th the helper providing more than half of the effort? Yes. 1. [id number] ADMISSION PERFORMANCE: Substantial/maximal assistance CODE: 02 TRANSFER TOILET: TOILET TRANSFER - STEP 1: Does the patient complete the activity by him/herself with no assistance (physical, verbal/nonverbal cueing, setup/clean-up)? No. TOILET TRANSFER - STEP 2: Does the patient need only setup/clean-up assistance from one helper? No. TOILET TRANSFER - STEP 3: Does the patient need only verbal/nonverbal cueing or touching/steadying/contact guard assistance fro m one helper? No. TOILET TRANSFER - STEP 4: Does the patient need physical assistance - for example lifting or trunk support from one helper - wi th the helper providing less than half of the effort? Yes. 1. [id number] ADMISSION PERFORMANCE: Partial/moderate assistance CODE: 03 TRANSFERS: CAR: Not assessed/no information CODE: - WALK 10 FEET: Not assessed/no information CODE: - 1 STEP (CURB): Not assessed/no information CODE: - PICKING UP OBJECT: Not assessed/no information CODE: - DOES THE PATIENT USE A WHEELCHAIR/SCOOTER? CODE: EXPR WHEEL 50 FEET WITH TWO TURNS: Not assessed/no information CODE: - INDICATE THE TYPE OF WHEELCHAIR/SCOOTER USED: CODE: EXPR WHEEL 150 FEET: Not assessed/no information CODE: - INDICATE THE TYPE OF WHEELCHAIR/SCOOTER USED: CODE: EXPR BLADDER AND BOWEL: H350. BLADDER CONTINENCE (3-DAY ASSESSMENT PERIOD): Always continent (no documented incontinence) CODE: 0 H400. BOWEL CONTINENCE (3-DAY ASSESSMENT PERIOD): Occasionally incontinent (one episode of bowel incontinence) CODE: 1 SIGNATURE PANEL: The following modified sections: 1. [id number] Admission Performance, 1. [id number] Admission Performance, 1. [id number] Admission Performance, 1. [id number] Admission Performance, 1. [id number] Admission Performance, 1. [id number] Admission Performance, 1. [id number] Admission Performance, 1. [id number] Admission Performance , 1. [id number] Admission Performance, 1. [id number] Admission Performance, 1. [id number] Admission Performanc e, 1. [id number] Admission Performance, Code, H350. Bladder Continence (3-day assessment period), H400. Bowel Continence (3-day assessment period) were [electronically] signed by Bg Hsieh on ThuJun 27 019 10:38:23 GMT-0600 (Central Standard Time)
--- NOTE | 2019-06-27 15:01 | RAD REPORT ---
EXAM DESCRIPTION: RAD - Barium Swallow Modified - 06/27/2019 2:53 pm CLINICAL HISTORY: Coughing and choking FINDINGS: laryngeal penetration : cleared with nectar aspiration : cough , no cough with thin by cup and straw pharyngeal residue :vallecular , pyriform , posterior wall min trace with all consistencies, cleared on subsequent swallows , mild - mod vallecular with honey fluoro time 4.48 min 20 fluoroscopic spot series obtained
[2019-06-27] MEDS: ENOXAPARIN 40 MG/0.4 ML SQ SCH (16:39)
[2019-06-27] MEDS: ATORVASTATIN 40 MG TAB PO SCH (20:10)
[2019-06-28] MEDS: carvediloL 12.5 MG TAB PO SCH ×2 (05:06→18:00)
[2019-06-28] MEDS: INSULIN -REGULAR HUMAN 50 UNIT/0.5 ML ML SQ SCH ×4 (07:30→19:30)
[2019-06-28] MEDS: NIFEDIPINE XL 30 MG TABLET PO SCH (08:00)
[2019-06-28] MEDS: AMLODIPINE 10 MG TAB PO SCH (08:00)
[2019-06-28] MEDS: DOCUSATE NA/SENNA CONC 1 TAB PO SCH (08:59)
[2019-06-28] MEDS: MUPIROCIN 2% OINT 22GM TUBE TOP SCH (09:00)
[2019-06-28] MEDS: HYDRALAZINE HCL 25 MG TABLET PO SCH ×3 (09:00→19:29)
[2019-06-28] MEDS: ACETAMINOPHEN 500 MG TAB PO PRN ×2 (09:10→15:04)
--- NOTE | 2019-06-28 10:24 | FAST ---
SHIFT START DATE/TIME: 06/28/2019 07:00 (DISTRIBUTION SUPERINTENDENT) SHIFT END DATE/TIME: 06/28/2019 19:00 (DISTRIBUTION SUPERINTENDENT) NAME KAILA BLANK DATE OF : 1975 DATE OF ADMISSION: 06/24/2019 22:33 (DISTRIBUTION SUPERINTENDENT) PHONE: AGE: 43 N# [id number] GENDER: Male ENCOUNTER PHYSICIAN: Dr. Kodak Leslie M.D. ADMISSION DIAGNOSIS: - Stroke 01 - Right Body (Left Brain) (01.2) Hemorrhage in the left basal ganglia. EATING: EATING - STEP 1: Does the patient complete the activity by him/herself with no assistance (physical, verbal/nonverbal cueing, setup/clean-up)? No. EATING - STEP 2: Does the patient need only setup/clean-up assistance from one helper? No. EATING - STEP 3: Does the patient need only verbal/nonverbal cueing or touching/steadying/contact guard assistance fro m one helper? No. EATING - STEP 4: Does the patient need physical assistance - for example lifting or trunk support from one helper - wi th the helper providing less than half of the effort? Yes. 1. [id number] ADMISSION PERFORMANCE: Partial/moderate assistance CODE: 03 ORAL HYGIENE: ORAL HYGIENE - STEP 1: Does the patient complete the activity by him/herself with no assistance (physical, verbal/nonverbal cueing, setup/clean-up)? No. ORAL HYGIENE - STEP 2: Does the patient need only setup/clean-up assistance from one helper? No. ORAL HYGIENE - STEP 3: Does the patient need only verbal/nonverbal cueing or touching/steadying/contact guard assistance fro m one helper? No. ORAL HYGIENE - STEP 4: Does the patient need physical assistance - for example lifting or trunk support from one helper - wi th the helper providing less than half of the effort? Yes. 1. [id number] ADMISSION PERFORMANCE: Partial/moderate assistance CODE: 03 TOILETING HYGIENE: TOILETING HYGIENE - STEP 1: Does the patient complete the activity by him/herself with no assistance (physical, verbal/nonverbal cueing, setup/clean-up)? No. TOILETING HYGIENE - STEP 2: Does the patient need only setup/clean-up assistance from one helper? No. TOILETING HYGIENE - STEP 3: Does the patient need only verbal/nonverbal cueing or touching/steadying/contact guard assistance fro m one helper? No. TOILETING HYGIENE - STEP 4: Does the patient need physical assistance - for example lifting or trunk support from one helper - wi th the helper providing less than half of the effort? No. TOILETING HYGIENE - STEP 5: Does the patient need physical assistance - for example lifting or trunk support from one helper - wi th the helper providing more than half of the effort? Yes. 1. [id number] ADMISSION PERFORMANCE: Substantial/maximal assistance CODE: 02 BATHING: Not assessed/no information CODE: - DRESSING - UPPER BODY: Not assessed/no information CODE: - DRESSING - LOWER BODY: Not assessed/no information CODE: - PUTTING ON/TAKING OFF FOOTWEAR: Not assessed/no information CODE: - ROLL LEFT AND RIGHT: ROLL LEFT AND RIGHT - STEP 1: Does the patient complete the activity by him/herself with no assistance (physical, verbal/nonverbal cueing, setup/clean-up)? No. ROLL LEFT AND RIGHT - STEP 2: Does the patient need only setup/clean-up assistance from one helper? No. ROLL LEFT AND RIGHT - STEP 3: Does the patient need only verbal/nonverbal cueing or touching/steadying/contact guard assistance fro m one helper? Yes. 1. [id number] ADMISSION PERFORMANCE: Supervision or touching assistance CODE: 04 SIT TO LYING: SIT TO LYING - STEP 1: Does the patient complete the activity by him/herself with no assistance (physical, verbal/nonverbal cueing, setup/clean-up)? No. SIT TO LYING - STEP 2: Does the patient need only setup/clean-up assistance from one helper? No. SIT TO LYING - STEP 3: Does the patient need only verbal/nonverbal cueing or touching/steadying/contact guard assistance fro m one helper? No. SIT TO LYING - STEP 4: Does the patient need physical assistance - for example lifting or trunk support from one helper - wi th the helper providing less than half of the effort? No. SIT TO LYING - STEP 5: Does the patient need physical assistance - for example lifting or trunk support from one helper - wi th the helper providing more than half of the effort? Yes. 1. [id number] ADMISSION PERFORMANCE: Substantial/maximal assistance CODE: 02 LYING TO SITTING: Not assessed/no information CODE: - SIT TO STAND: SIT TO STAND - STEP 1: Does the patient complete the activity by him/herself with no assistance (physical, verbal/nonverbal cueing, setup/clean-up)? No. SIT TO STAND - STEP 2: Does the patient need only setup/clean-up assistance from one helper? No. SIT TO STAND - STEP 3: Does the patient need only verbal/nonverbal cueing or touching/steadying/contact guard assistance fro m one helper? No. SIT TO STAND - STEP 4: Does the patient need physical assistance - for example lifting or trunk support from one helper - wi th the helper providing less than half of the effort? No. SIT TO STAND - STEP 5: Does the patient need physical assistance - for example lifting or trunk support from one helper - wi th the helper providing more than half of the effort? Yes. 1. [id number] ADMISSION PERFORMANCE: Substantial/maximal assistance CODE: 02 TRANSFERS: BED, CHAIR: CHAIR/[id number] TRANSFER - STEP 1: Does the patient complete the activity by him/herself with no assistance (physical, verbal/nonverbal cueing, setup/clean-up)? No. CHAIR/[id number] TRANSFER - STEP 2: Does the patient need only setup/clean-up assistance from one helper? No. CHAIR/QOQ-MH-[id number] TRANSFER - STEP 3: Does the patient need only verbal/nonverbal cueing or touching/steadying/contact guard assistance fro m one helper? No. CHAIR/QOI-IP-[id number] TRANSFER - STEP 4: Does the patient need physical assistance - for example lifting or trunk support from one helper - wi th the helper providing less than half of the effort? No. CHAIR/RJX-TW-[id number] TRANSFER - STEP 5: Does the patient need physical assistance - for example lifting or trunk support from one helper - wi th the helper providing more than half of the effort? Yes. 1. [id number] ADMISSION PERFORMANCE: Substantial/maximal assistance CODE: 02 TRANSFER TOILET: TOILET TRANSFER - STEP 1: Does the patient complete the activity by him/herself with no assistance (physical, verbal/nonverbal cueing, setup/clean-up)? No. TOILET TRANSFER - STEP 2: Does the patient need only setup/clean-up assistance from one helper? No. TOILET TRANSFER - STEP 3: Does the patient need only verbal/nonverbal cueing or touching/steadying/contact guard assistance fro m one helper? No. TOILET TRANSFER - STEP 4: Does the patient need physical assistance - for example lifting or trunk support from one helper - wi th the helper providing less than half of the effort? No. TOILET TRANSFER - STEP 5: Does the patient need physical assistance - for example lifting or trunk support from one helper - wi th the helper providing more than half of the effort? Yes. 1. [id number] ADMISSION PERFORMANCE: Substantial/maximal assistance CODE: 02 TRANSFERS: CAR: Not assessed/no information CODE: - WALK 10 FEET: Not assessed/no information CODE: - 1 STEP (CURB): Not assessed/no information CODE: - PICKING UP OBJECT: Not assessed/no information CODE: - DOES THE PATIENT USE A WHEELCHAIR/SCOOTER? CODE: EXPR WHEEL 50 FEET WITH TWO TURNS: Not assessed/no information CODE: - INDICATE THE TYPE OF WHEELCHAIR/SCOOTER USED: CODE: EXPR WHEEL 150 FEET: Not assessed/no information CODE: - INDICATE THE TYPE OF WHEELCHAIR/SCOOTER USED: CODE: EXPR BLADDER AND BOWEL: H350. BLADDER CONTINENCE (3-DAY ASSESSMENT PERIOD): Incontinent daily (at least once a day) CODE: 3 H400. BOWEL CONTINENCE (3-DAY ASSESSMENT PERIOD): Occasionally incontinent (one episode of bowel incontinence) CODE: 1 SIGNATURE PANEL: The following modified sections: 1. [id number] Admission Performance, 1. [id number] Admission Performance, 1. [id number] Admission Performance, 1. [id number] Admission Performance, 1. [id number] Admission Performance, 1. RF4302S Admission Performance, 1. [id number] Admission Performance, 1. [id number] Admission Performance , 1. [id number] Admission Performance, 1. [id number] Admission Performance, 1. [id number] Admission Performanc e, Code, H350. Bladder Continence (3-day assessment period), H400. Bowel Continence (3-day assessment period) were [electronically] signed by Bg Hsieh on ThuJun 28 2019 10:23:12 GMT-0600 ([place] Time)
[2019-06-28] MEDS: ENOXAPARIN 40 MG/0.4 ML SQ SCH (17:00)
[2019-06-28] MEDS: ATORVASTATIN 40 MG TAB PO SCH (19:29)
[2019-06-29] MEDS: carvediloL 12.5 MG TAB PO SCH ×2 (05:01→17:42)
[2019-06-29] MEDS: INSULIN -REGULAR HUMAN 50 UNIT/0.5 ML ML SQ SCH ×4 (07:30→20:22)
[2019-06-29] MEDS: AMLODIPINE 10 MG TAB PO SCH (08:00)
[2019-06-29] MEDS: HYDRALAZINE HCL 25 MG TABLET PO SCH ×3 (08:28→20:21)
[2019-06-29] MEDS: MUPIROCIN 2% OINT 22GM TUBE TOP SCH (08:28)
[2019-06-29] MEDS: NIFEDIPINE XL 30 MG TABLET PO SCH (12:46)
[2019-06-29] MEDS ORDERED: ONDANSETRON 4 MG (ODT) TAB PO PRN (14:11)
--- NOTE | 2019-06-29 15:13 | FAST ---
ENCOUNTER DATE AND TIME: 06/29/2019 08:00 (AUTO CLAIMS ADJUSTER) NAME KAILA BLANK DATE OF : 1975 DATE OF ADMISSION: 06/24/2019 22:33 (AUTO CLAIMS ADJUSTER) PHONE: AGE: 43 N# [id number] GENDER: Male ENCOUNTER PHYSICIAN: Dr. Kodak Leslie M.D. ADMISSION DIAGNOSIS: - Stroke 01 - Right Body (Left Brain) (01.2) Hemorrhage in the left basal ganglia. EATING: Not assessed/no information CODE: - ORAL HYGIENE: ORAL HYGIENE - STEP 1: Does the patient complete the activity by him/herself with no assistance (physical, verbal/nonverbal cueing, setup/clean-up)? No. ORAL HYGIENE - STEP 2: Does the patient need only setup/clean-up assistance from one helper? Yes. 1. [id number] ADMISSION PERFORMANCE: Setup or clean-up assistance CODE: 05 TOILETING HYGIENE: Not assessed/no information CODE: - BATHING: SHOWER/BATHE SELF - STEP 1: Does the patient complete the activity by him/herself with no assistance (physical, verbal/nonverbal cueing, setup/clean-up)? No. SHOWER/BATHE SELF - STEP 2: Does the patient need only setup/clean-up assistance from one helper? No. SHOWER/BATHE SELF - STEP 3: Does the patient need only verbal/nonverbal cueing or touching/steadying/contact guard assistance fro m one helper? No. SHOWER/BATHE SELF - STEP 4: Does the patient need physical assistance - for example lifting or trunk support from one helper - wi th the helper providing less than half of the effort? Yes. 1. [id number] ADMISSION PERFORMANCE: Partial/moderate assistance CODE: 03 DRESSING - UPPER BODY: DRESSING - UPPER BODY - STEP 1: Does the patient complete the activity by him/herself with no assistance (physical, verbal/nonverbal cueing, setup/clean-up)? No. DRESSING - UPPER BODY - STEP 2: Does the patient need only setup/clean-up assistance from one helper? No. DRESSING - UPPER BODY - STEP 3: Does the patient need only verbal/nonverbal cueing or touching/steadying/contact guard assistance fro m one helper? No. DRESSING - UPPER BODY - STEP 4: Does the patient need physical assistance - for example lifting or trunk support from one helper - wi th the helper providing less than half of the effort? Yes. 1. [id number] ADMISSION PERFORMANCE: Partial/moderate assistance CODE: 03 DRESSING - LOWER BODY: DRESSING - LOWER BODY - STEP 1: Does the patient complete the activity by him/herself with no assistance (physical, verbal/nonverbal cueing, setup/clean-up)? No. DRESSING - LOWER BODY - STEP 2: Does the patient need only setup/clean-up assistance from one helper? No. DRESSING - LOWER BODY - STEP 3: Does the patient need only verbal/nonverbal cueing or touching/steadying/contact guard assistance fro m one helper? No. DRESSING - LOWER BODY - STEP 4: Does the patient need physical assistance - for example lifting or trunk support from one helper - wi th the helper providing less than half of the effort? No. DRESSING - LOWER BODY - STEP 5: Does the patient need physical assistance - for example lifting or trunk support from one helper - wi th the helper providing more than half of the effort? Yes. 1. [id number] ADMISSION PERFORMANCE: Substantial/maximal assistance CODE: 02 PUTTING ON/TAKING OFF FOOTWEAR: FOOTWEAR - STEP 1: Does the patient complete the activity by him/herself with no assistance (physical, verbal/nonverbal cueing, setup/clean-up)? No. FOOTWEAR - STEP 2: Does the patient need only setup/clean-up assistance from one helper? No. FOOTWEAR - STEP 3: Does the patient need only verbal/nonverbal cueing or touching/steadying/contact guard assistance fro m one helper? No. FOOTWEAR - STEP 4: Does the patient need physical assistance - for example lifting or trunk support from one helper - wi th the helper providing less than half of the effort? No. FOOTWEAR - STEP 5: Does the patient need physical assistance - for example lifting or trunk support from one helper - wi th the helper providing more than half of the effort? No. FOOTWEAR - STEP 6: Does the helper provide all of the effort? OR Is the assistance of two or more helpers required to co mplete the activity? Yes. 1. [id number] ADMISSION PERFORMANCE: Dependent CODE: 01 DOES THE PATIENT USE A WHEELCHAIR/SCOOTER? CODE: EXPR INDICATE THE TYPE OF WHEELCHAIR/SCOOTER USED: CODE: EXPR INDICATE THE TYPE OF WHEELCHAIR/SCOOTER USED: CODE: EXPR BLADDER AND BOWEL: CODE: EXPR CODE: EXPR SIGNATURE PANEL: The following modified sections: 1. [id number] Admission Performance, 1. [id number] Admission Performance, 1. [id number] Admission Performance, 1. [id number] Admission Performance, 1. [id number] Admission Performance, 1. [id number] Admission Performance were [electronically] signed by ACE Goncalves on ThuJun 29 2019 15:11:51 GMT-0600 (Central Standard Time)
--- NOTE | 2019-06-29 15:42 | RAD REPORT ---
EXAM DESCRIPTION: RAD - Abdomen 1 View (KUB) - 06/29/2019 3:37 pm CLINICAL HISTORY: Abdominal pain Pain COMPARISON: Barium Swallow Modified dated 06/27/2019 FINDINGS: The bowel gas pattern is non-obstructive. No evidence of free air or pneumatosis. Mild ret ained contrast is seen in diverticula throughout the colon. No suspicious calcifications. No significant bony findings. IMPRESSION: No acute process evident.
--- NOTE | 2019-06-29 17:27 | R.PN ---
ENCOUNTER DATE AND TIME: 06/29/2019 17:16 (WOOD INSPECTOR) NAME KAILA BLANK DATE OF : 1975 DATE OF ADMISSION: 06/24/2019 22:33 (WOOD INSPECTOR) Hemorrhage in the left basal gangliaCHIEF COMPLAINT: Left basal ganglia hemorrhage, right sided weakness SUBJECTIVE: Pt denied any Shortness of Breath. Pt denied any depression. KUB 06/29/19 shows no obstruction. He still has significant dysphagia. He is on pureed diet. Glucose 109 to 216. He took 2 steps twice in the parallel bars with maximum assistance. VITAL SIGNS Temperature: 97.6 F SBP/DBP: 131/73 Pulse: 68 Resp: 14 MEDICATION ALLERGIES: No Known Drug Allergies (NKDA) ENVIRONMENTAL ALLERGIES: - Substance Allergies None Known - Other Allergies None Known NURSING: - Shower allowing shower - Bladder care per protocol - Skin care per protocol PRECAUTIONS: - Weight Bearing Precaution WBAT right LE ACTIVITIES OOB only with supervision THERAPIES: - Occupational Therapy Cognitive Retraining. Visual Perceptual Training. - Dietary and Nutrition Adequate Nutrition. Nutritional Education. Nutritional Supplements. - Speech Therapy Cognitive Training. Expressive Language Skills. Memory Strategies. Receptive Language Skills. Speech Intelligibility Training. PHYSICAL EXAM - Gen Alert and awake Lying in bed No apparent distress Oriented to: person, time, and place - Skin No breakdown Normacephalic - Eyes No abnormalities - ENMT No abnormalities - Neck No abnormalities No cervical adenopathy - CVS RRR - Chest No abnormalities - Resp CTA bilaterally - Abd Soft - GI Non distended Deferred - No abnormalities - Ext Mild right upper and lower extremity edema. - MSK 1/5 weakness in right upper and lower extremities. - Neuro 1/5 weakness in right upper and lower extremities. - Psych Moderate depression. ASSESSMENT: Pt. is a 43 yo Right-handed white male.On 06/20/[address] [facility] with sudden onset of right-side weakness.On 06/20/2019 he was admitted to [facility] with diagnosis Hemorrhage in the left basal ganglia.His impairment category is Stro ke 01 - Right Body (Left Brain) (01.2).Pre-morbidly, Pt. was independent/mod-I in Locomotion, Self-C are, Endurance, Communication, pain limiting function, Safety Awareness and Self-Care, and Sphincter Control; and he had good Balance.Currently, he has deficits of Locomotion, Self-Care, Endurance, Suffield nce, Transfers Control, Safety Awareness, Ambulation, Social Cognition, pain limiting function, Safet y Awareness and Self-Care, Functional mobility, and Sphincter Control.Pt. is now referred to [facility] for acute in-patient rehabilitation in order to maximize patient's function al independence in activities of daily living, strength, ROM, and mobility.- Rehab Goal Patient has realistic goal of being discharged at assistance level 6-Cari to reside at Home with Fam desiree/Relatives. MDM/PLAN: - Physical Therapy Gait dysfunction - to improve, our physical therapists will perform initial evaluation of pt's statu s upon admission and devise an individualized program for Gait Training, and Wheel Chair mobility Inability to transfer - to improve, our physical therapists will perform initial evaluation of pt's status upon admission and devise an individualized program for Bed mobility Need for home safety evaluation - to improve, our physical therapists will perform initial evaluatio n of pt's status upon admission and devise an individualized program for Home Evaluation Need in caregiver upon discharge - to improve, our physical therapists will perform initial evaluati on of pt's status upon admission and devise an individualized program for Caregiver Training Edema - to improve, our physical therapists will perform initial evaluation of pt's status upon admis jhony and devise an individualized program for Elevation Training, and Lymphedema Therapy New precaution - to improve, our physical therapists will perform initial evaluation of pt's status upon admission and devise an individualized program for Patient precaution education Poor balance - to improve, our physical therapists will perform initial evaluation of pt's status up on admission and devise an individualized program for Balance Training Poor endurance - to improve, our physical therapists will perform initial evaluation of pt's status upon admission and devise an individualized program for Endurance Training Weakness - to improve, our physical therapists will perform initial evaluation of pt's status upon a dmission and devise an individualized program for Aquatic Therapy, Neuromuscular Reeducation, and Str engthening Achieving independence - to improve, our physical therapists will perform initial evaluation of pt's status upon admission and devise an individualized program for Community Reintegration Activities - Occupational Therapy ADL deficits - to improve, our occupation therapists will perform initial evaluation of pt's status upon admission and devise an individualized program for Bathing, Bed mobility, Community Reintegratio n, Cooking, Dressing, Eating, Fine Motor Skills, Grooming, Homemaking, Kitchen Mobility, Laundry, Pat ient Education, Safety Awareness, Splinting - Positioning, Transfers(Toilet, Tub, Shower), and Wheel Chair Management Cognitive deficits - to improve, our occupation therapists will perform initial evaluation of pt's s tatus upon admission and devise an individualized program for Cognition - orientation Need for healthcare interpreter - to improve, our occupation therapists will perform initial evaluation of pt's status upon admission and devise an individualized program for Caregiver Training Weakness - to improve, our occupation therapists will perform initial evaluation of pt's status upon admission and devise an individualized program for Aquatic Therapy, Balance, Endurance, UE ROM, and UE strengthening - Other See attached MAR (Medication Administration Record) - Diet Type Continue Regular - Diet - Liquid Texture Continue Regular - Tube Feed Continue N/A - Bladder care per protocol - Weight Bearing Precaution WBAT right LE - Skin care per protocol - Diet - Solid Texture Continue Regular - Shower allowing shower for Dementia, TBI, Stroke, or others FUNCTIONAL STATUS: UPDATED AT WEEKLY TEAM CONFERENCE - Bladder Same accident frequency: 7-Ind - No accidents in the past 7 days - Bowel Same accident frequency: 7-Ind - No accidents in the past 7 days - Walking Same score based on distance walked: 1(<=50ft) - Wheelchair Same score based on distance traveled: 1(<=50ft) FUNCTIONAL STATUS: - Self-Care A. Eating maxA B. Grooming modA C. Bathing modA D. Dressing - Upper modA E. Dressing - Lower maxA F. Toileting maxA - Sphincter Control G. Bladder control modA H. Bowel control modA - Transfers Control I. Bed/Chair/Wheelchair maxA J. Toilet maxA K. Tub/Shower maxA - Locomotion L. Walk/Wheelchair (W) maxA M. Stairs ADNO - Communication N. Comprehension (B) Shivam O. Expression (B) Shivam - Social Cognition P. Social Interaction sup Q. Problem Solving sup R. Memory sup - Endurance Good - Balance Good - Safety Awareness Good QI SCORES: - Self-Care A. Eating 05-Setup or clean-up assistance B. Oral hygiene 05-Setup or clean-up assistance C. Toileting hygiene 02-Substantial/maximal assistance E. Shower/bathe self 88-Not attempted due to medical condition or safety concerns F. Upper body dressing 02-Substantial/maximal assistance G. Lower body dressing 02-Substantial/maximal assistance H. Putting on/taking off footwear 88-Not attempted due to medical condition or safety concerns - Mobility A. Roll left and right 02-Substantial/maximal assistance B. Sit to lying 02-Substantial/maximal assistance C. Lying to sitting on side of bed 02-Substantial/maximal assistance D. Sit to stand 04-Supervision or touching assistance E. Chair/gpm-[id number] transfer 02-Substantial/maximal assistance F. Toilet transfer 02-Substantial/maximal assistance G. Car transfer 88-Not attempted due to medical condition or safety concerns I. Walk 10 feet 88-Not attempted due to medical condition or safety concerns J. Walk 50 feet with two turns 88-Not attempted due to medical condition or safety concerns K. Walk 150 feet 88-Not attempted due to medical condition or safety concerns L. Walking 10 feet on uneven surfaces 88-Not attempted due to medical condition or safety concerns M. 1 step (curb) 88-Not attempted due to medical condition or safety concerns N. 4 steps 88-Not attempted due to medical condition or safety concerns O. 12 steps 88-Not attempted due to medical condition or safety concerns P. Picking up object 88-Not attempted due to medical condition or safety concerns R. Wheel 50 feet with two turns 88-Not attempted due to medical condition or safety concerns S. Wheel 150 feet 88-Not attempted due to medical condition or safety concerns - Bladder and Bowel Bladder continence 3-Incontinent daily Bowel continence 3-Always incontinent - Endurance Poor - Balance Poor - Safety Awareness Poor CURRENT FUNC. DEFICITS: Self-Care, Mobility, Endurance, Balance, and Safety Awareness SIGNATURE PANEL: (WOOD INSPECTOR)
[2019-06-29] MEDS: ENOXAPARIN 40 MG/0.4 ML SQ SCH (17:42)
[2019-06-29] MEDS: ATORVASTATIN 40 MG TAB PO SCH (20:21)
[2019-06-30] MEDS: carvediloL 12.5 MG TAB PO SCH ×2 (05:26→17:32)
[2019-06-30] MEDS: INSULIN -REGULAR HUMAN 50 UNIT/0.5 ML ML SQ SCH ×4 (07:30→21:00)
[2019-06-30] MEDS: MUPIROCIN 2% OINT 22GM TUBE TOP SCH (08:00)
[2019-06-30] MEDS: PANTOPRAZOLE 40MG TABLET PO SCH (09:22)
[2019-06-30] MEDS: AMLODIPINE 5 MG TAB PO SCH (09:22)
[2019-06-30] MEDS: NIFEDIPINE XL 30 MG TABLET PO SCH (09:24)
[2019-06-30] MEDS: HYDRALAZINE HCL 25 MG TABLET PO SCH ×3 (09:24→21:18)
--- NOTE | 2019-06-30 14:46 | FAST ---
ENCOUNTER DATE AND TIME: 06/30/2019 08:00 (MINERAL RESOURCES INSPECTOR) NAME KAILA BLANK DATE OF : 1975 DATE OF ADMISSION: 06/24/2019 22:33 (MINERAL RESOURCES INSPECTOR) PHONE: AGE: 43 N# [id number] GENDER: Male ENCOUNTER PHYSICIAN: Dr. Kodak Leslie M.D. ADMISSION DIAGNOSIS: - Stroke 01 - Right Body (Left Brain) (01.2) Hemorrhage in the left basal ganglia. ROLL LEFT AND RIGHT: ROLL LEFT AND RIGHT - STEP 1: Does the patient complete the activity by him/herself with no assistance (physical, verbal/nonverbal cueing, setup/clean-up)? No. ROLL LEFT AND RIGHT - STEP 2: Does the patient need only setup/clean-up assistance from one helper? No. ROLL LEFT AND RIGHT - STEP 3: Does the patient need only verbal/nonverbal cueing or touching/steadying/contact guard assistance fro m one helper? No. ROLL LEFT AND RIGHT - STEP 4: Does the patient need physical assistance - for example lifting or trunk support from one helper - wi th the helper providing less than half of the effort? Yes. 1. [id number] ADMISSION PERFORMANCE: Partial/moderate assistance CODE: 03 SIT TO LYING: SIT TO LYING - STEP 1: Does the patient complete the activity by him/herself with no assistance (physical, verbal/nonverbal cueing, setup/clean-up)? No. SIT TO LYING - STEP 2: Does the patient need only setup/clean-up assistance from one helper? No. SIT TO LYING - STEP 3: Does the patient need only verbal/nonverbal cueing or touching/steadying/contact guard assistance fro m one helper? No. SIT TO LYING - STEP 4: Does the patient need physical assistance - for example lifting or trunk support from one helper - wi th the helper providing less than half of the effort? Yes. 1. [id number] ADMISSION PERFORMANCE: Partial/moderate assistance CODE: 03 LYING TO SITTING: LYING TO SITTING ON SIDE OF BED - STEP 1: Does the patient complete the activity by him/herself with no assistance (physical, verbal/nonverbal cueing, setup/clean-up)? No. LYING TO SITTING ON SIDE OF BED - STEP 2: Does the patient need only setup/clean-up assistance from one helper? No. LYING TO SITTING ON SIDE OF BED - STEP 3: Does the patient need only verbal/nonverbal cueing or touching/steadying/contact guard assistance fro m one helper? No. LYING TO SITTING ON SIDE OF BED - STEP 4: Does the patient need physical assistance - for example lifting or trunk support from one helper - wi th the helper providing less than half of the effort? Yes. 1. [id number] ADMISSION PERFORMANCE: Partial/moderate assistance CODE: 03 SIT TO STAND: SIT TO STAND - STEP 1: Does the patient complete the activity by him/herself with no assistance (physical, verbal/nonverbal cueing, setup/clean-up)? No. SIT TO STAND - STEP 2: Does the patient need only setup/clean-up assistance from one helper? No. SIT TO STAND - STEP 3: Does the patient need only verbal/nonverbal cueing or touching/steadying/contact guard assistance fro m one helper? No. SIT TO STAND - STEP 4: Does the patient need physical assistance - for example lifting or trunk support from one helper - wi th the helper providing less than half of the effort? Yes. 1. [id number] ADMISSION PERFORMANCE: Partial/moderate assistance CODE: 03 TRANSFERS: BED, CHAIR: CHAIR/[id number] TRANSFER - STEP 1: Does the patient complete the activity by him/herself with no assistance (physical, verbal/nonverbal cueing, setup/clean-up)? No. CHAIR/[id number] TRANSFER - STEP 2: Does the patient need only setup/clean-up assistance from one helper? No. CHAIR/[id number] TRANSFER - STEP 3: Does the patient need only verbal/nonverbal cueing or touching/steadying/contact guard assistance fro m one helper? No. CHAIR/[id number] TRANSFER - STEP 4: Does the patient need physical assistance - for example lifting or trunk support from one helper - wi th the helper providing less than half of the effort? Yes. 1. [id number] ADMISSION PERFORMANCE: Partial/moderate assistance CODE: 03 TRANSFER TOILET: TOILET TRANSFER - STEP 1: Does the patient complete the activity by him/herself with no assistance (physical, verbal/nonverbal cueing, setup/clean-up)? No. TOILET TRANSFER - STEP 2: Does the patient need only setup/clean-up assistance from one helper? No. TOILET TRANSFER - STEP 3: Does the patient need only verbal/nonverbal cueing or touching/steadying/contact guard assistance fro m one helper? No. TOILET TRANSFER - STEP 4: Does the patient need physical assistance - for example lifting or trunk support from one helper - wi th the helper providing less than half of the effort? Yes. 1. [id number] ADMISSION PERFORMANCE: Partial/moderate assistance CODE: 03 TRANSFERS: CAR: Not attempted due to environmental limitations (e.g., lack of equipment, weather constraints) CODE: 10 WALK 10 FEET: Not attempted due to medical condition or safety concerns CODE: 88 1 STEP (CURB): Not attempted due to medical condition or safety concerns CODE: 88 PICKING UP OBJECT: Not attempted due to medical condition or safety concerns CODE: 88 DOES THE PATIENT USE A WHEELCHAIR/SCOOTER? Q1. DOES THE PATIENT USE A WHEELCHAIR/SCOOTER?: Yes CODE: 1 WHEEL 50 FEET WITH TWO TURNS: WHEEL 50 FEET WITH TWO TURNS - STEP 1: Does the patient complete the activity by him/herself with no assistance (physical, verbal/nonverbal cueing, setup/clean-up)? No. WHEEL 50 FEET WITH TWO TURNS - STEP 2: Does the patient need only setup/clean-up assistance from one helper? No. WHEEL 50 FEET WITH TWO TURNS - STEP 3: Does the patient need only verbal/nonverbal cueing or touching/steadying/contact guard assistance fro m one helper? Yes. 1. [id number] ADMISSION PERFORMANCE: Supervision or touching assistance CODE: 04 INDICATE THE TYPE OF WHEELCHAIR/SCOOTER USED: RR1. INDICATE THE TYPE OF WHEELCHAIR/SCOOTER USED.: Manual CODE: 1 WHEEL 150 FEET: Not attempted due to medical condition or safety concerns CODE: 88 INDICATE THE TYPE OF WHEELCHAIR/SCOOTER USED: CODE: EXPR BLADDER AND BOWEL: CODE: EXPR CODE: EXPR SIGNATURE PANEL: The following modified sections: 1. [id number] Admission Performance, 1. [id number] Admission Performance, 1. [id number] Admission Performance, 1. [id number] Admission Performance, 1. [id number] Admission Performance, 1. [id number] Admission Performance, 1. [id number] Admission Performance, Q1. Does the patient use a wheel chair/scooter?, 1. [id number] Admission Performance, RR1. Indicate the type of wheelchair/scooter used., Code were [electronically] signed by Regis Chow PT on ThuJun 30 2019 14:44:53 GMT-0600 ([place] Standard Time)
--- NOTE | 2019-06-30 16:47 | R.PN ---
ENCOUNTER DATE AND TIME: 06/30/2019 16:43 (PALEOLOGY TEACHER) NAME KAILA BLANK DATE OF : 1975 DATE OF ADMISSION: 06/24/2019 22:33 (PALEOLOGY TEACHER) Hemorrhage in the left basal gangliaCHIEF COMPLAINT: Left basal ganglia hemorrhage, right sided weakness SUBJECTIVE: Pt denied any Shortness of Breath. Pt denied any depression. KUB 06/29/19 shows no obstruction. He still has significant dysphagia. He is on pureed diet. Glucose 116 to 224.. He took 4 steps twice in the parallel bars with maximum assistance. VITAL SIGNS Temperature: 97.6 F SBP/DBP: 149/69 Pulse: 72 Resp: 16 MEDICATION ALLERGIES: No Known Drug Allergies (NKDA) ENVIRONMENTAL ALLERGIES: - Substance Allergies None Known - Other Allergies None Known NURSING: - Shower allowing shower - Bladder care per protocol - Skin care per protocol PRECAUTIONS: - Weight Bearing Precaution WBAT right LE ACTIVITIES OOB only with supervision THERAPIES: - Occupational Therapy Cognitive Retraining. Visual Perceptual Training. - Dietary and Nutrition Adequate Nutrition. Nutritional Education. Nutritional Supplements. - Speech Therapy Cognitive Training. Expressive Language Skills. Memory Strategies. Receptive Language Skills. Speech Intelligibility Training. PHYSICAL EXAM - Gen Alert and awake Lying in bed No apparent distress Oriented to: person, time, and place - Skin No breakdown Normacephalic - Eyes No abnormalities - ENMT No abnormalities - Neck No abnormalities No cervical adenopathy - CVS RRR - Chest No abnormalities - Resp CTA bilaterally - Abd Soft - GI Non distended Deferred - No abnormalities - Ext Mild right upper and lower extremity edema. - MSK 1/5 weakness in right upper and lower extremities. - Neuro 1/5 weakness in right upper and lower extremities. - Psych Moderate depression. ASSESSMENT: Pt. is a 43 yo Right-handed white male.On 06/20/2019 Pt. [address] to [facility] with sudden onset of right-side weakness.On 06/20/[address] [facility] with diagnosis Hemorrhage in the left basal ganglia.His impairment category is Stro ke 01 - Right Body (Left Brain) (01.2).Pre-morbidly, Pt. was independent/mod-I in Locomotion, Self-C are, Endurance, Communication, pain limiting function, Safety Awareness and Self-Care, and Sphincter Control; and he had good Balance.Currently, he has deficits of Locomotion, Self-Care, Endurance, Cali nce, Transfers Control, Safety Awareness, Ambulation, Social Cognition, pain limiting function, Safet y Awareness and Self-Care, Functional mobility, and Sphincter Control.Pt. is now referred to [facility] for acute in-patient rehabilitation in order to maximize patient's function al independence in activities of daily living, strength, ROM, and mobility.- Rehab Goal Patient has realistic goal of being discharged at assistance level 6-Cari to reside at Home with Fam desiree/Relatives. MDM/PLAN: - Physical Therapy Gait dysfunction - to improve, our physical therapists will perform initial evaluation of pt's statu s upon admission and devise an individualized program for Gait Training, and Wheel Chair mobility Inability to transfer - to improve, our physical therapists will perform initial evaluation of pt's status upon admission and devise an individualized program for Bed mobility Need for home safety evaluation - to improve, our physical therapists will perform initial evaluatio n of pt's status upon admission and devise an individualized program for Home Evaluation Need in caregiver upon discharge - to improve, our physical therapists will perform initial evaluati on of pt's status upon admission and devise an individualized program for Caregiver Training Edema - to improve, our physical therapists will perform initial evaluation of pt's status upon admi ssion and devise an individualized program for Elevation Training, and Lymphedema Therapy New precaution - to improve, our physical therapists will perform initial evaluation of pt's status upon admission and devise an individualized program for Patient precaution education Poor balance - to improve, our physical therapists will perform initial evaluation of pt's status up on admission and devise an individualized program for Balance Training Poor endurance - to improve, our physical therapists will perform initial evaluation of pt's status upon admission and devise an individualized program for Endurance Training Weakness - to improve, our physical therapists will perform initial evaluation of pt's status upon a dmission and devise an individualized program for Aquatic Therapy, Neuromuscular Reeducation, and Str engthening Achieving independence - to improve, our physical therapists will perform initial evaluation of pt's status upon admission and devise an individualized program for Community Reintegration Activities - Occupational Therapy ADL deficits - to improve, our occupation therapists will perform initial evaluation of pt's status upon admission and devise an individualized program for Bathing, Bed mobility, Community Reintegratio n, Cooking, Dressing, Eating, Fine Motor Skills, Grooming, Homemaking, Kitchen Mobility, Laundry, Pat ient Education, Safety Awareness, Splinting - Positioning, Transfers(Toilet, Tub, Shower), and Wheel Chair Management Cognitive deficits - to improve, our occupation therapists will perform initial evaluation of pt's s tatus upon admission and devise an individualized program for Cognition - orientation Need for child care associate teacher - to improve, our occupation therapists will perform initial evaluation of pt's status upon admission and devise an individualized program for Caregiver Training Weakness - to improve, our occupation therapists will perform initial evaluation of pt's status upon admission and devise an individualized program for Aquatic Therapy, Balance, Endurance, UE ROM, and UE strengthening - Other See attached MAR (Medication Administration Record) - Diet Type Continue Regular - Diet - Liquid Texture Continue Regular - Tube Feed Continue N/A - Bladder care per protocol - Weight Bearing Precaution WBAT right LE - Skin care per protocol - Diet - Solid Texture Continue Regular - Shower allowing shower for Dementia, TBI, Stroke, or others FUNCTIONAL STATUS: UPDATED AT WEEKLY TEAM CONFERENCE - Bladder Same accident frequency: 7-Ind - No accidents in the past 7 days - Bowel Same accident frequency: 7-Ind - No accidents in the past 7 days - Walking Same score based on distance walked: 1(<=50ft) - Wheelchair Same score based on distance traveled: 1(<=50ft) FUNCTIONAL STATUS: - Self-Care A. Eating maxA B. Grooming modA C. Bathing modA D. Dressing - Upper modA E. Dressing - Lower maxA F. Toileting maxA - Sphincter Control G. Bladder control modA H. Bowel control modA - Transfers Control I. Bed/Chair/Wheelchair maxA J. Toilet maxA K. Tub/Shower maxA - Locomotion L. Walk/Wheelchair (W) maxA M. Stairs ADNO - Communication N. Comprehension (B) Shivam O. Expression (B) Shivam - Social Cognition P. Social Interaction sup Q. Problem Solving sup R. Memory sup - Endurance Good - Balance Good - Safety Awareness Good QI SCORES: - Self-Care A. Eating 05-Setup or clean-up assistance B. Oral hygiene 05-Setup or clean-up assistance C. Toileting hygiene 02-Substantial/maximal assistance E. Shower/bathe self 88-Not attempted due to medical condition or safety concerns F. Upper body dressing 02-Substantial/maximal assistance G. Lower body dressing 02-Substantial/maximal assistance H. Putting on/taking off footwear 88-Not attempted due to medical condition or safety concerns - Mobility A. Roll left and right 02-Substantial/maximal assistance B. Sit to lying 02-Substantial/maximal assistance C. Lying to sitting on side of bed 02-Substantial/maximal assistance D. Sit to stand 04-Supervision or touching assistance E. Chair/[id number] transfer 02-Substantial/maximal assistance F. Toilet transfer 02-Substantial/maximal assistance G. Car transfer 88-Not attempted due to medical condition or safety concerns I. Walk 10 feet 88-Not attempted due to medical condition or safety concerns J. Walk 50 feet with two turns 88-Not attempted due to medical condition or safety concerns K. Walk 150 feet 88-Not attempted due to medical condition or safety concerns L. Walking 10 feet on uneven surfaces 88-Not attempted due to medical condition or safety concerns M. 1 step (curb) 88-Not attempted due to medical condition or safety concerns N. 4 steps 88-Not attempted due to medical condition or safety concerns O. 12 steps 88-Not attempted due to medical condition or safety concerns P. Picking up object 88-Not attempted due to medical condition or safety concerns R. Wheel 50 feet with two turns 88-Not attempted due to medical condition or safety concerns S. Wheel 150 feet 88-Not attempted due to medical condition or safety concerns - Bladder and Bowel Bladder continence 3-Incontinent daily Bowel continence 3-Always incontinent - Endurance Poor - Balance Poor - Safety Awareness Poor CURRENT FUNC. DEFICITS: Self-Care, Mobility, Endurance, Balance, and Safety Awareness SIGNATURE PANEL: (PALEOLOGY TEACHER)
[2019-06-30] MEDS: ENOXAPARIN 40 MG/0.4 ML SQ SCH (17:31)
[2019-06-30] MEDS: ATORVASTATIN 40 MG TAB PO SCH (21:18)
[2019-07-01] MEDS: carvediloL 12.5 MG TAB PO SCH ×2 (05:34→17:24)
[2019-07-01 07:07] LABS: Basophils % 0.8 % (0-1.3); Hematocrit 30.1 % (39.6-49.0); MPV 10.2 fL (7.6-11.3); RBC Red Blood Cell Count 3.39 M/uL (4.33-5.43)
[2019-07-01] MEDS: INSULIN -REGULAR HUMAN 50 UNIT/0.5 ML ML SQ SCH ×4 (07:30→22:47)
[2019-07-01 07:36] LABS: Albumin 2.6 g/dL (3.4-5.0); Magnesium 2.1 mg/dL (1.8-2.4); Potassium 4.7 mmol/L (3.5-5.1); Prealbumin 52.6 mg/dL (20-40)
[2019-07-01] MEDS: NIFEDIPINE XL 30 MG TABLET PO SCH (08:00)
[2019-07-01] MEDS: MUPIROCIN 2% OINT 22GM TUBE TOP SCH (08:00)
[2019-07-01] MEDS: HYDRALAZINE HCL 25 MG TABLET PO SCH ×3 (09:00→22:03)
--- NOTE | 2019-07-01 09:45 | P.RH.PN ---
Estimated Length of Stay: 15 Expected Discharge Date: 07/08/19 Discharge Disposition Plan: Home Family Support: Yes Residential Goal: Mobility, Transfers, Self Care Vital Signs: Last Vital Signs Temp 97.4 F 06/30/19 18:43 Pulse 68 07/01/19 05:34 Resp 16 06/30/19 18:43 BP 135/62 07/01/19 05:34 Pulse Ox 99 06/30/19 18:43 Laboratory: Laboratory Last Values WBC 8.6 K/uL (4.3-10.9) 07/01/19 06:33 RBC 3.39 M/uL (4.33-5.43) L 07/01/19 06:33 Hgb 10.7 g/dL (13.6-17.9) L 07/01/19 06:33 Hct 30.1 % (39.6-49.0) L 07/01/19 06:33 MCV 89.0 fL (80-100) 07/01/19 06:33 MCH 31.6 pg (27.0-35.0) 07/01/19 06:33 MCHC 35.5 g/dL (32.0-36.0) 07/01/19 06:33 RDW 14.0 % (12.1-15.2) 07/01/19 06:33 Plt Count 174 K/uL (152-406) 07/01/19 06:33 MPV 10.2 fL (7.6-11.3) 07/01/19 06:33 Neutrophils % 66.3 % (41.7-73.7) 07/01/19 06:33 Lymphocytes % 23.0 % (15.3-44.8) 07/01/19 06:33 Monocytes % 8.1 % (3.3-12.3) 07/01/19 06:33 Eosinophils % 1.8 % (0-4.4) 07/01/19 06:33 Basophils % 0.8 % (0-1.3) 07/01/19 06:33 Absolute Neutrophils 5.7 K/uL (1.8-8.0) 07/01/19 06:33 Absolute Lymphocytes 2.0 K/uL (0.7-4.9) 07/01/19 06:33 Absolute Monocytes 0.7 K/uL (0.1-1.3) 07/01/19 06:33 Absolute Eosinophils 0.2 K/uL (0-0.5) 07/01/19 06:33 Absolute Basophils 0.1 K/uL (0-0.5) 07/01/19 06:33 Sodium 138 mmol/L (136-145) 07/01/19 06:33 Potassium 4.7 mmol/L (3.5-5.1) 07/01/19 06:33 Chloride 111 mmol/L (98-107) H 07/01/19 06:33 Carbon Dioxide 23 mmol/L (21-32) 07/01/19 06:33 BUN 37 mg/dL (7-18) H 07/01/19 06:33 Creatinine 2.71 mg/dL (0.55-1.3) H 07/01/19 06:33 Estimated GFR 26 mL/min (=/>90) L 07/01/19 06:33 Glucose 143 mg/dL (74-106) H 07/01/19 06:33 POC Glucose 169 mg/dl (65-120) H 07/01/19 07:19 Calcium 8.1 mg/dL (8.5-10.1) L 07/01/19 06:33 Magnesium 2.1 mg/dL (1.8-2.4) 07/01/19 06:33 Albumin 2.6 g/dL (3.4-5.0) L 07/01/19 06:33 Prealbumin 52.6 mg/dL (20-40) H 07/01/19 06:33 Weight: 201 lb 14.4 oz Wound Present: Yes Closed Surgical Incision Present: No Negative Pressure Wound Therapy Present: No Physician Update: Prealbumin increased from 26.2 on 06/25 to 52.6 on 07/01. He is minimum assistance to stand. Max assistance for transfer and taking 2 steps in the parallel bars. His mood is better and he is particpating. He will likely have to go to half-way. Medical Issues: Patient is incontinent daily with bladder and occasional incontinent with bowel. Functional Improvement: pt has been struggling with depression and motivation for participation. Today, pt's mood was much improved and his performance reflected that. pt has demonstrated minimal improvement with functional transfers and trunk stability. pt does retain great potential due to L sided strength and if his mood continues to be postive and pt stays motivated, he should be able to reach his functional goals. Speech Therapy Update: Patient continues to present with moderate-severe dysphagia. He is on a mechanical soft diet with nectar thickened liquids. Patient cannot tolerate cup sips of thin liquid without overt s/s of aspiration. Patient tolerated single sips of water by tsp with head turn to right with mod A without overt s/s of aspiration. Patient cont to present with moderate cognitive-linguistic impairments and aphasia. He exhibits significant word finding difficulties and has difficulty working through the frustration. Patient would benefit from further ST to address aforementioned deficits. 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 Please see the Rehabilitation Signature page for all necessary signatures.
[2019-07-01] MEDS: PANTOPRAZOLE 40MG TABLET PO SCH (11:04)
[2019-07-01] MEDS: AMLODIPINE 5 MG TAB PO SCH (11:06)
[2019-07-01] MEDS: FE SULF/FA/VIT B COMP & C TAB PO SCH (11:36)
[2019-07-01] MEDS: FERROUS SULFATE 325 MG TAB PO SCH (11:36)
[2019-07-01] MEDS: ENOXAPARIN 40 MG/0.4 ML SQ SCH (15:58)
--- NOTE | 2019-07-01 16:13 | FAST ---
ENCOUNTER DATE AND TIME: 07/01/2019 08:00 (HOT TOP LINER) NAME KAILA BLANK DATE OF : 1975 DATE OF ADMISSION: 06/24/2019 22:33 (HOT TOP LINER) PHONE: AGE: 43 N# [id number] GENDER: Male ENCOUNTER PHYSICIAN: Dr. Kodak Lelsie M.D. ADMISSION DIAGNOSIS: - Stroke 01 - Right Body (Left Brain) (01.2) Hemorrhage in the left basal ganglia. EATING: EATING - STEP 1: Does the patient complete the activity by him/herself with no assistance (physical, verbal/nonverbal cueing, setup/clean-up)? No. EATING - STEP 2: Does the patient need only setup/clean-up assistance from one helper? No. EATING - STEP 3: Does the patient need only verbal/nonverbal cueing or touching/steadying/contact guard assistance fro m one helper? Yes. 1. [id number] ADMISSION PERFORMANCE: Supervision or touching assistance CODE: 04 ORAL HYGIENE: Not assessed/no information CODE: - TOILETING HYGIENE: Not assessed/no information CODE: - BATHING: SHOWER/BATHE SELF - STEP 1: Does the patient complete the activity by him/herself with no assistance (physical, verbal/nonverbal cueing, setup/clean-up)? No. SHOWER/BATHE SELF - STEP 2: Does the patient need only setup/clean-up assistance from one helper? No. SHOWER/BATHE SELF - STEP 3: Does the patient need only verbal/nonverbal cueing or touching/steadying/contact guard assistance fro m one helper? No. SHOWER/BATHE SELF - STEP 4: Does the patient need physical assistance - for example lifting or trunk support from one helper - wi th the helper providing less than half of the effort? Yes. 1. [id number] ADMISSION PERFORMANCE: Partial/moderate assistance CODE: 03 DRESSING - UPPER BODY: DRESSING - UPPER BODY - STEP 1: Does the patient complete the activity by him/herself with no assistance (physical, verbal/nonverbal cueing, setup/clean-up)? No. DRESSING - UPPER BODY - STEP 2: Does the patient need only setup/clean-up assistance from one helper? No. DRESSING - UPPER BODY - STEP 3: Does the patient need only verbal/nonverbal cueing or touching/steadying/contact guard assistance fro m one helper? No. DRESSING - UPPER BODY - STEP 4: Does the patient need physical assistance - for example lifting or trunk support from one helper - wi th the helper providing less than half of the effort? Yes. 1. [id number] ADMISSION PERFORMANCE: Partial/moderate assistance CODE: 03 DRESSING - LOWER BODY: DRESSING - LOWER BODY - STEP 1: Does the patient complete the activity by him/herself with no assistance (physical, verbal/nonverbal cueing, setup/clean-up)? No. DRESSING - LOWER BODY - STEP 2: Does the patient need only setup/clean-up assistance from one helper? No. DRESSING - LOWER BODY - STEP 3: Does the patient need only verbal/nonverbal cueing or touching/steadying/contact guard assistance fro m one helper? No. DRESSING - LOWER BODY - STEP 4: Does the patient need physical assistance - for example lifting or trunk support from one helper - wi th the helper providing less than half of the effort? Yes. 1. [id number] ADMISSION PERFORMANCE: Partial/moderate assistance CODE: 03 PUTTING ON/TAKING OFF FOOTWEAR: FOOTWEAR - STEP 1: Does the patient complete the activity by him/herself with no assistance (physical, verbal/nonverbal cueing, setup/clean-up)? No. FOOTWEAR - STEP 2: Does the patient need only setup/clean-up assistance from one helper? No. FOOTWEAR - STEP 3: Does the patient need only verbal/nonverbal cueing or touching/steadying/contact guard assistance fro m one helper? No. FOOTWEAR - STEP 4: Does the patient need physical assistance - for example lifting or trunk support from one helper - wi th the helper providing less than half of the effort? No. FOOTWEAR - STEP 5: Does the patient need physical assistance - for example lifting or trunk support from one helper - wi th the helper providing more than half of the effort? Yes. 1. [id number] ADMISSION PERFORMANCE: Substantial/maximal assistance CODE: 02 DOES THE PATIENT USE A WHEELCHAIR/SCOOTER? CODE: EXPR INDICATE THE TYPE OF WHEELCHAIR/SCOOTER USED: CODE: EXPR INDICATE THE TYPE OF WHEELCHAIR/SCOOTER USED: CODE: EXPR BLADDER AND BOWEL: CODE: EXPR CODE: EXPR SIGNATURE PANEL: The following modified sections: 1. [id number] Admission Performance, 1. [id number] Admission Performance, 1. [id number] Admission Performance, 1. [id number] Admission Performance, 1. [id number] Admission Performance were [electronically] signed by Almita Contreras OT on ThuJul 01 2019 16:12:18 GMT-0600 ([place] tral Standard Time)
[2019-07-01] MEDS: DOCUSATE NA/SENNA CONC 1 TAB PO PRN (22:02)
[2019-07-01] MEDS: ATORVASTATIN 40 MG TAB PO SCH (22:02)
--- NOTE | 2019-07-02 02:16 | FAST ---
SHIFT START DATE/TIME: 07/01/2019 19:00 (MICROBIOLOGY ANALYST) SHIFT END DATE/TIME: 07/02/2019 07:00 (MICROBIOLOGY ANALYST) NAME KAILA BLANK DATE OF : 1975 DATE OF ADMISSION: 06/24/2019 22:33 (MICROBIOLOGY ANALYST) PHONE: AGE: 43 N# [id number] GENDER: Male ENCOUNTER PHYSICIAN: Dr. Kodak Leslie M.D. ADMISSION DIAGNOSIS: - Stroke 01 - Right Body (Left Brain) (01.2) Hemorrhage in the left basal ganglia. EATING: Not assessed/no information CODE: - ORAL HYGIENE: Not assessed/no information CODE: - TOILETING HYGIENE: TOILETING HYGIENE - STEP 1: Does the patient complete the activity by him/herself with no assistance (physical, verbal/nonverbal cueing, setup/clean-up)? No. TOILETING HYGIENE - STEP 2: Does the patient need only setup/clean-up assistance from one helper? No. TOILETING HYGIENE - STEP 3: Does the patient need only verbal/nonverbal cueing or touching/steadying/contact guard assistance fro m one helper? No. TOILETING HYGIENE - STEP 4: Does the patient need physical assistance - for example lifting or trunk support from one helper - wi th the helper providing less than half of the effort? No. TOILETING HYGIENE - STEP 5: Does the patient need physical assistance - for example lifting or trunk support from one helper - wi th the helper providing more than half of the effort? Yes. 1. [id number] ADMISSION PERFORMANCE: Substantial/maximal assistance CODE: 02 BATHING: Not assessed/no information CODE: - DRESSING - UPPER BODY: Not assessed/no information CODE: - DRESSING - LOWER BODY: Not assessed/no information CODE: - PUTTING ON/TAKING OFF FOOTWEAR: Not assessed/no information CODE: - ROLL LEFT AND RIGHT: ROLL LEFT AND RIGHT - STEP 1: Does the patient complete the activity by him/herself with no assistance (physical, verbal/nonverbal cueing, setup/clean-up)? No. ROLL LEFT AND RIGHT - STEP 2: Does the patient need only setup/clean-up assistance from one helper? No. ROLL LEFT AND RIGHT - STEP 3: Does the patient need only verbal/nonverbal cueing or touching/steadying/contact guard assistance fro m one helper? No. ROLL LEFT AND RIGHT - STEP 4: Does the patient need physical assistance - for example lifting or trunk support from one helper - wi th the helper providing less than half of the effort? Yes. 1. [id number] ADMISSION PERFORMANCE: Partial/moderate assistance CODE: 03 SIT TO LYING: Not assessed/no information CODE: - LYING TO SITTING: Not assessed/no information CODE: - SIT TO STAND: Not assessed/no information CODE: - TRANSFERS: BED, CHAIR: Not assessed/no information CODE: - TRANSFER TOILET: Not assessed/no information CODE: - TRANSFERS: CAR: Not assessed/no information CODE: - WALK 10 FEET: Not assessed/no information CODE: - 1 STEP (CURB): Not assessed/no information CODE: - PICKING UP OBJECT: Not assessed/no information CODE: - DOES THE PATIENT USE A WHEELCHAIR/SCOOTER? CODE: EXPR WHEEL 50 FEET WITH TWO TURNS: Not assessed/no information CODE: - INDICATE THE TYPE OF WHEELCHAIR/SCOOTER USED: CODE: EXPR WHEEL 150 FEET: Not assessed/no information CODE: - INDICATE THE TYPE OF WHEELCHAIR/SCOOTER USED: CODE: EXPR BLADDER AND BOWEL: H350. BLADDER CONTINENCE (3-DAY ASSESSMENT PERIOD): Always incontinent CODE: 4 H400. BOWEL CONTINENCE (3-DAY ASSESSMENT PERIOD): Always incontinent (no episodes of continent bowel movements) CODE: 3
[2019-07-02] MEDS: carvediloL 12.5 MG TAB PO SCH ×2 (05:09→17:02)
[2019-07-02] MEDS: INSULIN -REGULAR HUMAN 50 UNIT/0.5 ML ML SQ SCH ×4 (07:24→20:06)
[2019-07-02] MEDS: NIFEDIPINE XL 30 MG TABLET PO SCH (07:39)
[2019-07-02] MEDS: FERROUS SULFATE 325 MG TAB PO SCH (07:39)
[2019-07-02] MEDS: AMLODIPINE 5 MG TAB PO SCH (07:39)
[2019-07-02] MEDS: FE SULF/FA/VIT B COMP & C TAB PO SCH (07:39)
[2019-07-02] MEDS: HYDRALAZINE HCL 25 MG TABLET PO SCH ×3 (07:39→20:06)
[2019-07-02] MEDS: PANTOPRAZOLE 40MG TABLET PO SCH (07:40)
[2019-07-02] MEDS ORDERED: FERROUS SULFATE 325 MG TAB PO SCH (08:00)
[2019-07-02] MEDS ORDERED: FE SULF/FA/VIT B COMP & C TAB PO SCH (08:00)
[2019-07-02] MEDS: MUPIROCIN 2% OINT 22GM TUBE TOP SCH (09:20)
[2019-07-02] MEDS: ENOXAPARIN 40 MG/0.4 ML SQ SCH (17:03)
[2019-07-02] MEDS: ATORVASTATIN 40 MG TAB PO SCH (20:06)
[2019-07-03] MEDS: carvediloL 12.5 MG TAB PO SCH ×2 (05:00→17:03)
[2019-07-03] MEDS: INSULIN -REGULAR HUMAN 50 UNIT/0.5 ML ML SQ SCH ×4 (07:30→20:03)
[2019-07-03] MEDS: NIFEDIPINE XL 30 MG TABLET PO SCH (07:58)
[2019-07-03] MEDS: FE SULF/FA/VIT B COMP & C TAB PO SCH (07:59)
[2019-07-03] MEDS: PANTOPRAZOLE 40MG TABLET PO SCH (07:59)
[2019-07-03] MEDS: HYDRALAZINE HCL 25 MG TABLET PO SCH ×4 (07:59→20:04)
[2019-07-03] MEDS: FERROUS SULFATE 325 MG TAB PO SCH (07:59)
[2019-07-03] MEDS: AMLODIPINE 5 MG TAB PO SCH (07:59)
[2019-07-03] MEDS: MUPIROCIN 2% OINT 22GM TUBE TOP SCH (09:58)
[2019-07-03] MEDS: SMZ./TMP. 800/160 MG TABLET PO SCH ×2 (11:59→19:58)
[2019-07-03] MEDS: ACETAMINOPHEN 500 MG TAB PO PRN (16:47)
[2019-07-03] MEDS: ENOXAPARIN 40 MG/0.4 ML SQ SCH (17:03)
[2019-07-03] MEDS: ATORVASTATIN 40 MG TAB PO SCH (19:58)
[2019-07-03] MEDS: MELATONIN 3 MG TABLET PO PRN (21:13)
[2019-07-04] MEDS: carvediloL 12.5 MG TAB PO SCH ×2 (05:34→17:39)
[2019-07-04] MEDS: INSULIN -REGULAR HUMAN 50 UNIT/0.5 ML ML SQ SCH ×4 (07:30→21:37)
[2019-07-04] MEDS: MUPIROCIN 2% OINT 22GM TUBE TOP SCH (08:00)
[2019-07-04] MEDS: NIFEDIPINE XL 30 MG TABLET PO SCH (09:00)
[2019-07-04] MEDS: FE SULF/FA/VIT B COMP & C TAB PO SCH (09:17)
[2019-07-04] MEDS: PANTOPRAZOLE 40MG TABLET PO SCH (09:17)
[2019-07-04] MEDS: SMZ./TMP. 800/160 MG TABLET PO SCH ×2 (09:18→20:21)
[2019-07-04] MEDS: ACETAMINOPHEN 500 MG TAB PO PRN (09:18)
[2019-07-04] MEDS: FERROUS SULFATE 325 MG TAB PO SCH (09:18)
[2019-07-04] MEDS: HYDRALAZINE HCL 25 MG TABLET PO SCH ×3 (09:18→20:21)
[2019-07-04] MEDS: AMLODIPINE 5 MG TAB PO SCH (09:18)
--- NOTE | 2019-07-04 13:13 | FAST ---
ENCOUNTER DATE AND TIME: 07/04/2019 08:00 (ENVIRONMENTAL LEAD) NAME KAILA BLANK DATE OF : 1975 DATE OF ADMISSION: 06/24/2019 22:33 (ENVIRONMENTAL LEAD) PHONE: AGE: 43 N# [id number] GENDER: Male ENCOUNTER PHYSICIAN: Dr. Kodak Leslie M.D. ADMISSION DIAGNOSIS: - Stroke 01 - Right Body (Left Brain) (01.2) Hemorrhage in the left basal ganglia. EATING: EATING - STEP 1: Does the patient complete the activity by him/herself with no assistance (physical, verbal/nonverbal cueing, setup/clean-up)? No. EATING - STEP 2: Does the patient need only setup/clean-up assistance from one helper? No. EATING - STEP 3: Does the patient need only verbal/nonverbal cueing or touching/steadying/contact guard assistance fro m one helper? Yes. 1. [id number] ADMISSION PERFORMANCE: Supervision or touching assistance CODE: 04 ORAL HYGIENE: Not assessed/no information CODE: - TOILETING HYGIENE: TOILETING HYGIENE - STEP 1: Does the patient complete the activity by him/herself with no assistance (physical, verbal/nonverbal cueing, setup/clean-up)? No. TOILETING HYGIENE - STEP 2: Does the patient need only setup/clean-up assistance from one helper? No. TOILETING HYGIENE - STEP 3: Does the patient need only verbal/nonverbal cueing or touching/steadying/contact guard assistance fro m one helper? No. TOILETING HYGIENE - STEP 4: Does the patient need physical assistance - for example lifting or trunk support from one helper - wi th the helper providing less than half of the effort? No. TOILETING HYGIENE - STEP 5: Does the patient need physical assistance - for example lifting or trunk support from one helper - wi th the helper providing more than half of the effort? Yes. 1. [id number] ADMISSION PERFORMANCE: Substantial/maximal assistance CODE: 02 BATHING: SHOWER/BATHE SELF - STEP 1: Does the patient complete the activity by him/herself with no assistance (physical, verbal/nonverbal cueing, setup/clean-up)? No. SHOWER/BATHE SELF - STEP 2: Does the patient need only setup/clean-up assistance from one helper? No. SHOWER/BATHE SELF - STEP 3: Does the patient need only verbal/nonverbal cueing or touching/steadying/contact guard assistance fro m one helper? No. SHOWER/BATHE SELF - STEP 4: Does the patient need physical assistance - for example lifting or trunk support from one helper - wi th the helper providing less than half of the effort? Yes. 1. [id number] ADMISSION PERFORMANCE: Partial/moderate assistance CODE: 03 DRESSING - UPPER BODY: DRESSING - UPPER BODY - STEP 1: Does the patient complete the activity by him/herself with no assistance (physical, verbal/nonverbal cueing, setup/clean-up)? No. DRESSING - UPPER BODY - STEP 2: Does the patient need only setup/clean-up assistance from one helper? No. DRESSING - UPPER BODY - STEP 3: Does the patient need only verbal/nonverbal cueing or touching/steadying/contact guard assistance fro m one helper? Yes. 1. [id number] ADMISSION PERFORMANCE: Supervision or touching assistance CODE: 04 DRESSING - LOWER BODY: DRESSING - LOWER BODY - STEP 1: Does the patient complete the activity by him/herself with no assistance (physical, verbal/nonverbal cueing, setup/clean-up)? No. DRESSING - LOWER BODY - STEP 2: Does the patient need only setup/clean-up assistance from one helper? No. DRESSING - LOWER BODY - STEP 3: Does the patient need only verbal/nonverbal cueing or touching/steadying/contact guard assistance fro m one helper? No. DRESSING - LOWER BODY - STEP 4: Does the patient need physical assistance - for example lifting or trunk support from one helper - wi th the helper providing less than half of the effort? Yes. 1. [id number] ADMISSION PERFORMANCE: Partial/moderate assistance CODE: 03 PUTTING ON/TAKING OFF FOOTWEAR: FOOTWEAR - STEP 1: Does the patient complete the activity by him/herself with no assistance (physical, verbal/nonverbal cueing, setup/clean-up)? No. FOOTWEAR - STEP 2: Does the patient need only setup/clean-up assistance from one helper? No. FOOTWEAR - STEP 3: Does the patient need only verbal/nonverbal cueing or touching/steadying/contact guard assistance fro m one helper? No. FOOTWEAR - STEP 4: Does the patient need physical assistance - for example lifting or trunk support from one helper - wi th the helper providing less than half of the effort? No. FOOTWEAR - STEP 5: Does the patient need physical assistance - for example lifting or trunk support from one helper - wi th the helper providing more than half of the effort? Yes. 1. [id number] ADMISSION PERFORMANCE: Substantial/maximal assistance CODE: 02 DOES THE PATIENT USE A WHEELCHAIR/SCOOTER? CODE: EXPR INDICATE THE TYPE OF WHEELCHAIR/SCOOTER USED: CODE: EXPR INDICATE THE TYPE OF WHEELCHAIR/SCOOTER USED: CODE: EXPR BLADDER AND BOWEL: CODE: EXPR CODE: EXPR SIGNATURE PANEL: The following modified sections: 1. [id number] Admission Performance, 1. [id number] Admission Performance, 1. [id number] Admission Performance, 1. [id number] Admission Performance, 1. [id number] Admission Performance, 1. [id number] Admission Performance were [electronically] signed by Almita Contreras OT on ThuJul 04 2019 13:12:23 GMT-0600 (Central Standard Time)
--- NOTE | 2019-07-04 14:39 | FAST ---
SHIFT START DATE/TIME: 07/04/2019 07:00 (SHANK MAKER) SHIFT END DATE/TIME: 07/04/2019 19:00 (SHANK MAKER) NAME KAILA BLANK DATE OF : 1975 DATE OF ADMISSION: 06/24/2019 22:33 (SHANK MAKER) PHONE: AGE: 43 N# [id number] GENDER: Male ENCOUNTER PHYSICIAN: Dr. Kodak Leslie M.D. ADMISSION DIAGNOSIS: - Stroke 01 - Right Body (Left Brain) (01.2) Hemorrhage in the left basal ganglia. EATING: EATING - STEP 1: Does the patient complete the activity by him/herself with no assistance (physical, verbal/nonverbal cueing, setup/clean-up)? No. EATING - STEP 2: Does the patient need only setup/clean-up assistance from one helper? Yes. 1. [id number] ADMISSION PERFORMANCE: Setup or clean-up assistance CODE: 05 ORAL HYGIENE: Not assessed/no information CODE: - TOILETING HYGIENE: TOILETING HYGIENE - STEP 1: Does the patient complete the activity by him/herself with no assistance (physical, verbal/nonverbal cueing, setup/clean-up)? No. TOILETING HYGIENE - STEP 2: Does the patient need only setup/clean-up assistance from one helper? No. TOILETING HYGIENE - STEP 3: Does the patient need only verbal/nonverbal cueing or touching/steadying/contact guard assistance fro m one helper? No. TOILETING HYGIENE - STEP 4: Does the patient need physical assistance - for example lifting or trunk support from one helper - wi th the helper providing less than half of the effort? No. TOILETING HYGIENE - STEP 5: Does the patient need physical assistance - for example lifting or trunk support from one helper - wi th the helper providing more than half of the effort? Yes. 1. [id number] ADMISSION PERFORMANCE: Substantial/maximal assistance CODE: 02 BATHING: Not assessed/no information CODE: - DRESSING - UPPER BODY: DRESSING - UPPER BODY - STEP 1: Does the patient complete the activity by him/herself with no assistance (physical, verbal/nonverbal cueing, setup/clean-up)? No. DRESSING - UPPER BODY - STEP 2: Does the patient need only setup/clean-up assistance from one helper? No. DRESSING - UPPER BODY - STEP 3: Does the patient need only verbal/nonverbal cueing or touching/steadying/contact guard assistance fro m one helper? Yes. 1. [id number] ADMISSION PERFORMANCE: Supervision or touching assistance CODE: 04 DRESSING - LOWER BODY: DRESSING - LOWER BODY - STEP 1: Does the patient complete the activity by him/herself with no assistance (physical, verbal/nonverbal cueing, setup/clean-up)? No. DRESSING - LOWER BODY - STEP 2: Does the patient need only setup/clean-up assistance from one helper? No. DRESSING - LOWER BODY - STEP 3: Does the patient need only verbal/nonverbal cueing or touching/steadying/contact guard assistance fro m one helper? No. DRESSING - LOWER BODY - STEP 4: Does the patient need physical assistance - for example lifting or trunk support from one helper - wi th the helper providing less than half of the effort? No. DRESSING - LOWER BODY - STEP 5: Does the patient need physical assistance - for example lifting or trunk support from one helper - wi th the helper providing more than half of the effort? Yes. 1. [id number] ADMISSION PERFORMANCE: Substantial/maximal assistance CODE: 02 PUTTING ON/TAKING OFF FOOTWEAR: FOOTWEAR - STEP 1: Does the patient complete the activity by him/herself with no assistance (physical, verbal/nonverbal cueing, setup/clean-up)? No. FOOTWEAR - STEP 2: Does the patient need only setup/clean-up assistance from one helper? No. FOOTWEAR - STEP 3: Does the patient need only verbal/nonverbal cueing or touching/steadying/contact guard assistance fro m one helper? No. FOOTWEAR - STEP 4: Does the patient need physical assistance - for example lifting or trunk support from one helper - wi th the helper providing less than half of the effort? No. FOOTWEAR - STEP 5: Does the patient need physical assistance - for example lifting or trunk support from one helper - wi th the helper providing more than half of the effort? Yes. 1. [id number] ADMISSION PERFORMANCE: Substantial/maximal assistance CODE: 02 ROLL LEFT AND RIGHT: ROLL LEFT AND RIGHT - STEP 1: Does the patient complete the activity by him/herself with no assistance (physical, verbal/nonverbal cueing, setup/clean-up)? No. ROLL LEFT AND RIGHT - STEP 2: Does the patient need only setup/clean-up assistance from one helper? Yes. 1. [id number] ADMISSION PERFORMANCE: Setup or clean-up assistance CODE: 05 SIT TO LYING: SIT TO LYING - STEP 1: Does the patient complete the activity by him/herself with no assistance (physical, verbal/nonverbal cueing, setup/clean-up)? No. SIT TO LYING - STEP 2: Does the patient need only setup/clean-up assistance from one helper? No. SIT TO LYING - STEP 3: Does the patient need only verbal/nonverbal cueing or touching/steadying/contact guard assistance fro m one helper? Yes. 1. [id number] ADMISSION PERFORMANCE: Supervision or touching assistance CODE: 04 LYING TO SITTING: LYING TO SITTING ON SIDE OF BED - STEP 1: Does the patient complete the activity by him/herself with no assistance (physical, verbal/nonverbal cueing, setup/clean-up)? No. LYING TO SITTING ON SIDE OF BED - STEP 2: Does the patient need only setup/clean-up assistance from one helper? No. LYING TO SITTING ON SIDE OF BED - STEP 3: Does the patient need only verbal/nonverbal cueing or touching/steadying/contact guard assistance fro m one helper? No. LYING TO SITTING ON SIDE OF BED - STEP 4: Does the patient need physical assistance - for example lifting or trunk support from one helper - wi th the helper providing less than half of the effort? No. LYING TO SITTING ON SIDE OF BED - STEP 5: Does the patient need physical assistance - for example lifting or trunk support from one helper - wi th the helper providing more than half of the effort? Yes. 1. [id number] ADMISSION PERFORMANCE: Substantial/maximal assistance CODE: 02 SIT TO STAND: SIT TO STAND - STEP 1: Does the patient complete the activity by him/herself with no assistance (physical, verbal/nonverbal cueing, setup/clean-up)? No. SIT TO STAND - STEP 2: Does the patient need only setup/clean-up assistance from one helper? No. SIT TO STAND - STEP 3: Does the patient need only verbal/nonverbal cueing or touching/steadying/contact guard assistance fro m one helper? No. SIT TO STAND - STEP 4: Does the patient need physical assistance - for example lifting or trunk support from one helper - wi th the helper providing less than half of the effort? No. SIT TO STAND - STEP 5: Does the patient need physical assistance - for example lifting or trunk support from one helper - wi th the helper providing more than half of the effort? Yes. 1. [id number] ADMISSION PERFORMANCE: Substantial/maximal assistance CODE: 02 TRANSFERS: BED, CHAIR: CHAIR/[id number] TRANSFER - STEP 1: Does the patient complete the activity by him/herself with no assistance (physical, verbal/nonverbal cueing, setup/clean-up)? No. CHAIR/[id number] TRANSFER - STEP 2: Does the patient need only setup/clean-up assistance from one helper? No. CHAIR/[id number] TRANSFER - STEP 3: Does the patient need only verbal/nonverbal cueing or touching/steadying/contact guard assistance fro m one helper? No. CHAIR/[id number] TRANSFER - STEP 4: Does the patient need physical assistance - for example lifting or trunk support from one helper - wi th the helper providing less than half of the effort? No. CHAIR/[id number] TRANSFER - STEP 5: Does the patient need physical assistance - for example lifting or trunk support from one helper - wi th the helper providing more than half of the effort? Yes. 1. [id number] ADMISSION PERFORMANCE: Substantial/maximal assistance CODE: 02 TRANSFER TOILET: TOILET TRANSFER - STEP 1: Does the patient complete the activity by him/herself with no assistance (physical, verbal/nonverbal cueing, setup/clean-up)? No. TOILET TRANSFER - STEP 2: Does the patient need only setup/clean-up assistance from one helper? No. TOILET TRANSFER - STEP 3: Does the patient need only verbal/nonverbal cueing or touching/steadying/contact guard assistance fro m one helper? No. TOILET TRANSFER - STEP 4: Does the patient need physical assistance - for example lifting or trunk support from one helper - wi th the helper providing less than half of the effort? No. TOILET TRANSFER - STEP 5: Does the patient need physical assistance - for example lifting or trunk support from one helper - wi th the helper providing more than half of the effort? Yes. 1. [id number] ADMISSION PERFORMANCE: Substantial/maximal assistance CODE: 02 TRANSFERS: CAR: Not assessed/no information CODE: - WALK 10 FEET: Not assessed/no information CODE: - 1 STEP (CURB): Not assessed/no information CODE: - PICKING UP OBJECT: Not assessed/no information CODE: - DOES THE PATIENT USE A WHEELCHAIR/SCOOTER? Q1. DOES THE PATIENT USE A WHEELCHAIR/SCOOTER?: Yes CODE: 1 WHEEL 50 FEET WITH TWO TURNS: WHEEL 50 FEET WITH TWO TURNS - STEP 1: Does the patient complete the activity by him/herself with no assistance (physical, verbal/nonverbal cueing, setup/clean-up)? No. WHEEL 50 FEET WITH TWO TURNS - STEP 2: Does the patient need only setup/clean-up assistance from one helper? No. WHEEL 50 FEET WITH TWO TURNS - STEP 3: Does the patient need only verbal/nonverbal cueing or touching/steadying/contact guard assistance fro m one helper? Yes. 1. [id number] ADMISSION PERFORMANCE: Supervision or touching assistance CODE: 04 INDICATE THE TYPE OF WHEELCHAIR/SCOOTER USED: RR1. INDICATE THE TYPE OF WHEELCHAIR/SCOOTER USED.: Manual CODE: 1 WHEEL 150 FEET: Not assessed/no information CODE: - INDICATE THE TYPE OF WHEELCHAIR/SCOOTER USED: SS1. INDICATE THE TYPE OF WHEELCHAIR/SCOOTER USED.: Manual CODE: 1 BLADDER AND BOWEL: H350. BLADDER CONTINENCE (3-DAY ASSESSMENT PERIOD): Incontinent daily (at least once a day) CODE: 3 H400. BOWEL CONTINENCE (3-DAY ASSESSMENT PERIOD): Occasionally incontinent (one episode of bowel incontinence) CODE: 1 SIGNATURE PANEL: The following modified sections: 1. [id number] Admission Performance, 1. [id number] Admission Performance, 1. [id number] Admission Performance, 1. [id number] Admission Performance, 1. [id number] Admission Performance, 1. [id number] Admission Performance, 1. [id number] Admission Performance, 1. [id number] Admission Performance , 1. [id number] Admission Performance, 1. [id number] Admission Performance, 1. [id number] Admission Performanc e, 1. [id number] Admission Performance, 1. [id number] Admission Performance, 1. [id number] Admission Performan ce, 1. [id number] Admission Performance, Q1. Does the patient use a wheelchair/scooter?, 1. [id number] Admi ssion Performance, RR1. Indicate the type of wheelchair/scooter used., Code, SS1. Indicate the type o f wheelchair/scooter used., H350. Bladder Continence (3-day assessment period), H400. Bowel Continenc e (3-day assessment period) were [electronically] signed by Kevin UribeNMyla on ThuJul 04 2019 1 4:37:59 T-0600 (Central Standard Time)
[2019-07-04] MEDS: ENOXAPARIN 40 MG/0.4 ML SQ SCH (16:34)
--- NOTE | 2019-07-04 17:35 | R.PN ---
ENCOUNTER DATE AND TIME: 07/04/2019 17:31 (INJECTION MOLDING ENGINEER) NAME KAILA BLANK DATE OF : 1975 DATE OF ADMISSION: 06/24/2019 22:33 (INJECTION MOLDING ENGINEER) Hemorrhage in the left basal gangliaCHIEF COMPLAINT: Left basal ganglia hemorrhage, right sided weakness SUBJECTIVE: Pt denied any Shortness of Breath. Pt denied any depression. KUB 06/29/19 shows no obstruction. He still has significant dysphagia. He is on pureed diet. Glucose 96 to 183. Hgb is 10.7, WBC 8.6 He ambulated 8' x 6 in the parallel bars partial assistance. VITAL SIGNS Temperature: 97.4F SBP/DBP: 145/71 Pulse: 73 Resp: 16 MEDICATION ALLERGIES: No Known Drug Allergies (NKDA) ENVIRONMENTAL ALLERGIES: - Substance Allergies None Known - Other Allergies None Known NURSING: - Shower allowing shower - Bladder care per protocol - Skin care per protocol PRECAUTIONS: - Weight Bearing Precaution WBAT right LE ACTIVITIES OOB only with supervision THERAPIES: - Occupational Therapy Cognitive Retraining. Visual Perceptual Training. - Dietary and Nutrition Adequate Nutrition. Nutritional Education. Nutritional Supplements. - Speech Therapy Cognitive Training. Expressive Language Skills. Memory Strategies. Receptive Language Skills. Speech Intelligibility Training. PHYSICAL EXAM - Gen Alert and awake Lying in bed No apparent distress Oriented to: person, time, and place - Skin No breakdown Normacephalic - Eyes No abnormalities - ENMT No abnormalities - Neck No abnormalities No cervical adenopathy - CVS RRR - Chest No abnormalities - Resp CTA bilaterally - Abd Soft - GI Non distended Deferred - No abnormalities - Ext Mild right upper and lower extremity edema. - MSK 1/5 weakness in right upper and lower extremities. - Neuro 1/5 weakness in right upper and lower extremities. - Psych Moderate depression. ASSESSMENT: Pt. is a 43 yo Right-handed white male.On 06/20/2019 Pt. presented to [facility] with sudden onset of right-side weakness.On 06/20/2019 he was admitted to [facility] with diagnosis Hemorrhage in the left basal ganglia.His impairment category is Stro ke 01 - Right Body (Left Brain) (01.2).Pre-morbidly, Pt. was independent/mod-I in Locomotion, Self-C are, Endurance, Communication, pain limiting function, Safety Awareness and Self-Care, and Sphincter Control; and he had good Balance.Currently, he has deficits of Locomotion, Self-Care, Endurance, Cali nce, Transfers Control, Safety Awareness, Ambulation, Social Cognition, pain limiting function, Safet y Awareness and Self-Care, Functional mobility, and Sphincter Control.Pt. is now referred to [facility] for acute in-patient rehabilitation in order to maximize patient's function al independence in activities of daily living, strength, ROM, and mobility.- Rehab Goal Patient has realistic goal of being discharged at assistance level 6-Cari to reside at Home with Fam desiree/Relatives. MDM/PLAN: - Physical Therapy Gait dysfunction - to improve, our physical therapists will perform initial evaluation of pt's statu s upon admission and devise an individualized program for Gait Training, and Wheel Chair mobility Inability to transfer - to improve, our physical therapists will perform initial evaluation of pt's status upon admission and devise an individualized program for Bed mobility Need for home safety evaluation - to improve, our physical therapists will perform initial evaluatio n of pt's status upon admission and devise an individualized program for Home Evaluation Need in caregiver upon discharge - to improve, our physical therapists will perform initial evaluati on of pt's status upon admission and devise an individualized program for Caregiver Training Edema - to improve, our physical therapists will perform initial evaluation of pt's status upon admi ssion and devise an individualized program for Elevation Training, and Lymphedema Therapy New precaution - to improve, our physical therapists will perform initial evaluation of pt's status upon admission and devise an individualized program for Patient precaution education Poor balance - to improve, our physical therapists will perform initial evaluation of pt's status up on admission and devise an individualized program for Balance Training Poor endurance - to improve, our physical therapists will perform initial evaluation of pt's status upon admission and devise an individualized program for Endurance Training Weakness - to improve, our physical therapists will perform initial evaluation of pt's status upon a dmission and devise an individualized program for Aquatic Therapy, Neuromuscular Reeducation, and Str engthening Achieving independence - to improve, our physical therapists will perform initial evaluation of pt's status upon admission and devise an individualized program for Community Reintegration Activities - Occupational Therapy ADL deficits - to improve, our occupation therapists will perform initial evaluation of pt's status upon admission and devise an individualized program for Bathing, Bed mobility, Community Reintegratio n, Cooking, Dressing, Eating, Fine Motor Skills, Grooming, Homemaking, Kitchen Mobility, Laundry, Pat ient Education, Safety Awareness, Splinting - Positioning, Transfers(Toilet, Tub, Shower), and Wheel Chair Management Cognitive deficits - to improve, our occupation therapists will perform initial evaluation of pt's s tatus upon admission and devise an individualized program for Cognition - orientation Need for health and social care teacher - to improve, our occupation therapists will perform initial evaluation of pt's status upon admission and devise an individualized program for Caregiver Training Weakness - to improve, our occupation therapists will perform initial evaluation of pt's status upon admission and devise an individualized program for Aquatic Therapy, Balance, Endurance, UE ROM, and UE strengthening - Other See attached MAR (Medication Administration Record) - Diet Type Continue Regular - Diet - Liquid Texture Continue Regular - Tube Feed Continue N/A - Bladder care per protocol - Weight Bearing Precaution WBAT right LE - Skin care per protocol - Diet - Solid Texture Continue Regular - Shower allowing shower for Dementia, TBI, Stroke, or others FUNCTIONAL STATUS: UPDATED AT WEEKLY TEAM CONFERENCE - Bladder Same accident frequency: 7-Ind - No accidents in the past 7 days - Bowel Same accident frequency: 7-Ind - No accidents in the past 7 days - Walking Same score based on distance walked: 1(<=50ft) - Wheelchair Same score based on distance traveled: 1(<=50ft) FUNCTIONAL STATUS: - Self-Care A. Eating maxA B. Grooming modA C. Bathing modA D. Dressing - Upper modA E. Dressing - Lower maxA F. Toileting maxA - Sphincter Control G. Bladder control modA H. Bowel control modA - Transfers Control I. Bed/Chair/Wheelchair maxA J. Toilet maxA K. Tub/Shower maxA - Locomotion L. Walk/Wheelchair (W) maxA M. Stairs ADNO - Communication N. Comprehension (B) Shivam O. Expression (B) Shivma - Social Cognition P. Social Interaction sup Q. Problem Solving sup R. Memory sup - Endurance Good - Balance Good - Safety Awareness Good QI SCORES: - Self-Care A. Eating 05-Setup or clean-up assistance B. Oral hygiene 05-Setup or clean-up assistance C. Toileting hygiene 02-Substantial/maximal assistance E. Shower/bathe self 88-Not attempted due to medical condition or safety concerns F. Upper body dressing 02-Substantial/maximal assistance G. Lower body dressing 02-Substantial/maximal assistance H. Putting on/taking off footwear 88-Not attempted due to medical condition or safety concerns - Mobility A. Roll left and right 02-Substantial/maximal assistance B. Sit to lying 02-Substantial/maximal assistance C. Lying to sitting on side of bed 02-Substantial/maximal assistance D. Sit to stand 04-Supervision or touching assistance E. Chair/[id number] transfer 02-Substantial/maximal assistance F. Toilet transfer 02-Substantial/maximal assistance G. Car transfer 88-Not attempted due to medical condition or safety concerns I. Walk 10 feet 88-Not attempted due to medical condition or safety concerns J. Walk 50 feet with two turns 88-Not attempted due to medical condition or safety concerns K. Walk 150 feet 88-Not attempted due to medical condition or safety concerns L. Walking 10 feet on uneven surfaces 88-Not attempted due to medical condition or safety concerns M. 1 step (curb) 88-Not attempted due to medical condition or safety concerns N. 4 steps 88-Not attempted due to medical condition or safety concerns O. 12 steps 88-Not attempted due to medical condition or safety concerns P. Picking up object 88-Not attempted due to medical condition or safety concerns R. Wheel 50 feet with two turns 88-Not attempted due to medical condition or safety concerns S. Wheel 150 feet 88-Not attempted due to medical condition or safety concerns - Bladder and Bowel Bladder continence 3-Incontinent daily Bowel continence 3-Always incontinent - Endurance Poor - Balance Poor - Safety Awareness Poor CURRENT FUNC. DEFICITS: Self-Care, Mobility, Endurance, Balance, and Safety Awareness SIGNATURE PANEL: (INJECTION MOLDING ENGINEER)
[2019-07-04] MEDS: ATORVASTATIN 40 MG TAB PO SCH (20:20)
[2019-07-04] MEDS: MELATONIN 3 MG TABLET PO PRN (20:20)
[2019-07-05] MEDS: carvediloL 12.5 MG TAB PO SCH ×2 (05:15→17:30)
[2019-07-05] MEDS: INSULIN -REGULAR HUMAN 50 UNIT/0.5 ML ML SQ SCH ×4 (07:15→20:19)
[2019-07-05] MEDS: MUPIROCIN 2% OINT 22GM TUBE TOP SCH (08:00)
[2019-07-05] MEDS: FE SULF/FA/VIT B COMP & C TAB PO SCH (08:00)
[2019-07-05] MEDS: FERROUS SULFATE 325 MG TAB PO SCH (09:42)
[2019-07-05] MEDS: HYDRALAZINE HCL 25 MG TABLET PO SCH ×3 (09:42→20:18)
[2019-07-05] MEDS: PANTOPRAZOLE 40MG TABLET PO SCH (09:43)
[2019-07-05] MEDS: AMLODIPINE 5 MG TAB PO SCH (09:43)
[2019-07-05] MEDS: SMZ./TMP. 800/160 MG TABLET PO SCH ×2 (09:43→20:16)
[2019-07-05] MEDS: NIFEDIPINE XL 30 MG TABLET PO SCH (11:43)
--- NOTE | 2019-07-05 14:48 | RAD REPORT ---
EXAM DESCRIPTION: RAD - Barium Swallow Modified - 07/05/2019 2:39 pm CLINICAL HISTORY: Dysphagia/cough/choking FINDINGS: LARYNGEAL PENTRATION : CLEARED WITH THIN PLUS TABLET NO ASPIRATION SEEN PHARYNGEAL RESIDUE: VALLECULAR,AND PYRIFORM WITH MILD WITH HONEY AND PUREE AND MALICK CRACKER OTHER MINIMALLY DELAYED SWALLOW RESPONSE MILD RETROPULSION /RETENTION OF BARIUM IN ESOPHAGUS MILD DELAY IN BARIUM TABLET EMPTYING INTO LES FLUORO TIME :2.55 MIN 21 fluoroscopic spot series obtained
[2019-07-05] MEDS: ENOXAPARIN 40 MG/0.4 ML SQ SCH (16:42)
[2019-07-05] MEDS: ACETAMINOPHEN 500 MG TAB PO PRN (20:16)
[2019-07-05] MEDS: ATORVASTATIN 40 MG TAB PO SCH (20:16)
[2019-07-05] MEDS: MELATONIN 3 MG TABLET PO PRN (20:18)
[2019-07-06] MEDS: carvediloL 12.5 MG TAB PO SCH ×2 (05:14→17:02)
[2019-07-06] MEDS: INSULIN -REGULAR HUMAN 50 UNIT/0.5 ML ML SQ SCH ×4 (07:30→19:51)
[2019-07-06] MEDS: AMLODIPINE 5 MG TAB PO SCH (07:49)
[2019-07-06] MEDS: FERROUS SULFATE 325 MG TAB PO SCH (07:49)
[2019-07-06] MEDS: SMZ./TMP. 800/160 MG TABLET PO SCH ×2 (07:50→19:51)
[2019-07-06] MEDS: PANTOPRAZOLE 40MG TABLET PO SCH (07:50)
[2019-07-06] MEDS: NIFEDIPINE XL 30 MG TABLET PO SCH (07:50)
[2019-07-06] MEDS: FE SULF/FA/VIT B COMP & C TAB PO SCH (07:50)
[2019-07-06] MEDS: HYDRALAZINE HCL 25 MG TABLET PO SCH ×3 (07:50→19:51)
[2019-07-06] MEDS: MUPIROCIN 2% OINT 22GM TUBE TOP SCH (07:52)
--- NOTE | 2019-07-06 16:45 | R.PN ---
ENCOUNTER DATE AND TIME: 07/05/2019 16:38 (CATALYTIC CONVERTER OPERATOR HELPER) NAME KAILA BLANK DATE OF : 1975 DATE OF ADMISSION: 06/24/2019 22:33 (CATALYTIC CONVERTER OPERATOR HELPER) Hemorrhage in the left basal gangliaCHIEF COMPLAINT: Left basal ganglia hemorrhage, right sided weakness SUBJECTIVE: Pt denied any Shortness of Breath. Pt denied any depression. KUB 06/29/19 shows no obstruction. He still has significant dysphagia. He is on pureed diet. Glucose 98 to 142. Hgb is 10.7, WBC 8.6 He ambulated 28' with left hemiwalker and maximum assistance. Self-propelled wheelchair 250' with par tial assistance. Barium swallow shows now aspiration of thin liquid with pill. VITAL SIGNS Temperature: 97.2 F SBP/DBP: 142/73 Pulse: 71 Resp: 16 MEDICATION ALLERGIES: No Known Drug Allergies (NKDA) ENVIRONMENTAL ALLERGIES: - Substance Allergies None Known - Other Allergies None Known NURSING: - Shower allowing shower - Bladder care per protocol - Skin care per protocol PRECAUTIONS: - Weight Bearing Precaution WBAT right LE ACTIVITIES OOB only with supervision THERAPIES: - Occupational Therapy Cognitive Retraining. Visual Perceptual Training. - Dietary and Nutrition Adequate Nutrition. Nutritional Education. Nutritional Supplements. - Speech Therapy Cognitive Training. Expressive Language Skills. Memory Strategies. Receptive Language Skills. Speech Intelligibility Training. PHYSICAL EXAM - Gen Alert and awake Lying in bed No apparent distress Oriented to: person, time, and place - Skin No breakdown Normacephalic - Eyes No abnormalities - ENMT No abnormalities - Neck No abnormalities No cervical adenopathy - CVS RRR - Chest No abnormalities - Resp CTA bilaterally - Abd Soft - GI Non distended Deferred - No abnormalities - Ext Mild right upper and lower extremity edema. - MSK 1/5 weakness in right upper and lower extremities. - Neuro 1/5 weakness in right upper and lower extremities. - Psych Moderate depression. ASSESSMENT: Pt. is a 43 yo Right-handed white male.On 06/20/2019 Pt. presented to [facility] with sudden onset of right-side weakness.On 06/20/2019 he was admitted to [facility] with diagnosis Hemorrhage in the left basal ganglia.His impairment category is Stro ke 01 - Right Body (Left Brain) (01.2).Pre-morbidly, Pt. was independent/mod-I in Locomotion, Self-C are, Endurance, Communication, pain limiting function, Safety Awareness and Self-Care, and Sphincter Control; and he had good Balance.Currently, he has deficits of Locomotion, Self-Care, Endurance, Cali nce, Transfers Control, Safety Awareness, Ambulation, Social Cognition, pain limiting function, Safet y Awareness and Self-Care, Functional mobility, and Sphincter Control.Pt. is now referred to [facility] for acute in-patient rehabilitation in order to maximize patient's function al independence in activities of daily living, strength, ROM, and mobility.- Rehab Goal Patient has realistic goal of being discharged at assistance level 6-Cari to reside at Home with Fam desiree/Relatives. MDM/PLAN: - Physical Therapy Gait dysfunction - to improve, our physical therapists will perform initial evaluation of pt's statu s upon admission and devise an individualized program for Gait Training, and Wheel Chair mobility Inability to transfer - to improve, our physical therapists will perform initial evaluation of pt's status upon admission and devise an individualized program for Bed mobility Need for home safety evaluation - to improve, our physical therapists will perform initial evaluatio n of pt's status upon admission and devise an individualized program for Home Evaluation Need in caregiver upon discharge - to improve, our physical therapists will perform initial evaluati on of pt's status upon admission and devise an individualized program for Caregiver Training Edema - to improve, our physical therapists will perform initial evaluation of pt's status upon admi ssion and devise an individualized program for Elevation Training, and Lymphedema Therapy New precaution - to improve, our physical therapists will perform initial evaluation of pt's status upon admission and devise an individualized program for Patient precaution education Poor balance - to improve, our physical therapists will perform initial evaluation of pt's status up on admission and devise an individualized program for Balance Training Poor endurance - to improve, our physical therapists will perform initial evaluation of pt's status upon admission and devise an individualized program for Endurance Training Weakness - to improve, our physical therapists will perform initial evaluation of pt's status upon a dmission and devise an individualized program for Aquatic Therapy, Neuromuscular Reeducation, and Str engthening Achieving independence - to improve, our physical therapists will perform initial evaluation of pt's status upon admission and devise an individualized program for Community Reintegration Activities - Occupational Therapy ADL deficits - to improve, our occupation therapists will perform initial evaluation of pt's status upon admission and devise an individualized program for Bathing, Bed mobility, Community Reintegratio n, Cooking, Dressing, Eating, Fine Motor Skills, Grooming, Homemaking, Kitchen Mobility, Laundry, Pat ient Education, Safety Awareness, Splinting - Positioning, Transfers(Toilet, Tub, Shower), and Wheel Chair Management Cognitive deficits - to improve, our occupation therapists will perform initial evaluation of pt's s tatus upon admission and devise an individualized program for Cognition - orientation Need for care provider - to improve, our occupation therapists will perform initial evaluation of pt's status upon admission and devise an individualized program for Caregiver Training Weakness - to improve, our occupation therapists will perform initial evaluation of pt's status upon admission and devise an individualized program for Aquatic Therapy, Balance, Endurance, UE ROM, and UE strengthening - Other See attached MAR (Medication Administration Record) - Diet Type Continue Regular - Diet - Liquid Texture Continue Regular - Tube Feed Continue N/A - Bladder care per protocol - Weight Bearing Precaution WBAT right LE - Skin care per protocol - Diet - Solid Texture Continue Regular - Shower allowing shower for Dementia, TBI, Stroke, or others FUNCTIONAL STATUS: UPDATED AT WEEKLY TEAM CONFERENCE - Bladder Same accident frequency: 7-Ind - No accidents in the past 7 days - Bowel Same accident frequency: 7-Ind - No accidents in the past 7 days - Walking Same score based on distance walked: 1(<=50ft) - Wheelchair Same score based on distance traveled: 1(<=50ft) FUNCTIONAL STATUS: - Self-Care A. Eating maxA B. Grooming modA C. Bathing modA D. Dressing - Upper modA E. Dressing - Lower maxA F. Toileting maxA - Sphincter Control G. Bladder control modA H. Bowel control modA - Transfers Control I. Bed/Chair/Wheelchair maxA J. Toilet maxA K. Tub/Shower maxA - Locomotion L. Walk/Wheelchair (W) maxA M. Stairs ADNO - Communication N. Comprehension (B) Shivam O. Expression (B) Shivam - Social Cognition P. Social Interaction sup Q. Problem Solving sup R. Memory sup - Endurance Good - Balance Good - Safety Awareness Good QI SCORES: - Self-Care A. Eating 05-Setup or clean-up assistance B. Oral hygiene 05-Setup or clean-up assistance C. Toileting hygiene 02-Substantial/maximal assistance E. Shower/bathe self 88-Not attempted due to medical condition or safety concerns F. Upper body dressing 02-Substantial/maximal assistance G. Lower body dressing 02-Substantial/maximal assistance H. Putting on/taking off footwear 88-Not attempted due to medical condition or safety concerns - Mobility A. Roll left and right 02-Substantial/maximal assistance B. Sit to lying 02-Substantial/maximal assistance C. Lying to sitting on side of bed 02-Substantial/maximal assistance D. Sit to stand 04-Supervision or touching assistance E. Chair/[id number] transfer 02-Substantial/maximal assistance F. Toilet transfer 02-Substantial/maximal assistance G. Car transfer 88-Not attempted due to medical condition or safety concerns I. Walk 10 feet 88-Not attempted due to medical condition or safety concerns J. Walk 50 feet with two turns 88-Not attempted due to medical condition or safety concerns K. Walk 150 feet 88-Not attempted due to medical condition or safety concerns L. Walking 10 feet on uneven surfaces 88-Not attempted due to medical condition or safety concerns M. 1 step (curb) 88-Not attempted due to medical condition or safety concerns N. 4 steps 88-Not attempted due to medical condition or safety concerns O. 12 steps 88-Not attempted due to medical condition or safety concerns P. Picking up object 88-Not attempted due to medical condition or safety concerns R. Wheel 50 feet with two turns 88-Not attempted due to medical condition or safety concerns S. Wheel 150 feet 88-Not attempted due to medical condition or safety concerns - Bladder and Bowel Bladder continence 3-Incontinent daily Bowel continence 3-Always incontinent - Endurance Poor - Balance Poor - Safety Awareness Poor CURRENT FUNC. DEFICITS: Self-Care, Mobility, Endurance, Balance, and Safety Awareness SIGNATURE PANEL: (CATALYTIC CONVERTER OPERATOR HELPER)
[2019-07-06] MEDS: ENOXAPARIN 40 MG/0.4 ML SQ SCH (17:01)
[2019-07-06] MEDS: ATORVASTATIN 40 MG TAB PO SCH (19:51)
--- NOTE | 2019-07-06 21:54 | R.PN ---
ENCOUNTER DATE AND TIME: 07/06/2019 21:50 (SLOT FLOOR ATTENDANT) NAME KAILA BLANK DATE OF : 1975 DATE OF ADMISSION: 06/24/2019 22:33 (SLOT FLOOR ATTENDANT) Hemorrhage in the left basal gangliaCHIEF COMPLAINT: Left basal ganglia hemorrhage, right sided weakness SUBJECTIVE: Pt denied any Shortness of Breath. Pt denied any depression. KUB 06/29/19 shows no obstruction. He still has significant dysphagia. He is on pureed diet. Glucose 98 to 142. Hgb is 10.7, WBC 8.6 He ambulated 20' with left hemiwalker and maximum assistance. Self-propelled wheelchair 250' with par tial assistance. Barium swallow shows no aspiration of thin liquid with pill. VITAL SIGNS Temperature: 97.2 F SBP/DBP: 146/77 Pulse: 75 Resp: 16 MEDICATION ALLERGIES: No Known Drug Allergies (NKDA) ENVIRONMENTAL ALLERGIES: - Substance Allergies None Known - Other Allergies None Known NURSING: - Shower allowing shower - Bladder care per protocol - Skin care per protocol PRECAUTIONS: - Weight Bearing Precaution WBAT right LE ACTIVITIES OOB only with supervision THERAPIES: - Occupational Therapy Cognitive Retraining. Visual Perceptual Training. - Dietary and Nutrition Adequate Nutrition. Nutritional Education. Nutritional Supplements. - Speech Therapy Cognitive Training. Expressive Language Skills. Memory Strategies. Receptive Language Skills. Speech Intelligibility Training. PHYSICAL EXAM - Gen Alert and awake Lying in bed No apparent distress Oriented to: person, time, and place - Skin No breakdown Normacephalic - Eyes No abnormalities - ENMT No abnormalities - Neck No abnormalities No cervical adenopathy - CVS RRR - Chest No abnormalities - Resp CTA bilaterally - Abd Soft - GI Non distended Deferred - No abnormalities - Ext Mild right upper and lower extremity edema. - MSK 1/5 weakness in right upper and lower extremities. - Neuro 1/5 weakness in right upper and lower extremities. - Psych Moderate depression. ASSESSMENT: Pt. is a 43 yo Right-handed white male.On 06/20/2019 Pt. presented to [facility] with sudden onset of right-side weakness.On 06/20/2019 he was admitted to [facility] with diagnosis Hemorrhage in the left basal ganglia.His impairment category is Stro ke 01 - Right Body (Left Brain) (01.2).Pre-morbidly, Pt. was independent/mod-I in Locomotion, Self-C are, Endurance, Communication, pain limiting function, Safety Awareness and Self-Care, and Sphincter Control; and he had good Balance.Currently, he has deficits of Locomotion, Self-Care, Endurance, Cali nce, Transfers Control, Safety Awareness, Ambulation, Social Cognition, pain limiting function, Safet y Awareness and Self-Care, Functional mobility, and Sphincter Control.Pt. is now referred to [facility] for acute in-patient rehabilitation in order to maximize patient's function al independence in activities of daily living, strength, ROM, and mobility.- Rehab Goal Patient has realistic goal of being discharged at assistance level 6-Cari to reside at Home with Fam desiree/Relatives. MDM/PLAN: - Physical Therapy Gait dysfunction - to improve, our physical therapists will perform initial evaluation of pt's statu s upon admission and devise an individualized program for Gait Training, and Wheel Chair mobility Inability to transfer - to improve, our physical therapists will perform initial evaluation of pt's status upon admission and devise an individualized program for Bed mobility Need for home safety evaluation - to improve, our physical therapists will perform initial evaluatio n of pt's status upon admission and devise an individualized program for Home Evaluation Need in caregiver upon discharge - to improve, our physical therapists will perform initial evaluati on of pt's status upon admission and devise an individualized program for Caregiver Training Edema - to improve, our physical therapists will perform initial evaluation of pt's status upon admi ssion and devise an individualized program for Elevation Training, and Lymphedema Therapy New precaution - to improve, our physical therapists will perform initial evaluation of pt's status upon admission and devise an individualized program for Patient precaution education Poor balance - to improve, our physical therapists will perform initial evaluation of pt's status up on admission and devise an individualized program for Balance Training Poor endurance - to improve, our physical therapists will perform initial evaluation of pt's status upon admission and devise an individualized program for Endurance Training Weakness - to improve, our physical therapists will perform initial evaluation of pt's status upon a dmission and devise an individualized program for Aquatic Therapy, Neuromuscular Reeducation, and Str engthening Achieving independence - to improve, our physical therapists will perform initial evaluation of pt's status upon admission and devise an individualized program for Community Reintegration Activities - Occupational Therapy ADL deficits - to improve, our occupation therapists will perform initial evaluation of pt's status upon admission and devise an individualized program for Bathing, Bed mobility, Community Reintegratio n, Cooking, Dressing, Eating, Fine Motor Skills, Grooming, Homemaking, Kitchen Mobility, Laundry, Pat ient Education, Safety Awareness, Splinting - Positioning, Transfers(Toilet, Tub, Shower), and Wheel Chair Management Cognitive deficits - to improve, our occupation therapists will perform initial evaluation of pt's s tatus upon admission and devise an individualized program for Cognition - orientation Need for neurocritical care physician - to improve, our occupation therapists will perform initial evaluation of pt's status upon admission and devise an individualized program for Caregiver Training Weakness - to improve, our occupation therapists will perform initial evaluation of pt's status upon admission and devise an individualized program for Aquatic Therapy, Balance, Endurance, UE ROM, and UE strengthening - Other See attached MAR (Medication Administration Record) - Diet Type Continue Regular - Diet - Liquid Texture Continue Regular - Tube Feed Continue N/A - Bladder care per protocol - Weight Bearing Precaution WBAT right LE - Skin care per protocol - Diet - Solid Texture Continue Regular - Shower allowing shower for Dementia, TBI, Stroke, or others FUNCTIONAL STATUS: UPDATED AT WEEKLY TEAM CONFERENCE - Bladder Same accident frequency: 7-Ind - No accidents in the past 7 days - Bowel Same accident frequency: 7-Ind - No accidents in the past 7 days - Walking Same score based on distance walked: 1(<=50ft) - Wheelchair Same score based on distance traveled: 1(<=50ft) FUNCTIONAL STATUS: - Self-Care A. Eating maxA B. Grooming modA C. Bathing modA D. Dressing - Upper modA E. Dressing - Lower maxA F. Toileting maxA - Sphincter Control G. Bladder control modA H. Bowel control modA - Transfers Control I. Bed/Chair/Wheelchair maxA J. Toilet maxA K. Tub/Shower maxA - Locomotion L. Walk/Wheelchair (W) maxA M. Stairs ADNO - Communication N. Comprehension (B) Shivam O. Expression (B) Shivam - Social Cognition P. Social Interaction sup Q. Problem Solving sup R. Memory sup - Endurance Good - Balance Good - Safety Awareness Good QI SCORES: - Self-Care A. Eating 05-Setup or clean-up assistance B. Oral hygiene 05-Setup or clean-up assistance C. Toileting hygiene 02-Substantial/maximal assistance E. Shower/bathe self 88-Not attempted due to medical condition or safety concerns F. Upper body dressing 02-Substantial/maximal assistance G. Lower body dressing 02-Substantial/maximal assistance H. Putting on/taking off footwear 88-Not attempted due to medical condition or safety concerns - Mobility A. Roll left and right 02-Substantial/maximal assistance B. Sit to lying 02-Substantial/maximal assistance C. Lying to sitting on side of bed 02-Substantial/maximal assistance D. Sit to stand 04-Supervision or touching assistance E. Chair/mhw-bt-[id number] transfer 02-Substantial/maximal assistance F. Toilet transfer 02-Substantial/maximal assistance G. Car transfer 88-Not attempted due to medical condition or safety concerns I. Walk 10 feet 88-Not attempted due to medical condition or safety concerns J. Walk 50 feet with two turns 88-Not attempted due to medical condition or safety concerns K. Walk 150 feet 88-Not attempted due to medical condition or safety concerns L. Walking 10 feet on uneven surfaces 88-Not attempted due to medical condition or safety concerns M. 1 step (curb) 88-Not attempted due to medical condition or safety concerns N. 4 steps 88-Not attempted due to medical condition or safety concerns O. 12 steps 88-Not attempted due to medical condition or safety concerns P. Picking up object 88-Not attempted due to medical condition or safety concerns R. Wheel 50 feet with two turns 88-Not attempted due to medical condition or safety concerns S. Wheel 150 feet 88-Not attempted due to medical condition or safety concerns - Bladder and Bowel Bladder continence 3-Incontinent daily Bowel continence 3-Always incontinent - Endurance Poor - Balance Poor - Safety Awareness Poor CURRENT FUNC. DEFICITS: Self-Care, Mobility, Endurance, Balance, and Safety Awareness SIGNATURE PANEL: (SLOT FLOOR ATTENDANT)
[2019-07-07] MEDS: carvediloL 12.5 MG TAB PO SCH ×2 (05:19→16:59)
[2019-07-07 07:01] LABS: Absolute Lymphocytes (CBC) 1.8 K/uL (0.7-4.9); Basophils % 0.9 % (0-1.3); Hematocrit 28.3 % (39.6-49.0); MPV 9.5 fL (7.6-11.3); RBC Red Blood Cell Count 3.18 M/uL (4.33-5.43)
[2019-07-07] MEDS: INSULIN -REGULAR HUMAN 50 UNIT/0.5 ML ML SQ SCH ×4 (07:30→20:39)
[2019-07-07] MEDS: MUPIROCIN 2% OINT 22GM TUBE TOP SCH (08:00)
[2019-07-07 08:52] LABS: Albumin 2.7 g/dL (3.4-5.0); Magnesium 2.1 mg/dL (1.8-2.4); Potassium 5.3 mmol/L (3.5-5.1); Prealbumin 44.3 mg/dL (20-40)
[2019-07-07] MEDS: AMLODIPINE 5 MG TAB PO SCH (08:54)
[2019-07-07] MEDS: SMZ./TMP. 800/160 MG TABLET PO SCH ×2 (08:56→19:03)
[2019-07-07] MEDS: HYDRALAZINE HCL 25 MG TABLET PO SCH ×3 (08:56→19:03)
[2019-07-07] MEDS: PANTOPRAZOLE 40MG TABLET PO SCH (08:56)
[2019-07-07] MEDS: FE SULF/FA/VIT B COMP & C TAB PO SCH (08:56)
[2019-07-07] MEDS: FERROUS SULFATE 325 MG TAB PO SCH (08:56)
[2019-07-07] MEDS: NIFEDIPINE XL 30 MG TABLET PO SCH (08:57)
--- NOTE | 2019-07-07 16:06 | FAST ---
ENCOUNTER DATE AND TIME: 07/07/2019 08:00 (EMERGENCY DEPARTMENT DIRECTOR) NAME KAILA BLANK DATE OF : 1975 DATE OF ADMISSION: 06/24/2019 22:33 (EMERGENCY DEPARTMENT DIRECTOR) PHONE: AGE: 43 N# [id number] GENDER: Male ENCOUNTER PHYSICIAN: Dr. Kodak Leslie M.D. ADMISSION DIAGNOSIS: - Stroke 01 - Right Body (Left Brain) (01.2) Hemorrhage in the left basal ganglia. ROLL LEFT AND RIGHT: ROLL LEFT AND RIGHT - STEP 1: Does the patient complete the activity by him/herself with no assistance (physical, verbal/nonverbal cueing, setup/clean-up)? No. ROLL LEFT AND RIGHT - STEP 2: Does the patient need only setup/clean-up assistance from one helper? No. ROLL LEFT AND RIGHT - STEP 3: Does the patient need only verbal/nonverbal cueing or touching/steadying/contact guard assistance fro m one helper? No. ROLL LEFT AND RIGHT - STEP 4: Does the patient need physical assistance - for example lifting or trunk support from one helper - wi th the helper providing less than half of the effort? Yes. 1. [id number] ADMISSION PERFORMANCE: Partial/moderate assistance CODE: 03 SIT TO LYING: SIT TO LYING - STEP 1: Does the patient complete the activity by him/herself with no assistance (physical, verbal/nonverbal cueing, setup/clean-up)? No. SIT TO LYING - STEP 2: Does the patient need only setup/clean-up assistance from one helper? No. SIT TO LYING - STEP 3: Does the patient need only verbal/nonverbal cueing or touching/steadying/contact guard assistance fro m one helper? No. SIT TO LYING - STEP 4: Does the patient need physical assistance - for example lifting or trunk support from one helper - wi th the helper providing less than half of the effort? Yes. 1. [id number] ADMISSION PERFORMANCE: Partial/moderate assistance CODE: 03 LYING TO SITTING: LYING TO SITTING ON SIDE OF BED - STEP 1: Does the patient complete the activity by him/herself with no assistance (physical, verbal/nonverbal cueing, setup/clean-up)? No. LYING TO SITTING ON SIDE OF BED - STEP 2: Does the patient need only setup/clean-up assistance from one helper? No. LYING TO SITTING ON SIDE OF BED - STEP 3: Does the patient need only verbal/nonverbal cueing or touching/steadying/contact guard assistance fro m one helper? No. LYING TO SITTING ON SIDE OF BED - STEP 4: Does the patient need physical assistance - for example lifting or trunk support from one helper - wi th the helper providing less than half of the effort? Yes. 1. [id number] ADMISSION PERFORMANCE: Partial/moderate assistance CODE: 03 SIT TO STAND: SIT TO STAND - STEP 1: Does the patient complete the activity by him/herself with no assistance (physical, verbal/nonverbal cueing, setup/clean-up)? No. SIT TO STAND - STEP 2: Does the patient need only setup/clean-up assistance from one helper? No. SIT TO STAND - STEP 3: Does the patient need only verbal/nonverbal cueing or touching/steadying/contact guard assistance fro m one helper? Yes. 1. [id number] ADMISSION PERFORMANCE: Supervision or touching assistance CODE: 04 TRANSFERS: BED, CHAIR: CHAIR/[id number]-[id number] TRANSFER - STEP 1: Does the patient complete the activity by him/herself with no assistance (physical, verbal/nonverbal cueing, setup/clean-up)? No. CHAIR/[id number] TRANSFER - STEP 2: Does the patient need only setup/clean-up assistance from one helper? No. CHAIR/[id number] TRANSFER - STEP 3: Does the patient need only verbal/nonverbal cueing or touching/steadying/contact guard assistance fro m one helper? No. CHAIR/[id number] TRANSFER - STEP 4: Does the patient need physical assistance - for example lifting or trunk support from one helper - wi th the helper providing less than half of the effort? No. CHAIR/[id number] TRANSFER - STEP 5: Does the patient need physical assistance - for example lifting or trunk support from one helper - wi th the helper providing more than half of the effort? Yes. 1. [id number] ADMISSION PERFORMANCE: Substantial/maximal assistance CODE: 02 TRANSFER TOILET: TOILET TRANSFER - STEP 1: Does the patient complete the activity by him/herself with no assistance (physical, verbal/nonverbal cueing, setup/clean-up)? No. TOILET TRANSFER - STEP 2: Does the patient need only setup/clean-up assistance from one helper? No. TOILET TRANSFER - STEP 3: Does the patient need only verbal/nonverbal cueing or touching/steadying/contact guard assistance fro m one helper? No. TOILET TRANSFER - STEP 4: Does the patient need physical assistance - for example lifting or trunk support from one helper - wi th the helper providing less than half of the effort? Yes. 1. [id number] ADMISSION PERFORMANCE: Partial/moderate assistance CODE: 03 TRANSFERS: CAR: Not attempted due to medical condition or safety concerns CODE: 88 WALK 10 FEET: WALK 10 FEET - STEP 1: Does the patient complete the activity by him/herself with no assistance (physical, verbal/nonverbal cueing, setup/clean-up)? No. WALK 10 FEET - STEP 2: Does the patient need only setup/clean-up assistance from one helper? No. WALK 10 FEET - STEP 3: Does the patient need only verbal/nonverbal cueing or touching/steadying/contact guard assistance fro m one helper? No. WALK 10 FEET - STEP 4: Does the patient need physical assistance - for example lifting or trunk support from one helper - wi th the helper providing less than half of the effort? No. WALK 10 FEET - STEP 5: Does the patient need physical assistance - for example lifting or trunk support from one helper - wi th the helper providing more than half of the effort? Yes. 1. [id number] ADMISSION PERFORMANCE: Substantial/maximal assistance CODE: 02 WALK 50 FEET: Not attempted due to medical condition or safety concerns CODE: 88 WALK 150 FEET: Not attempted due to medical condition or safety concerns CODE: 88 WALK 10 FEET UNEVEN: Not attempted due to medical condition or safety concerns CODE: 88 1 STEP (CURB): Not attempted due to medical condition or safety concerns CODE: 88 PICKING UP OBJECT: Not attempted due to medical condition or safety concerns CODE: 88 DOES THE PATIENT USE A WHEELCHAIR/SCOOTER? Q1. DOES THE PATIENT USE A WHEELCHAIR/SCOOTER?: Yes CODE: 1 WHEEL 50 FEET WITH TWO TURNS: WHEEL 50 FEET WITH TWO TURNS - STEP 1: Does the patient complete the activity by him/herself with no assistance (physical, verbal/nonverbal cueing, setup/clean-up)? No. WHEEL 50 FEET WITH TWO TURNS - STEP 2: Does the patient need only setup/clean-up assistance from one helper? No. WHEEL 50 FEET WITH TWO TURNS - STEP 3: Does the patient need only verbal/nonverbal cueing or touching/steadying/contact guard assistance fro m one helper? Yes. 1. [id number] ADMISSION PERFORMANCE: Supervision or touching assistance CODE: 04 INDICATE THE TYPE OF WHEELCHAIR/SCOOTER USED: RR1. INDICATE THE TYPE OF WHEELCHAIR/SCOOTER USED.: Manual CODE: 1 WHEEL 150 FEET: WHEEL 150 FEET - STEP 1: Does the patient complete the activity by him/herself with no assistance (physical, verbal/nonverbal cueing, setup/clean-up)? No. WHEEL 150 FEET - STEP 2: Does the patient need only setup/clean-up assistance from one helper? No. WHEEL 150 FEET - STEP 3: Does the patient need only verbal/nonverbal cueing or touching/steadying/contact guard assistance fro m one helper? Yes. 1. [id number] ADMISSION PERFORMANCE: Supervision or touching assistance CODE: 04 INDICATE THE TYPE OF WHEELCHAIR/SCOOTER USED: SS1. INDICATE THE TYPE OF WHEELCHAIR/SCOOTER USED.: Manual CODE: 1 BLADDER AND BOWEL: CODE: EXPR CODE: EXPR SIGNATURE PANEL: The following modified sections: 1. [id number] Admission Performance, 1. [id number] Admission Performance, 1. [id number] Admission Performance, 1. [id number] Admission Performance, 1. [id number] Admission Performance, 1. [id number] Admission Performance, 1. [id number] Admission Performance, 1. [id number] Admission Performance , 1. [id number] Admission Performance, 1. [id number] Admission Performance, 1. [id number] Admission Performanc e, Q1. Does the patient use a wheelchair/scooter?, 1. [id number] Admission Performance, RR1. Indicate th e type of wheelchair/scooter used., 1. [id number] Admission Performance, Code, SS1. Indicate the type of wheelchair/scooter used. were [electronically] signed by Prem Pizarro PTA on ThuJul 07 2019 16:05:52 GMT-0600 (Central Standard Time)
[2019-07-07] MEDS: ENOXAPARIN 40 MG/0.4 ML SQ SCH (16:59)
[2019-07-07] MEDS: ATORVASTATIN 40 MG TAB PO SCH (19:02)
[2019-07-07] MEDS: MELATONIN 3 MG TABLET PO PRN (19:03)
--- NOTE | 2019-07-07 20:53 | R.PN ---
ENCOUNTER DATE AND TIME: 07/07/2019 20:50 (STRATEGIC PLANNING SPECIALIST) NAME KAILA BLANK DATE OF : 1975 DATE OF ADMISSION: 06/24/2019 22:33 (STRATEGIC PLANNING SPECIALIST) Hemorrhage in the left basal gangliaCHIEF COMPLAINT: Left basal ganglia hemorrhage, right sided weakness SUBJECTIVE: Pt denied any Shortness of Breath. Pt denied any depression. KUB 06/29/19 shows no obstruction. He still has significant dysphagia. He is on pureed diet. Glucose 98 to 142. Hgb is 10.7, WBC 8.6 He ambulated 20' with left hemiwalker and maximum assistance. Self-propelled wheelchair 250' with par tial assistance. Barium swallow shows no aspiration of thin liquid with pill. VITAL SIGNS Temperature: 97.2 F SBP/DBP: 143/77 Pulse: 77 Resp: 16 MEDICATION ALLERGIES: No Known Drug Allergies (NKDA) ENVIRONMENTAL ALLERGIES: - Substance Allergies None Known - Other Allergies None Known NURSING: - Shower allowing shower - Bladder care per protocol - Skin care per protocol PRECAUTIONS: - Weight Bearing Precaution WBAT right LE ACTIVITIES OOB only with supervision THERAPIES: - Occupational Therapy Cognitive Retraining. Visual Perceptual Training. - Dietary and Nutrition Adequate Nutrition. Nutritional Education. Nutritional Supplements. - Speech Therapy Cognitive Training. Expressive Language Skills. Memory Strategies. Receptive Language Skills. Speech Intelligibility Training. PHYSICAL EXAM - Gen Alert and awake Lying in bed No apparent distress Oriented to: person, time, and place - Skin No breakdown Normacephalic - Eyes No abnormalities - ENMT No abnormalities - Neck No abnormalities No cervical adenopathy - CVS RRR - Chest No abnormalities - Resp CTA bilaterally - Abd Soft - GI Non distended Deferred - No abnormalities - Ext Mild right upper and lower extremity edema. - MSK 1/5 weakness in right upper and lower extremities. - Neuro 1/5 weakness in right upper and lower extremities. - Psych Moderate depression. ASSESSMENT: Pt. is a 43 yo Right-handed white male.On 06/20/[address] [facility] with sudden onset of right-side weakness.On 06/20/2019 he was admitted to [facility] with diagnosis Hemorrhage in the left basal ganglia.His impairment category is Stro ke 01 - Right Body (Left Brain) (01.2).Pre-morbidly, Pt. was independent/mod-I in Locomotion, Self-C are, Endurance, Communication, pain limiting function, Safety Awareness and Self-Care, and Sphincter Control; and he had good Balance.Currently, he has deficits of Locomotion, Self-Care, Endurance, Cali nce, Transfers Control, Safety Awareness, Ambulation, Social Cognition, pain limiting function, Safet y Awareness and Self-Care, Functional mobility, and Sphincter Control.Pt. is now referred to [facility] for acute in-patient rehabilitation in order to maximize patient's function al independence in activities of daily living, strength, ROM, and mobility.- Rehab Goal Patient has realistic goal of being discharged at assistance level 6-Cari to reside at Home with Fam desiree/Relatives. MDM/PLAN: - Physical Therapy Gait dysfunction - to improve, our physical therapists will perform initial evaluation of pt's statu s upon admission and devise an individualized program for Gait Training, and Wheel Chair mobility Inability to transfer - to improve, our physical therapists will perform initial evaluation of pt's status upon admission and devise an individualized program for Bed mobility Need for home safety evaluation - to improve, our physical therapists will perform initial evaluatio n of pt's status upon admission and devise an individualized program for Home Evaluation Need in caregiver upon discharge - to improve, our physical therapists will perform initial evaluati on of pt's status upon admission and devise an individualized program for Caregiver Training Edema - to improve, our physical therapists will perform initial evaluation of pt's status upon admi ssion and devise an individualized program for Elevation Training, and Lymphedema Therapy New precaution - to improve, our physical therapists will perform initial evaluation of pt's status upon admission and devise an individualized program for Patient precaution education Poor balance - to improve, our physical therapists will perform initial evaluation of pt's status up on admission and devise an individualized program for Balance Training Poor endurance - to improve, our physical therapists will perform initial evaluation of pt's status upon admission and devise an individualized program for Endurance Training Weakness - to improve, our physical therapists will perform initial evaluation of pt's status upon a dmission and devise an individualized program for Aquatic Therapy, Neuromuscular Reeducation, and Str engthening Achieving independence - to improve, our physical therapists will perform initial evaluation of pt's status upon admission and devise an individualized program for Community Reintegration Activities - Occupational Therapy ADL deficits - to improve, our occupation therapists will perform initial evaluation of pt's status upon admission and devise an individualized program for Bathing, Bed mobility, Community Reintegratio n, Cooking, Dressing, Eating, Fine Motor Skills, Grooming, Homemaking, Kitchen Mobility, Laundry, Pat ient Education, Safety Awareness, Splinting - Positioning, Transfers(Toilet, Tub, Shower), and Wheel Chair Management Cognitive deficits - to improve, our occupation therapists will perform initial evaluation of pt's s tatus upon admission and devise an individualized program for Cognition - orientation Need for foster care worker - to improve, our occupation therapists will perform initial evaluation of pt's status upon admission and devise an individualized program for Caregiver Training Weakness - to improve, our occupation therapists will perform initial evaluation of pt's status upon admission and devise an individualized program for Aquatic Therapy, Balance, Endurance, UE ROM, and UE strengthening - Other See attached MAR (Medication Administration Record) - Diet Type Continue Regular - Diet - Liquid Texture Continue Regular - Tube Feed Continue N/A - Bladder care per protocol - Weight Bearing Precaution WBAT right LE - Skin care per protocol - Diet - Solid Texture Continue Regular - Shower allowing shower for Dementia, TBI, Stroke, or others FUNCTIONAL STATUS: UPDATED AT WEEKLY TEAM CONFERENCE - Bladder Same accident frequency: 7-Ind - No accidents in the past 7 days - Bowel Same accident frequency: 7-Ind - No accidents in the past 7 days - Walking Same score based on distance walked: 1(<=50ft) - Wheelchair Same score based on distance traveled: 1(<=50ft) FUNCTIONAL STATUS: - Self-Care A. Eating maxA B. Grooming modA C. Bathing modA D. Dressing - Upper modA E. Dressing - Lower maxA F. Toileting maxA - Sphincter Control G. Bladder control modA H. Bowel control modA - Transfers Control I. Bed/Chair/Wheelchair maxA J. Toilet maxA K. Tub/Shower maxA - Locomotion L. Walk/Wheelchair (W) maxA M. Stairs ADNO - Communication N. Comprehension (B) Shivam O. Expression (B) Shivam - Social Cognition P. Social Interaction sup Q. Problem Solving sup R. Memory sup - Endurance Good - Balance Good - Safety Awareness Good QI SCORES: - Self-Care A. Eating 05-Setup or clean-up assistance B. Oral hygiene 05-Setup or clean-up assistance C. Toileting hygiene 02-Substantial/maximal assistance E. Shower/bathe self 88-Not attempted due to medical condition or safety concerns F. Upper body dressing 02-Substantial/maximal assistance G. Lower body dressing 02-Substantial/maximal assistance H. Putting on/taking off footwear 88-Not attempted due to medical condition or safety concerns - Mobility A. Roll left and right 02-Substantial/maximal assistance B. Sit to lying 02-Substantial/maximal assistance C. Lying to sitting on side of bed 02-Substantial/maximal assistance D. Sit to stand 04-Supervision or touching assistance E. Chair/ant-xz-vqmug transfer 02-Substantial/maximal assistance F. Toilet transfer 02-Substantial/maximal assistance G. Car transfer 88-Not attempted due to medical condition or safety concerns I. Walk 10 feet 88-Not attempted due to medical condition or safety concerns J. Walk 50 feet with two turns 88-Not attempted due to medical condition or safety concerns K. Walk 150 feet 88-Not attempted due to medical condition or safety concerns L. Walking 10 feet on uneven surfaces 88-Not attempted due to medical condition or safety concerns M. 1 step (curb) 88-Not attempted due to medical condition or safety concerns N. 4 steps 88-Not attempted due to medical condition or safety concerns O. 12 steps 88-Not attempted due to medical condition or safety concerns P. Picking up object 88-Not attempted due to medical condition or safety concerns R. Wheel 50 feet with two turns 88-Not attempted due to medical condition or safety concerns S. Wheel 150 feet 88-Not attempted due to medical condition or safety concerns - Bladder and Bowel Bladder continence 3-Incontinent daily Bowel continence 3-Always incontinent - Endurance Poor - Balance Poor - Safety Awareness Poor CURRENT FUNC. DEFICITS: Self-Care, Mobility, Endurance, Balance, and Safety Awareness SIGNATURE PANEL: (STRATEGIC PLANNING SPECIALIST)
[2019-07-08] MEDS: carvediloL 12.5 MG TAB PO SCH ×2 (05:00→17:25)
[2019-07-08] MEDS: INSULIN -REGULAR HUMAN 50 UNIT/0.5 ML ML SQ SCH ×5 (07:30→23:00)
[2019-07-08] MEDS: FERROUS SULFATE 325 MG TAB PO SCH (09:19)
[2019-07-08] MEDS: FE SULF/FA/VIT B COMP & C TAB PO SCH (09:19)
[2019-07-08] MEDS: PANTOPRAZOLE 40MG TABLET PO SCH (09:19)
[2019-07-08] MEDS: AMLODIPINE 5 MG TAB PO SCH (09:20)
[2019-07-08] MEDS: MUPIROCIN 2% OINT 22GM TUBE TOP SCH (09:20)
[2019-07-08] MEDS: HYDRALAZINE HCL 25 MG TABLET PO SCH ×3 (09:20→21:00)
[2019-07-08] MEDS: SMZ./TMP. 800/160 MG TABLET PO SCH ×2 (09:21→19:48)
[2019-07-08] MEDS: NIFEDIPINE XL 30 MG TABLET PO SCH (09:21)
--- NOTE | 2019-07-08 09:37 | P.RH.PN ---
Estimated Length of Stay: 22 Expected Discharge Date: 07/15/19 Discharge Disposition Plan: Home Family Support: Yes Assisted Goal: Mobility, Transfers, Self Care Vital Signs: Last Vital Signs Temp 97.2 F 07/08/19 05:12 Pulse 76 07/08/19 09:21 Resp 16 07/08/19 05:12 BP 119/55 L 07/08/19 09:21 Pulse Ox 97 07/08/19 05:12 Laboratory: Laboratory Last Values WBC 7.5 K/uL (4.3-10.9) 07/07/19 06:08 RBC 3.18 M/uL (4.33-5.43) L 07/07/19 06:08 Hgb 9.8 g/dL (13.6-17.9) L 07/07/19 06:08 Hct 28.3 % (39.6-49.0) L 07/07/19 06:08 MCV 88.7 fL (80-100) 07/07/19 06:08 MCH 30.8 pg (27.0-35.0) 07/07/19 06:08 MCHC 34.8 g/dL (32.0-36.0) 07/07/19 06:08 RDW 14.3 % (12.1-15.2) 07/07/19 06:08 Plt Count 183 K/uL (152-406) 07/07/19 06:08 MPV 9.5 fL (7.6-11.3) 07/07/19 06:08 Neutrophils % 63.5 % (41.7-73.7) 07/07/19 06:08 Lymphocytes % 24.0 % (15.3-44.8) 07/07/19 06:08 Monocytes % 8.5 % (3.3-12.3) 07/07/19 06:08 Eosinophils % 3.1 % (0-4.4) 07/07/19 06:08 Basophils % 0.9 % (0-1.3) 07/07/19 06:08 Absolute Neutrophils 4.8 K/uL (1.8-8.0) 07/07/19 06:08 Absolute Lymphocytes 1.8 K/uL (0.7-4.9) 07/07/19 06:08 Absolute Monocytes 0.6 K/uL (0.1-1.3) 07/07/19 06:08 Absolute Eosinophils 0.2 K/uL (0-0.5) 07/07/19 06:08 Absolute Basophils 0.1 K/uL (0-0.5) 07/07/19 06:08 Sodium 133 mmol/L (136-145) L 07/07/19 06:08 Potassium 5.3 mmol/L (3.5-5.1) H 07/07/19 06:08 Chloride 101 mmol/L (98-107) 07/07/19 06:08 Carbon Dioxide 27 mmol/L (21-32) 07/07/19 06:08 BUN 43 mg/dL (7-18) H 07/07/19 06:08 Creatinine 3.94 mg/dL (0.55-1.3) H D 07/07/19 06:08 Estimated GFR 17 mL/min (=/>90) L 07/07/19 06:08 Glucose 138 mg/dL (74-106) H 07/07/19 06:08 POC Glucose 147 mg/dl (65-120) H 07/08/19 07:43 Calcium 8.3 mg/dL (8.5-10.1) L 07/07/19 06:08 Magnesium 2.1 mg/dL (1.8-2.4) 07/07/19 06:08 Albumin 2.7 g/dL (3.4-5.0) L 07/07/19 06:08 Prealbumin 44.3 mg/dL (20-40) H 07/07/19 06:08 Weight: 197 lb 3 oz Wound Present: Yes Closed Surgical Incision Present: No Negative Pressure Wound Therapy Present: No Physician Update: Labs reviewed and are stable. His diet is advanced and his mood is better. He agrees to work harder with [employer] Medical Issues: Patient is positive for MRSA, on Bactrim 800/160mg BID PO for 10 days. Patient is incontinent daily with bladder and occasional incontinent with bowel. Functional Improvement: Patient has met all short-term goals at this time and is progressing well toward long-term goals. Patient presents w/ improving attitude toward work ethic and therapy. Speech Therapy Update: Patient has demonstrated significant progress in his overall speech, language, cognitive and swallowing abilities in the last week 2 weeks. He has been upgraded to regular solids, thin liquids, whole medications and appears to be tolerating them well with min to none overt s/s of aspiration. Patient's aphasia is also improving during both structured and nonstructured verbal expression. Patient comprehends more and is able to follow instruction more easily. Patient will cont to require speech therapy for a few week for the above-mentioned deficits and to reinforce compensatory strategies and safety. Summary: Patient's care plan and ocean transportation intermediary goals have been reviewed and revised as necessary. Please see the Rehabilitation Signature page for all necessary signatures.
[2019-07-08] MEDS: ACETAMINOPHEN 500 MG TAB PO PRN (13:10)
--- NOTE | 2019-07-08 16:06 | FAST ---
ENCOUNTER DATE AND TIME: 07/08/2019 08:00 (MECHANICAL COMMISSIONING ENGINEER) NAME KAILA BLANK DATE OF : 1975 DATE OF ADMISSION: 06/24/2019 22:33 (MECHANICAL COMMISSIONING ENGINEER) PHONE: AGE: 43 N# [id number] GENDER: Male ENCOUNTER PHYSICIAN: Dr. Kodak Leslie M.D. ADMISSION DIAGNOSIS: - Stroke 01 - Right Body (Left Brain) (01.2) Hemorrhage in the left basal ganglia. EATING: EATING - STEP 1: Does the patient complete the activity by him/herself with no assistance (physical, verbal/nonverbal cueing, setup/clean-up)? No. EATING - STEP 2: Does the patient need only setup/clean-up assistance from one helper? No. EATING - STEP 3: Does the patient need only verbal/nonverbal cueing or touching/steadying/contact guard assistance fro m one helper? Yes. 1. [id number] ADMISSION PERFORMANCE: Supervision or touching assistance CODE: 04 ORAL HYGIENE: Not assessed/no information CODE: - TOILETING HYGIENE: Not assessed/no information CODE: - BATHING: SHOWER/BATHE SELF - STEP 1: Does the patient complete the activity by him/herself with no assistance (physical, verbal/nonverbal cueing, setup/clean-up)? No. SHOWER/BATHE SELF - STEP 2: Does the patient need only setup/clean-up assistance from one helper? No. SHOWER/BATHE SELF - STEP 3: Does the patient need only verbal/nonverbal cueing or touching/steadying/contact guard assistance fro m one helper? No. SHOWER/BATHE SELF - STEP 4: Does the patient need physical assistance - for example lifting or trunk support from one helper - wi th the helper providing less than half of the effort? Yes. 1. [id number] ADMISSION PERFORMANCE: Partial/moderate assistance CODE: 03 DRESSING - UPPER BODY: DRESSING - UPPER BODY - STEP 1: Does the patient complete the activity by him/herself with no assistance (physical, verbal/nonverbal cueing, setup/clean-up)? No. DRESSING - UPPER BODY - STEP 2: Does the patient need only setup/clean-up assistance from one helper? No. DRESSING - UPPER BODY - STEP 3: Does the patient need only verbal/nonverbal cueing or touching/steadying/contact guard assistance fro m one helper? Yes. 1. [id number] ADMISSION PERFORMANCE: Supervision or touching assistance CODE: 04 DRESSING - LOWER BODY: DRESSING - LOWER BODY - STEP 1: Does the patient complete the activity by him/herself with no assistance (physical, verbal/nonverbal cueing, setup/clean-up)? No. DRESSING - LOWER BODY - STEP 2: Does the patient need only setup/clean-up assistance from one helper? No. DRESSING - LOWER BODY - STEP 3: Does the patient need only verbal/nonverbal cueing or touching/steadying/contact guard assistance fro m one helper? No. DRESSING - LOWER BODY - STEP 4: Does the patient need physical assistance - for example lifting or trunk support from one helper - wi th the helper providing less than half of the effort? Yes. 1. [id number] ADMISSION PERFORMANCE: Partial/moderate assistance CODE: 03 PUTTING ON/TAKING OFF FOOTWEAR: FOOTWEAR - STEP 1: Does the patient complete the activity by him/herself with no assistance (physical, verbal/nonverbal cueing, setup/clean-up)? No. FOOTWEAR - STEP 2: Does the patient need only setup/clean-up assistance from one helper? No. FOOTWEAR - STEP 3: Does the patient need only verbal/nonverbal cueing or touching/steadying/contact guard assistance fro m one helper? No. FOOTWEAR - STEP 4: Does the patient need physical assistance - for example lifting or trunk support from one helper - wi th the helper providing less than half of the effort? No. FOOTWEAR - STEP 5: Does the patient need physical assistance - for example lifting or trunk support from one helper - wi th the helper providing more than half of the effort? Yes. 1. [id number] ADMISSION PERFORMANCE: Substantial/maximal assistance CODE: 02 DOES THE PATIENT USE A WHEELCHAIR/SCOOTER? CODE: EXPR INDICATE THE TYPE OF WHEELCHAIR/SCOOTER USED: CODE: EXPR INDICATE THE TYPE OF WHEELCHAIR/SCOOTER USED: CODE: EXPR BLADDER AND BOWEL: CODE: EXPR CODE: EXPR SIGNATURE PANEL: The following modified sections: 1. [id number] Admission Performance, 1. [id number] Admission Performance, 1. [id number] Admission Performance, 1. [id number] Admission Performance, 1. [id number] Admission Performance were [electronically] signed by Almita Contreras OT on ThuJul 08 2019 16:05:15 GMT-0600 ([facility] tral Standard Time)
[2019-07-08] MEDS: ENOXAPARIN 30 MG/0.3 ML SQ SCH (17:25)
[2019-07-08] MEDS: DOCUSATE NA/SENNA CONC 1 TAB PO PRN (19:49)
[2019-07-08] MEDS: MELATONIN 3 MG TABLET PO PRN (19:49)
[2019-07-08] MEDS: ATORVASTATIN 40 MG TAB PO SCH (21:19)
--- NOTE | 2019-07-09 03:28 | FAST ---
SHIFT START DATE/TIME: 07/08/2019 19:00 (CHIEF GAUGER) SHIFT END DATE/TIME: 07/09/2019 07:00 (CHIEF GAUGER) NAME KAILA BLANK DATE OF : 1975 DATE OF ADMISSION: 06/24/2019 22:33 (CHIEF GAUGER) PHONE: AGE: 43 N# [id number] GENDER: Male ENCOUNTER PHYSICIAN: Dr. Kodak Leslie M.D. ADMISSION DIAGNOSIS: - Stroke 01 - Right Body (Left Brain) (01.2) Hemorrhage in the left basal ganglia. EATING: Not assessed/no information CODE: - ORAL HYGIENE: Not assessed/no information CODE: - TOILETING HYGIENE: TOILETING HYGIENE - STEP 1: Does the patient complete the activity by him/herself with no assistance (physical, verbal/nonverbal cueing, setup/clean-up)? No. TOILETING HYGIENE - STEP 2: Does the patient need only setup/clean-up assistance from one helper? No. TOILETING HYGIENE - STEP 3: Does the patient need only verbal/nonverbal cueing or touching/steadying/contact guard assistance fro m one helper? No. TOILETING HYGIENE - STEP 4: Does the patient need physical assistance - for example lifting or trunk support from one helper - wi th the helper providing less than half of the effort? No. TOILETING HYGIENE - STEP 5: Does the patient need physical assistance - for example lifting or trunk support from one helper - wi th the helper providing more than half of the effort? No. TOILETING HYGIENE - STEP 6: Does the helper provide all of the effort? OR Is the assistance of two or more helpers required to co mplete the activity? Yes. 1. [id number] ADMISSION PERFORMANCE: Dependent CODE: 01 BATHING: Not assessed/no information CODE: - DRESSING - UPPER BODY: Not assessed/no information CODE: - DRESSING - LOWER BODY: Not assessed/no information CODE: - PUTTING ON/TAKING OFF FOOTWEAR: Not assessed/no information CODE: - ROLL LEFT AND RIGHT: ROLL LEFT AND RIGHT - STEP 1: Does the patient complete the activity by him/herself with no assistance (physical, verbal/nonverbal cueing, setup/clean-up)? No. ROLL LEFT AND RIGHT - STEP 2: Does the patient need only setup/clean-up assistance from one helper? No. ROLL LEFT AND RIGHT - STEP 3: Does the patient need only verbal/nonverbal cueing or touching/steadying/contact guard assistance fro m one helper? No. ROLL LEFT AND RIGHT - STEP 4: Does the patient need physical assistance - for example lifting or trunk support from one helper - wi th the helper providing less than half of the effort? No. ROLL LEFT AND RIGHT - STEP 5: Does the patient need physical assistance - for example lifting or trunk support from one helper - wi th the helper providing more than half of the effort? No. ROLL LEFT AND RIGHT - STEP 6: Does the helper provide all of the effort? OR Is the assistance of two or more helpers required to co mplete the activity? Yes. 1. [id number] ADMISSION PERFORMANCE: Dependent CODE: 01 SIT TO LYING: Not assessed/no information CODE: - LYING TO SITTING: Not assessed/no information CODE: - SIT TO STAND: Not assessed/no information CODE: - TRANSFERS: BED, CHAIR: Not assessed/no information CODE: - TRANSFER TOILET: Not assessed/no information CODE: - TRANSFERS: CAR: Not assessed/no information CODE: - WALK 10 FEET: Not assessed/no information CODE: - 1 STEP (CURB): Not assessed/no information CODE: - PICKING UP OBJECT: Not assessed/no information CODE: - DOES THE PATIENT USE A WHEELCHAIR/SCOOTER? CODE: EXPR WHEEL 50 FEET WITH TWO TURNS: Not assessed/no information CODE: - INDICATE THE TYPE OF WHEELCHAIR/SCOOTER USED: CODE: EXPR WHEEL 150 FEET: Not assessed/no information CODE: - INDICATE THE TYPE OF WHEELCHAIR/SCOOTER USED: CODE: EXPR BLADDER AND BOWEL: H350. BLADDER CONTINENCE (3-DAY ASSESSMENT PERIOD): Incontinent daily (at least once a day) CODE: 3 H400. BOWEL CONTINENCE (3-DAY ASSESSMENT PERIOD): Occasionally incontinent (one episode of bowel incontinence) CODE: 1
[2019-07-09] MEDS: carvediloL 12.5 MG TAB PO SCH ×2 (05:23→17:13)
[2019-07-09 05:32] VITALS: BMI 31.2
[2019-07-09] MEDS: INSULIN -REGULAR HUMAN 50 UNIT/0.5 ML ML SQ SCH ×4 (07:30→20:47)
[2019-07-09] MEDS: MUPIROCIN 2% OINT 22GM TUBE TOP SCH (08:00)
[2019-07-09] MEDS: MINOCYCLINE HCL 50 MG CAP PO SCH ×2 (08:32→20:45)
[2019-07-09] MEDS: FERROUS SULFATE 325 MG TAB PO SCH (08:32)
[2019-07-09] MEDS: HYDRALAZINE HCL 25 MG TABLET PO SCH ×3 (08:32→20:46)
[2019-07-09] MEDS: NIFEDIPINE XL 30 MG TABLET PO SCH (08:33)
[2019-07-09] MEDS: PANTOPRAZOLE 40MG TABLET PO SCH (08:33)
[2019-07-09] MEDS: FE SULF/FA/VIT B COMP & C TAB PO SCH (08:34)
[2019-07-09] MEDS: AMLODIPINE 5 MG TAB PO SCH (08:34)
--- NOTE | 2019-07-09 16:16 | FAST ---
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 Kodak Leslie M.D. ADMISSION DIAGNOSIS: - Stroke 01 - Right Body (Left Brain) (01.2) Hemorrhage in the left basal ganglia. EATING: EATING - STEP 1: Does the patient complete the activity by him/herself with no assistance (physical, verbal/nonverbal cueing, setup/clean-up)? No. EATING - STEP 2: Does the patient need only setup/clean-up assistance from one helper? Yes. 1. [id number] ADMISSION PERFORMANCE: Setup or clean-up assistance CODE: 05 ORAL HYGIENE: Not assessed/no information CODE: - TOILETING HYGIENE: TOILETING HYGIENE - STEP 1: Does the patient complete the activity by him/herself with no assistance (physical, verbal/nonverbal cueing, setup/clean-up)? No. TOILETING HYGIENE - STEP 2: Does the patient need only setup/clean-up assistance from one helper? No. TOILETING HYGIENE - STEP 3: Does the patient need only verbal/nonverbal cueing or touching/steadying/contact guard assistance fro m one helper? No. TOILETING HYGIENE - STEP 4: Does the patient need physical assistance - for example lifting or trunk support from one helper - wi th the helper providing less than half of the effort? Yes. 1. [id number] ADMISSION PERFORMANCE: Partial/moderate assistance CODE: 03 BATHING: Not assessed/no information CODE: - DRESSING - UPPER BODY: DRESSING - UPPER BODY - STEP 1: Does the patient complete the activity by him/herself with no assistance (physical, verbal/nonverbal cueing, setup/clean-up)? No. DRESSING - UPPER BODY - STEP 2: Does the patient need only setup/clean-up assistance from one helper? No. DRESSING - UPPER BODY - STEP 3: Does the patient need only verbal/nonverbal cueing or touching/steadying/contact guard assistance fro m one helper? No. DRESSING - UPPER BODY - STEP 4: Does the patient need physical assistance - for example lifting or trunk support from one helper - wi th the helper providing less than half of the effort? No. DRESSING - UPPER BODY - STEP 5: Does the patient need physical assistance - for example lifting or trunk support from one helper - wi th the helper providing more than half of the effort? Yes. 1. [id number] ADMISSION PERFORMANCE: Substantial/maximal assistance CODE: 02 DRESSING - LOWER BODY: DRESSING - LOWER BODY - STEP 1: Does the patient complete the activity by him/herself with no assistance (physical, verbal/nonverbal cueing, setup/clean-up)? No. DRESSING - LOWER BODY - STEP 2: Does the patient need only setup/clean-up assistance from one helper? No. DRESSING - LOWER BODY - STEP 3: Does the patient need only verbal/nonverbal cueing or touching/steadying/contact guard assistance fro m one helper? No. DRESSING - LOWER BODY - STEP 4: Does the patient need physical assistance - for example lifting or trunk support from one helper - wi th the helper providing less than half of the effort? No. DRESSING - LOWER BODY - STEP 5: Does the patient need physical assistance - for example lifting or trunk support from one helper - wi th the helper providing more than half of the effort? Yes. 1. [id number] ADMISSION PERFORMANCE: Substantial/maximal assistance CODE: 02 PUTTING ON/TAKING OFF FOOTWEAR: Not assessed/no information CODE: - ROLL LEFT AND RIGHT: ROLL LEFT AND RIGHT - STEP 1: Does the patient complete the activity by him/herself with no assistance (physical, verbal/nonverbal cueing, setup/clean-up)? No. ROLL LEFT AND RIGHT - STEP 2: Does the patient need only setup/clean-up assistance from one helper? No. ROLL LEFT AND RIGHT - STEP 3: Does the patient need only verbal/nonverbal cueing or touching/steadying/contact guard assistance fro m one helper? No. ROLL LEFT AND RIGHT - STEP 4: Does the patient need physical assistance - for example lifting or trunk support from one helper - wi th the helper providing less than half of the effort? Yes. 1. [id number] ADMISSION PERFORMANCE: Partial/moderate assistance CODE: 03 SIT TO LYING: SIT TO LYING - STEP 1: Does the patient complete the activity by him/herself with no assistance (physical, verbal/nonverbal cueing, setup/clean-up)? No. SIT TO LYING - STEP 2: Does the patient need only setup/clean-up assistance from one helper? No. SIT TO LYING - STEP 3: Does the patient need only verbal/nonverbal cueing or touching/steadying/contact guard assistance fro m one helper? No. SIT TO LYING - STEP 4: Does the patient need physical assistance - for example lifting or trunk support from one helper - wi th the helper providing less than half of the effort? Yes. 1. [id number] ADMISSION PERFORMANCE: Partial/moderate assistance CODE: 03 LYING TO SITTING: LYING TO SITTING ON SIDE OF BED - STEP 1: Does the patient complete the activity by him/herself with no assistance (physical, verbal/nonverbal cueing, setup/clean-up)? No. LYING TO SITTING ON SIDE OF BED - STEP 2: Does the patient need only setup/clean-up assistance from one helper? No. LYING TO SITTING ON SIDE OF BED - STEP 3: Does the patient need only verbal/nonverbal cueing or touching/steadying/contact guard assistance fro m one helper? No. LYING TO SITTING ON SIDE OF BED - STEP 4: Does the patient need physical assistance - for example lifting or trunk support from one helper - wi th the helper providing less than half of the effort? Yes. 1. [id number] ADMISSION PERFORMANCE: Partial/moderate assistance CODE: 03 SIT TO STAND: SIT TO STAND - STEP 1: Does the patient complete the activity by him/herself with no assistance (physical, verbal/nonverbal cueing, setup/clean-up)? No. SIT TO STAND - STEP 2: Does the patient need only setup/clean-up assistance from one helper? No. SIT TO STAND - STEP 3: Does the patient need only verbal/nonverbal cueing or touching/steadying/contact guard assistance fro m one helper? No. SIT TO STAND - STEP 4: Does the patient need physical assistance - for example lifting or trunk support from one helper - wi th the helper providing less than half of the effort? Yes. 1. [id number] ADMISSION PERFORMANCE: Partial/moderate assistance CODE: 03 TRANSFERS: BED, CHAIR: CHAIR/[id number] TRANSFER - STEP 1: Does the patient complete the activity by him/herself with no assistance (physical, verbal/nonverbal cueing, setup/clean-up)? No. CHAIR/[id number] TRANSFER - STEP 2: Does the patient need only setup/clean-up assistance from one helper? No. CHAIR/[id number] TRANSFER - STEP 3: Does the patient need only verbal/nonverbal cueing or touching/steadying/contact guard assistance fro m one helper? No. CHAIR/[id number] TRANSFER - STEP 4: Does the patient need physical assistance - for example lifting or trunk support from one helper - wi th the helper providing less than half of the effort? No. CHAIR/[id number] TRANSFER - STEP 5: Does the patient need physical assistance - for example lifting or trunk support from one helper - wi th the helper providing more than half of the effort? Yes. 1. [id number] ADMISSION PERFORMANCE: Substantial/maximal assistance CODE: 02 TRANSFER TOILET: TOILET TRANSFER - STEP 1: Does the patient complete the activity by him/herself with no assistance (physical, verbal/nonverbal cueing, setup/clean-up)? No. TOILET TRANSFER - STEP 2: Does the patient need only setup/clean-up assistance from one helper? No. TOILET TRANSFER - STEP 3: Does the patient need only verbal/nonverbal cueing or touching/steadying/contact guard assistance fro m one helper? No. TOILET TRANSFER - STEP 4: Does the patient need physical assistance - for example lifting or trunk support from one helper - wi th the helper providing less than half of the effort? Yes. 1. [id number] ADMISSION PERFORMANCE: Partial/moderate assistance CODE: 03 TRANSFERS: CAR: Not assessed/no information CODE: - WALK 10 FEET: Not assessed/no information CODE: - 1 STEP (CURB): Not assessed/no information CODE: - PICKING UP OBJECT: Not assessed/no information CODE: - DOES THE PATIENT USE A WHEELCHAIR/SCOOTER? Q1. DOES THE PATIENT USE A WHEELCHAIR/SCOOTER?: Yes CODE: 1 WHEEL 50 FEET WITH TWO TURNS: WHEEL 50 FEET WITH TWO TURNS - STEP 1: Does the patient complete the activity by him/herself with no assistance (physical, verbal/nonverbal cueing, setup/clean-up)? No. WHEEL 50 FEET WITH TWO TURNS - STEP 2: Does the patient need only setup/clean-up assistance from one helper? No. WHEEL 50 FEET WITH TWO TURNS - STEP 3: Does the patient need only verbal/nonverbal cueing or touching/steadying/contact guard assistance fro m one helper? No. WHEEL 50 FEET WITH TWO TURNS - STEP 4: Does the patient need physical assistance - for example lifting or trunk support from one helper - wi th the helper providing less than half of the effort? Yes. 1. [id number] ADMISSION PERFORMANCE: Partial/moderate assistance CODE: 03 INDICATE THE TYPE OF WHEELCHAIR/SCOOTER USED: RR1. INDICATE THE TYPE OF WHEELCHAIR/SCOOTER USED.: Manual CODE: 1 WHEEL 150 FEET: Not assessed/no information CODE: - INDICATE THE TYPE OF WHEELCHAIR/SCOOTER USED: SS1. INDICATE THE TYPE OF WHEELCHAIR/SCOOTER USED.: Manual CODE: 1 BLADDER AND BOWEL: H350. BLADDER CONTINENCE (3-DAY ASSESSMENT PERIOD): Incontinent less than daily (e.g., once or twice during the 3-day assessment period) CODE: 2 H400. BOWEL CONTINENCE (3-DAY ASSESSMENT PERIOD): Occasionally incontinent (one episode of bowel incontinence) CODE: 1 SIGNATURE PANEL: This form was reviewed and signed by Amelia Prince C.N.A. on Sat Jul 09 2019 16:15:47 GMT-0600 ([facility] Standard Time)
[2019-07-09] MEDS: ENOXAPARIN 30 MG/0.3 ML SQ SCH (17:12)
--- NOTE | 2019-07-09 18:20 | CON ---
Date of Consultation: 07/09/2019 Requesting Provider: Kodak Leslie MD Reason For Consultation: Chronic kidney disease. History Of Present Illness: Mr. Warner is a 43-year-old male with a past medical history of recent CVA and right-sided hemiparesis, admitted here to the rehab floor. The patient requires consultation for apparent chronic kidney disease. The patient is currently seen at the bedside, feels well, melissa es any fevers, chills, chest pain, shortness of breath, nausea, vomiting, or diarrhea. The patient w as seen on a prior admission and was getting IV fluids. It appears that the last time that he was se en by our service earlier in the month, he has had transfer for cerebral edema, where he was transfer red to [facility]. Reviewing his renal function shows that he had a bertha creatinine of 2.24 in October 2018. Creatinine on discharge previously was 2.27, increased from the th to th fr om 2.7 to 3.9. Reviewing his medications does not show the administration of any NSAIDs. He was on Bactrim twice daily for nasal MRSA. Diagnostic imaging review does not show any recent contrast admi nistration. Past Medical History: Significant for hypertension, diabetes, and recent CVA. Family History: Patient denies any renal disease in the family and denies any family members on dial ysis. Social History: The patient is an active smoker. He denies any current alcohol use, may have had in creased use in the past, his last drink was 4 months ago. Physical Examination: Vital Signs: Blood pressure 140/64, pulse 64, afebrile. Input and output 2250 and 2100, out of whic h, 2100 is urine output. General: No acute distress. Heart: Regular rate and rhythm. No murmurs, rubs, or gallops. Lungs: Grossly clear to auscultation. Abdomen: Soft, nontender, nondistended. Extremities: With no significant edema. Laboratory Data: Previous urine protein-creatinine ratio collected in October had shown an approximate 6 g of proteinuria. Albumin level of 2.7 on July 07. In October at that time, he had autoimmune serologies ordered, however, many of them were canceled. Impression: 1.Chronic kidney disease of unclear etiology, likely from uncontrolled hypertension and diabetes. H owever, the patient does have nephrotic range proteinuria, which warrants further workup, but may be secondary to diabetic nephropathy. We will consider autoimmune disease. 2.Recent acute cerebrovascular accident. 3.Hypertension with modest control. 4.Hyperkalemia. Plan: I switched the patient off the Bactrim and started on minocycline to avoid the false elevated creatinine readings that are seen with Bactrim use. However, Bactrim does also lead to hyperkalemia, so with those 2 factors, I have decided to switch over to minocycline, which still will provide MRSA coverage. P.o. intake appears to be adequate and I will use IV fluids only if the creatinine does n ot show improvement. Given that he has significant proteinuria, I will order a proteinuria/GN workup , which will include ELIZABETH, double-stranded DNA, C3, C4, ESR, CRP, also SPEP, UPEP as well as ANCA pane ls. I will follow up those results and make changes accordingly to the plan of care. Please ensure the patient is now on a renal diet. Please do not administer any NSAIDs whatsoever. A void iodinated contrast if possible. Renally dose all medications to the appropriate creatinine rodrigo sheldon, which pharmacy can assist in that regard if necessary. Reviewing current medications aside from Bactrim from changing to minocycline, I cannot see necessary to make any other changes at this time. Blood pressure goal should be 130/80 and if unable to achie ve that average blood pressure, then amlodipine can be increased to 10 mg. Thank you kindly for the consultation. We will continue to follow. ALEX Voice ID: [id number] Report ID: [id number]
[2019-07-09] MEDS: ATORVASTATIN 40 MG TAB PO SCH (20:46)
[2019-07-09] MEDS: ACETAMINOPHEN 500 MG TAB PO PRN (20:46)
[2019-07-09] MEDS: MELATONIN 3 MG TABLET PO PRN (20:47)
[2019-07-10] MEDS: carvediloL 12.5 MG TAB PO SCH (05:19)
[2019-07-10] MEDS: carvediloL 25 MG TAB PO SCH ×2 (06:00→17:20)
[2019-07-10] MEDS: INSULIN -REGULAR HUMAN 50 UNIT/0.5 ML ML SQ SCH ×4 (07:30→20:45)
[2019-07-10] MEDS: MUPIROCIN 2% OINT 22GM TUBE TOP SCH (08:00)
[2019-07-10] MEDS: MINOCYCLINE HCL 50 MG CAP PO SCH ×2 (08:16→20:45)
[2019-07-10] MEDS: FE SULF/FA/VIT B COMP & C TAB PO SCH (08:16)
[2019-07-10] MEDS: FERROUS SULFATE 325 MG TAB PO SCH (08:17)
[2019-07-10] MEDS: PANTOPRAZOLE 40MG TABLET PO SCH (08:17)
[2019-07-10] MEDS: HYDRALAZINE HCL 25 MG TABLET PO SCH ×3 (08:17→20:45)
[2019-07-10] MEDS: AMLODIPINE 5 MG TAB PO SCH (08:17)
[2019-07-10] MEDS: NIFEDIPINE XL 30 MG TABLET PO SCH (08:18)
[2019-07-10 10:05] LABS: Potassium 5.1 mmol/L (3.5-5.1)
[2019-07-10] MEDS: ACETAMINOPHEN 500 MG TAB PO PRN (13:24)
[2019-07-10 13:56] LABS: Urine Appearance CLEAR; Urine Bilirubin NEGATIVE (NEG); Urine Blood NEGATIVE (NEG); Urine Color YELLOW; Urine Glucose NEGATIVE (NEG); Urine Protein 2+ (NEG); Urine Specific Gravity 1.015 (1.005-1.030); Urine Urobilinogen 0.2 mg/dL (0.2-1.0); Urine pH 5.5 (5.0-7.0)
[2019-07-10 14:01] LABS: Urine Microscopic Reflex ORDER UMIC
[2019-07-10 14:03] LABS: Urine Bacteria <20 /HPF (NONE SEEN); Urine Culture Reflex Order NOT NEEDED; Urine RBC <5 /HPF (NONE SEEN)
[2019-07-10] MEDS: ENOXAPARIN 30 MG/0.3 ML SQ SCH (17:20)
[2019-07-10] MEDS: ATORVASTATIN 40 MG TAB PO SCH (20:45)
[2019-07-10] MEDS: MELATONIN 3 MG TABLET PO PRN (20:46)
[2019-07-11] MEDS: ACETAMINOPHEN 500 MG TAB PO PRN (01:49)
[2019-07-11] MEDS: carvediloL 25 MG TAB PO SCH ×2 (05:15→17:08)
[2019-07-11] MEDS: INSULIN -REGULAR HUMAN 50 UNIT/0.5 ML ML SQ SCH ×4 (07:30→20:47)
[2019-07-11] MEDS: MUPIROCIN 2% OINT 22GM TUBE TOP SCH (08:00)
[2019-07-11] MEDS: FE SULF/FA/VIT B COMP & C TAB PO SCH (08:42)
[2019-07-11] MEDS: FERROUS SULFATE 325 MG TAB PO SCH (08:42)
[2019-07-11] MEDS: PANTOPRAZOLE 40MG TABLET PO SCH (08:42)
[2019-07-11] MEDS: AMLODIPINE 5 MG TAB PO SCH (08:43)
[2019-07-11] MEDS: NIFEDIPINE XL 30 MG TABLET PO SCH (08:44)
[2019-07-11] MEDS: MINOCYCLINE HCL 50 MG CAP PO SCH ×2 (08:44→19:12)
[2019-07-11] MEDS: HYDRALAZINE HCL 25 MG TABLET PO SCH ×3 (08:45→19:12)
--- NOTE | 2019-07-11 09:35 | FAST ---
SHIFT START DATE/TIME: 07/11/2019 07:00 (ON CALL) SHIFT END DATE/TIME: 07/11/2019 19:00 (ON CALL) NAME KAILA BLANK DATE OF : 1975 DATE OF ADMISSION: 06/24/2019 22:33 (ON CALL) PHONE: AGE: 43 N# [id number] GENDER: Male ENCOUNTER PHYSICIAN: Dr. Kodak Leslie M.D. ADMISSION DIAGNOSIS: - Stroke 01 - Right Body (Left Brain) (01.2) Hemorrhage in the left basal ganglia. EATING: EATING - STEP 1: Does the patient complete the activity by him/herself with no assistance (physical, verbal/nonverbal cueing, setup/clean-up)? No. EATING - STEP 2: Does the patient need only setup/clean-up assistance from one helper? No. EATING - STEP 3: Does the patient need only verbal/nonverbal cueing or touching/steadying/contact guard assistance fro m one helper? Yes. 1. [id number] ADMISSION PERFORMANCE: Supervision or touching assistance CODE: 04 ORAL HYGIENE: ORAL HYGIENE - STEP 1: Does the patient complete the activity by him/herself with no assistance (physical, verbal/nonverbal cueing, setup/clean-up)? No. ORAL HYGIENE - STEP 2: Does the patient need only setup/clean-up assistance from one helper? Yes. 1. [id number] ADMISSION PERFORMANCE: Setup or clean-up assistance CODE: 05 TOILETING HYGIENE: TOILETING HYGIENE - STEP 1: Does the patient complete the activity by him/herself with no assistance (physical, verbal/nonverbal cueing, setup/clean-up)? No. TOILETING HYGIENE - STEP 2: Does the patient need only setup/clean-up assistance from one helper? No. TOILETING HYGIENE - STEP 3: Does the patient need only verbal/nonverbal cueing or touching/steadying/contact guard assistance fro m one helper? No. TOILETING HYGIENE - STEP 4: Does the patient need physical assistance - for example lifting or trunk support from one helper - wi th the helper providing less than half of the effort? Yes. 1. [id number] ADMISSION PERFORMANCE: Partial/moderate assistance CODE: 03 BATHING: Not assessed/no information CODE: - DRESSING - UPPER BODY: Not assessed/no information CODE: - DRESSING - LOWER BODY: Not assessed/no information CODE: - PUTTING ON/TAKING OFF FOOTWEAR: Not assessed/no information CODE: - ROLL LEFT AND RIGHT: Not assessed/no information CODE: - SIT TO LYING: Not assessed/no information CODE: - LYING TO SITTING: Not assessed/no information CODE: - SIT TO STAND: Not assessed/no information CODE: - TRANSFERS: BED, CHAIR: CHAIR/[id number] TRANSFER - STEP 1: Does the patient complete the activity by him/herself with no assistance (physical, verbal/nonverbal cueing, setup/clean-up)? No. CHAIR/[id number] TRANSFER - STEP 2: Does the patient need only setup/clean-up assistance from one helper? No. CHAIR/[id number] TRANSFER - STEP 3: Does the patient need only verbal/nonverbal cueing or touching/steadying/contact guard assistance fro m one helper? Yes. 1. [id number] ADMISSION PERFORMANCE: Supervision or touching assistance CODE: 04 TRANSFER TOILET: TOILET TRANSFER - STEP 1: Does the patient complete the activity by him/herself with no assistance (physical, verbal/nonverbal cueing, setup/clean-up)? No. TOILET TRANSFER - STEP 2: Does the patient need only setup/clean-up assistance from one helper? No. TOILET TRANSFER - STEP 3: Does the patient need only verbal/nonverbal cueing or touching/steadying/contact guard assistance fro m one helper? No. TOILET TRANSFER - STEP 4: Does the patient need physical assistance - for example lifting or trunk support from one helper - wi th the helper providing less than half of the effort? Yes. 1. [id number] ADMISSION PERFORMANCE: Partial/moderate assistance CODE: 03 TRANSFERS: CAR: Not assessed/no information CODE: - WALK 10 FEET: Not assessed/no information CODE: - 1 STEP (CURB): Not assessed/no information CODE: - DOES THE PATIENT USE A WHEELCHAIR/SCOOTER? CODE: EXPR WHEEL 50 FEET WITH TWO TURNS: Not assessed/no information CODE: - INDICATE THE TYPE OF WHEELCHAIR/SCOOTER USED: CODE: EXPR WHEEL 150 FEET: Not assessed/no information CODE: - INDICATE THE TYPE OF WHEELCHAIR/SCOOTER USED: CODE: EXPR BLADDER AND BOWEL: H350. BLADDER CONTINENCE (3-DAY ASSESSMENT PERIOD): Always continent (no documented incontinence) CODE: 0 H400. BOWEL CONTINENCE (3-DAY ASSESSMENT PERIOD): Always continent CODE: 0 SIGNATURE PANEL: The following modified sections: 1. [id number] Admission Performance, 1. [id number] Admission Performance, 1. [id number] Admission Performance, 1. [id number] Admission Performance, 1. [id number] Admission Performance, 1. [id number] Admission Performance, Code, H350. Bladder Continence (3-day assessment period), H400. David wel Continence (3-day assessment period) were [electronically] signed by Bg Hsieh on ThuJul 11 201 9 09:34:11 GMT-0600 (Central Standard Time)
[2019-07-11 09:46] LABS: Potassium 5.3 mmol/L (3.5-5.1)
[2019-07-11] MEDS: ENOXAPARIN 30 MG/0.3 ML SQ SCH (17:07)
--- NOTE | 2019-07-11 18:29 | R.PN ---
ENCOUNTER DATE AND TIME: 07/11/2019 18:23 (ZIPPER SETTER) NAME KAILA BLANK DATE OF : 1975 DATE OF ADMISSION: 06/24/2019 22:33 (ZIPPER SETTER) Hemorrhage in the left basal gangliaCHIEF COMPLAINT: Left basal ganglia hemorrhage, right sided weakness SUBJECTIVE: Pt denied any Shortness of Breath. Pt denied any depression. KUB 06/29/19 shows no obstruction. He still has significant dysphagia. He is on pureed diet. Glucose 106 to 116. Hgb is 10.7, WBC 8.6. ESR 58. He ambulated 20' with left hemiwalker and maximum assistance. Self-propelled wheelchair 250' with par tial assistance. Barium swallow shows no aspiration of thin liquid with pill. Thanks for renal input from Dr. Tamez. VITAL SIGNS Temperature: 97.4 F SBP/DBP: 140/59 Pulse: 73 Resp: 14 MEDICATION ALLERGIES: No Known Drug Allergies (NKDA) ENVIRONMENTAL ALLERGIES: - Substance Allergies None Known - Other Allergies None Known NURSING: - Shower allowing shower - Bladder care per protocol - Skin care per protocol PRECAUTIONS: - Weight Bearing Precaution WBAT right LE ACTIVITIES OOB only with supervision THERAPIES: - Occupational Therapy Cognitive Retraining. Visual Perceptual Training. - Dietary and Nutrition Adequate Nutrition. Nutritional Education. Nutritional Supplements. - Speech Therapy Cognitive Training. Expressive Language Skills. Memory Strategies. Receptive Language Skills. Speech Intelligibility Training. PHYSICAL EXAM - Gen Alert and awake Lying in bed No apparent distress Oriented to: person, time, and place - Skin No breakdown Normacephalic - Eyes No abnormalities - ENMT No abnormalities - Neck No abnormalities No cervical adenopathy - CVS RRR - Chest No abnormalities - Resp CTA bilaterally - Abd Soft - GI Non distended Deferred - No abnormalities - Ext Mild right upper and lower extremity edema. - MSK 1/5 weakness in right upper and lower extremities. - Neuro 1/5 weakness in right upper and lower extremities. - Psych Moderate depression. ASSESSMENT: Pt. is a 43 yo Right-handed white male.On 06/20/2019 Pt. presented to [facility] with sudden onset of right-side weakness.On 06/20/2019 he was admitted to [facility] with diagnosis Hemorrhage in the left basal ganglia.His impairment category is Stro ke 01 - Right Body (Left Brain) (01.2).Pre-morbidly, Pt. was independent/mod-I in Locomotion, Self-C are, Endurance, Communication, pain limiting function, Safety Awareness and Self-Care, and Sphincter Control; and he had good Balance.Currently, he has deficits of Locomotion, Self-Care, Endurance, Cali nce, Transfers Control, Safety Awareness, Ambulation, Social Cognition, pain limiting function, Safet y Awareness and Self-Care, Functional mobility, and Sphincter Control.Pt. is now [facility] to [facility] for acute in-patient rehabilitation in order to maximize patient's function al independence in activities of daily living, strength, ROM, and mobility.- Rehab Goal Patient has realistic goal of being discharged at assistance level 6-Cari to reside at Home with Fam desiree/Relatives. MDM/PLAN: - Physical Therapy Gait dysfunction - to improve, our physical therapists will perform initial evaluation of pt's statu s upon admission and devise an individualized program for Gait Training, and Wheel Chair mobility Inability to transfer - to improve, our physical therapists will perform initial evaluation of pt's status upon admission and devise an individualized program for Bed mobility Need for home safety evaluation - to improve, our physical therapists will perform initial evaluatio n of pt's status upon admission and devise an individualized program for Home Evaluation Need in caregiver upon discharge - to improve, our physical therapists will perform initial evaluati on of pt's status upon admission and devise an individualized program for Caregiver Training Edema - to improve, our physical therapists will perform initial evaluation of pt's status upon admi ssion and devise an individualized program for Elevation Training, and Lymphedema Therapy New precaution - to improve, our physical therapists will perform initial evaluation of pt's status upon admission and devise an individualized program for Patient precaution education Poor balance - to improve, our physical therapists will perform initial evaluation of pt's status up on admission and devise an individualized program for Balance Training Poor endurance - to improve, our physical therapists will perform initial evaluation of pt's status upon admission and devise an individualized program for Endurance Training Weakness - to improve, our physical therapists will perform initial evaluation of pt's status upon a dmission and devise an individualized program for Aquatic Therapy, Neuromuscular Reeducation, and Str engthening Achieving independence - to improve, our physical therapists will perform initial evaluation of pt's status upon admission and devise an individualized program for Community Reintegration Activities - Occupational Therapy ADL deficits - to improve, our occupation therapists will perform initial evaluation of pt's status upon admission and devise an individualized program for Bathing, Bed mobility, Community Reintegratio n, Cooking, Dressing, Eating, Fine Motor Skills, Grooming, Homemaking, Kitchen Mobility, Laundry, Pat ient Education, Safety Awareness, Splinting - Positioning, Transfers(Toilet, Tub, Shower), and Wheel Chair Management Cognitive deficits - to improve, our occupation therapists will perform initial evaluation of pt's s tatus upon admission and devise an individualized program for Cognition - orientation Need for senior care manager - to improve, our occupation therapists will perform initial evaluation of pt's status upon admission and devise an individualized program for Caregiver Training Weakness - to improve, our occupation therapists will perform initial evaluation of pt's status upon admission and devise an individualized program for Aquatic Therapy, Balance, Endurance, UE ROM, and UE strengthening - Other See attached MAR (Medication Administration Record) - Diet Type Continue Regular - Diet - Liquid Texture Continue Regular - Tube Feed Continue N/A - Bladder care per protocol - Weight Bearing Precaution WBAT right LE - Skin care per protocol - Diet - Solid Texture Continue Regular - Shower allowing shower for Dementia, TBI, Stroke, or others FUNCTIONAL STATUS: UPDATED AT WEEKLY TEAM CONFERENCE - Bladder Same accident frequency: 7-Ind - No accidents in the past 7 days - Bowel Same accident frequency: 7-Ind - No accidents in the past 7 days - Walking Same score based on distance walked: 1(<=50ft) - Wheelchair Same score based on distance traveled: 1(<=50ft) FUNCTIONAL STATUS: - Self-Care A. Eating maxA B. Grooming modA C. Bathing modA D. Dressing - Upper modA E. Dressing - Lower maxA F. Toileting maxA - Sphincter Control G. Bladder control modA H. Bowel control modA - Transfers Control I. Bed/Chair/Wheelchair maxA J. Toilet maxA K. Tub/Shower maxA - Locomotion L. Walk/Wheelchair (W) maxA M. Stairs ADNO - Communication N. Comprehension (B) Shivam O. Expression (B) Shivam - Social Cognition P. Social Interaction sup Q. Problem Solving sup R. Memory sup - Endurance Good - Balance Good - Safety Awareness Good QI SCORES: - Self-Care A. Eating 05-Setup or clean-up assistance B. Oral hygiene 05-Setup or clean-up assistance C. Toileting hygiene 02-Substantial/maximal assistance E. Shower/bathe self 88-Not attempted due to medical condition or safety concerns F. Upper body dressing 02-Substantial/maximal assistance G. Lower body dressing 02-Substantial/maximal assistance H. Putting on/taking off footwear 88-Not attempted due to medical condition or safety concerns - Mobility A. Roll left and right 02-Substantial/maximal assistance B. Sit to lying 02-Substantial/maximal assistance C. Lying to sitting on side of bed 02-Substantial/maximal assistance D. Sit to stand 04-Supervision or touching assistance E. Chair/[id number] transfer 02-Substantial/maximal assistance F. Toilet transfer 02-Substantial/maximal assistance G. Car transfer 88-Not attempted due to medical condition or safety concerns I. Walk 10 feet 88-Not attempted due to medical condition or safety concerns J. Walk 50 feet with two turns 88-Not attempted due to medical condition or safety concerns K. Walk 150 feet 88-Not attempted due to medical condition or safety concerns L. Walking 10 feet on uneven surfaces 88-Not attempted due to medical condition or safety concerns M. 1 step (curb) 88-Not attempted due to medical condition or safety concerns N. 4 steps 88-Not attempted due to medical condition or safety concerns O. 12 steps 88-Not attempted due to medical condition or safety concerns P. Picking up object 88-Not attempted due to medical condition or safety concerns R. Wheel 50 feet with two turns 88-Not attempted due to medical condition or safety concerns S. Wheel 150 feet 88-Not attempted due to medical condition or safety concerns - Bladder and Bowel Bladder continence 3-Incontinent daily Bowel continence 3-Always incontinent - Endurance Poor - Balance Poor - Safety Awareness Poor CURRENT FUNC. DEFICITS: Self-Care, Mobility, Endurance, Balance, and Safety Awareness SIGNATURE PANEL: (ZIPPER SETTER)
[2019-07-11] MEDS: MELATONIN 3 MG TABLET PO PRN (19:13)
[2019-07-11] MEDS: ATORVASTATIN 40 MG TAB PO SCH (19:13)
[2019-07-12] MEDS: carvediloL 25 MG TAB PO SCH ×2 (05:06→17:08)
[2019-07-12] MEDS: INSULIN -REGULAR HUMAN 50 UNIT/0.5 ML ML SQ SCH ×4 (07:30→19:23)
[2019-07-12] MEDS: MUPIROCIN 2% OINT 22GM TUBE TOP SCH (08:00)
[2019-07-12] MEDS: HYDRALAZINE HCL 25 MG TABLET PO SCH ×3 (08:30→18:51)
[2019-07-12] MEDS: AMLODIPINE 5 MG TAB PO SCH (08:30)
[2019-07-12] MEDS: FERROUS SULFATE 325 MG TAB PO SCH (08:30)
[2019-07-12] MEDS: FE SULF/FA/VIT B COMP & C TAB PO SCH (08:30)
[2019-07-12] MEDS: PANTOPRAZOLE 40MG TABLET PO SCH (08:30)
[2019-07-12] MEDS: NIFEDIPINE XL 30 MG TABLET PO SCH (08:30)
[2019-07-12] MEDS: ACETAMINOPHEN 500 MG TAB PO PRN ×2 (10:30→18:51)
[2019-07-12] MEDS: MINOCYCLINE HCL 50 MG CAP PO SCH ×2 (11:52→18:51)
[2019-07-12] MEDS ORDERED: HYDRALAZINE HCL 25 MG TABLET ONE (15:27)
[2019-07-12] MEDS: ENOXAPARIN 30 MG/0.3 ML SQ SCH (16:29)
[2019-07-12] MEDS: ATORVASTATIN 40 MG TAB PO SCH (18:51)
[2019-07-12] MEDS: MELATONIN 3 MG TABLET PO PRN (18:52)
[2019-07-13] MEDS: ACETAMINOPHEN 500 MG TAB PO PRN (00:50)
[2019-07-13] MEDS: carvediloL 25 MG TAB PO SCH ×2 (05:01→17:29)
[2019-07-13] MEDS: INSULIN -REGULAR HUMAN 50 UNIT/0.5 ML ML SQ SCH ×4 (07:30→20:48)
[2019-07-13] MEDS: MUPIROCIN 2% OINT 22GM TUBE TOP SCH (08:00)
[2019-07-13] MEDS: PANTOPRAZOLE 40MG TABLET PO SCH (09:03)
[2019-07-13] MEDS: AMLODIPINE 5 MG TAB PO SCH (09:04)
[2019-07-13] MEDS: FE SULF/FA/VIT B COMP & C TAB PO SCH (09:04)
[2019-07-13] MEDS: FERROUS SULFATE 325 MG TAB PO SCH (09:05)
[2019-07-13] MEDS: HYDRALAZINE HCL 25 MG TABLET PO SCH ×3 (09:05→20:46)
[2019-07-13] MEDS: NIFEDIPINE XL 30 MG TABLET PO SCH (09:09)
[2019-07-13] MEDS: MINOCYCLINE HCL 50 MG CAP PO SCH ×2 (11:12→20:46)
[2019-07-13] MEDS: ENOXAPARIN 30 MG/0.3 ML SQ SCH (16:33)
[2019-07-13] MEDS: MELATONIN 3 MG TABLET PO PRN (20:47)
[2019-07-13] MEDS: ATORVASTATIN 40 MG TAB PO SCH (20:47)
[2019-07-14] MEDS: carvediloL 25 MG TAB PO SCH ×2 (05:15→17:09)
[2019-07-14 07:04] LABS: Absolute Lymphocytes (CBC) 1.7 K/uL (0.7-4.9); Basophils % 0.9 % (0-1.3); Hematocrit 24.7 % (39.6-49.0); RBC Red Blood Cell Count 2.75 M/uL (4.33-5.43)
[2019-07-14 07:22] LABS: Albumin 2.6 g/dL (3.4-5.0); Potassium 5.3 mmol/L (3.5-5.1)
[2019-07-14] MEDS: INSULIN -REGULAR HUMAN 50 UNIT/0.5 ML ML SQ SCH ×4 (07:30→20:52)
[2019-07-14] MEDS: MUPIROCIN 2% OINT 22GM TUBE TOP SCH (08:00)
[2019-07-14] MEDS: FE SULF/FA/VIT B COMP & C TAB PO SCH (08:00)
[2019-07-14] MEDS: AMLODIPINE 5 MG TAB PO SCH (08:10)
[2019-07-14] MEDS: HYDRALAZINE HCL 25 MG TABLET PO SCH ×3 (08:10→20:39)
[2019-07-14] MEDS: MINOCYCLINE HCL 50 MG CAP PO SCH ×2 (08:10→20:39)
[2019-07-14] MEDS: FERROUS SULFATE 325 MG TAB PO SCH (08:11)
[2019-07-14] MEDS: PANTOPRAZOLE 40MG TABLET PO SCH (08:11)
[2019-07-14] MEDS: NIFEDIPINE XL 30 MG TABLET PO SCH (10:14)
--- NOTE | 2019-07-14 15:33 | FAST ---
SHIFT START DATE/TIME: 07/14/2019 07:00 (MOLD CARRIER) SHIFT END DATE/TIME: 07/14/2019 19:00 (MOLD CARRIER) NAME KAILA BLANK DATE OF : 1975 DATE OF ADMISSION: 06/24/2019 22:33 (MOLD CARRIER) PHONE: AGE: 43 N# [id number] GENDER: Male ENCOUNTER PHYSICIAN: Dr. Kodak Leslie M.D. ADMISSION DIAGNOSIS: - Stroke 01 - Right Body (Left Brain) (01.2) Hemorrhage in the left basal ganglia. EATING: EATING - STEP 1: Does the patient complete the activity by him/herself with no assistance (physical, verbal/nonverbal cueing, setup/clean-up)? No. EATING - STEP 2: Does the patient need only setup/clean-up assistance from one helper? No. EATING - STEP 3: Does the patient need only verbal/nonverbal cueing or touching/steadying/contact guard assistance fro m one helper? Yes. 1. [id number] ADMISSION PERFORMANCE: Supervision or touching assistance CODE: 04 ORAL HYGIENE: Patient refused CODE: 07 TOILETING HYGIENE: TOILETING HYGIENE - STEP 1: Does the patient complete the activity by him/herself with no assistance (physical, verbal/nonverbal cueing, setup/clean-up)? No. TOILETING HYGIENE - STEP 2: Does the patient need only setup/clean-up assistance from one helper? No. TOILETING HYGIENE - STEP 3: Does the patient need only verbal/nonverbal cueing or touching/steadying/contact guard assistance fro m one helper? No. TOILETING HYGIENE - STEP 4: Does the patient need physical assistance - for example lifting or trunk support from one helper - wi th the helper providing less than half of the effort? No. TOILETING HYGIENE - STEP 5: Does the patient need physical assistance - for example lifting or trunk support from one helper - wi th the helper providing more than half of the effort? Yes. 1. [id number] ADMISSION PERFORMANCE: Substantial/maximal assistance CODE: 02 BATHING: Not assessed/no information CODE: - DRESSING - UPPER BODY: DRESSING - UPPER BODY - STEP 1: Does the patient complete the activity by him/herself with no assistance (physical, verbal/nonverbal cueing, setup/clean-up)? No. DRESSING - UPPER BODY - STEP 2: Does the patient need only setup/clean-up assistance from one helper? No. DRESSING - UPPER BODY - STEP 3: Does the patient need only verbal/nonverbal cueing or touching/steadying/contact guard assistance fro m one helper? No. DRESSING - UPPER BODY - STEP 4: Does the patient need physical assistance - for example lifting or trunk support from one helper - wi th the helper providing less than half of the effort? Yes. 1. [id number] ADMISSION PERFORMANCE: Partial/moderate assistance CODE: 03 DRESSING - LOWER BODY: DRESSING - LOWER BODY - STEP 1: Does the patient complete the activity by him/herself with no assistance (physical, verbal/nonverbal cueing, setup/clean-up)? No. DRESSING - LOWER BODY - STEP 2: Does the patient need only setup/clean-up assistance from one helper? No. DRESSING - LOWER BODY - STEP 3: Does the patient need only verbal/nonverbal cueing or touching/steadying/contact guard assistance fro m one helper? No. DRESSING - LOWER BODY - STEP 4: Does the patient need physical assistance - for example lifting or trunk support from one helper - wi th the helper providing less than half of the effort? No. DRESSING - LOWER BODY - STEP 5: Does the patient need physical assistance - for example lifting or trunk support from one helper - wi th the helper providing more than half of the effort? Yes. 1. [id number] ADMISSION PERFORMANCE: Substantial/maximal assistance CODE: 02 PUTTING ON/TAKING OFF FOOTWEAR: FOOTWEAR - STEP 1: Does the patient complete the activity by him/herself with no assistance (physical, verbal/nonverbal cueing, setup/clean-up)? No. FOOTWEAR - STEP 2: Does the patient need only setup/clean-up assistance from one helper? No. FOOTWEAR - STEP 3: Does the patient need only verbal/nonverbal cueing or touching/steadying/contact guard assistance fro m one helper? No. FOOTWEAR - STEP 4: Does the patient need physical assistance - for example lifting or trunk support from one helper - wi th the helper providing less than half of the effort? No. FOOTWEAR - STEP 5: Does the patient need physical assistance - for example lifting or trunk support from one helper - wi th the helper providing more than half of the effort? Yes. 1. [id number] ADMISSION PERFORMANCE: Substantial/maximal assistance CODE: 02 ROLL LEFT AND RIGHT: ROLL LEFT AND RIGHT - STEP 1: Does the patient complete the activity by him/herself with no assistance (physical, verbal/nonverbal cueing, setup/clean-up)? No. ROLL LEFT AND RIGHT - STEP 2: Does the patient need only setup/clean-up assistance from one helper? No. ROLL LEFT AND RIGHT - STEP 3: Does the patient need only verbal/nonverbal cueing or touching/steadying/contact guard assistance fro m one helper? No. ROLL LEFT AND RIGHT - STEP 4: Does the patient need physical assistance - for example lifting or trunk support from one helper - wi th the helper providing less than half of the effort? No. ROLL LEFT AND RIGHT - STEP 5: Does the patient need physical assistance - for example lifting or trunk support from one helper - wi th the helper providing more than half of the effort? Yes. 1. [id number] ADMISSION PERFORMANCE: Substantial/maximal assistance CODE: 02 SIT TO LYING: SIT TO LYING - STEP 1: Does the patient complete the activity by him/herself with no assistance (physical, verbal/nonverbal cueing, setup/clean-up)? No. SIT TO LYING - STEP 2: Does the patient need only setup/clean-up assistance from one helper? Yes. 1. [id number] ADMISSION PERFORMANCE: Setup or clean-up assistance CODE: 05 LYING TO SITTING: LYING TO SITTING ON SIDE OF BED - STEP 1: Does the patient complete the activity by him/herself with no assistance (physical, verbal/nonverbal cueing, setup/clean-up)? No. LYING TO SITTING ON SIDE OF BED - STEP 2: Does the patient need only setup/clean-up assistance from one helper? No. LYING TO SITTING ON SIDE OF BED - STEP 3: Does the patient need only verbal/nonverbal cueing or touching/steadying/contact guard assistance fro m one helper? No. LYING TO SITTING ON SIDE OF BED - STEP 4: Does the patient need physical assistance - for example lifting or trunk support from one helper - wi th the helper providing less than half of the effort? No. LYING TO SITTING ON SIDE OF BED - STEP 5: Does the patient need physical assistance - for example lifting or trunk support from one helper - wi th the helper providing more than half of the effort? Yes. 1. [id number] ADMISSION PERFORMANCE: Substantial/maximal assistance CODE: 02 SIT TO STAND: SIT TO STAND - STEP 1: Does the patient complete the activity by him/herself with no assistance (physical, verbal/nonverbal cueing, setup/clean-up)? No. SIT TO STAND - STEP 2: Does the patient need only setup/clean-up assistance from one helper? No. SIT TO STAND - STEP 3: Does the patient need only verbal/nonverbal cueing or touching/steadying/contact guard assistance fro m one helper? No. SIT TO STAND - STEP 4: Does the patient need physical assistance - for example lifting or trunk support from one helper - wi th the helper providing less than half of the effort? No. SIT TO STAND - STEP 5: Does the patient need physical assistance - for example lifting or trunk support from one helper - wi th the helper providing more than half of the effort? Yes. 1. [id number] ADMISSION PERFORMANCE: Substantial/maximal assistance CODE: 02 TRANSFERS: BED, CHAIR: CHAIR/[id number] TRANSFER - STEP 1: Does the patient complete the activity by him/herself with no assistance (physical, verbal/nonverbal cueing, setup/clean-up)? No. CHAIR/[id number] TRANSFER - STEP 2: Does the patient need only setup/clean-up assistance from one helper? No. CHAIR/[id number] TRANSFER - STEP 3: Does the patient need only verbal/nonverbal cueing or touching/steadying/contact guard assistance fro m one helper? No. CHAIR/[id number] TRANSFER - STEP 4: Does the patient need physical assistance - for example lifting or trunk support from one helper - wi th the helper providing less than half of the effort? No. CHAIR/[id number] TRANSFER - STEP 5: Does the patient need physical assistance - for example lifting or trunk support from one helper - wi th the helper providing more than half of the effort? Yes. 1. [id number] ADMISSION PERFORMANCE: Substantial/maximal assistance CODE: 02 TRANSFER TOILET: TOILET TRANSFER - STEP 1: Does the patient complete the activity by him/herself with no assistance (physical, verbal/nonverbal cueing, setup/clean-up)? No. TOILET TRANSFER - STEP 2: Does the patient need only setup/clean-up assistance from one helper? No. TOILET TRANSFER - STEP 3: Does the patient need only verbal/nonverbal cueing or touching/steadying/contact guard assistance fro m one helper? No. TOILET TRANSFER - STEP 4: Does the patient need physical assistance - for example lifting or trunk support from one helper - wi th the helper providing less than half of the effort? Yes. 1. [id number] ADMISSION PERFORMANCE: Partial/moderate assistance CODE: 03 TRANSFERS: CAR: Not assessed/no information CODE: - WALK 10 FEET: Not attempted due to medical condition or safety concerns CODE: 88 1 STEP (CURB): Not attempted due to medical condition or safety concerns CODE: 88 PICKING UP OBJECT: Not attempted due to medical condition or safety concerns CODE: 88 DOES THE PATIENT USE A WHEELCHAIR/SCOOTER? Q1. DOES THE PATIENT USE A WHEELCHAIR/SCOOTER?: Yes CODE: 1 WHEEL 50 FEET WITH TWO TURNS: WHEEL 50 FEET WITH TWO TURNS - STEP 1: Does the patient complete the activity by him/herself with no assistance (physical, verbal/nonverbal cueing, setup/clean-up)? No. WHEEL 50 FEET WITH TWO TURNS - STEP 2: Does the patient need only setup/clean-up assistance from one helper? Yes. 1. [id number] ADMISSION PERFORMANCE: Setup or clean-up assistance CODE: 05 INDICATE THE TYPE OF WHEELCHAIR/SCOOTER USED: RR1. INDICATE THE TYPE OF WHEELCHAIR/SCOOTER USED.: Manual CODE: 1 WHEEL 150 FEET: WHEEL 150 FEET - STEP 1: Does the patient complete the activity by him/herself with no assistance (physical, verbal/nonverbal cueing, setup/clean-up)? No. WHEEL 150 FEET - STEP 2: Does the patient need only setup/clean-up assistance from one helper? Yes. 1. [id number] ADMISSION PERFORMANCE: Setup or clean-up assistance CODE: 05 INDICATE THE TYPE OF WHEELCHAIR/SCOOTER USED: SS1. INDICATE THE TYPE OF WHEELCHAIR/SCOOTER USED.: Manual CODE: 1 BLADDER AND BOWEL: H350. BLADDER CONTINENCE (3-DAY ASSESSMENT PERIOD): Incontinent daily (at least once a day) CODE: 3 H400. BOWEL CONTINENCE (3-DAY ASSESSMENT PERIOD): Always continent CODE: 0 SIGNATURE PANEL: The following modified sections: 1. [id number] Admission Performance, 1. [id number] Admission Performance, 1. EN5565d Admission Performance, 1. EC2071y Admission Performance, 1. LF2903p Admission Performance, 1. OC8416A Admission Performance, 1. [id number] Admission Performance, 1. [id number] Admission Performance , 1. [id number] Admission Performance, 1. SK6125D Admission Performance, 1. [id number] Admission Performanc e, 1. [id number] Admission Performance, 1. [id number] Admission Performance, 1. [id number] Admission Performan ce, Q1. Does the patient use a wheelchair/scooter?, 1. AL5964U Admission Performance, RR1. Indicate t he type of wheelchair/scooter used., 1. [id number] Admission Performance, Code, SS1. Indicate the type o f wheelchair/scooter used., H350. Bladder Continence (3-day assessment period), H400. Bowel Continenc e (3-day assessment period), 1. SY9632k Admission Performance, 1. [id number] Admission Performance were [electronically] signed by Amelia Prince C.N.A. on ThuJul 14 2019 15:32:16 T-0600 (Central Standar d Time)
[2019-07-14] MEDS: ENOXAPARIN 30 MG/0.3 ML SQ SCH (16:40)
--- NOTE | 2019-07-14 17:53 | R.PN ---
ENCOUNTER DATE AND TIME: 07/14/2019 17:47 (GEOPHYSICS PROFESSOR) NAME KAILA BLANK DATE OF : 1975 DATE OF ADMISSION: 06/24/2019 22:33 (GEOPHYSICS PROFESSOR) Hemorrhage in the left basal gangliaCHIEF COMPLAINT: Left basal ganglia hemorrhage, right sided weakness SUBJECTIVE: Pt denied any Shortness of Breath. Pt denied any depression. KUB 06/29/19 shows no obstruction. His dysphagia has improved. He is on thin liquids. Glucose 119 to 165. Hgb is 8.5, WBC 6.8. ESR 58. He ambulated 42' with left hemiwalker and moderate assistance. Self-propelled wheelchair 250' with st andby assistance. Barium swallow shows no aspiration of thin liquid with pill. Thanks for renal input from Dr. Tamez. VITAL SIGNS Temperature: 97.6 F SBP/DBP: 148/64 Pulse: 68 Resp: 16 MEDICATION ALLERGIES: No Known Drug Allergies (NKDA) ENVIRONMENTAL ALLERGIES: - Substance Allergies None Known - Other Allergies None Known NURSING: - Shower allowing shower - Bladder care per protocol - Skin care per protocol PRECAUTIONS: - Weight Bearing Precaution WBAT right LE ACTIVITIES OOB only with supervision THERAPIES: - Occupational Therapy Cognitive Retraining. Visual Perceptual Training. - Dietary and Nutrition Adequate Nutrition. Nutritional Education. Nutritional Supplements. - Speech Therapy Cognitive Training. Expressive Language Skills. Memory Strategies. Receptive Language Skills. Speech Intelligibility Training. PHYSICAL EXAM - Gen Alert and awake Lying in bed No apparent distress Oriented to: person, time, and place - Skin No breakdown Normacephalic - Eyes No abnormalities - ENMT No abnormalities - Neck No abnormalities No cervical adenopathy - CVS RRR - Chest No abnormalities - Resp CTA bilaterally - Abd Soft - GI Non distended Deferred - No abnormalities - Ext Mild right upper and lower extremity edema. - MSK 1/5 weakness in right upper and lower extremities. - Neuro 1/5 weakness in right upper and lower extremities. - Psych Moderate depression. ASSESSMENT: Pt. is a 43 yo Right-handed white male.On 06/20/2019 Pt. presented to [facility] with sudden onset of right-side weakness.On 06/20/2019 he was admitted to [facility] with diagnosis Hemorrhage in the left basal ganglia.His impairment category is Stro ke 01 - Right Body (Left Brain) (01.2).Pre-morbidly, Pt. was independent/mod-I in Locomotion, Self-C are, Endurance, Communication, pain limiting function, Safety Awareness and Self-Care, and Sphincter Control; and he had good Balance.Currently, he has deficits of Locomotion, Self-Care, Endurance, Cali nce, Transfers Control, Safety Awareness, Ambulation, Social Cognition, pain limiting function, Safet y Awareness and Self-Care, Functional mobility, and Sphincter Control.Pt. is now referred to [facility] for acute in-patient rehabilitation in order to maximize patient's function al independence in activities of daily living, strength, ROM, and mobility.- Rehab Goal Patient has realistic goal of being discharged at assistance level 6-Cari to reside at Home with Fam desiree/Relatives. MDM/PLAN: - Physical Therapy Gait dysfunction - to improve, our physical therapists will perform initial evaluation of pt's statu s upon admission and devise an individualized program for Gait Training, and Wheel Chair mobility Inability to transfer - to improve, our physical therapists will perform initial evaluation of pt's status upon admission and devise an individualized program for Bed mobility Need for home safety evaluation - to improve, our physical therapists will perform initial evaluatio n of pt's status upon admission and devise an individualized program for Home Evaluation Need in caregiver upon discharge - to improve, our physical therapists will perform initial evaluati on of pt's status upon admission and devise an individualized program for Caregiver Training Edema - to improve, our physical therapists will perform initial evaluation of pt's status upon admi ssion and devise an individualized program for Elevation Training, and Lymphedema Therapy New precaution - to improve, our physical therapists will perform initial evaluation of pt's status upon admission and devise an individualized program for Patient precaution education Poor balance - to improve, our physical therapists will perform initial evaluation of pt's status up on admission and devise an individualized program for Balance Training Poor endurance - to improve, our physical therapists will perform initial evaluation of pt's status upon admission and devise an individualized program for Endurance Training Weakness - to improve, our physical therapists will perform initial evaluation of pt's status upon a dmission and devise an individualized program for Aquatic Therapy, Neuromuscular Reeducation, and Str engthening Achieving independence - to improve, our physical therapists will perform initial evaluation of pt's status upon admission and devise an individualized program for Community Reintegration Activities - Occupational Therapy ADL deficits - to improve, our occupation therapists will perform initial evaluation of pt's status upon admission and devise an individualized program for Bathing, Bed mobility, Community Reintegratio n, Cooking, Dressing, Eating, Fine Motor Skills, Grooming, Homemaking, Kitchen Mobility, Laundry, Pat ient Education, Safety Awareness, Splinting - Positioning, Transfers(Toilet, Tub, Shower), and Wheel Chair Management Cognitive deficits - to improve, our occupation therapists will perform initial evaluation of pt's s tatus upon admission and devise an individualized program for Cognition - orientation Need for home day care provider - to improve, our occupation therapists will perform initial evaluation of pt's status upon admission and devise an individualized program for Caregiver Training Weakness - to improve, our occupation therapists will perform initial evaluation of pt's status upon admission and devise an individualized program for Aquatic Therapy, Balance, Endurance, UE ROM, and UE strengthening - Other See attached MAR (Medication Administration Record) - Diet Type Continue Regular - Diet - Liquid Texture Continue Regular - Tube Feed Continue N/A - Bladder care per protocol - Weight Bearing Precaution WBAT right LE - Skin care per protocol - Diet - Solid Texture Continue Regular - Shower allowing shower for Dementia, TBI, Stroke, or others FUNCTIONAL STATUS: UPDATED AT WEEKLY TEAM CONFERENCE - Bladder Same accident frequency: 7-Ind - No accidents in the past 7 days - Bowel Same accident frequency: 7-Ind - No accidents in the past 7 days - Walking Same score based on distance walked: 1(<=50ft) - Wheelchair Same score based on distance traveled: 1(<=50ft) FUNCTIONAL STATUS: - Self-Care A. Eating maxA B. Grooming modA C. Bathing modA D. Dressing - Upper modA E. Dressing - Lower maxA F. Toileting maxA - Sphincter Control G. Bladder control modA H. Bowel control modA - Transfers Control I. Bed/Chair/Wheelchair maxA J. Toilet maxA K. Tub/Shower maxA - Locomotion L. Walk/Wheelchair (W) maxA M. Stairs ADNO - Communication N. Comprehension (B) Shivam O. Expression (B) Shivam - Social Cognition P. Social Interaction sup Q. Problem Solving sup R. Memory sup - Endurance Good - Balance Good - Safety Awareness Good QI SCORES: - Self-Care A. Eating 05-Setup or clean-up assistance B. Oral hygiene 05-Setup or clean-up assistance C. Toileting hygiene 02-Substantial/maximal assistance E. Shower/bathe self 88-Not attempted due to medical condition or safety concerns F. Upper body dressing 02-Substantial/maximal assistance G. Lower body dressing 02-Substantial/maximal assistance H. Putting on/taking off footwear 88-Not attempted due to medical condition or safety concerns - Mobility A. Roll left and right 02-Substantial/maximal assistance B. Sit to lying 02-Substantial/maximal assistance C. Lying to sitting on side of bed 02-Substantial/maximal assistance D. Sit to stand 04-Supervision or touching assistance E. Chair/gmf-po-yfafu transfer 02-Substantial/maximal assistance F. Toilet transfer 02-Substantial/maximal assistance G. Car transfer 88-Not attempted due to medical condition or safety concerns I. Walk 10 feet 88-Not attempted due to medical condition or safety concerns J. Walk 50 feet with two turns 88-Not attempted due to medical condition or safety concerns K. Walk 150 feet 88-Not attempted due to medical condition or safety concerns L. Walking 10 feet on uneven surfaces 88-Not attempted due to medical condition or safety concerns M. 1 step (curb) 88-Not attempted due to medical condition or safety concerns N. 4 steps 88-Not attempted due to medical condition or safety concerns O. 12 steps 88-Not attempted due to medical condition or safety concerns P. Picking up object 88-Not attempted due to medical condition or safety concerns R. Wheel 50 feet with two turns 88-Not attempted due to medical condition or safety concerns S. Wheel 150 feet 88-Not attempted due to medical condition or safety concerns - Bladder and Bowel Bladder continence 3-Incontinent daily Bowel continence 3-Always incontinent - Endurance Poor - Balance Poor - Safety Awareness Poor CURRENT FUNC. DEFICITS: Self-Care, Mobility, Endurance, Balance, and Safety Awareness SIGNATURE PANEL: (GEOPHYSICS PROFESSOR)
--- NOTE | 2019-07-14 18:28 | PN ---
Date of Progress Note: 07/14/2019 Subjective: Patient was seen and examined. He continues to have weakness in his right arm and leg. Continues to get physical therapy. No other overnight events were noted. Objective: Vital Signs: Have been reviewed and are stable. General: He appears in no acute distress, right-sided hemiplegia was noted. Lungs: Clear to auscultation. Extremities: Showed no evidence of edema. Laboratory Data: Showing mild hyperkalemia with a potassium of 5.3. Creatinine is improving to 3.3 and BUN of 57. CBC showing chronic anemia with hemoglobin of 8.5, hematocrit of 24.7, and platelet c ount of 157. Current Medications: Include Tylenol, amlodipine, atorvastatin, Coreg, Lovenox for DVT prophylaxis, hydralazine 50 mg 3 times a day, melatonin, minocycline 100 mg b.i.d., nifedipine, pantoprazole, and Zofran p.r.n. Impression: 1.Acute on chronic renal failure secondary to possibly from Bactrim use. Baseline creatinine around 2.5. Currently with stable renal function overall. Patient is being worked up for other causes as well. Some of the labs are still pending at this time, but most likely has diabetic nephropathy. 2.History of recent cerebrovascular accident with right-sided hemiparesis secondary to hemorrhage in the left basal ganglia. Patient is being getting physical therapy and occupational therapy. Contin ue to monitor closely. 3.Anemia with dropping hemoglobin and hematocrit. Continue to monitor. 4.Hypertension, stable. 5.Recent cerebrovascular accident. 6.Type 2 diabetes, on insulin protocol. Plan: Patient is overall doing much better. Renal function is improving. He is being worked up for secondary causes of renal failure. We will continue to monitor closely. Continue to avoid nephroto xins and hypotension and we will follow up on a.m. labs. VV/MODL Voice ID: [id number] Report ID: [id number]
[2019-07-14] MEDS: ATORVASTATIN 40 MG TAB PO SCH (20:39)
[2019-07-14] MEDS: MELATONIN 3 MG TABLET PO PRN (20:39)
[2019-07-14] MEDS: DOCUSATE NA/SENNA CONC 1 TAB PO PRN (20:40)
[2019-07-15] MEDS: carvediloL 25 MG TAB PO SCH ×2 (05:20→17:13)
[2019-07-15 06:59] VITALS: TEMP 97.6
[2019-07-15] MEDS: INSULIN -REGULAR HUMAN 50 UNIT/0.5 ML ML SQ SCH ×3 (07:12→16:30)
[2019-07-15] MEDS: MUPIROCIN 2% OINT 22GM TUBE TOP SCH (08:00)
[2019-07-15] MEDS: ACETAMINOPHEN 500 MG TAB PO PRN (08:24)
[2019-07-15] MEDS: AMLODIPINE 5 MG TAB PO SCH (08:25)
[2019-07-15] MEDS: HYDRALAZINE HCL 25 MG TABLET PO SCH ×2 (08:26→14:36)
[2019-07-15] MEDS: PANTOPRAZOLE 40MG TABLET PO SCH (08:26)
[2019-07-15] MEDS: FERROUS SULFATE 325 MG TAB PO SCH (08:26)
[2019-07-15] MEDS: MINOCYCLINE HCL 50 MG CAP PO SCH (08:26)
[2019-07-15] MEDS: NIFEDIPINE XL 30 MG TABLET PO SCH (08:27)
[2019-07-15] MEDS: FE SULF/FA/VIT B COMP & C TAB PO SCH (08:27)
--- NOTE | 2019-07-15 09:54 | P.RH.PN ---
Estimated Length of Stay: 25 Expected Discharge Date: 07/18/19 Discharge Disposition Plan: Home Family Support: Yes Nursing Home Goal: Mobility, Transfers, Self Care Vital Signs: Last Vital Signs Temp 97.6 F 07/15/19 06:59 Pulse 70 07/15/19 08:25 Resp 16 07/15/19 06:59 BP 137/63 07/15/19 08:25 Pulse Ox 98 07/15/19 06:59 Laboratory: Laboratory Last Values WBC 6.8 K/uL (4.3-10.9) 07/14/19 06:50 RBC 2.75 M/uL (4.33-5.43) L 07/14/19 06:50 Hgb 8.5 g/dL (13.6-17.9) L 07/14/19 06:50 Hct 24.7 % (39.6-49.0) L 07/14/19 06:50 MCV 89.7 fL (80-100) 07/14/19 06:50 MCH 31.0 pg (27.0-35.0) 07/14/19 06:50 MCHC 34.6 g/dL (32.0-36.0) 07/14/19 06:50 RDW 14.5 % (12.1-15.2) 07/14/19 06:50 Plt Count 157 K/uL (152-406) 07/14/19 06:50 MPV 9.0 fL (7.6-11.3) 07/14/19 06:50 Neutrophils % 62.7 % (41.7-73.7) 07/14/19 06:50 Lymphocytes % 25.0 % (15.3-44.8) 07/14/19 06:50 Monocytes % 8.7 % (3.3-12.3) 07/14/19 06:50 Eosinophils % 2.7 % (0-4.4) 07/14/19 06:50 Basophils % 0.9 % (0-1.3) 07/14/19 06:50 Absolute Neutrophils 4.3 K/uL (1.8-8.0) 07/14/19 06:50 Absolute Lymphocytes 1.7 K/uL (0.7-4.9) 07/14/19 06:50 Absolute Monocytes 0.6 K/uL (0.1-1.3) 07/14/19 06:50 Absolute Eosinophils 0.2 K/uL (0-0.5) 07/14/19 06:50 Absolute Basophils 0.1 K/uL (0-0.5) 07/14/19 06:50 ESR Westergren 58 mm/HR (0-15) H 07/10/19 06:15 Sodium 143 mmol/L (136-145) 07/14/19 06:50 Potassium 5.3 mmol/L (3.5-5.1) H 07/14/19 06:50 Chloride 113 mmol/L (98-107) H 07/14/19 06:50 Carbon Dioxide 23 mmol/L (21-32) 07/14/19 06:50 BUN 57 mg/dL (7-18) H 07/14/19 06:50 Creatinine 3.34 mg/dL (0.55-1.3) H 07/14/19 06:50 Estimated GFR 20 mL/min (=/>90) L 07/14/19 06:50 Glucose 125 mg/dL (74-106) H 07/14/19 06:50 POC Glucose 136 mg/dl (65-120) H 07/15/19 07:08 Calcium 8.3 mg/dL (8.5-10.1) L 07/14/19 06:50 Magnesium 2.0 mg/dL (1.8-2.4) 07/14/19 06:50 C-Reactive Protein < 2.90 mg/L (<3.00) 07/10/19 06:15 Albumin 2.6 g/dL (3.4-5.0) L 07/14/19 06:50 Prealbumin 30.0 mg/dL (20-40) 07/14/19 06:50 Urine Color Yellow 07/10/19 13:05 Urine Appearance Clear 07/10/19 13:05 Urine pH 5.5 (5.0-7.0) 07/10/19 13:05 Ur Specific [place] 1.015 (1.005-1.030) 07/10/19 13:05 Urine Ketones Negative (NEG) 07/10/19 13:05 Urine Blood Negative (NEG) 07/10/19 13:05 Urine Nitrite Negative (NEG) 07/10/19 13:05 Urine Bilirubin Negative (NEG) 07/10/19 13:05 Urine Urobilinogen 0.2 mg/dL (0.2-1.0) 07/10/19 13:05 Ur Leukocyte Esterase Negative (NEG) 07/10/19 13:05 Urine RBC <5 /HPF (NONE SEEN) 07/10/19 13:05 Urine WBC <5 /HPF (<5) 07/10/19 13:05 Ur Squamous Epith Cells <5 /HPF (NONE SEEN) 07/10/19 13:05 Urine Bacteria <20 /HPF (NONE SEEN) 07/10/19 13:05 Urine Culture Reflexed Not needed 07/10/19 13:05 U Random Total Protein 214 mg/dL (<11.9) H 07/10/19 13:05 Urine Total Volume Cancelled 07/10/19 13:05 Urine Creatinine 84.0 mg/dL (20-370) 07/10/19 13:05 Ur Creatinine 24 Hour Cancelled 07/10/19 13:05 Ur Total Protein 24 Hr Cancelled 07/10/19 13:05 Urine Glucose Negative (NEG) 07/10/19 13:05 Urine Total Protein 2+ (NEG) H 07/10/19 13:05 Complement C3 110 mg/dL (82-185) 07/10/19 06:15 Complement C4 32 mg/dL (15-53) 07/10/19 06:15 Weight: 211 lb 9.6 oz Wound Present: Yes Closed Surgical Incision Present: No Negative Pressure Wound Therapy Present: No Physician Update: WBC is 6.8, Hgb is 8.5, glucose 119 to 168, prealbumin 30. His renal failure is the likely cause of his progressive anemia. He may require procrit. His making fair progress with transfers at moderate to minimum assistance. He walked 26' with minimum assistance. Wheelchair mobility 250' with minimum assistance. He is on thin liquids. He will likely be discharged to SNF next Thursday. Medical Issues: Patient is positive for MRSA, completed Bactrim PO. Patient is incontinent daily with bladder and occasional incontinent with bowel. Functional Improvement: Patient has met all short-term goals at this time and is progressing well toward long-term goals. Patient presents w/ good overall attitude toward therapy, and continues to improve w/ techniques of therapy. 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 Patient cont to exhibit significant word-finding issues and difficulty with verbal reasoning and problem solving. However, he is demonstrating steady progress and is implementing compensatory strategies. Patient occasionally becomes overwhelmed and/or frustrated and needs a few minutes to calm down. Patient is tolerating regular solids/thin liquids without any difficulty. Patient will require close supervision for safety once d/c home. Continue ST as per POC. Summary: Patient's care plan and terminal superintendent goals have been reviewed and revised as necessary. Please see the Rehabilitation Signature page for all necessary signatures.
[2019-07-15] MEDS: ENOXAPARIN 30 MG/0.3 ML SQ SCH (16:02)
[2019-07-15 17:13] VITALS: BP 150/67
== END 2019-07-15 18:20 | DRG 57 ==
LOC: 5TH 22:33
PROVIDERS: ADMIT Psychiatry & Neurology Neurology with Special Qualifications in Child Neurology; ATTEND Psychiatry & Neurology Neurology with Special Qualifications in Child Neurology
DX: I69.351 Hemiplegia and hemiparesis following cerebral infarction affecting right dominant side (principal); G93.40 Encephalopathy, unspecified; N17.9 Acute kidney failure, unspecified; I12.9 Hypertensive chronic kidney disease with stage 1 through stage 4 chronic kidney disease, or unspecified chronic kidney disease; N18.9 Chronic kidney disease, unspecified; F32.9 Major depressive disorder, single episode, unspecified; R60.0 Localized edema; D64.9 Anemia, unspecified; E11.22 Type 2 diabetes mellitus with diabetic chronic kidney disease
CPT/HCPCS: 36415; 74018; 74230; 80048; 81003; 81015; 82040; 82570; 82947; 83735; 84134; 84156; 85025; 85652; 86021; 86038; 86140; 86160; 86225; 86334; 87070; 87077; 87186; 87205; 92507; 92523; 92526; 92610; 92611; 97110; 97112; 97116; 97127; 97163; 97530; 97542; 99251; J1650

== ENCOUNTER 2020-05-13 18:19 | Inpatient (IN) | payer OTHER ==
--- OUTSIDE RECORDS SUMMARY | 2020-05-13 18:21 | XMS REPORT | Clinical Summary ---
:1975 Author Organization [facility] Address [address] [place] [address] Care Team Providers Name Role Phone Pcp, No Primary Care Provider Unavailable Allergies No Known Allergies Medications Medication Sig Dispensed Refills Start Date End Date Status hydrALAZINE Take 50 mg 0 Active (APRESOLINE) 50 MG by mouth 3 tablet (three) times daily. amLODIPine Take 1 30 tablet 11 06/25/2019 Active (NORVASC) 10 MG tablet (10 0 tablet mg total) by mouth daily. atorvastatin Take 1 30 tablet 11 06/24/2019 Active (LIPITOR) 40 MG tablet (40 0 tablet mg total) by mouth nightly. carvedilol (COREG) Take 1 60 tablet 11 06/24/2019 Active 12.5 MG tablet tablet (12.5 0 mg total) by mouth 2 (two) times daily. NIFEdipine (ADALAT Take 1 30 tablet 11 06/25/2019 Active CC) 30 MG 24 hr tablet (30 0 tablet mg total) by mouth daily. senna-docusate Take 1 60 tablet 11 06/24/2019 Acti ve (SENOKOT S) 8.6-50 tablet by 0 mg per tablet mouth 2 (two) times daily. amLODIPine-atorvas Take 1 0 D iscontinued tatin (CADUET) tablet by 9 (Stop Taking at 10-10 mg per mouth daily. 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); LAVON (acute kidney injury) (HCC); Gadicherla, Essential hyper tension; Meliza Encephalopathy acute; Camille, Chronic kidney disease, unspecified CKD stage after 05/13/2019 Social History Tobacco Use Types Packs/Day Years Used Date Current Every Day Smoker Cigarettes 1 26 Sta rted: 07/20/1991 Smokeless Tobacco: Never Used Tobacco Cessation: Ready to Quit: No; Co unseling Given: Yes Comments: Per daughter, unsure of start date but has smoked all her life; unsure if ready to quit Alcohol Use Drinks/Week oz/Week Comments Yes 1 Cans of beer 1.0 Drinks very rare ly per daughter Alcohol Habits Answer Date Recorded How often do you have a drink containing alcohol? Monthly or less 06/21/2019 How many drinks containing alcohol do you have on a 1 or 2 06/21/2019 typical day when you are drinking? How often do you have six or more drinks on one Never 06/21/2019 occasion? Sex Assigned at Date Recorded Not on file Last Filed Vital Signs Vital Sign Reading Time Taken Comments Blood Pressure 143/82 06/24/2019 7:14 PM LEAD WELDER Pulse 71 06/24/2019 7:14 PM LEAD WELDER Temperature 36.1 C (96.9 F) 06/24/2019 7:14 PM LEAD WELDER Respiratory Rate 18 06/24/2019 7:14 PM LEAD WELDER Oxygen Saturation 98% 06/24/2019 7:14 PM LEAD WELDER Inhaled Oxygen Concentration 21% 06/23/2019 10:08 PM LEAD WELDER Weight 99.7 kg (219 lb 12.8 oz) 06/20/2019 11:13 PM LEAD WELDER Height 175.3 cm (5' 9") 06/21/2019 10:45 AM LEAD WELDER Body Mass Index 32.46 06/20/2019 11:13 PM LEAD WELDER Plan of Treatment Not on file Procedures Procedure Name Priority Date/Time Associated Comments Diagnosis RHYTHM STRIP - SCAN 06/28/2019 9:04 AM LEAD WELDER POCT-GLUCOSE METER Routine 06/24/2019 5:06 Resul ts for this PM LEAD WELDER procedure are i n the results section. POCT-GLUCOSE METER Routine 06/24/2019 12:27 Resul ts for this PM LEAD WELDER procedure are i n the results section. POCT-GLUCOSE METER Routine 06/24/2019 8:43 Resul ts for this AM LEAD WELDER procedure are i n the results section. PROTHROMBIN TIME/INR Routine 06/24/2019 5:37 Res ults for this AM LEAD WELDER procedure are i n the results section. APTT Routine 06/24/2019 5:37 Results for this AM LEAD WELDER procedure are i n the results section. PHOSPHORUS Routine 06/24/2019 5:37 Results for this AM LEAD WELDER procedure are i n the results section. MAGNESIUM Routine 06/24/2019 5:37 Results for this AM LEAD WELDER procedure are i n the results section. BASIC METABOLIC PANEL Routine 06/24/2019 5:37 Re sults for this (7) AM LEAD WELDER procedure are i n the results section. CBC (HEMOGRAM ONLY) Routine 06/24/2019 5:37 Resu lts for this AM LEAD WELDER procedure are i n the results section. POCT-GLUCOSE METER Routine 06/23/2019 9:03 Resul ts for this PM LEAD WELDER procedure are i n the results section. POCT-GLUCOSE METER Routine 06/23/2019 5:31 Resul ts for this PM LEAD WELDER procedure are i n the results section. POCT-GLUCOSE METER Routine 06/23/2019 12:09 Resul ts for this PM LEAD WELDER procedure are i n the results section. POCT-GLUCOSE METER Routine 06/23/2019 8:22 Resul ts for this AM LEAD WELDER procedure are i n the results section. PROTHROMBIN TIME/INR Routine 06/23/2019 4:56 Res ults for this AM LEAD WELDER procedure are i n the results section. APTT Routine 06/23/2019 4:56 Results for this AM LEAD WELDER procedure are i n the results section. PHOSPHORUS Routine 06/23/2019 4:56 Results for this AM LEAD WELDER procedure are i n the results section. MAGNESIUM Routine 06/23/2019 4:56 Results for this AM LEAD WELDER procedure are i n the results section. BASIC METABOLIC PANEL Routine 06/23/2019 4:56 Re sults for this (7) AM LEAD WELDER procedure are i n the results section. CBC (HEMOGRAM ONLY) Routine 06/23/2019 4:56 Resu lts for this AM LEAD WELDER procedure are i n the results section. POCT-GLUCOSE METER Routine 06/22/2019 10:17 Resul ts for this PM LEAD WELDER procedure are i n the results section. PERIPHERAL VASCULAR 06/22/2019 9:20 REPORT - SCAN PM LEAD WELDER TRANSFUSION SERVICE 06/22/2019 5:53 REPORT - SCAN PM LEAD WELDER POCT-GLUCOSE METER Routine 06/22/2019 5:32 Resul ts for this PM LEAD WELDER procedure are i n the results section. POCT-GLUCOSE METER Routine 06/22/2019 12:25 Resul ts for this PM LEAD WELDER procedure are i n the results section. LACTIC ACID, VENOUS Routine 06/22/2019 10:31 Resu lts for this AM LEAD WELDER procedure are i n the results section. KETONE, BLOOD Routine 06/22/2019 10:31 Results fo r this AM LEAD WELDER procedure are i n the results section. TSH Routine 06/22/2019 10:31 Results for this AM LEAD WELDER procedure are i n the results section. BLOOD GAS, ARTERIAL Routine 06/22/2019 10:23 Resu lts for this AM LEAD WELDER procedure are i n the results section. POCT-GLUCOSE METER Routine 06/22/2019 7:59 Resul ts for this AM LEAD WELDER procedure are i n the results section. PHOSPHORUS Routine 06/22/2019 3:48 Results for this AM LEAD WELDER procedure are i n the results section. MAGNESIUM Routine 06/22/2019 3:48 Results for this AM LEAD WELDER procedure are i n the results section. BASIC METABOLIC PANEL Routine 06/22/2019 3:48 Re sults for this (7) AM LEAD WELDER procedure are i n the results section. CBC (HEMOGRAM ONLY) Routine 06/22/2019 3:48 Resu lts for this AM LEAD WELDER procedure are i n the results section. PROTHROMBIN TIME/INR Routine 06/22/2019 3:47 Res ults for this AM LEAD WELDER procedure are i n the results section. APTT Routine 06/22/2019 3:47 Results for this AM LEAD WELDER procedure are i n the results section. POCT-GLUCOSE METER Routine 06/21/2019 9:43 Resul ts for this PM LEAD WELDER procedure are i n the results section. POCT-GLUCOSE METER Routine 06/21/2019 5:23 Resul ts for this PM LEAD WELDER procedure are i n the results section. VENOUS DOPPLER LEGS Routine 06/21/2019 12:20 Resu lts for this BILATERAL PM LEAD WELDER procedure are i n the results section. POCT-GLUCOSE METER Routine 06/21/2019 12:12 Resul ts for this PM LEAD WELDER procedure are i n the results section. EEG AWAKE AND DROWSY Routine 06/21/2019 9:37 Res ults for this AM LEAD WELDER procedure are i n the results section. CT BRAIN WITHOUT IV Routine 06/21/2019 7:38 Resu lts for this CONTRAST AM LEAD WELDER procedure are i n the results section. POCT-GLUCOSE METER Routine 06/21/2019 6:55 Resul ts for this AM LEAD WELDER procedure are i n the results section. URINALYSIS W/ REFLEX STAT 06/21/2019 3:42 Res ults for this URINE CULTURE AM LEAD WELDER procedure are in the results section. ABORH, MANUAL STAT 06/21/2019 3:09 Results fo r this AM LEAD WELDER procedure are i n the results section. HEMOGLOBIN A1C Routine 06/21/2019 3:09 Results f or this AM LEAD WELDER procedure are i n the results section. PROTHROMBIN TIME/INR Routine 06/21/2019 12:58 Res ults for this AM LEAD WELDER procedure are i n the results section. APTT Routine 06/21/2019 12:58 Results for this AM LEAD WELDER procedure are i n the results section. CBC (HEMOGRAM ONLY) Routine 06/21/2019 12:58 Resu lts for this AM LEAD WELDER procedure are i n the results section. TROPONIN I Add-On 06/21/2019 12:53 Results for this AM LEAD WELDER procedure are i n the results section. PHOSPHORUS Routine 06/21/2019 12:53 Results for this AM LEAD WELDER procedure are i n the results section. MAGNESIUM Routine 06/21/2019 12:53 Results for this AM LEAD WELDER procedure are i n the results section. BASIC METABOLIC PANEL Routine 06/21/2019 12:53 Re sults for this (7) AM LEAD WELDER procedure are i n the results section. HEPATIC FUNCTION Routine 06/21/2019 12:53 Results for this PANEL AM LEAD WELDER procedure are i n the results section. XR CHEST 1 VIEW Routine 06/21/2019 12:20 Results for this PORTABLE/BEDSIDE AM LEAD WELDER procedure a re in the results section. TYPE AND SCREEN, Routine 06/21/2019 12:15 Results for this AUTOMATED AM LEAD WELDER procedure are i n the results section. APTT Routine 06/21/2019 12:15 Results for this AM LEAD WELDER procedure are i n the results section. PROTHROMBIN TIME/INR Routine 06/21/2019 12:15 Res ults for this AM LEAD WELDER procedure are i n the results section. BLOOD CULTURE STAT 06/21/2019 12:15 Results fo r this AM LEAD WELDER procedure are i n the results section. BLOOD CULTURE STAT 06/21/2019 12:15 Results fo r this AM LEAD WELDER procedure are i n the results section. POCT-GLUCOSE METER Routine 06/21/2019 12:03 Resul ts for this AM LEAD WELDER procedure are i n the results section. after 05/13/2019 Results RHYTHM STRIP - SCAN (06/28/2019 9:04 AM LEAD WELDER) Narrative Performed At This result has an attachment that is no t available. POC-Glucose meter (06/24/2019 5:06 PM LEAD WELDER)Only the most recent of16 results within the time period is included. POC-Glucose Meter 152 (H)Comment: : 70 - 110 mg/dL [facility] TESTED AT [address], [address]: Media Aid/Technici an ID = [id number] for FERNANDEZ YVETTE Specimen Blood Performing Organization Address [facility] Cent[facility]ode Phone Number [address] [address] CENTER aPTT (06/24/2019 5:37 AM LEAD WELDER)Only the most recent of5 resultswithin the time period is included. Pathologist Sig nature PTT 28.0 22.5 - 36.0 seconds [facility] Specimen Blood Performing Organization Address City/[facility]/Zipcode Phone Number [address] [address] CENTER Prothrombin time/INR (06/24/2019 5:37 AM LEAD WELDER)Only the most recent of5 results within the time period is included. Pathologist Sig nature Protime 13.9 11.9 - 14.2 seconds [facility] INR 1.1 <=5.9 [facility] Specimen Blood Narrative Performed At Effective 12/15/2018: PT Reference Range [facility] Change New: 11.9-14.2 Previous: 11.7-14.7 RECOMMENDED COUMADIN/WARFARIN INR THERAPY RANGES STANDARD DOSE: 2.0-3.0 Includes: PROPHYLAXIS for venous thrombosis, systemic embolization; TREATMENT for venous thrombosis and/or pulmonary embolus. HIGH RISK: Target INR is 2.5-3.5 for patients wiht mechanical heart valves. Performing Organization Address City/[facility]/Zipcode Phone Number [facility] [address] [place] [address] CENTER CBC (Hemogram only) (06/24/2019 5:37 AM LEAD WELDER)Only the most recent of4 results within the time period is included. Pathologist Sig nature WBC 9.2 3.5 - 10.5 K/L [facility] RBC 3.50 (L) 4.63 - 6.08 M/L [facility] Hemoglobin 10.6 (L) 13.7 - 17.5 GM/DL [facility] Hematocrit 31.8 (L) 40.1 - 51.0 % [facility] MCV 90.9 79.0 - 92.2 fL [facility] MCH 30.3 25.7 - 32.2 pg [facility] MCHC 33.3 32.3 - 36.5 GM/DL [facility] RDW 13.2 11.6 - 14.4 % [facility] Platelets 191 150 - 450 K/CU MM [facility] MPV 12.2 9.4 - 12.4 fL [facility] nRBC 0 0 - 0 /100 WBC [facility] Specimen Blood Performing Organization Address City/[facility]/Zipcode Phone Number [facility] [address] [place] [address] CENTER Phosphorus (06/24/2019 5:37 AM LEAD WELDER)Only the most recent of4 resultswithin the time period is included. Pathologist Sig nature Phosphorus 3.6 2.3 - 4.7 mg/dL [facility] Specimen Blood Performing Organization Address City/[facility]/Zipcode Phone Number [facility] [address], [place] [phone] CENTER Magnesium (06/24/2019 5:37 AM LEAD WELDER)Only the most recent of4 resultswithin the time period is included. Pathologist Sig nature Magnesium 1.8 1.6 - 2.6 mg/dL [facility] Specimen Blood Performing Organization Address City/[facility]/Zipcode Phone Number [facility] [address] [place] [address] [place] Basic Metabolic Panel (06/24/2019 5:37 AM LEAD WELDER)Only the most recent of4 results within the time period is included. Sodium 136 136 - 145 meq/L [facility] Potassium 5.0 3.5 - 5.1 meq/L [facility] Chloride 112 (H) 98 - 107 meq/L [facility] CO2 19 (L) 22 - 29 meq/L [facility] BUN 39 (H) 7 - 21 mg/dL [facility] Creatinine 2.32 (H) 0.57 - 1.25 [facility] mg/dL [facility] Glucose 104 70 - 105 mg/dL [facility] Calcium 8.5 8.4 - 10.2 [facility] mg/dL [facility] EGFR 31Comment: ESTIMATED mL/min/1.73 sq [facility] GFR IS NOT m [facility] ACCURATE [place] CREATININE CLEARANCE IN PREDICTING GLOMERULAR FILTRATION RATE. ESTIMATED GFR IS NOT APPLICABLE FOR DIALYSIS PATIENTS. Specimen Blood Performing Organization Address City/[facility]/Zipcode Phone Number [address] [address] [place] PERIPHERAL VASCULAR REPORT - SCAN (06/22/2019 9:20 PM LEAD WELDER) Narrative Performed At This result has an attachment that is no t available. TRANSFUSION SERVICE REPORT - SCAN (06/22/2019 5:53 PM LEAD WELDER) Narrative Performed At This result has an attachment that is no t available. Lactic acid, venous (06/22/2019 10:31 AM LEAD WELDER) Pathologist Sig nature Lactate, Venous 0.7 0.5 - 2.2 mmol/L [facility] Specimen Blood Performing Organization Address City/[facility]/Zipcode Phone Number [address] [address] [place] TSH (06/22/2019 10:31 AM LEAD WELDER) Pathologist Sig nature TSH 3.42 0.35 - 4.94 uIU/mL [facility] Specimen Blood Performing Organization Address [facility]/Zipcode Phone Number [address] [address] [place] Ketone, blood (06/22/2019 10:31 AM LEAD WELDER) Pathologist Sig nature Ketones, Blood <0.4 <0.4 mmol/L [facility] Specimen Blood Narrative Performed At KETONES= 0.2 [facility] Performing Organization Address [facility] Centercoca Phone Number [address] [address] [place] Blood gas, arterial (06/22/2019 10:23 AM LEAD WELDER) Pathologist Sig nature pH, Arterial 7.38 7.35 - 7.45 [facility] pCO2, Arterial 33 (L) 35 - 45 mmHg [facility] pO2, Arterial 153 (H) 80 - 90 mmHg [facility] O2 Sat, Arterial 99.0 (H) 96.0 - 97.0 % [facility] HCO3, Arterial 19 (L) 21 - 29 mmol/L [facility] Base Excess, Arterial -5.0 (L) -2.0 - 3.0 [facility] mmol/L [facility] Patient Temperature 36.5 C [facility] FIO2 21.0 % [facility] Specimen Blood, Arterial Performing Organization Address City/State/Zipcode Phone Number [facility] [address] [place] [address] CENTER Venous doppler legs bilateral (06/21/2019 12:20 PM LEAD WELDER) Pathologist Sig nature Ejection Fraction [facility] ECHO HEART[facility] Specimen Impressions Performed At Right Impression [facility] 1. There is no deep venous obstruction in the common femoral, profunda femoral, femoral, popliteal, posterior tibial or peroneal veins. 2. There is no superficial venous obstruction in the great saphenous vein. Left Impression 1. There is no deep venous obstruction in the common femoral, profunda femoral, femoral, popliteal, posterior tibial or peroneal veins. 2. There is no superficial venous obstruction in the great saphenous vein. Conclusions Summary Venous duplex imaging and compression of the bilateral lower extremities were performed. The veins were adequately visualized. The bilateral venous systems were patent and compressible with no evidence of thrombus. The venous Doppler waveforms were phasic with respiration. Signature Velocities are measured in cm/s ; Diameters are measured in cm Narrative Performed At PV LAB - Lower Extremities DVT Study [facility] ECHO HEART[facility] Demographics Patient Name TONY WARNER Date of Study 06/21/2019 Age 43 Visit Number [id number] Gender Male Accession Number [id number] Date of 1975 Referring Catalino Crawford Room Number [id number] Physician Conservation Worker [employer] Interpreting Suzette Florian, RVS Physician MD Keli Good RN, RVT Procedure Type of Study: Veins: Lower Extremities DVT Study, VENOUS DOPPLER LEG, BILATERAL. Indications for Study:Suspected DVT . Patient Status:TODAY. Study Location:Vascular Lab. Technical Quality:Adequate visualization . Risk Factors History of Disease + +----+------- + !Diagnosis !Date!Comments ! + +----+------- + !History/Risk Factors: ! !ICH, CVA, HTN, DM ! + +----+------- + Procedure Note Interface, External Ris In - 06/21/2019 9:23 PM LEAD WELDER PV LAB - Lower Extremities DVT Study Demographics Patient Name TONY WARNER te of Study 06/21/2019 Ag e 43 Visit Number [id number] Ge nder Male Accession Number [id number] Da te of 1975 Referring Catalino Crawford om Number [id number] Physician Conservation Worker Eagle Herrmann In terpreting Suzette Florian, S Ph ysician MD Keli Peace RN, RVT Procedure Type of Study: Veins: Lower Extremities DVT Study, JOAN OUS DOPPLER LEG, BILATERAL. Indications for Study:Suspected DVT . Patient Status:TODAY. Study Location:Vascular Lab. Technical Quality:Adequate visualization . Risk Factors History of Disease + +-- --+ + !Diagnosis !Da te!Comments ! + +-- --+ + !History/Risk Factors: ! !ICH, CVA, HTN, DM ! + +-- --+ + Impressions Right Impression 1. There is no deep venous obstruction i n the common femoral, profunda femoral, femoral, popliteal, posterior t ibial or peroneal veins. 2. There is no superficial venous obstru ction in the great saphenous vein. Left Impression 1. There is no deep venous obstruction i n the common femoral, profunda femoral, femoral, popliteal, posterior t ibial or peroneal veins. 2. There is no superficial venous obstru ction in the great saphenous vein. Conclusions Summary Venous duplex imaging and compression o f the bilateral lower extremities were performed. The veins were adequate ly visualized. The bilateral venous systems were patent and compressible wi th no evidence of thrombus. The venous Doppler waveforms were phasic wi th respiration. Signature Velocities are measured in cm/s ; Diamet ers are measured in cm Performing Organization Address City/State/Zipcode Phone Number [facility] ECHO HEARTLAB [facility] EEG AWAKE AND DROWSY (06/21/2019 9:37 AM LEAD WELDER) Specimen Narrative Performed At ACC: [id number] [employer] RIS EE Start time: 09:16 Stop time: 09:37 ICD-10: R56.9 CPT Code: 33121 HISTORY:Mr. Warner is 43 y.o right hand ed male w/ pmh of poorly controlled htn and DM type 2 who was not ed to be progressively lethargic a CTH revealed moderate increa se in degree of left cerebral hemisphere vasogenic edema, left to righ t 11 mm subfalcine shift. Pt was transferred to [facility] for HLOC. Concern for seizure. MEDICATIONS: None TECHNICAL SUMMARY: This is a digital video EEG recorded wit h 32 input channels reviewed with bipolar and referential montages us ing the modified combinatorial system nomenclature. DESCRIPTION OF RECORD: During the Maximally alert state, there is an 8 Hz right sided posterior dominant rhythm seen occasiona lly. There is no PDR on the left. There is generalized polymorphic delta slowing that is reactive intermixed with theta but overa ll, the left hemisphere has less fast frequency activity. There is lateralized slowing and reduction of faster frequencies over lef t hemisphere. HV: Hyperventilation was not performed. PHOTIC STIMULATION: Photic stimulation w as done from 1-20 Hz; no photic driving was seen; photoparoxysmal responses were absent. VIDEO EVENTS: None Noted ELECTROCARDIOGRAM EVENTS: Normal Sinus R hythm, HR 60 IMPRESSION: Abnormal Drowsy/lethargic EE G 1. Lateralized left hemisphere slow ing and decrease in faster frequencies on the left. 2. Absent left occipital posteri or dominant rhythm 3. Generalized polymorphic delta slowing, reac tive, worse on the left. COMMENT: Generalized slowing is consiste nt with a moderate degree of encephalopathy. Lateralized slowing over left hemisphere could be secondary to structural abnormality. A n EEG without epileptiform discharges does not exclude the possibil ity of epilepsy. It the clinical suspicion of epilepsy remains, consider additional EEG recordings. Sylwia Greene MD Neurophysiology Fellow Phani Peraza M.D., FACNS, FAAN, SOY Zambrano Professor of Neurology, [facility] Director, [facility] Head, J[facility] Neurophysiology [place] Procedure Note Interface, External Ris In - 06/21/2019 5:10 PM LEAD WELDER ACC: [id number] EE Start time: 09:16 Stop time: 09:37 ICD-10: R56.9 CPT Code: 87106 HISTORY:Mr. Warner is 43 y.o right hand ed male w/ pmh of poorly controlled htn and DM type 2 who was not ed to be progressively lethargic a CTH revealed moderate increa se in degree of left cerebral hemisphere vasogenic edema, left to righ t 11 mm subfalcine shift. Pt was transferred to [facility] for HLOC. Concern for seizure. MEDICATIONS: None TECHNICAL SUMMARY: This is a digital video EEG recorded wit h 32 input channels reviewed with bipolar and referential montages us ing the modified combinatorial system nomenclature. DESCRIPTION OF RECORD: During the Maximally alert state, there is an 8 Hz right sided posterior dominant rhythm seen occasiona lly. There is no PDR on the left. There is generalized polymorphic delta slowing that is reactive intermixed with theta but overa ll, the left hemisphere has less fast frequency activity. There is lateralized slowing and reduction of faster frequencies over lef t hemisphere. HV: Hyperventilation was not performed. PHOTIC STIMULATION: Photic stimulation w as done from 1-20 Hz; no photic driving was seen; photoparoxysmal responses were absent. VIDEO EVENTS: None Noted ELECTROCARDIOGRAM EVENTS: Normal Sinus R hythm, HR 60 IMPRESSION: Abnormal Drowsy/lethargic EE G 1. Lateralized left hemisphere slowin g and decrease in faster frequencies on the left. 2. Absent left occipital posterior dominant rhythm 3. Generalized polymorphic delta sl owing, reactive, worse on the left. COMMENT: Generalized slowing is consiste nt with a moderate degree of encephalopathy. Lateralized slowing over left hemisphere could be secondary to structural abnormality. An EEG without epileptiform discharges does not exclude the possibil ity of epilepsy. It the clinical suspicion of epilepsy remains, consider additional EEG recordings. Sylwia Greene MD Neurophysiology Fellow Phani Peraza M.D., FACNS, FAAN, SOY Zambrano Professor of Neurology, [facility] [employer] Director, [facility] Head, Jerald Sharpe Neurophysiology La b Performing Organization Address City/State/Zipcode Phone Number [facility] [employer] [facility] CT brain without IV contrast (06/21/2019 7:38 AM LEAD WELDER) Specimen Narrative Performed At FINAL REPORT [facility] [facility] CT Head without contrast CLINICAL HISTORY: ich TECHNIQUE: Contiguous axial CT images th rough the head without contrast. This exam was performed accord ing to the departmental dose optimization program which includes auto mated exposure control, adjustment of the mA and/or kV according to the patient size, and/or use of an iterative reconstruction techn ique. COMPARISON: None FINDINGS: There is subacute appearing hemorrhage i n the left basal ganglia spanning approximately 6.5 cm AP by 3.0 cm TV by 3.5 cm CC. There is prominent surrounding parenchymal edema throughout the left cerebral white matter extending into the anterior temporal lobe and inferior frontal lobe. Edema also tracks into the descending corticospinal tracks in the left brain stem. Mass effect effaces the left lateral joan tricle with rightward midline shift of the septum pellucidum by 1.1 cm . There is asymmetric enlargement of the right lateral ventric le compatible with ventricular entrapment. There are no ext ra-axial fluid collections. The skull is intact. The visualized para nasal sinuses are well-aerated. IMPRESSION: Subacute appearing hemorrhage in the lef t basal ganglia with prominent edema and mass effect, includi ng right ventricular entrapment. Comparison with outside imag ing is recommended. Signed: Jasmyne Clements MD Report Verified Date/Time: 06/21/2019 07:52:44 Reading Location: [facility] C013V [facility] Procedure Note Interface, External Ris In - 06/21/2019 7:54 AM LEAD WELDER FINAL REPORT CT Head without contrast CLINICAL HISTORY: ich TECHNIQUE: Contiguous axial CT images th rough the head without contrast. This exam was performed accord ing to the departmental dose optimization program which includes auto mated exposure control, adjustment of the mA and/or kV according to the patient size, and/or use of an iterative reconstruction techn ique. COMPARISON: None FINDINGS: There is subacute appearing hemorrhage i n the left basal ganglia spanning approximately 6.5 cm AP by 3.0 cm TV by 3.5 cm CC. There is prominent surrounding parenchymal edema throughout the left cerebral white matter extending into the anterior temporal lobe and inferior frontal lobe. Edema also tracks into the descending corticospinal tracks in the left brain stem. Mass effect effaces the left lateral joan tricle with rightward midline shift of the septum pellucidum by 1.1 cm . There is asymmetric enlargement of the right lateral ventric le compatible with ventricular entrapment. There are no ext ra-axial fluid collections. The skull is intact. The visualized para nasal sinuses are well-aerated. IMPRESSION: Subacute appearing hemorrhage in the lef t basal ganglia with prominent edema and mass effect, includi ng right ventricular entrapment. Comparison with outside imag ing is recommended. Signed: Jasmyne Clements MD Report Verified Date/Time: 06/21/2019 0 7:52:44 Reading Location: [facility] C[address]V [facility] Room Performing Organization Address City/State/Zipcode Phone Number GE RIS Urinalysis w/Microscopic + Reflex to Culture (06/21/2019 3:42 AM LEAD WELDER) Color, UA Light Yellow [facility] Clarity, UA Clear [facility] Specific [place], 1.015 1.001 - 1.035 [facility] pH, UA 5.5 5.0 - 8.0 [facility] Protein, UA 100 mg/dL (A) Negative [facility] Glucose, UA 100 mg/dL (A) Negative [facility] Ketones, UA Negative Negative [facility] Bilirubin, UA Negative Negative [facility] Blood, UA Negative Negative [facility] Nitrite, UA Negative Negative [facility] Leukocytes, UA Negative Negative [facility] Urobilinogen, UA 0.2 0.2 - 1.0 mg/dL [facility] RBC, UA 4 /HPF [facility] WBC, UA 1 /HPF [facility] Mucus Rare [facility] Squam Epithel, UA <1 /HPF [facility] Hyaline Casts, UA 1 /LPF [facility] Yeast Occasional [facility] Specimen Source [facility] Specimen Urine - Urinary catheter, device (physic al object) Performing Organization Address City/[facility]/Zipcode Phone Number [address] [address] CENTER [place], manual (06/21/2019 3:09 AM LEAD WELDER) Pathologist Sig nature ABO Grouping O [facility] DICAL [place] Rh Factor POS [facility] Specimen Blood Performing Organization Address [facility]/Zipcode Phone Number [address] [address] Hemoglobin A1c (06/21/2019 3:09 AM LEAD WELDER) Pathologist Sig nature Hemoglobin A1C 6.8 (H) 4.3 - 6.1 % [facility] Specimen Blood Performing Organization Address City/[facility]/Zipcode Phone Number [address] [address] CENTER Troponin I (06/21/2019 12:53 AM LEAD WELDER) Pathologist Sig nature Troponin I 0.01 0.00 - 0.03 ng/mL [facility] Specimen Blood Narrative Performed At Troponin I (TnI) levels must be interpreted [facility] in the context of the presenting symptoms and the clinical findings. Elevated TnI levels indicate myocardial damage, but are not specific for ischemic heart disease. Elevated TnI levels are seen in patients with other cardiac conditions (including myocarditis and congestive heart failure), and slight TnI elevations occur in patients with other conditions, including sepsis, renal failure, acidosis, acute neurological disease, and persistent tachyarrhythmia. Performing Organization Address [facility] Cent[facility] Phone Number [address] [phone] [place] Hepatic function panel (06/21/2019 12:53 AM LEAD WELDER) Pathologist Sig nature Protein, Total 6.3 6.0 - 8.3 gm/dL [facility] Albumin 3.0 (L) 3.5 - 5.0 g/dL [facility] Total Bilirubin 0.4 0.2 - 1.2 mg/dL [facility] Bilirubin, Direct 0.2 0.1 - 0.5 mg/dL [facility] Alkaline Phosphatase 184 (H) 40 - 150 U/L [facility] AST 18 5 - 34 U/L [facility] ALT 34 6 - 55 U/L [facility] Specimen Blood Performing Organization Address City/[facility] Centercoca Phone Number [address] [phone] [place] XR chest 1 view portable / bedside (06/21/2019 12:20 AM LEAD WELDER) Specimen Narrative Performed At FINAL REPORT [facility] History: Preoperative evaluation, surger y unspecified. Comparison: None. Findings: A single view of the chest is submitted. The cardiomediastinal contours are unrem arkable. There is no focal consolidation, pneumot horax, large pleural effusion or evidence of overt pulmonary edema. There is no acute bony abnormality. Impression: No acute abnormality. Signed: Sid Gomez MD Report Verified Date/Time: 06/21/2019 02:08:31 Procedure Note Interface, External Ris In - 06/21/2019 2:10 AM LEAD WELDER FINAL REPORT History: Preoperative evaluation, surger y unspecified. Comparison: None. Findings: A single view of the chest is submitted. The cardiomediastinal contours are unrem arkable. There is no focal consolidation, pneumot horax, large pleural effusion or evidence of overt pulmonary edema. There is no acute bony abnormality. Impression: No acute abnormality. Signed: Sid Gomez MD Report Verified Date/Time: 06/21/2019 0 2:08:31 Performing Organization Address City/[facility]/Zipcode Phone Number GE RIS Type and screen, automated (06/21/2019 12:15 AM LEAD WELDER) Pathologist Sig nature ABO/RH AUTOMATED O POSITIVE [facility] Ab Scrn NEGATIVE [facility] Specimen Blood Performing Organization Address City/[facility] Centercode Phone Number [address] [address] Blood culture (06/21/2019 12:15 AM LEAD WELDER)Only the most recent of2 resultswithin the time period is included. Pathologist Sig nature Result No growth in 5 days [facility] Specimen Blood - Entire right upper arm (body str ucture) Performing Organization Address [facility] Centercode Phone Number [facility] [address] [place] [phone] CENTER after 05/13/2019 Advance Directives For more information, please contact: [phone] Code Status Date Activated Date Inactivated Comments Full Code 06/20/2019 11:42 PM 06/24/2019 11:12 PM This code status was determined by: Patient Full Code 06/20/2019 11:42 PM 06/20/2019 11:42 PM This code status was determined by: Patient
--- OUTSIDE RECORDS SUMMARY | 2020-05-13 18:22 | XMS REPORT | Continuity of Care Document ---
:1975 Author Organization [facility] t Address [address] [place] [address] Care Team Providers Name Role Phone Pcp, No Primary Care Physician Unavailable MEGAN CRAWFORD Attending Clinician Unavailable Dave Crawford MD Attending Clinician Camille Kovacs MD Attending Clinician [phone] DAVE CRAWFORD Admitting Clinician Unavailable Payers Payer Name Policy Type Policy Effective Date Expiration Date Sour ce Number MEDICAREMEDICARE A [id number] [address] [facility] [id number] 2017- 00:00[facility] Problems Condition Condition Condition Status Onset Resolution Last Treating Co mments Source Name Details Category Date Date Treatment Clinician Date Cerebral Cerebral Disease [facility] Center Encephalop Encephalop Disease Active 2018-[address] athy acute athy acute 2-03 Kristen kes - 00:00: Medical 00 Center ICH ICH Disease Active 2019- [facility] (intracere (intracere 2-02 Kristen kes - bral bral 00:00: Medical hemorrhage hemorrhage 00 Ce nter ) ) Essential Essential Disease Active 2018- [facility] hypertensi hypertensi 2-02 Kristen kes - on on 00:00: Medical 00 Center Type 2 Type 2 Disease Active 2019- [facility] diabetes diabetes 2-02 [facility] - mellitus mellitus 00:00: Medica l 00 Center 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 Social History Social Habit Start Date Stop Date Quantity Comments Source History of tobacco 1991-07-[address] [facility] - use 00:00:00 day smoker [facility] Sex Assigned At [facility] Cigarettes smoked 2019-06-21 2019-06-[address] [facility] - current (pack per 00:00:00 00:00:00 Medical Center day) - Reported Cigarette 2019-06-21 2019-06-[address] [facility] - pack-years 00:00:00 00:00:00 [facility] Tobacco use and 2019-06-21 2019-06-21 Never used MARIA D Agrawal [place] - exposure 00:00:00 00:00:00 [facility] Alcohol intake 2019-06-21 2019-06-21 Current drinker MARIA D godinez [place] - 00:00:00 00:00:00 of alcohol Medical Center (finding) History [facility] 2019-06-21 2019-06-[address] [facility] - Alcohol Frequency 00:00:00 00:00:00 Medical Center History [facility] 2019-06-21 2019-06-[address] [facility] - Alcohol Std Drinks 00:00:00 00:00:00 Medica Center History [facility] 2019-06-21 2019-06-[address] [facility] - Alcohol Binge 00:00:00 00:00:[address] Tobacco Comment 2019-06-21 2019-06-21 Per daughter, MARIA D Woodall [facility] - 00:[facility]:00 00:00:00 unsure of start Medical C enter date but has smoked all her life; unsure if ready to quit Alcohol Comment 2019-06-21 2019-06-[address] [facility] - 00:00:00 00:00:00 rarely per Medical Center daughter Smoking Status Start Date Stop Date Source Current every day smoker 2019-06-21 00:00:00 [facility] Medications Ordered Filled Start Stop Current Ordering Indication Dosage Frequency Signature Comments Components Source Medication Medication Date Date Medication? Clinician (SIG) Name Name amLODIPine 2019-1 2020- No 10mg QD Take [address] [facility] [address] (NORVASC) 08-26 tablet (10 [place] es - 10 MG 00:00: 23:59 mg total) Medica l tablet 00 :00 by mouth Center daily. NIFEdipine 2018-07 2020- No 30mg QD Take [address] [facility] (ADALAT CC) 08-26 tablet (30 L ukes - 30 MG 24 hr 00:00: 23:59 mg total) Medical tablet 00 :00 by mouth Center daily. hydrALAZINE 2018- Yes 50mg Q.[id number] Take [address] (APRESOLINE 08-25 [id number] by mouth 3 [facility] - ) 50 MG 21:11: 3D (three) Medical tablet 57 times Center daily. amLODIPine- 2018-07 2019- No 1{tbl} QD Take [address] atorvastati 08-25 tablet by Kristen yarbrough (CADUET) 12:31: 00:00 mouth Medic al 10-10 mg 52 :00 daily. Center per tablet atorvastati 2018-07- No 40mg QD Take [address] [facility] n (LIPITOR) 08-25 tablet (40 L ukes - 40 MG 00:00: 23:59 mg total) Medica l tablet 00 :00 by mouth Center nightly. carvedilol 2018-07- No 12.5mg Q.5D Take [address] (COREG) 08-25 tablet [facility] - 12.5 MG 00:00: 23:59 (12.5 mg Medic al tablet 00 :00 total) by Center mouth 2 (two) times daily. senna-docus 2018-07 2020- No 1{tbl} Q.5D Take [address] ate 08-25 tablet by [place] - (SENOKOT S) 00:00: 23:59 mouth 2 Me dical 8.6-50 mg 00 :00 (two) Center per tablet times daily. Vital Signs Vital Name Observation Time Observation Value Comments Source Systolic blood 2019-06-24 19:14:00 143 mm[Hg] [facility] pressure [facility] [place] Diastolic blood 2019-06-24 19:14:00 82 mm[Hg] [facility] pressure [facility] [place] Heart rate 2019-06-24 19:14:00 71 /min [facility] Body temperature 2019-06-24 19:14:00 36.06 [facility] Respiratory rate 2019-06-24 19:14:00 18 /min [facility] Oxygen saturation in 2019-06-24 19:14:00 98 /min [facility] Arterial blood by Medical Ce nter Pulse oximetry Body height 2019-06-21 10:45:00 175.3 cm [facility] Body weight 2019-06-20 23:13:00 99.7 kg [facility] BMI 2019-06-20 23:13:00 32.46 kg/m2 [facility] Procedures Procedure Date / Time Performed Performing Clinician [facility] e RHYTHM STRIP - SCAN 2019-06-28 09:04:23 [facility] PO[facility]SE METER 2019-06-24 17:06:00 [facility]SE [facility] 2019-06-24 12:27:00 [facility] POCT-GLUCOSE METER 2019-06-24 08:43:00 [facility] CBC (HEMOGRAM ONLY) 2019-06-24 05:37:00 [facility] BASIC METABOLIC PANEL 2019-06-24 05:37:[address] [facility] (7) [facility] MAGNESIUM 2019-06-24 05:37:00 Nelly Packer [facility] PHOSPHORUS 2019-06-24 05:37:00 Nelly Packer [facility] APTT 2019-06-24 05:37:00 Nelly Packer [facility] PROTHROMBIN TIME/INR 2019-06-24 05:37:00 Nelly Packer [facility] POCT-GLUCOSE METER 2019-06-23 21:03:[facility] 2019-06-23 17:31:[address] [facility] POCT-GLUCOSE METER 2019-06-23 12:09:00 [facility] POCT-GLUCOSE METER 2019-06-23 08:22:00 [facility] CBC (HEMOGRAM ONLY) 2019-06-23 04:56:00 [facility] BASIC METABOLIC PANEL 2019-06-23 04:56:[address] [facility] MAGNESIUM 2019-06-23 04:56:00 Nelly Packer [facility] PHOSPHORUS 2019-06-23 04:56:00 Nelly Packer [facility] APTT 2019-06-23 04:56:00 Nelly Packer [facility] PROTHROMBIN TIME/INR 2019-06-23 04:56:00 Nelly Packer [facility] POCT-GLUCOSE METER 2019-06-22 22:17:00 Ra Tyhul [facility] PERIPHERAL VASCULAR 2019-06-22 21:20:34 Provider, Default [facility] REPORT - SCAN [facility] TRANSFUSION SERVICE 2019-06-22 17:53:21 Provider, Default [facility] REPORT - SCAN [facility] POCT-GLUCOSE METER 2019-06-22 17:32:00 [facility] PO[facility]SE METER 2019-06-22 12:25:00 Ra Tyhul [facility] TSH 2019-06-22 10:31:00 Scooter [facility] KETONE, BLOOD 2019-06-22 10:31:00 Ra Tyhul [facility] LACTIC ACID, VENOUS 2019-06-22 10:31:00 Ty, [facility] BLOOD GAS, ARTERIAL 2019-06-22 10:23:[address] [facility] POCT-GLUCOSE METER 2019-06-22 07:59:00 Ty [facility] CBC (HEMOGRAM ONLY) 2019-06-22 03:48:00 [facility] BASIC METABOLIC PANEL 2019-06-22 03:48:[address] [facility] (7) [facility] MAGNESIUM 2019-06-22 03:48:00 Nelly Packer [facility] PHOSPHORUS 2019-06-22 03:48:00 Nelly Packer [facility] APTT 2019-06-22 03:47:00 Nelly Packer [facility] PROTHROMBIN TIME/INR 2019-06-22 03:47:00 Nelly Packer [facility] POCT-GLUCOSE METER 2019-06-21 21:43:00 Ty [facility] POCT-GLUCOSE METER 2019-06-21 17:23:00 Ty [facility] VENOUS DOPPLER LEGS 2019-06-21 12:20:00 Ty [facility] POCT-GLUCOSE METER 2019-06-21 12:12:00 Ty [facility] EEG AWAKE AND DROWSY 2019-06-21 09:37:00 Nelly Packer [facility] CT BRAIN WITHOUT IV 2019-06-21 07:38:00 Nelly Packer [facility] POCT-GLUCOSE METER 2019-06-21 06:55:00 Ty [facility] URINALYSIS W/ REFLEX 2019-06-21 03:42:[address] [facility] URINE CULTURE [facility] HEMOGLOBIN A1C 2019-06-21 03:09:00 Nelly Packer [facility] ABORH, MANUAL 2019-06-21 03:09:00 Socorro Ja[facility] CBC (HEMOGRAM ONLY) 2019-06-21 00:58:00 Nelly Packer [facility] APTT 2019-06-21 00:58:00 [facility] PROT[facility]/INR 2019-06-21 00:58:00 Nelly Packer [facility] HEPATIC FUNCTION PANEL 2019-06-21 00:53:00 Nelly Packer [facility] BASIC METABOLIC PANEL 2019-06-21 00:53:[address] [facility] (7) [facility] MAGNESIUM 2019-06-21 00:53:00 Nelly Packer [facility] PHOSPHORUS 2019-06-21 00:53:00 Nelly Packer [facility] TROPONIN I 2019-06-21 00:53:00 Nelly Packer [facility] XR CHEST 1 VIEW 2019-06-21 00:20[facility] BLOOD CULTURE 2019-06-21 00:15:00 [facility] PROTHROMBIN TIME/INR 2019-06-21 00:15:00 Nelly Packer [facility] APTT 2019-06-21 00:15:00 Nelly Packer [facility] TYPE AND SCREEN, 2019-06-21 00:15:00 Nelly Packer [facility] POCT-GLUCOSE METER 2019-06-21 00:03:00 Megan Crawford [facility] Results Test Description Test Time Test Comments Results Result Comments Source Blood culture 2019-06-26 03:00:00 Test Item Value Reference Range Interpretation Comme nts Result (test code = 6463-4) No growth in 5 days [facility] [id number] 03:00:00 Test Item Value Reference Range Interpretation Comments CULTURE (BEAKER) (test No growth in 5 days code = 1095) BLOOD [id number] 03:00:00 Test Item Value Reference Range Interpretation Comments CULTURE (BEAKER) (test No growth in 5 days code = 1095) POC-Glucose [id number] 17:19:00 Test Item Value Reference Range Interpretation Comments POC-Glucose Meter (test 152 mg/dL 70-110 H : TE STED AT [facility] code = 1538) [address] [facility], [address]70 30: [employer] Social Science Teacher/Techni mayte ID = [id number] for FERNANDEZ, YVETTE Lab Interpretation (test Abnormal code = 47714-3) [facility] [id number] 17:19:00 Test Item Value Reference Range Interpretation Comments POC-GLUCOSE METER 152 mg/dL 70-110 H : TESTED A T [facility] 6720 (BEAKER) (test code = [facility], 1538) [address]: High School Social Science Teacher/Techni mayte ID = [id number] for HU NT, YVETTE POCT-GLUCOSE [id number] 12:39:00 Test Item Value Reference Range Interpretation Comments POC-GLUCOSE METER 158 mg/dL 70-110 H : TESTED A T [facility] 6720 (BEAKER) (test code = [facility], 1538) [address]: High [employer] Teacher/Techni mayte ID = [id number] for HU NT, YVETTE POCT-GLUCOSE [id number] 08:56:00 Test Item Value Reference Range Interpretation Comments POC-GLUCOSE METER 97 mg/dL 70-110 : TESTED A T [facility] 6720 (BEAKER) (test code = [facility], 1538) [address]: [employer] Teacher/Techni mayte ID = [id number] for FERNANDEZ , YVETTE Basic Metabolic [id number] 07:00:00 Test Item Value Reference Range Interpretation Comments Sodium (test code = 136 meq/L 686-458 9289-2) Potassium (test code = 5.0 meq/L 3.5-5.1 2823-3) Chloride (test code = 112 meq/L 98-107 H 2075-0) CO2 (test code = 19 meq/L 22-29 L 8-9) BUN (test code = 39 mg/dL 7-21 H 3094-0) Creatinine (test code = 2.32 mg/dL 0.57-1.25 H 2160-0) Glucose (test code = 104 mg/dL 70-105 2345-7) Calcium (test code = 8.5 mg/dL 8.4-10.2 51473-6) EGFR (test code = 31 mL/min/1.73 [place] [address]-8) NOT ACCURATE CREATININE CLEARANCE IN PREDICTING GLOMERULAR FILTRATION RATE . ESTIMATED GFR I S NOT APPLICABLE FOR DIALYSIS PATIEN TS. Lab Interpretation Abnormal (test code = 96196-3) [facility] 07:00:00 Test Item Value Reference Range Interpretation Comments Magnesium (test code = 99479-4) 1.8 mg/dL 1.6-2.6 Lab Interpretation (test code = Normal 99302-7) [facility] 07:00:00 Test Item Value Reference Range Interpretation Comments Phosphorus (test code = 2777-1) 3.6 mg/dL 2.3-4.7 Lab Interpretation (test code = Normal 45013-1) [facility]2019-12-06 07:00:00 Test Item Value Reference Range Interpretation Comments PHOSPHORUS (BEAKER) (test code = 3.6 mg/dL 2.3-4.7 604) [id number] 07:00:00 Test Item Value Reference Range Interpretation Comments MAGNESIUM (BEAKER) (test code = 1.8 mg/dL 1.6-2.6 627) BASIC METABOLIC [id number] 07:00:00 Test Item Value Reference Range Interpretation Comments SODIUM (BEAKER) 136 meq/L 136-145 (test code = 381) POTASSIUM (BEAKER) 5.0 meq/L 3.5-5.1 (test code = 379) CHLORIDE (BEAKER) 112 meq/L 98-107 H (test code = 382) CO2 (BEAKER) (test 19 meq/L 22-29 L code = 355) BLOOD UREA NITROGEN 39 mg/dL 7-21 H (BEAKER) (test code = 354) CREATININE (BEAKER) 2.32 mg/dL 0.57-1.25 H (test code = 358) GLUCOSE RANDOM 104 mg/dL 70-105 (BEAKER) (test code = 652) CALCIUM (BEAKER) 8.5 mg/dL 8.4-10.2 (test code = 697) EGFR (BEAKER) (test 31 mL/min/1.73 ESTIMA GUILHERME GFR IS code = 1092) sq m NOT ACCURATE CREATININE CLEARANCE IN PREDICTING GLOMERULAR FILTRATION RATE . ESTIMATED GFR I S NOT APPLICABLE FOR DIALYSIS PATIEN TS. [id number] 06:18:00 Test Item Value Reference Range Interpretation Comments PTT (test code = 92425-9) 28.0 22.5- 36.0 seconds Lab Interpretation (test code = Normal 36786-5) [facility] 06:18:00 Test Item Value Reference Range Interpretation Comments PARTIAL THROMBOPLASTIN TIME 28.0 seconds 22.5-36.0 (BEAKER) (test code = 760) Prothrombin time/[id number] 06:17:00 Test Item Value Reference Range Interpretation Comments Protime (test code = 13.9 11.9- 14.2 5902-2) seconds INR (test code = 1.1 <=5.9 6301-6) CLIFF (test code = CLIFF) Effective 12/15/2018: PT Reference Range ChangeNew: 11.9-14.2 Previous: 11.7-14.7 RECOMMENDED COUMADIN/WARFARIN INR THERAPY RANGESSTANDARD DOSE: 2.0-3.0 Includes: PROPHYLAXIS for venous thrombosis, systemic embolization; TREATMENT for venous thrombosis and/or pulmonary embolus.HIGH RISK: Target INR is 2.5-3.5 for patients wiht mechanical heart valves. Lab Interpretation Normal (test code = 48603-2) [facility] Center[facility]/[id number] 06:17:00 Test Item Value Reference Range Interpretation Comments PROTIME (BEAKER) (test code = 13.9 seconds 11.9-14.2 759) INR (BEAKER) (test code = 370) 1.1 <=5.9 Effective 12/15/2018: PT Reference Range ChangeNew: 11.9-14.2 Previous: 11.7- 14.7RECOMMENDED COUMADIN/WARFARIN INR THERAPY RANGESSTANDARD DOSE: 2.0-3.0 Includes: PROPHYLAXIS for venous thrombosis, systemic embolization; TREATMENT for venous thrombosis and/or pulmonary embolus.HIGH RISK: Target INR is2.5-3.5 for patients wiht mechanical heart valves.CBC (Hemogram only)2019-06-24 06:10:00 Test Item Value Reference Range Interpretation Comments WBC (test code = 6690-2) 9.2 3.5- 10.5 K/L RBC (test code = 789-8) 3.50 4.63- 6.08 M/L L MCHC (test code = 786-4) 33.3 32.3- 36.5 GM/DL L Hematocrit (test code = 4544-3) 31.8 % 40.1-51 L MCV (test code = 787-2) 90.9 fL 79-92.2 MCH (test code = 785-6) 30.3 pg 25.7-32.2 RDW (test code = 788-0) 13.2 % 11.6-14.4 Platelets (test code = 777-3) 191 150- 450 K/CU MM MPV (test code = 30191-1) 12.2 fL 9.4-12.4 nRBC (test code = 413) 0 0- 0 /100 WBC Lab Interpretation (test code = Abnormal 57038-1) [facility]2019-06-24 06:10:00 Test Item Value Reference Range Interpretation Comments WHITE BLOOD CELL COUNT (BEAKER) 9.2 K/ L 3.5-10.5 (test code = 775) RED BLOOD CELL COUNT (BEAKER) 3.50 M/ L 4.63-6.08 L (test code = 761) HEMOGLOBIN (BEAKER) (test code = 10.6 GM/DL 13.7-17.5 L 410) HEMATOCRIT (BEAKER) (test code = 31.8 % 40.1-51.0 L 411) MEAN CORPUSCULAR VOLUME (BEAKER) 90.9 fL 79.0-92.2 (test code = 753) MEAN CORPUSCULAR HEMOGLOBIN 30.3 pg 25.7-32.2 (BEAKER) (test code = 751) MEAN CORPUSCULAR HEMOGLOBIN CONC 33.3 GM/DL 32.3-36.5 (BEAKER) (test code = 752) RED CELL DISTRIBUTION WIDTH 13.2 % 11.6-14.4 (BEAKER) (test code = 412) PLATELET COUNT (BEAKER) (test 191 K/CU MM 150-450 code = 756) MEAN PLATELET VOLUME (BEAKER) 12.2 fL 9.4-12.4 (test code = 754) NUCLEATED RED BLOOD CELLS 0 /100 WBC 0-0 (BEAKER) (test code = 413) POCT-GLUCOSE [id number] 21:14:00 Test Item Value Reference Range Interpretation Comments POC-GLUCOSE METER 146 mg/dL 70-110 H : TESTED A T [facility] 6720 (BEAKER) (test code = [facility], 153) [address]: High School Social Science Teacher/Techni mayte ID = [id number] for Rowena Castillo POCT-GLUCOSE [id number] 17:42:00 Test Item Value Reference Range Interpretation Comments POC-GLUCOSE METER 122 mg/dL 70-110 H : TESTED A T [facility] 6720 (BEAKER) (test code = [facility], 153) [address]: High School Social Science Teacher/Techni mayte ID = [id number] for BR OWN, MARICRUZ POCT-GLUCOSE [id number] 12:20:00 Test Item Value Reference Range Interpretation Comments POC-GLUCOSE METER 170 mg/dL 70-110 H : TESTED A T [facility] 6720 (BEAKER) (test code = [facility], 1538) [address]: High [employer] Social Science Teacher/Techni mayte ID = [id number] for BR OWN, MARICRUZ POCT-GLUCOSE [id number] 08:33:00 Test Item Value Reference Range Interpretation Comments POC-GLUCOSE METER 113 mg/dL 70-110 H : TESTED A T [facility] 6720 (BEAKER) (test code = [facility], 1538) [address]: [employer] Social Science Teacher/Techni mayte ID = [id number] for BR OWN, MARICRUZ BASIC METABOLIC [id number] 06:12:00 Test Item Value Reference Range Interpretation Comments SODIUM (BEAKER) 138 meq/L 136-145 (test code = 381) POTASSIUM (BEAKER) 4.8 meq/L 3.5-5.1 (test code = 379) CHLORIDE (BEAKER) 113 meq/L 98-107 H (test code = 382) CO2 (BEAKER) (test 21 meq/L 22-29 L code = 355) BLOOD UREA NITROGEN 47 mg/dL 7-21 H (BEAKER) (test code = 354) CREATININE (BEAKER) 2.68 mg/dL 0.57-1.25 H (test code = 358) GLUCOSE RANDOM 136 mg/dL 70-105 H (BEAKER) (test code = 652) CALCIUM (BEAKER) 8.4 mg/dL 8.4-10.2 (test code = 697) EGFR (BEAKER) (test 26 mL/min/1.73 ESTIMA GUILHERME GFR IS code = 1092) sq m NOT ACCURATE CREATININE CLEARANCE IN PREDICTING GLOMERULAR FILTRATION RATE . ESTIMATED GFR I S NOT APPLICABLE FOR DIALYSIS PATIEN TS. [id number] 06:11:00 Test Item Value Reference Range Interpretation Comments PHOSPHORUS (BEAKER) (test code = 4.3 mg/dL 2.3-4.7 604) [id number] 06:11:00 Test Item Value Reference Range Interpretation Comments MAGNESIUM (BEAKER) (test code = 2.0 mg/dL 1.6-2.6 627) PROTHROMBIN TIME/[id number] 05:54:00 Test Item Value Reference Range Interpretation Comments PROTIME (BEAKER) (test code = 13.7 seconds 11.9-14.2 759) INR (BEAKER) (test code = 370) 1.1 <=5.9 Effective 12/15/2018: PT Reference Range ChangeNew: 11.9-14.2 Previous: 11.7- 14.7RECOMMENDED COUMADIN/WARFARIN INR THERAPY RANGESSTANDARD DOSE: 2.0-3.0 Includes: PROPHYLAXIS for venous thrombosis, systemic embolization; TREATMENT for venous thrombosis and/or pulmonary embolus.HIGH RISK: Target INR is2.5-3.5 for patients wiht mechanical heart valves.[id number] 05:54:00 Test Item Value Reference Range Interpretation Comments PARTIAL THROMBOPLASTIN TIME 30.6 seconds 22.5-36.0 (BEAKER) (test code = 760) CBC (HEMOGRAM ONLY)2019-06-23 05:50:00 Test Item Value Reference Range Interpretation Comments WHITE BLOOD CELL COUNT (BEAKER) 9.3 K/ L 3.5-10.5 (test code = 775) RED BLOOD CELL COUNT (BEAKER) 3.41 M/ L 4.63-6.08 L (test code = 761) HEMOGLOBIN (BEAKER) (test code = 10.3 GM/DL 13.7-17.5 L 410) HEMATOCRIT (BEAKER) (test code = 30.9 % 40.1-51.0 L 411) MEAN CORPUSCULAR VOLUME (BEAKER) 90.6 fL 79.0-92.2 (test code = 753) MEAN CORPUSCULAR HEMOGLOBIN 30.2 pg 25.7-32.2 (BEAKER) (test code = 751) MEAN CORPUSCULAR HEMOGLOBIN CONC 33.3 GM/DL 32.3-36.5 (BEAKER) (test code = 752) RED CELL DISTRIBUTION WIDTH 13.3 % 11.6-14.4 (BEAKER) (test code = 412) PLATELET COUNT (BEAKER) (test 191 K/CU MM 150-450 code = 756) MEAN PLATELET VOLUME (BEAKER) 12.5 fL 9.4-12.4 H (test code = 754) NUCLEATED RED BLOOD CELLS 0 /100 WBC 0-0 (BEAKER) (test code = 413) POCT-GLUCOSE [id number] 22:32:00 Test Item Value Reference Range Interpretation Comments POC-GLUCOSE METER 102 mg/dL 70-110 : TESTED A T [facility] 6720 (BEAKER) (test code = [employer] [place], 1538) [address]: High School Social Science Teacher/Techni amyte ID = [id number] for SE HONEYCUTT OSMAR POCT-GLUCOSE [id number] 22:29:00 Test Item Value Reference Range Interpretation Comments POC-GLUCOSE METER 145 mg/dL 70-110 H : TESTED A T [facility] 6720 (BEAKER) (test code = [employer] [place], 1538) [address]: High School Social Science Teacher/Techni mayte ID = [id number] for MAITE PRATER POCT-GLUCOSE [id number] 12:38:00 Test Item Value Reference Range Interpretation Comments POC-GLUCOSE METER 308 mg/dL 70-110 H : Notified RN/MD: (WILLI) (test code = TESTED AT [facility] 6727 3648) [facility], [address]: High School Social Science Teacher/Techni mayte ID = [id number] for NAMITA WHYTE [id number] 11:42:00 Test Item Value Reference Range Interpretation Comments TSH (test code = 14008-8) 3.42 0.35- 4.94 uIU/mL Lab Interpretation (test code = Normal 66067-8) [facility] 11:42:00 Test Item Value Reference Range Interpretation Comments THYROID STIMULATING HORMONE 3.42 uIU/mL 0.35-4.94 (BEAKER) (test code = 772) Lactic acid, [id number] 11:09:00 Test Item Value Reference Range Interpretation Comments Lactate, Venous (test code = 2872) 0.7 mmol/L 0.5-2.2 Lab Interpretation (test code = Normal 73006-9) [facility], [id number] 11:09:00 Test Item Value Reference Range Interpretation Comments LACTATE BLOOD VENOUS (2) (BEAKER) 0.7 mmol/L 0.5-2.2 (test code = 2872) Ketone, [id number] 10:42:00 Test Item Value Reference Range Interpretation Comments Ketones, Blood (test code = <0.4 <0.4 mmol/L 1103) CLIFF (test code = CLIFF) KETONES= 0.2 Lab Interpretation (test code = Normal 26444-4) [id number] 10:42:00 Test Item Value Reference Range Interpretation Comments KETONES, BLOOD (BEAKER) (test code = < mmol/L <0.4 1103) KETONES= 0.2Blood gas, [id number] 10:29:00 Test Item Value Reference Range Interpretation Comments pH, Arterial (test code = 2744-1) 7.38 7.35-7.45 pCO2, Arterial (test code = 33 35- 45 mmHg L 2018-8) pO2, Arterial (test code = 153 80- 90 mmHg H 3-7) O2 Sat, Arterial (test code = 99.0 % 96-97 H 270-6) HCO3, Arterial (test code = 19 mmol/L 21-29 L 1959-) Base Excess, Arterial (test code -5.0 mmol/L -2-3 L = 1925-7) Patient Temperature (test code = 36.5 C 8310-5) FIO2 (test code = 1819) 21 % Lab Interpretation (test code = Abnormal 36774-4) [facility] [id number] 10:29:00 Test Item Value Reference Range Interpretation Comments PH ARTERIAL (BEAKER) (test code = 7.38 7.35-7.45 383) PCO2 ARTERIAL (BEAKER) (test code 33 mmHg 35-45 L = 384) PO2 ARTERIAL (BEAKER) (test code 153 mmHg 80-90 H = 385) O2 SATURATION ARTERIAL (BEAKER) 99.0 % 96.0-97.0 H (test code = 386) HCO3 ARTERIAL (BEAKER) (test code 19 mmol/L 21-29 L = 388) BASE EXCESS ARTERIAL (BEAKER) -5.0 mmol/L -2.0-3.0 L (test code = 387) PATIENT TEMPERATURE (BEAKER) 36.5 C (test code = 1818) FIO2 (BEAKER) (test code = 1819) 21.0 % POCT-GLUCOSE [id number] 08:11:00 Test Item Value Reference Range Interpretation Comments POC-GLUCOSE METER 115 mg/dL 70-110 H : TESTED A T [facility] 6720 (BEAKER) (test code = CARMEN Martínez [facility], 1538) [id number]: [employer] Teacher/Techni mayte ID = [id number] for NAMITA WHYTE [id number] 04:40:00 Test Item Value Reference Range Interpretation Comments PARTIAL THROMBOPLASTIN TIME 32.0 seconds 22.5-36.0 (BEAKER) (test code = 760) BASIC METABOLIC [id number] 04:39:00 Test Item Value Reference Range Interpretation Comments SODIUM (BEAKER) 135 meq/L 136-145 L (test code = 381) POTASSIUM (BEAKER) 4.7 meq/L 3.5-5.1 Specimen slightly (test code = 379) hemolyzed CHLORIDE (BEAKER) 112 meq/L 98-107 H (test code = 382) CO2 (BEAKER) (test 16 meq/L 22-29 L code = 355) BLOOD UREA NITROGEN 53 mg/dL 7-21 H (BEAKER) (test code = 354) CREATININE (BEAKER) 2.86 mg/dL 0.57-1.25 H Specimen slightly (test code = 358) hemolyzed GLUCOSE RANDOM 114 mg/dL 70-105 H (BEAKER) (test code = 652) CALCIUM (BEAKER) 8.0 mg/dL 8.4-10.2 L (test code = 697) EGFR (BEAKER) (test 24 mL/min/1.73 ESTIMA GUILHERME GFR IS code = 1092) sq m NOT ACCURATE CREATININE CLEARANCE IN PREDICTING GLOMERULAR FILTRATION RATE . ESTIMATED GFR I S NOT APPLICABLE FOR DIALYSIS PATIEN TS. PROTHROMBIN TIME/[id number] 04:39:00 Test Item Value Reference Range Interpretation Comments PROTIME (BEAKER) (test code = 14.0 seconds 11.9-14.2 759) INR (BEAKER) (test code = 370) 1.1 <=5.9 Effective 12/15/2018: PT Reference Range ChangeNew: 11.9-14.2 Previous: 11.7- 14.7RECOMMENDED COUMADIN/WARFARIN INR THERAPY RANGESSTANDARD DOSE: 2.0-3.0 Includes: PROPHYLAXIS for venous thrombosis, systemic embolization; TREATMENT for venous thrombosis and/or pulmonary embolus.HIGH RISK: Target INR is2.5-3.5 for patients wiht mechanical heart valves.[id number] 04:33:00 Test Item Value Reference Range Interpretation Comments MAGNESIUM (BEAKER) 2.0 mg/dL 1.6-2.6 Specimen slightly (test code = 627) hemolyzed [id number] 04:33:00 Test Item Value Reference Range Interpretation Comments PHOSPHORUS (BEAKER) 4.9 mg/dL 2.3-4.7 H Specimen slightly (test code = 604) hemolyzed CBC (HEMOGRAM ONLY)2019-06-22 04:19:00 Test Item Value Reference Range Interpretation Comments WHITE BLOOD CELL COUNT (BEAKER) 9.8 K/ L 3.5-10.5 (test code = 775) RED BLOOD CELL COUNT (BEAKER) 3.29 M/ L 4.63-6.08 L (test code = 761) HEMOGLOBIN (BEAKER) (test code = 9.8 GM/DL 13.7-17.5 L 410) HEMATOCRIT (BEAKER) (test code = 30.2 % 40.1-51.0 L 411) MEAN CORPUSCULAR VOLUME (BEAKER) 91.8 fL 79.0-92.2 (test code = 753) MEAN CORPUSCULAR HEMOGLOBIN 29.8 pg 25.7-32.2 (BEAKER) (test code = 751) MEAN CORPUSCULAR HEMOGLOBIN CONC 32.5 GM/DL 32.3-36.5 (BEAKER) (test code = 752) RED CELL DISTRIBUTION WIDTH 13.5 % 11.6-14.4 (BEAKER) (test code = 412) PLATELET COUNT (BEAKER) (test 208 K/CU MM 150-450 code = 756) MEAN PLATELET VOLUME (BEAKER) 12.1 fL 9.4-12.4 (test code = 754) NUCLEATED RED BLOOD CELLS 0 /100 WBC 0-0 (BEAKER) (test code = 413) POCT-GLUCOSE [id number] 21:55:00 Test Item Value Reference Range Interpretation Comments POC-GLUCOSE METER 118 mg/dL 70-110 H : TESTED A T [facility] 6720 (BEAKER) (test code = CARMEN Martínez [facility], 1538) [id number]: [employer] Social Science Teacher/Techni mayte ID = [id number] for MAITE PRATER Venous doppler legs [id number] 21:23:14Ejection FractionSLE ECHO HEARTLAB MKCKESSON CPACSRight Impression1. There is no deep venous obstruction in the common femoral, profundafemoral, femoral, popliteal, posterior tibial or peroneal veins.2. There is no superficial venous obstruction in the great saphenous vein.Left Impression1. There is no deep venous obstruction in the common femoral, profundafemoral, femoral, popliteal, posterior tibial or peroneal veins.2. There is no superficial venous obstruction in the great saphenous vein. Conclusions Summary Venous duplex imaging and compression of the bilateral lower extremities were performed. The veins were adequately visualized. The bilateral venous systems were patent and compressiblewith no evidence of thrombus. The venous Doppler waveforms were phasic with respiration. Signature Velocities are measured in cm/s ; Diameters are measured in cm Interface, External Ris In - 06/21/2019 9:23 PM CSTPV LAB - Lower Extremities DVT Study Demographics Patient Name KALIA WARNER Date of Study 06/21/2019 Age 43 Visit Number [id number] Gender Male Accession Number [id number] Date of 1975 Referring Megan Crawford Room Number 7511Physician [employer] And Marker Eagle Herrmann Interpreting Suzette Florian,[facility] Physician MD Keli Peace RN, RVT ProcedureType of Study: Veins: Lower Extremities DVT Study, VENOUS DOPPLER LEG, BILATERAL. Indications for Study:Suspected DVT .Patient Status:TODAY.Study Location:Vascular Lab.Technical Quality:Adequate visualization.Risk FactorsHistory of Disease+ +----+--------- +!Diagnosis !Date!Comments !+ +----+ +!Hist ory/Risk Factors: ! !ICH, CVA, HTN, DM !+ +----+-------- +ImpressionsRight Impression1. There is no deep venous obstruction in the common femoral, profundafemoral, femoral, popliteal, posterior tibial or peroneal veins.2. There is no superficial venous obstruction in the great saphenous vein.Left Impression1. There is no deep venous o bstruction in the common femoral, profundafemoral, femoral, popliteal, posterior tibial or peroneal veins.2. There is no superficial venous obstruction in the great saphenous vein. Conclusions Summary Venous duplex imaging and compression of the bilateral lower extremities were performed. The veins were adequately visualized. The bilateral venous systems were patent and compressible with no evidence of thrombus. The venous Doppler waveforms were phasic with respiration. Signature Velocities are measured in cm/s ; Diameters are measured in [facility] POCT-GLUCOSE [id number] 17:36:00 Test Item Value Reference Range Interpretation Comments POC-GLUCOSE METER 152 mg/dL 70-110 H : TESTED A T [facility] 6720 (ESVINBRITTANI) (test code = CARMEN BOJORQUEZ, 1538) [id number]: High [employer] Social Science Teacher/Techni mayte ID = [id number] for NAMITA WHYTE EEG AWAKE AND [id number] 17:10:00Reason for exam:->seizuresACC: [id number] EE Start time: 09:16 Stop time: 09:37 ICD-10: R56.9 CPT Code: 39752 HISTORY:Mr. Warner is 43 y.o right handed male w/ pmh of poorly controlled htn and DM type 2 who was notedto be progressively lethargic a CTH revealed moderate increase in degree of left cerebral hemispherevasogenic edema, left to right 11 mm subfalcine shift. Pt was transferred to [facility] for HLOC. Concern for seizure. [...] M.D., FACNS, FAAN, DAI Professor of Neurology, [facility] Director, [facility] Epilepsy [place], [facility] Neurophysiology Lab EEG AWAKE AND [id number] 17:10:00Interface, External Ris In - 06/21/2019 5:10 PM CSTACC: [id number] EE Start time: 09:16 Stop time: 09:37 ICD-10: R56.9 CPT Code: 87371 HISTORY:Mr. Warner is 43 y.o right handed male w/ pmh of poorly controlled htn and DM type 2 who was noted to be progressively lethargic a CTH revealed moderate increase in degree of left cerebral hemisphere vasogenic edema, left to right 11 mm subfalcine s hift. Pt was transferred to [facility] for HLOC. Concern for seizure. [...] done from 1-20 Hz; no photic driving wasseen; photoparoxysmal responses were absent. VIDEO EVENTS: None Noted ELECTROCARDIOGRAM EVENTS: Normal Sinus Rhythm, HR 60 IMPRESSION: Abnormal Drowsy/lethargic EEG 1. Lateralized left hemisphere slowing and decrease in faster frequencies on the left. 2. Absent left occipital posteriordominant rhythm 3. Generalized polymorphic delta slowing, reactive, worse on the left. COMMENT: Generalized slowing is consistent with a moderate degree of encephalopathy. Lateralized slowing over left hemisphere could be secondary to structural abnormality. An EEG without epileptiform discharges does not exclude the possibility of epilepsy. It the clinical suspicion of epilepsy remains, consider additional EEG recordings. Sylwia Greene MD Neurophysiology Fellow Phani Peraza M.D., FACNS, FAAN, DAI Professor of Neurology, [facility] [employer] Director, [facility] Epilepsy [place], [facility]CT[facility] [id number] 12:25:00 Test Item Value Reference Range Interpretation Comments POC-GLUCOSE METER 156 mg/dL 70-110 H : Notified RN/MD: (WILLI) (test code = TESTED AT [facility] 6720 1538) DERRELL [facility], [id number]: High School Social Science Teacher/Techni mayte ID = [id number] for NAMITA WHYTE Hemoglobin [id number] 09:58:00 Test Item Value Reference Range Interpretation Comments Hemoglobin A1C (test code = 4548-4) 6.8 % 4.3-6.1 H Lab Interpretation (test code = Abnormal 75993-6) [facility] [id number] 09:58:00 Test Item Value Reference Range Interpretation Comments HEMOGLOBIN A1C (WILLI) (test code = 6.8 % 4.3-6.1 H 368) DESTINEY, [id number] 08:41:00 Test Item Value Reference Range Interpretation Comments ABO Grouping (test code = 2588) O Rh Factor (test code = 2589) POS [facility], WITHOUT [id number] 07:52:00FINAL REPORT CT Head without contrast CLINICAL [...] anterior temporal lobe and inferior frontal lobe. E darius also tracks into the descending corticospinal tracks in the left brain stem. Mass effect effaces the left lateral ventricle with rightward midline shift of the septum pellucidum by 1.1 cm. There is asymmetric enlargement of the right lateral ventricle compatible with ventricular entrapment. There are no extra-axial fluid collections. The skull is intact. The visualized paranasal sinuses are well-aerated. IMPRESSION: Subacute appearing hemorrhage in the left basal ganglia with prominent edema and mass effect, including right ventricular entrapment. Comparison with outside imaging is recommended. Signed: Jasmyne Clements MDReport Verified Date/Time: 06/21/2019 07:52:44 Reading Location: [address] Neuro Reading Room [facility] brain without IV [id number] 07:52:00Interface, External Ris In - 06/21/2019 7:[address] Head without contrast CLINICAL HISTORY: ich TECHNIQUE: Contiguous axial CT images through the head without contrast. This exam was performed according to the departmental dose optimization program which includesautomated exposure control, adjustment of the mA and/or kV according to the patient size, and/or useof an iterative reconstruction technique. COMPARISON: None FINDINGS: [...] compatible with ventricular entrapment. There are no extra-axial fluid collections. The skullis intact. The visualized paranasal sinuses are well-aerated. IMPRESSION: Subacute appearing hemorrhage in the left basal ganglia with prominent edema and mass effect, including right ventricular entrapment. Comparison with outside imaging is recommended. Signed: Jasmyne Clements MDReport Verified Date/Time: 06/21/2019 07:52:44 Reading Location: [address] Neuro Reading Room [facility] [id number] 07:07:00 Test Item Value Reference Range Interpretation Comments POC-GLUCOSE METER 117 mg/dL 70-110 H : TESTED A T [facility] 6720 (BEAKER) (test code = CARMEN MILLER [place], 1538) [address]: [employer] Social Science Teacher/Techni mayte ID = [id number] for RA PATRICIO MARISSA Urinalysis w/Microscopic + Reflex to [id number] 04:29:00 Test Item Value Reference Range Interpretation Comments Color, UA (test code = 5778-6) Light Yellow Clarity, UA (test code = 5767-9) Clear Specific [place], UA (test code 1.015 1.001-1.035 = 5811-5) pH, UA (test code = 5803-2) 5.5 5.0-8.0 Protein, UA (test code = 100 mg/dL Negative A 58089-6) Glucose, UA (test code = 365) 100 mg/dL Negative A Ketones, UA (test code = 2514-8) Negative Negative Bilirubin, UA (test code = Negative Negative 90927-6) Blood, UA (test code = 67794-8) Negative Negative Nitrite, UA (test code = 5802-4) Negative Negative Leukocytes, UA (test code = Negative Negative 5799-2) Urobilinogen, UA (test code = 0.2 mg/dL 0.2-1 24057-7) RBC, UA (test code = 67045-1) 4 /HPF WBC, UA (test code = 5821-4) 1 /HPF Mucus (test code = 8247-9) Rare Squam Epithel, UA (test code = <1 /HPF 06037-0) Hyaline Casts, UA (test code = 1 /LPF 61550-6) Yeast (test code = 85136-5) Occasional Specimen Source (test code = 2795) Lab Interpretation (test code = Abnormal 12822-4) [facility] UR[facility] [id number] 04:29:00 Test Item Value Reference Range Interpretation Comments COLOR (BEAKER) (test code = 470) Light Yellow CLARITY (BEAKER) (test code = Clear 469) SPECIFIC GRAVITY UA (BEAKER) 1.015 1.001-1.035 (test code = 468) PH UA (BEAKER) (test code = 467) 5.5 5.0-8.0 PROTEIN UA (BEAKER) (test code = 100 mg/dL Negative A 464) GLUCOSE UA (BEAKER) (test code = 100 mg/dL Negative A 365) KETONES UA (BEAKER) (test code = Negative Negative 371) BILIRUBIN UA (BEAKER) (test code Negative Negative = 462) BLOOD UA (BEAKER) (test code = Negative Negative 461) NITRITE UA (BEAKER) (test code = Negative Negative 465) LEUKOCYTE ESTERASE UA (BEAKER) Negative Negative (test code = 466) UROBILINOGEN UA (BEAKER) (test 0.2 mg/dL 0.2-1.0 code = 463) RBC UA (BEAKER) (test code = 4 /HPF 519) WBC UA (BEAKER) (test code = 1 /HPF 520) MUCUS (BEAKER) (test code = Rare 1574) SQUAMOUS EPITHELIAL (BEAKER) < /HPF (test code = 516) HYALINE CASTS (BEAKER) (test 1 /LPF code = 514) YEAST (BEAKER) (test code = Occasional 1585) SOURCE(BEAKER) (test code = 2795) Troponin [id number] 02:50:00 Test Item Value Reference Range Interpretation Comments Troponin I (test code = 0.01 ng/mL 0-0.03 76201-6) CLIFF (test code = CLIFF) Troponin I (TnI) levels must be interpreted [...] acidosis, acute neurological disease, and persistent tachyarrhythmia. Lab Interpretation (test Normal code = 19889-0) [facility] [id number] 02:50:00 Test Item Value Reference Range Interpretation Comments TROPONIN I (BEAKER) (test code = 0.01 ng/mL 0.00-0.03 397) Troponin I (TnI) levels must be interpreted [...] failure, acidosis, acute neurological disease, and persistent tachyarrhythmia.Type and screen, [id number] 02:08:00 Test Item Value Reference Range Interpretation Comments ABO/RH AUTOMATED (BEAKER) (test O POSITIVE code = 2260) Ab Scrn (test code = 890-4) NEGATIVE [facility], 1 [facility]IEW, NON [id number] 02:08:00 Reason for exam:->pre-opShould this be performed at the bedside?->YesFINAL REPORT History: Preoperative evaluation, surgery unspecified. Comparison: None. Findings: A single view of the chest is submitted. The cardiomediastinal contours are unremarkable. There is no focal consolidation, pneumothorax, large pleural effusion or evidence of overt p ulmonary edema. There is no acute bony abnormality. Impression: No acute abnormality. Signed: Sid Jerome MDReport Verified Date/Time: 06/21/2019 02:08:31 XR chest 1 view portable / [id number] 02:08:00Interface, External Ris In - 06/21/2019 2:10 AM CSTFINAL REPORT History: Preoperative evaluation, surgery unspecified. Comparison: None. Findings: A single view of the chest issubmitted. The cardiomediastinal contours are unremarkable. There is no focal consolidation, pneumothorax, large pleural effusion or evidence of overt pulmonary edema. There is no acute bony abnormal ity. Impression: No acute abnormality. Signed: Sid Jerome MDReport Verified Date/Time: 06/21/2019 02:08:31 [facility] CenterAPTT2019-[facility] 01:45:00 Test Item Value Reference Range Interpretation Comments PARTIAL THROMBOPLASTIN TIME 34.3 seconds 22.5-36.0 (BEAKER) (test code = 760) PROTHROMBIN TIME/[id number] 01:44:00 Test Item Value Reference Range Interpretation Comments PROTIME (BEAKER) (test code = 15.1 seconds 11.9-14.2 H 759) INR (BEAKER) (test code = 370) 1.3 <=5.9 Effective 12/15/2018: PT Reference Range ChangeNew: 11.9-14.2 Previous: 11.7- 14.7RECOMMENDED COUMADIN/WARFARIN INR THERAPY RANGESSTANDARD DOSE: 2.0-3.0 Includes: PROPHYLAXIS for venous thrombosis, systemic embolization; TREATMENT for venous thrombosis and/or pulmonary embolus.HIGH RISK: Target INR is2.5-3.5 for patients wiht mechanical heart valves.BASIC METABOLIC [id number] 01:39:00 Test Item Value Reference Range Interpretation Comments SODIUM (BEAKER) 136 meq/L 136-145 (test code = 381) POTASSIUM (BEAKER) 5.0 meq/L 3.5-5.1 (test code = 379) CHLORIDE (BEAKER) 112 meq/L 98-107 H (test code = 382) CO2 (BEAKER) (test 17 meq/L 22-29 L code = 355) BLOOD UREA NITROGEN 53 mg/dL 7-21 H (BEAKER) (test code = 354) CREATININE (BEAKER) 2.40 mg/dL 0.57-1.25 H (test code = 358) GLUCOSE RANDOM 172 mg/dL 70-105 H (BEAKER) (test code = 652) CALCIUM (BEAKER) 8.2 mg/dL 8.4-10.2 L (test code = 697) EGFR (BEAKER) (test 29 mL/min/1.73 ESTIMA GUILHERME GFR IS code = 1092) sq m NOT ACCURATE CREATININE CLEARANCE IN PREDICTING GLOMERULAR FILTRATION RATE . ESTIMATED GFR I S NOT APPLICABLE FOR DIALYSIS PATIEN TS. Hepatic function [id number] 01:29:00 Test Item Value Reference Range Interpretation Comments Protein, Total (test code = 2885-2) 6.3 6.0- 8.3 gm/dL Albumin (test code = 94497-7) 3.0 g/dL 3.5-5 L Total Bilirubin (test code = 0.4 mg/dL 0.2-1.2 1974-2) Bilirubin, Direct (test code = 0.2 mg/dL 0.1-0.5 1967-7) Alkaline Phosphatase (test code = 184 U/L 40-150 H 6768-6) AST (test code = 1920-8) 18 U/L 5-34 ALT (test code = 1742-6) 34 U/L 6-55 Lab Interpretation (test code = Abnormal 73676-1) [facility]2019-[facility]-03 01:29:00 Test Item Value Reference Range Interpretation Comments PHOSPHORUS (BEAKER) (test code = 4.2 mg/dL 2.3-4.7 604) [id number] 01:29:00 Test Item Value Reference Range Interpretation Comments MAGNESIUM (BEAKER) (test code = 2.1 mg/dL 1.6-2.6 627) HEPATIC FUNCTION [id number] 01:29:00 Test Item Value Reference Range Interpretation Comments TOTAL PROTEIN (BEAKER) (test code = 6.3 gm/dL 6.0-8.3 770) ALBUMIN (BEAKER) (test code = 1145) 3.0 g/dL 3.5-5.0 L BILIRUBIN TOTAL (BEAKER) (test code 0.4 mg/dL 0.2-1.2 = 377) BILIRUBIN DIRECT (BEAKER) (test 0.2 mg/dL 0.1-0.5 code = 706) ALKALINE PHOSPHATASE (BEAKER) (test 184 U/L 40-150 H code = 346) AST (SGOT) (BEAKER) (test code = 18 U/L 5-34 353) ALT (SGPT) (BEAKER) (test code = 34 U/L 6-55 347) CBC (HEMOGRAM ONLY)2019-06-21 01:08:00 Test Item Value Reference Range Interpretation Comments WHITE BLOOD CELL COUNT (BEAKER) 12.1 K/ L 3.5-10.5 H (test code = 775) RED BLOOD CELL COUNT (BEAKER) 3.34 M/ L 4.63-6.08 L (test code = 761) HEMOGLOBIN (BEAKER) (test code = 10.1 GM/DL 13.7-17.5 L 410) HEMATOCRIT (BEAKER) (test code = 30.2 % 40.1-51.0 L 411) MEAN CORPUSCULAR VOLUME (BEAKER) 90.4 fL 79.0-92.2 (test code = 753) MEAN CORPUSCULAR HEMOGLOBIN 30.2 pg 25.7-32.2 (BEAKER) (test code = 751) MEAN CORPUSCULAR HEMOGLOBIN CONC 33.4 GM/DL 32.3-36.5 (BEAKER) (test code = 752) RED CELL DISTRIBUTION WIDTH 13.4 % 11.6-14.4 (BEAKER) (test code = 412) PLATELET COUNT (BEAKER) (test 208 K/CU MM 150-450 code = 756) MEAN PLATELET VOLUME (BEAKER) 11.6 fL 9.4-12.4 (test code = 754) NUCLEATED RED BLOOD CELLS 0 /100 WBC 0-0 (BEAKER) (test code = 413) PROTHROMBIN TIME/[id number] 00:48:00 Test Item Value Reference Range Interpretation Comments PROTIME (BEAKER) (test code = 14.3 seconds 11.9-14.2 H 759) INR (BEAKER) (test code = 370) 1.2 <=5.9 Effective 12/15/2018: PT Reference Range ChangeNew: 11.9-14.2 Previous: 11.7- 14.7RECOMMENDED COUMADIN/WARFARIN INR THERAPY RANGESSTANDARD DOSE: 2.0-3.0 Includes: PROPHYLAXIS for venous thrombosis, systemic embolization; TREATMENT for venous thrombosis and/or pulmonary embolus.HIGH RISK: Target INR is2.5-3.5 for patients wiht mechanical heart valves.[id number] 00:48:00 Test Item Value Reference Range Interpretation Comments PARTIAL THROMBOPLASTIN TIME 32.3 seconds 22.5-36.0 (BEAKER) (test code = 760) POCT-GLUCOSE [id number] 00:15:00 Test Item Value Reference Range Interpretation Comments POC-GLUCOSE METER 167 mg/dL 70-110 H : [facility] ([facility]ER) (test code = CARMEN [place], 1538) [address]: [employer] Social Science Teacher/Techni mayte ID = [id number] for MARISSA ARENAS
[2020-05-13 18:49] LABS: Protime INR 1.1
[2020-05-13] MEDS ORDERED: MORPHINE 4 MG/ML SYR ONE (18:49)
[2020-05-13] MEDS ORDERED: NA CHLORIDE 0.9% 1,000 ML ONE (18:49)
[2020-05-13 18:52] LABS: Absolute Lymphocytes (CBC) 0.9 K/uL (0.7-4.9); Basophils % 0.3 % (0-1.3); Hematocrit 30.9 % (39.6-49.0); Lymphocytes % 6.2 % (15.3-44.8); MPV 9.1 fL (7.6-11.3)
[2020-05-13 19:06] LABS: Albumin 1.9 g/dL (3.4-5.0); Bilirubin Direct 0.7 mg/dL (0-0.2); Magnesium 2.3 mg/dL (1.8-2.4); Protein, Total 7.4 g/dL (6.4-8.2); Troponin (Emerg Dept Use Only) 0.02 ng/mL (0.0-0.045)
--- NOTE | 2020-05-13 19:28 | RAD REPORT ---
EXAM DESCRIPTION: RAD - Chest Single View - 05/13/2020 7:03 pm CLINICAL HISTORY: CHEST PAIN COMPARISON: Portable May 2019 TECHNIQUE: AP portable chest image was obtained 05/13/2020 7:03 pm . FINDINGS: Lung volumes are low. No peripheral mass or consolidation. Interstitial pattern is accentu ated by low lung volumes, potentially masking edema or infiltrate. Heart and vasculature are normal. No measurable pleural effusion and no pneumothorax. No acute bony abnormality seen. No acute aortic f indings suspected. IMPRESSION: No peripheral mass or consolidation. Low lung volume exam shows accentuated interstitial pattern. This could be the artifact of low lung v olumes or indicate interstitial edema or infiltrate.
[2020-05-13 19:45] LABS: Blood Morphology Comment NOT SEEN (NOT SEEN); Platelet Estimate ADEQ
[2020-05-13] MEDS ORDERED: PIPER/TAZO/NS 3.375gm 3.375 GM/100 ML BAG ONE (19:57)
--- NOTE | 2020-05-13 20:32 | EDPHYS ---
Physician Documentation [facility] Name: Tony Warner Age: 44 yrs Sex: Male : 1975 Arrival Date: 05/13/2020 Time: 18:20 Bed 5 Private MD: ED Physician Josef Pitts HPI: 05/13 18:30 This 44 yrs old Male presents to ER via EMS with complaints of Wound cp Infection. 18:30 The patient or guardian reports chest pain that is located primarily in the anterior cp chest wall. 18:30 Onset: intermittent for past couple days. The pain does not radiate. cp 18:30 The chest pain is described as a pressure. Duration: The patient or guardian reports cp multiple episodes, that wax and wane. 18:32 The patient presents with pain, swelling, tenderness, open wound noted to toe cp amputation sites of left foot and right foot. 18:32 Associated signs and symptoms: Pertinent positives: fever. Treatment prior to arrival cp includes: no previous treatment. Historical: - Allergies: 18:24 NKA; em - PMHx: 18:24 CAD; CVA; Diabetes - NIDDM; Hypertension; em - PSHx: 18:24 Heart stents; toe amputations; em - Immunization history:: Adult Immunizations up to date. - Social history:: Smoking status: Patient denies any tobacco usage or history of. ROS: 18:33 Constitutional: Positive for chills, Negative for fever. cp 18:33 ENT: Negative for ear pain, sore throat, difficulty swallowing, difficulty handling cp secretions. 18:33 Cardiovascular: Positive for chest pain, Negative for edema, palpitations. 18:33 Respiratory: Negative for cough, shortness of breath, wheezing. 18:33 Abdomen/GI: Negative for abdominal pain, nausea, vomiting, and diarrhea. 18:33 : Negative for urinary symptoms. 18:33 Skin: Positive for open wounds of right foot and left foot. 18:33 Neuro: Negative for altered mental status, headache. 18:33 All other systems are negative. Exam: 18:35 ECG was reviewed by the Attending Physician. cp 18:40 Constitutional: The patient appears in no acute distress, alert, awake, cp non-diaphoretic, non-toxic, well developed, well nourished, obviously ill. 18:40 Head/Face: Normocephalic, atraumatic. cp 18:40 Eyes: Periorbital structures: appear normal, Pupils: equal, round, and reactive to light and accomodation, Extraocular movements: intact throughout, Conjunctiva: normal, no exudate, no injection, Sclera: no appreciated abnormality, Lids and lashes: appear normal, bilaterally. 18:40 ENT: External ear(s): are unremarkable, Nose: is normal, Mouth: Lips: dry, Oral mucosa: moist, Posterior pharynx: Airway: no evidence of obstruction, patent. 18:40 Neck: ROM/movement: is normal, is supple, without pain, no range of motions limitations, no meningismus. 18:40 Chest/axilla: Inspection: normal, Palpation: is normal, no crepitus, no tenderness. 18:40 Cardiovascular: Rate: tachycardic, Rhythm: regular, Pulses: Pulses are 2+ in right radial artery, right dorsalis pedis artery, left radial artery and left dorsalis pedis artery. Edema: pedal edema, that is very mild, JVD: is not appreciated. 18:40 Respiratory: the patient does not display signs of respiratory distress, Respirations: normal, no use of accessory muscles, no retractions, labored breathing, is not present, Breath sounds: are clear throughout, no decreased breath sounds, no stridor, no wheezing. 18:40 Abdomen/GI: Inspection: abdomen appears normal, Bowel sounds: active, all quadrants, Palpation: abdomen is soft and non-tender, in all quadrants, rebound tenderness, is not appreciated, voluntary guarding, is not appreciated, involuntary guarding, is not appreciated. 18:40 Back: CVA tenderness, is absent. 18:40 Musculoskeletal/extremity: toes 1 thru 3 surgically amputated left foot and right foot. 18:40 Skin: golf ball size open wounds noted distal part of right foot and left foot with mild drainage noted from right foot wound, erythema and swelling extending proximal right foot. 18:40 Neuro: Orientation: to person, place \T\ time. Mentation: able to follow commands, slow to respond, Motor: right arm partially contracted. Vital Signs: 18:21 BP 190 / 90; Pulse 102; Resp 20; Temp 99.7; Pulse Ox 98% on R/A; em 19:30 BP 191 / 90; Pulse 94; Resp 18; Pulse Ox 98% on R/A; wh 20:00 BP 188 / 89; Pulse 93; Resp 18; Pulse Ox 99% on R/A; wh 21:10 BP 178 / 80; Pulse 95; Resp 18; Pulse Ox 100% on R/A; MDM: 18:22 Patient medically screened. cp 19:00 Differential diagnosis: abnormal EKG, acute myocardial infarction, sepsis, COVID-19, cp osteomyelitis, DKA. 20:30 Physician consultation: Prince Matthew PÉREZ was called at 20:30, was contacted at 20:30, cp regarding admission, to the telemetry unit. patient's condition, and will see patient in ED, shortly. 20:30 Data reviewed: vital signs, nurses notes, lab test result(s), EKG, radiologic studies, cp plain films. 20:30 Test interpretation: by ED physician or midlevel provider: ECG. cp 05/13 18:25 Order name: Basic Metabolic Panel; Complete Time: 19:32 cp 05/13 19:34 Interpretation: Reviewed. cp 05/13 18:25 Order name: CBC with Diff; Complete Time: 19:53 cp 05/13 18:25 Order name: LFT's; Complete Time: 19:32 cp 05/13 18:25 Order name: Magnesium; Complete Time: 19:32 cp 05/13 18:25 Order name: NT PRO-BNP; Complete Time: 19:32 cp 05/13 18:25 Order name: PT-INR; Complete Time: 19:32 cp 05/13 18:25 Order name: Troponin (emerg Dept Use Only); Complete Time: 19:32 cp 05/13 18:25 Order name: Wound Culture cp 05/13 18:25 Order name: Blood Culture Adult (2) cp 05/13 18:25 Order name: Procalcitonin; Complete Time: 19:53 cp 05/13 18:25 Order name: Lactate; Complete Time: 19:32 cp 05/13 18:38 Order name: Wound Culture em 05/13 18:56 Order name: Manual Differential; Complete Time: 19:53 EDMS 05/13 21:19 Order name: COVID-19 sg 05/13 18:25 Order name: XRAY Chest (1 view); Complete Time: 19:32 cp 05/13 18:25 Order name: EKG; Complete Time: 18:26 cp 05/13 18: Order name: Cardiac monitoring; Complete Time: 18:38 cp 05/13 18:25 Order name: EKG - Nurse/Tech; Complete Time: 18:38 cp 05/13 18:25 Order name: IV Saline Lock; Complete Time: 18:38 cp 05/13 18:25 Order name: Labs collected and sent; Complete Time: 18:38 cp 05/13 18:25 Order name: O2 Per Protocol; Complete Time: 18:38 cp 05/13 18:25 Order name: O2 Sat Monitoring; Complete Time: 18:38 cp EC:35 Rate is 102 beats/min. Rhythm is regular. MO interval is prolonged at 218 msec. QRS cp interval is normal. QT interval is normal. T waves are Inverted in leads aVL, aVR. Interpreted by me. Reviewed by me. Administered Medications: 18:40 Drug: NS 0.9% 1000 ml Route: IV; Rate: 1 bolus; Site: left antecubital; 19:51 Follow up: Response: No adverse reaction; IV Status: Completed infusion 18:41 Drug: morphine 4 mg {Note: rass2.} Route: IVP; Site: left antecubital; sv 19:51 Follow up: Response: No adverse reaction; Pain is decreased; RASS: Alert and Calm (0) 19:51 Drug: Zosyn 3.375 grams Route: IVPB; Infused Over: 60 mins; Site: left antecubital; 20:43 Follow up: Response: No adverse reaction; IV Status: Completed infusion 20:39 Drug: hydrALAZINE 10 mg Route: IV; Rate: calculated rate; Site: left antecubital; 21:20 Follow up: Response: No adverse reaction; Blood pressure is lowered; IV Status: Completed infusion 20:41 Drug: NS 0.9% 500 ml Route: IV; Rate: bolus; Site: left antecubital; 21:20 Follow up: Response: No adverse reaction; IV Status: Infusion continued upon admission 20:43 Drug: vancoMYCIN 1 grams Route: IVPB; Infused Over: 2 hrs; Site: left antecubital; 21:20 Follow up: Response: No adverse reaction; IV Status: Infusion continued upon admission 21:20 Drug: Potassium Effervescent Tablet 50 mEq Route: PO; 21:30 Follow up: Response: No adverse reaction Disposition: 20:45 Chart complete. cp Disposition: 05/13/20 20:31 Hospitalization ordered by Prince Matthew for Inpatient Admission. Preliminary diagnosis are Cellulitis of left lower limb, Cellulitis of right lower limb, Unspecified kidney failure, Other sepsis. - Bed requested for Telemetry/MedSurg (Inpatient). - Status is Inpatient Admission. - Condition is Fair. - Problem is new. - Symptoms have improved. Addendum: 05/17/2020 19:29 Co-signature as Attending Physician, Josef Pitts MD. r n Signatures: Dispatcher [employer] EDCami Lance RN RN sv Gay, Steven, RN RN sg Munoz, Edgar, RN RN em Nieto, Roman, MD MD rn Page, Corey, PA PA Jennifer Manriquez Corrections: (The following items were deleted from the chart) 05/13 20:32 20:31 Hospitalization Ordered by Prince Matthew PÉREZ for Inpatient Admission. Preliminary cp diagnosis is Cellulitis of left lower limb; Cellulitis of right lower limb; Unspecified kidney failure. Bed requested for Telemetry/MedSurg (Inpatient). Status is Inpatient Admission. Condition is Fair. Problem is new. Symptoms have improved. 20:34 20:32 05/13/2020 20:31 Hospitalization Ordered by Prince Matthew PÉREZ for Inpatient Admission. Preliminary diagnosis is Cellulitis of left lower limb; Cellulitis of right lower limb; Unspecified kidney failure; Other sepsis. Bed requested for Telemetry/MedSurg (Inpatient). Status is Inpatient Admission. Condition is Fair. Problem is new. Symptoms have improved. 21:31 20:34 05/13/2020 20:31 Hospitalization Ordered by Prince Matthew PÉREZ for Inpatient Admission. Preliminary diagnosis is Cellulitis of left lower limb; Cellulitis of right lower limb; Unspecified kidney failure; Other sepsis. Bed requested for Telemetry/MedSurg (Inpatient). Status is Inpatient Admission. Condition is Fair. Problem is new. Symptoms have improved.
--- NOTE | 2020-05-13 20:32 | ER ---
Nurse's Notes [facility] Name: Tony Warner Age: 44 yrs Sex: Male : 1975 Arrival Date: 05/13/2020 Time: 18:20 Bed 5 Private MD: Diagnosis: Cellulitis of left lower limb;Cellulitis of right lower limb;Unspecified kidney failure;Other sepsis Presentation: 05/13 18:21 Chief complaint: EMS states: called out for feeling bad for 3 days, reports having em chest pain for several days and fever, denies N/V, has annabella. wounds to both feet. Coronavirus screen: Client denies travel out of the [place] in the last 14 days. Ebola Screen: Patient negative for fever greater than or equal to 101.5 degrees Fahrenheit, and additional compatible Ebola Virus Disease symptoms Patient denies exposure to infectious person. Patient denies travel to an Ebola-affected area in the 21 days before illness onset. No symptoms or risks identified at this time. Initial Sepsis Screen: Does the patient meet any 2 criteria? HR > 90 bpm. Does the patient have a suspected source of infection? Yes: Skin breakdown/wound. Risk Assessment: Do you want to hurt yourself or someone else? Patient reports no desire to harm self or others. Onset of symptoms was May 10, 2020. 18:21 [facility] Ar[facility]: [facility] 18:21 Acuity: JIMBO 3 em Historical: - Allergies: 18:24 NKA; em - PMHx: 18:24 CAD; CVA; Diabetes - NIDDM; Hypertension; em - PSHx: 18:24 Heart stents; toe amputations; em - Immunization history:: Adult Immunizations up to date. - Social history:: Smoking status: Patient denies any tobacco usage or history of. Screenin:21 Abuse screen: Denies threats or abuse. Denies injuries from another. Nutritional sv screening: No deficits noted. Tuberculosis screening: No symptoms or risk factors identified. 19:15 Fall Risk Ambulatory Aid- Crutches/Cane/Walker (15 pts). wh Assessment: 18:21 General: Appears in no apparent distress. uncomfortable, Behavior is cooperative, em appropriate for age, restless, Reports fever for 2-3 days. Pain: Complains of pain in chest, right foot and left foot Pain currently is 10 out of 10 on a pain scale. Neuro: Level of Consciousness is awake, alert, obeys commands, Oriented to person, place, time, situation, Appropriate for age Reports weakness in right arm and right leg since 2018, previous hemorrhagic stroke. Cardiovascular: Reports chest pain, Denies nausea, shortness of breath, Capillary refill < 3 seconds Patient's skin is warm and dry. Rhythm is sinus rhythm. Respiratory: Airway is patent Respiratory effort is even, unlabored, Respiratory pattern is regular, symmetrical. Derm: Skin is intact, is healthy with good turgor, Skin is pink, warm \T\ dry. Injury Description: Amputation sustained to right first toe, right second toe, right third toe, left first toe, left second toe and left third toe. 19:30 General: Appears in no apparent distress. Behavior is cooperative, appropriate for age. wh Pain: Complains of pain in right foot and left foot. Neuro: Level of Consciousness is awake, alert, obeys commands, Reports weakness. Cardiovascular: Capillary refill < 3 seconds Rhythm is sinus rhythm. Respiratory: Airway is patent Respiratory effort is even, unlabored, Respiratory pattern is regular, symmetrical. GI: Abdomen is flat, non-distended. : No signs and/or symptoms were reported regarding the genitourinary system. EENT: No signs and/or symptoms were reported regarding the EENT system. Derm: Skin is intact. Musculoskeletal: Amputation of right foot, plantar aspect of left first toe, plantar aspect of left second toe, plantar aspect of left third toe, left first toe, left second toe and left third toe. 20:00 Reassessment: Pt blood pressure elevated, Pt stated his blood pressure at home is wh always elevated and he is not taking any medication for it. Notified provider. 20:45 Reassessment: MD at bedside explaining POC need for admit. wh 21:11 Reassessment: Patient appears in no apparent distress at this time. Patient and/or wh family updated on plan of care and expected duration. Pain level reassessed. Patient is alert, oriented x 3, equal unlabored respirations, skin warm/dry/pink. Vital Signs: 18:21 BP 190 / 90; Pulse 102; Resp 20; Temp 99.7; Pulse Ox 98% on R/A; em 19:30 BP 191 / 90; Pulse 94; Resp 18; Pulse Ox 98% on R/A; wh 20:00 BP 188 / 89; Pulse 93; Resp 18; Pulse Ox 99% on R/A; wh 21:10 BP 178 / 80; Pulse 95; Resp 18; Pulse Ox 100% on R/A; ED Course: 18:20 Patient arrived in ED. sv 18:21 Kash Royal, RN is Primary Nurse. em 18:21 Arm band placed on. sv 18:22 Jez Villalobos PA is PHCP. cp 18:22 Josef Pitts MD is Attending Physician. cp 18:24 Triage completed. em 18:24 Patient has correct armband on for positive identification. Placed in gown. Bed in low em position. Call light in reach. Side rails up X2. laboratory monitor on. Pulse ox on. NIBP on. 18:33 Initial lab(s) drawn, sent to lab. First set of blood cultures drawn. Inserted saline dh3 lock: 20 gauge in left antecubital area, using aseptic technique. ,using aseptic technique. by Kash Royal Blood collected. 18:35 Second set of blood cultures drawn by Kash Royal. dh3 18:43 Wound Culture Sent. dh3 18:43 Wound Culture Sent. dh3 18:46 Awaiting for x-ray. sv 19:03 XRAY Chest (1 view) In Process Unspecified. EDMS 20:30 Prince Castro MD is Hospitalizing Provider. cp 21:12 No provider procedures requiring assistance completed. Patient admitted, IV remains in place. Administered Medications: 18:40 Drug: NS 0.9% 1000 ml Route: IV; Rate: 1 bolus; Site: left antecubital; 19:51 Follow up: Response: No adverse reaction; IV Status: Completed infusion 18:41 Drug: morphine 4 mg {Note: rass2.} Route: IVP; Site: left antecubital; 19:51 Follow up: Response: No adverse reaction; Pain is decreased; RASS: Alert and Calm (0) 19:51 Drug: Zosyn 3.375 grams Route: IVPB; Infused Over: 60 mins; Site: left antecubital; 20:43 Follow up: Response: No adverse reaction; IV Status: Completed infusion 20:39 Drug: hydrALAZINE 10 mg Route: IV; Rate: calculated rate; Site: left antecubital; 21:20 Follow up: Response: No adverse reaction; Blood pressure is lowered; IV Status: Completed infusion 20:41 Drug: NS 0.9% 500 ml Route: IV; Rate: bolus; Site: left antecubital; 21:20 Follow up: Response: No adverse reaction; IV Status: Infusion continued upon admission 20:43 Drug: vancoMYCIN 1 grams Route: IVPB; Infused Over: 2 hrs; Site: left antecubital; 21:20 Follow up: Response: No adverse reaction; IV Status: Infusion continued upon admission 21:20 Drug: Potassium Effervescent Tablet 50 mEq Route: PO; 21:30 Follow up: Response: No adverse reaction Outcome: 20:31 Decision to Hospitalize by Provider. cp 21:12 Admitted to Med/surg accompanied by tech, via stretcher, room 205, with chart, Report called to Abby Rolon RN 21:12 Condition: stable 21:12 Instructed on the need for admit. 21:31 Patient left the ED. Signatures: Dispatcher [employer] Cami Villegas, RN RN Kash Saab RN RN em Page, Corey, PA PA [facility] Jennifer Manriquez
[2020-05-13] MEDS ORDERED: VANCOMYCIN 1 GM/VIAL ONE (20:49)
[2020-05-13] MEDS ORDERED: HYDRALAZINE HCL 20 MG/ML VIAL ONE (20:49)
[2020-05-13] MEDS ORDERED: NA CHLORIDE 0.9% 500 ML ONE (20:49)
[2020-05-13] MEDS ORDERED: NA CHLORIDE 0.9% 250 ML ONE (20:49)
--- NOTE | 2020-05-13 20:59 | P.HP ---
Certification for Inpatient Patient admitted to: Inpatient With expected LOS: >2 Midnights Practitioner: I am a practitioner with admitting privileges, knowledge of patient current condition, hospital course, and medical plan of care. 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 He presents to the ER complaining of a 7-day history of ge neralized weakness, malaise and fever. Patient states that his symptoms have been progressively worsening. Associated symptoms include shortness of breath. He denies any chest pain, palpiations or cough. He has multiple toe amputations in both lower extremities. He also an open wound on the R transmetatarsal joint draining purulent discharge, and a dry gangrene of the left transmetatarsal shayna nt. Allergies No Known Allergies Allergy (Unverified 06/03/19 11:21) Home Medications: Amlodipine [Norvasc*] 5 mg PO DAILY tab 07/15/19 Atorvastatin Calcium [Lipitor] 40 mg PO BEDTIME tab 07/15/19 Docusate/Senna [Senokot-S*] 1 tab PO BID PRN tab 07/15/19 Enoxaparin Sodium [Lovenox 30 MG INJ*] 30 mg SQ DAILY 5 PM syr 07/15/19 Ferrous Sulfate [Ferrous Sulfate*] 325 mg PO DAILY tab 07/15/19 Hydralazine [Apresoline*] 50 mg PO TID tab 07/15/19 Insulin -Regular Human [Novolin -R*] See Protocol SQ ACHS ml 07/15/19 Iron/FA/Vit B-Com W/C [Hemocyte Plus*] 1 tab PO DAILY WITH BREAKFAST tab 07/15/19 Melatonin [Melatonin*] 3 mg PO BEDTIME PRN PRN tablet 07/15/19 Mupirocin Oint [Bactroban 2% Ointment*] 1 appl TOP DAILY tube 07/15/19 Nifedipine Xl [Procardia Xl*] 15 mg PO DAILY tab 07/15/19 Ondansetron [Zofran (Odt)*] 4 mg PO Q4H PRN tab 07/15/19 Pantoprazole [Protonix Tab*] 40 mg PO ACB tab 07/15/19 carvediloL [Coreg*] 25 mg PO BID 6AM 6PM tab 07/15/19 - Past Medical/Surgical History Diabetic: Yes -: CAD -: Diabetes- NIDDM -: Hypertension -: AKF -: Encephalopathy -: HTN -: Heart Stent -: toe amputation - Family History Father -: Heart disease, Hypertension - Social History Alcohol use: No CD- Drugs: No Caffeine use: Yes Physical Examination - Physical Exam General: Cooperative, Mild distress, Other (diaphoretic) HEENT: Atraumatic, Normocephalic, PERRLA, EOMI Neck: Supple Respiratory: Clear to auscultation bilaterally, Normal air movement Cardiovascular: No edema, Normal pulses, Regular rate/rhythm, Normal S1 S2 Gastrointestinal: Normal bowel sounds, Soft and benign, Non-distended, No tenderness Musculoskeletal: No clubbing, No swelling, No contractures, Erythema, Warmth Neurological: Normal speech, Normal affect, Abnormal sensation - Studies Laboratory Data (last 24 hrs) 05/13/20 18:33: PT 12.9 H, INR 1.10 05/13/20 18:33: WBC 13.9 H, Hgb 10.8 L, Hct 30.9 L, Plt Count 265 05/13/20 18:33: Sodium 127 L, Potassium 3.0 L, BUN 71 H, Creatinine 4.71 H, Glucose 146 H, Magnesium 2.3, Total Bilirubin 1.0, AST 15, ALT 26, Alkaline Phosphatase 259 H Assessment and Plan - Problems (Diagnosis) (1) Severe sepsis Current Visit: Yes Status: Acute (2) History of CVA with residual deficit Current Visit: Yes Status: Acute (3) Acute worsening of stage 3 chronic kidney disease Current Visit: Yes Status: Acute (4) CAD (coronary artery disease) Current Visit: No Status: Acute (5) DM2 (diabetes mellitus, type 2) Current Visit: No Status: Acute (6) HTN (hypertension) Current Visit: No Status: Acute (7) History of diabetic ulcer of foot Current Visit: No Status: Acute - Advance Directives Does patient have a Living Will: No Does patient have a Durable POA for Healthcare: Yes Physician Review Additional Text: Assessment Patient is a 44 year old male with a past medical history of hypertension, type 2 diabetes mellitus with diabetic nephropathy, CKD stage 3, CVA with right-sided residual deficit and medication noncompliance. He is currently admitted with a sepsis workup. He has an elevated procalcitonin and multiple end-organ dysfunction including and worsening kidney function. Wound cellulitis from diabetic foot infection appears to be the most likely source. Past cx have shown MRSA and providencia stuartii resistant to zosyn. Severe sepsis Diabetic foot infection Acute on chronic CKD stage 3 Hypokalemia Diabetic nephropathy Uncontrolled type 2 diabetes mellitus CVA with right-sided residual side deficits Medication noncompliance Plan: Admit inpatient with telemetry Obtain blood and urine cultures Check lactic acid and trend every 4 hours until negative Patient received Zosyn and vancomycin in the ER along IVF bolus I will switch the antibiotics to meropenem and linezolid pending blood and wound cultures Wound care has been consulted Foot MRI to rule out osteomyelitis Nephrology consulted for LAVON. Patient has known hx of nephrotic range proteinuria secondary to diabetic nephropathy Replace K+ in the ER Check BMP daily I will also place a mental health social worker consult for home health set up
[2020-05-13] MEDS ORDERED: POTASSIUM 25 MEQ EFFERV TAB ONE (21:29)
[2020-05-13 21:49] VITALS: BMI 30.4
[2020-05-13] MEDS ORDERED: LABETALOL 20 MG/4ML SYRINGE IV PRN (22:55)
[2020-05-13 23:50] LABS: Urine Appearance CLOUDY; Urine Blood 2+ (NEG); Urine Color YELLOW; Urine Glucose 1+ (NEG); Urine Protein 3+ (NEG); Urine Specific Gravity 1.015 (1.005-1.030); Urine pH 5.5 (5.0-7.0)
[2020-05-13 23:56] LABS: Urine Microscopic Reflex ORDER UMIC
[2020-05-14 00:02] LABS: Urine Bacteria <20 /HPF (NONE SEEN); Urine Culture Reflex Order NOT NEEDED; Urine RBC <5 /HPF (NONE SEEN)
[2020-05-14] MEDS: HYDRALAZINE HCL 25 MG TABLET PO SCH ×4 (00:04→21:15)
[2020-05-14 00:07] LABS: Urine Bilirubin 1+ (NEG)
[2020-05-14] MEDS ORDERED: CLINDAMYCIN PHOSPHATE 900 MG in NA CHLORIDE 0.9% 50 ML IV SCH (01:00)
[2020-05-14] MEDS ORDERED: Meropenem 1000 MG/VIAL IV SCH (01:00)
[2020-05-14 04:15] LABS: Absolute Lymphocytes (CBC) 0.9 K/uL (0.7-4.9); Basophils % 0.2 % (0-1.3); Hematocrit 25.8 % (39.6-49.0); Lymphocytes % 5.9 % (15.3-44.8); MPV 8.9 fL (7.6-11.3); RBC Red Blood Cell Count 2.93 M/uL (4.33-5.43)
[2020-05-14 04:23] LABS: Potassium 3.3 mmol/L (3.5-5.1)
[2020-05-14] MEDS ORDERED: METOPROLOL TAR 25 MG TAB PO SCH (06:00)
[2020-05-14 08:14] LABS: Thyroid Stimulating Hormone 1.38 uIU/mL (0.360-3.740)
[2020-05-14] MEDS: CODEINE 30MG/APAP 300MG TAB PO PRN ×2 (08:23→17:20)
[2020-05-14] MEDS: Meropenem 500 MG in NA CHLORIDE 0.9% 100 ML IV SCH ×2 (08:24→21:16)
[2020-05-14] MEDS ORDERED: LINEZOLID 600 MG IVPB 600 MG/300 ML BAG IV SCH (09:00)
--- NOTE | 2020-05-14 10:38 | CON ---
Date of Consultation: 05/14/2020 Reason For Consult: Right foot cellulitis and abscess, necrotic diabetic ulcer. History Of Present Illness: This is the case of a 44-year-old patient with history of multiple medic al problems including a CVA, including cardiac disease, neuropathy, come with chronic peripheral vasc ular disease and also now a new pus draining infected ulcer on the right foot region. Patient has hi story of bilateral metatarsal wounds. The left side has a large that has been amputated. The toe has been amputated in the past. Also in the right side, patient has amputation of the toe, but he has developed an ulcer over the pressure points. Right now, we come in, we noticed pus coming from the right side of the foot and a surgical consult was obtained. Medications: Reviewed. Allergies: NONE. Past Surgical History: Include multiple toes amputation. Medical Problems: As above including also heart disease, CAD, diabetes, hypertension. Social History: He does not smoke. He does not drink alcohol. Review of Systems: Ten points otherwise unremarkable. Physical Examination: General: Patient is awake, alert. HEENT: Pupils are equal and reactive, anicteric. Abdomen: Soft and depressible. Extremities: Patient has bilateral diabetic ulcers, but on the right side, the patient has in the he ad of metatarsal region an open ulcer with a purulent discharge coming from it and cellulitis. This area will be debrided and abscess will be drained. Peripheral pulses diminished bilaterally. Diagnostic Data: MRI still pending. Assessment: A 44-year-old patient with an infected necrotic diabetic ulcer on the right foot with ab scess present. We are going to do incision, drainage and excision and debridement of this and necrot ic wound with benefits, alternatives, and risks including, but not limited to infection, bleeding, da mage to adjacent structures and complication, nonhealing wound, ID, and even . He also understa nds this may not relieve the symptoms. He might need more than one surgical intervention. He unders tands the need for him to be [facility] up [facility] after this. Also the nee d to offloading that shoes, diabetes control and diet control. The patient states he has extensive p eripheral vascular disease checkup in the past. We do not have any information at this moment. HM/MAUREENL Voice ID: [id number] Report ID: [id number]
[2020-05-14] MEDS ORDERED: D50W 25 GM/50 ML SYRINGE/VIAL IV PRN (11:23)
[2020-05-14] MEDS ORDERED: GLUCAGON 1 MG/VIAL IM PRN (11:23)
[2020-05-14] MEDS ORDERED: TRAMADOL HCL 50 MG TAB PO PRN (11:24)
[2020-05-14] MEDS: INSULIN -REGULAR HUMAN 50 UNIT/0.5 ML ML SQ SCH ×3 (11:30→20:05)
--- NOTE | 2020-05-14 11:36 | P.PN ---
Subjective Date of Service: 05/14/20 Primary Care Provider: none Chief Complaint: generalized weakness, malaise and bilateral lower extremity wounds Subjective: Improving, Other (Reports pain and numbness to the lower extremities. No fever noted) Physical Examination - Vital Signs Temperature: 98.4 F Blood Pressure: 172/81 Pulse: 80 Respirations: 18 Pulse Ox (%): 95 - Physical Exam General: Alert, In no apparent distress, Oriented x3, Cooperative HEENT: Atraumatic Neck: Supple Respiratory: Clear to auscultation bilaterally, Normal air movement Cardiovascular: Normal pulses, Regular rate/rhythm Gastrointestinal: No masses, No rebound, No guarding Integumentary: Other (History of bilateral great toe amputations. Right distal metatarsal region shows ulcer. Some exudate noted. Slight warmth. On the left distal metatarsal region ulcers noted but dry. No exudate noted.) Neurological: Normal speech, Normal affect - Studies Laboratory Data (last 24 hrs) 05/13/20 18:33: PT 12.9 H, INR 1.10 05/13/20 18:33: WBC 13.9 H, Hgb 10.8 L, Hct 30.9 L, Plt Count 265 05/13/20 18:33: Sodium 127 L, Potassium 3.0 L, BUN 71 H, Creatinine 4.71 H, Glucose 146 H, Magnesium 2.3, Total Bilirubin 1.0, AST 15, ALT 26, Alkaline Phosphatase 259 H Medications List Reviewed: Yes Assessment & Plan Discharge Plan: Home Plan to discharge in: Greater than 2 days Physician Review Additional Text: Impression: Right distal metatarsal cellulitis/foot Diabetes mellitus type 2 [id number] Acute on chronic renal disease stage 5 with hyponatremia Diabetic neuropathy History of CVA with right-sided residual deficit Hypertension uncontrolled Suspect underlying PVD Anemia of chronic disease Hypertriglyceridemia Plan: Right distal metatarsal cellulitis/foot suspect osteomyelitis along with left distal metatarsal cellulitis/foot: Case discussed in detail with admitting physician. No evidence of severe sepsis noted upon admission. No severe sepsis noticed at this time. Cellulitis confirmed. Lactic acid within normal range. Pro calcitonin elevated. Will adjust IV antibiotic therapy. Now on meropenem and vancomycin IV. Pharmacy to monitor and adjust. Case discussed with surgery. Patient will be NPO in anticipation for debridement today. MRI of the feet bilateral will be evaluated to rule out osteomyelitis. Will consult infectious disease to further evaluate and make recommendation. Nephrology consulted to address worsening renal dysfunction. Will obtain echocardiogram, renal ultrasound to further evaluate. Will adjust medications. Continue to monitor and address closely. Will provide heparin for DVT prophylaxis. Will consult health and social care teacher to help with finding a PCP at discharge. Await further recommendations by specialists. Advanced directives address in detail with patient. Patient wishes to be do not resuscitate. Patient with limited resources. Anticipate discharge in the next 3-5 days. Diabetes mellitus type 2 [id number]: Will obtain A1c. Will provide insulin sliding scale. Will monitor Accu-Cheks. Acute on chronic renal disease stage 5 with hyponatremia: Will obtain renal ultrasound. Nephrology consulted to further evaluate and address. Continue IV fluids. will obtain hepatitis panel. Await further recommendations by nephrology. Patient may end up requiring chronic dialysis. Diabetic neuropathy: Will start Neurontin. Will provide medication for pain. History of CVA with right-sided residual deficit: Continue DVT prophylaxis. Will continue with aspirin. Will add folic acid. Hypertension uncontrolled: Continue hydralazine. Adjust metoprolol for better control. Suspect underlying PVD: Continue aspirin. Obtain arterial Doppler of the lower extremities to further evaluate. Anemia likely of chronic disease: Will obtain iron and B12 studies. Will monitor closely. Hypertriglyceridemia: Will start fish oil. Time Spent Managing Pts Care (In Minutes): 55
--- NOTE | 2020-05-14 12:33 | RAD REPORT ---
EXAM DESCRIPTION: US - Lower Extremity Arterial Bilat - 05/14/2020 10:57 am CLINICAL HISTORY: evaluate for PVD COMPARISON: No comparisons TECHNIQUE: Bilateral lower extremity arterial Doppler examination was performed with waveform tracin g and ankle brachial pressure measurements. FINDINGS: Symmetric brachial pressure measurements are noted. Triphasic waveforms are seen throughout both lower extremity arterial systems to the level of the pop liteal arteries. Monophasic waveforms are seen involving both posterior tibial arteries and dorsalis pedis arteries. Right ankle brachial index could not be accurately obtained due to noncompressibility. Left ankle brachial index measures 1.2, normal. IMPRESSION: Moderate peripheral vascular disease is seen below the level of the popliteal arteries b ilaterally.
--- NOTE | 2020-05-14 12:52 | RAD REPORT ---
EXAM DESCRIPTION: MRI - Foot Right Wo Cont - 05/14/2020 12:12 pm CLINICAL HISTORY: R/O osteo COMPARISON: Foot Right Wo Cont dated 10/28/2018 TECHNIQUE: Multiplanar imaging of the right foot performed using T1 weighted, T1 fat saturation, T2 fat saturation and T2 stir sequencing. FINDINGS: Hyperintense T2 signal is present in the distal shaft and head of the first metatarsal dim inished in prominence compared to he will. There is very little hypointense T1 signal in this corresp onding region. The T1 hypointensity has improved since October. No cortical destruction. The second- fi fth metatarsals show normal marrow signal characteristics. No acute or suspicious finding in the four th and fifth toes. The first- third toes have been resected. Edema is seen in the soft tissues around the big toe. Along the dorsal medial margin of the first met atarsal head there is an 18 x 7 mm fluid collection. This is nonspecific and most likely reactive. No specific finding to indicate that this is abscess. IMPRESSION: Improvement in the signal abnormalities of the first metatarsal since the October study. Continued edema signal surrounding the first metatarsal head and distal shaft. There is a 18 x 7 mm f luid collection along the dorsal medial margin of the first metatarsal head. This is nonspecific and may simply be reactive fluid. No specific finding to indicate abscess.
[2020-05-14] MEDS: NA CHLORIDE 0.9% 1,000 ML IV SCH (13:54)
[2020-05-14] MEDS: GABAPENTIN 100 MG CAP PO SCH ×2 (13:56→21:15)
--- NOTE | 2020-05-14 14:02 | RAD REPORT ---
EXAM DESCRIPTION: US - Renal Ultrasound-Complete - 05/14/2020 1:25 pm CLINICAL HISTORY: acute on chronic renal dz stage 5 COMPARISON: Barium Swallow Modified dated 07/05/2019 FINDINGS: The right kidney measures 12.0 x 6.0 x 6.9 cm. The left kidney measures 11.8 x 7.0 x 6.4 cm. Renal cortical thickness and echogenicity are normal. No hydronephrosis or suspicious renal mass. No bladder wall thickening or mass. No intraluminal stone or mass. IMPRESSION: No hydronephrosis or suspicious renal mass. No other significant findings.
--- NOTE | 2020-05-14 16:13 | RAD REPORT ---
EXAM DESCRIPTION: MRI - Foot Left Wo Cont - 05/14/2020 2:29 pm CLINICAL HISTORY: R/O osteo COMPARISON: Foot Left Wo Cont dated 10/28/2018 TECHNIQUE: Multiplanar imaging of the left foot performed using T1 weighted, T1 fat saturation, T2 f at saturation and T2 stir sequencing. FINDINGS: Hyperintense T2 and hypointense T1 signal is present in the distal shaft and head of the f irst metatarsal of the left foot. This signal abnormality has improved from the October 2018 study. No cortical destruction. The second- fifth metatarsals and the remaining fourth and fifth toes show no s uspicious marrow signal pattern. The tarsal bones, calcaneus and talus also without suspicious signal findings. Edema signal is present in the soft tissues around the first metatarsal head. There is a 10 x 2 mm ov al fluid collection along the medial margin of the first metatarsal head. This is favored to be react toribio fluid rather than abscess. IMPRESSION: Left first metatarsal signal abnormalities are present but improved compared October 2018. This could be remnant osteomyelitis. No cortical destruction or evidence for a progressive bone process. No acute findings elsewhere in th e bones of the foot. Small fluid collection along the medial margin of the first metatarsal head favored to be reactive fl uid rather than abscess.
[2020-05-14 16:52] LABS: Ferritin 1510.9 ng/mL (26-388)
[2020-05-14] MEDS: METOPROLOL TAR 50 MG TAB PO SCH (17:19)
[2020-05-14] MEDS: PROMOD 30 ML DOSE PO SCH (21:00)
[2020-05-14] MEDS: HEPARIN 5000 UNIT/ML 1 ML VIAL SQ SCH (21:15)
[2020-05-14] MEDS: DOCOSAHEXANOIC AC/EPA 1000 MG PO SCH (21:15)
--- NOTE | 2020-05-14 21:43 | CON ---
Date of Consultation: 05/14/2020 Chief Complaint: Acute on chronic kidney injury, abnormal renal function. History Of Present Illness: The patient is a 44-year-old male with history of noncompliance, hyperte nsion, type 2 diabetes, diabetic nephropathy, history of CVA, and right-sided weakness. He presented to the emergency room because of one week history of generalized weakness, malaise, and fever. The patient states his symptoms have been progressively worse, associated with shortness of breath. He d enies urinary tract symptoms. Denies renal colic. He denies chest pain or palpitation. Denies coug h. He has multiple procedures done for lower extremity nonhealing wound with osteomyelitis. He also had open wound in right transmetatarsal joint draining purulent discharge, dry gangrene of the left metatarsal joint. Review of Systems: The patient is lethargic, cannot provide review of systems. He is relatable and answers few question s. He denies complaints. Past Medical History: Diabetes mellitus, chronic kidney disease, hypertension, acute kidney failure, encephalopathy, hypertension, heart stents, coronary artery disease, osteomyelitis, nonhealing wound , diabetic foot infection, toe amputation. Family History: Father had heart disease and hypertension. Social History: Denies tobacco, alcohol, or illicit drugs. Physical Examination: General: Not in acute distress. Eyes: Anicteric sclerae. EOMI. Ears, Nose, Mouth, and Throat: Oral mucosa moist. No pallor. Neck: Supple. No JVD or bruits. Lungs: Diminished breath sounds at bases. No wheezing. No rhonchi. Heart: S1, S2. No pericardial friction rub. Abdomen: Soft, benign, nontender, obese. Extremities: No clubbing. No swelling. No contracture. No erythema. Neurologic: Moving extremities. Cranial nerves intact. Laboratory Data: Sodium 127, potassium 3.0, BUN 71, creatinine 4.71, glucose 146, magnesium 2.3, annabella irubin 1.0. Impression And Plan: 1.Severe sepsis, likely osteomyelitis. The patient is undergoing workup for osteomyelitis. 2.History of cerebrovascular accident with residual weakness. The patient is noncooperative with ex amination. 3.Chronic kidney disease stage 3 with acute kidney injury, likely secondary to nonoliguric acute tub ular necrosis. The patient will continue adequate hydration for sepsis. He will start antibiotic an d coverage will be provided with Zosyn for MRSA. 4.Diabetic foot infection. Continue wound care. The patient will need long-term treatment for oste omyelitis. 5.The patient will have renal ultrasound to rule out obstructive uropathy. Continue to monitor flui d balance. 6.Hypertension. Blood pressure in acceptable control. Adjust medication. Blood pressure fluctuati ng due to anxiety. The patient may benefit from antianxiety medication. ESTEE/SUMEET Voice ID: [id number] Report ID: [id number]
[2020-05-15] MEDS: NA CHLORIDE 0.9% 1,000 ML IV SCH (00:56)
[2020-05-15 04:34] LABS: Basophils % 0.3 % (0-1.3); Hematocrit 24.5 % (39.6-49.0); RBC Red Blood Cell Count 2.76 M/uL (4.33-5.43)
[2020-05-15 04:55] LABS: Magnesium 2.4 mg/dL (1.8-2.4); Potassium 3.5 mmol/L (3.5-5.1)
[2020-05-15] MEDS: CODEINE 30MG/APAP 300MG TAB PO PRN ×3 (05:39→22:37)
[2020-05-15] MEDS: METOPROLOL TAR 50 MG TAB PO SCH ×2 (05:39→17:10)
[2020-05-15] MEDS: INSULIN -REGULAR HUMAN 50 UNIT/0.5 ML ML SQ SCH ×5 (07:30→20:55)
--- NOTE | 2020-05-15 07:57 | P.PN ---
Subjective Date of Service: 05/15/20 Primary Care Provider: none Chief Complaint: generalized weakness, malaise and bilateral lower extremity wounds Subjective: Other (Patient overall stable. Patient reports pain better controlled. No fever noted.) Physical Examination - Vital Signs Temperature: 98.6 F Blood Pressure: 155/72 Pulse: 80 Respirations: 18 Pulse Ox (%): 97 - Physical Exam General: Alert, In no apparent distress, Oriented x3, Cooperative, Other (Angeline ent appears to depressed) HEENT: Atraumatic Neck: Supple Respiratory: Clear to auscultation bilaterally, Normal air movement Cardiovascular: Normal pulses, Regular rate/rhythm Gastrointestinal: Normal bowel sounds, No tenderness, No masses, No rebound, No guarding Integumentary: No erythema, No warmth, No cyanosis, Other (Bandages to the feet bilateral) Neurological: Normal speech, Normal tone, Normal affect - Studies Microbiology Data (last 24 hrs): 05/13/20 18:40 Wound - Left Foot Gram Stain - Final 05/13/20 18:36 Wound - Right Foot Gram Stain - Final Medications List Reviewed: Yes Assessment & Plan Discharge Plan: Home Plan to discharge in: Greater than 2 days Physician Review Additional Text: Impression: Right distal 1st metatarsal cellulitis, possible abscess with MRI negative for osteomyelitis/ left foot MRI shows remnant osteomyelitis of distal 1st metatarsal but improved since October 2018 with no acute finding/kohcjezusf-Owep-iwzyojpp cocci noted Diabetes mellitus type 2 [id number] Acute on chronic renal disease stage 5 with hyponatremia Diabetic neuropathy History of CVA with right-sided residual deficit Hypertension uncontrolled Suspect underlying PVD Anemia of chronic disease Hypertriglyceridemia Plan: Right distal 1st metatarsal cellulitis, possible abscess with MRI negative for osteomyelitis/ left foot MRI shows remnant osteomyelitis of distal 1st metatarsa l but improved since October 2018 with no acute finding/ovvilhjbko-Njxv-fddvbpzt cocci noted: MRI reviewed. Right MRI shows cellulitis/possible abscess. No osteomyelitis noted noted since October 2018. Left MRI shows edema but no acute finding. Remnant osteomyelitis noted but overall improved since October 2018. Continue IV vancomycin and meropenem. Blood cultures positive. Await culture results. Patient currently NPO at this time in preparation for surgery today. Will discuss further with surgery and infectious disease for recommendations. Await echocardiogram. shop teacher Doppler shows moderate PVD to the lower extremities bilateral. Case discussed in detail with daughter. Daughter reports patient has been non compliant with follow up. Patient also was at a alf for skilled placement but patient left against medical advice. Discuss with social insurance administrator about options of care as the patient may benefit with skilled placement. This was addressed in detail with the patient. He prefers to go home at final discharge. Renal function still compromise. Patient may require hemodialysis. Will discuss with nephrology as well. Patient remains on DVT prophylaxis. Hemoglobin decrease from yesterday. Will repeat hemoglobin. Maintain hemoglobin above 7.0. Patient may require transfusion if this continues to drop. Will continue to monitor closely. Anticipate discharge in the next 3-5 days. Diabetes mellitus type 2 bsr-kvzvoof-akqnhrelf: A1c 6.5. Will provide insulin sliding scale. Will monitor Accu-Cheks. Acute on chronic renal disease stage 5 with hyponatremia: Continue IV fluids. Will discuss with nephrology. Renal function still compromise. Patient may require hemodialysis catheter placement and hemodialysis. Other consideration may be chronic dialysis. Await recommendations by nephrology Diabetic neuropathy: Neurontin started yesterday. Will continue to adjust medication. Will provide medication for pain. History of CVA with right-sided residual deficit: Continue DVT prophylaxis. Will continue with aspirin and folic acid. Hypertension uncontrolled: Continue hydralazine. Continue to adjust metoprolol for better blood pressure control. Moderate PVD to the lower extremities: Arterial Doppler shows moderate disease to the lower extremities at the level of the popliteal artery bilateral Continue aspirin. Anemia likely of chronic disease: Patient may require transfusion if hemoglobin decreases below 7.0. Will monitor closely. Hypertriglyceridemia: Continue fish oil. Time Spent Managing Pts Care (In Minutes): 55
[2020-05-15] MEDS: Meropenem 500 MG in NA CHLORIDE 0.9% 100 ML IV SCH ×2 (09:00→21:04)
[2020-05-15] MEDS ORDERED: VANCOMYCIN/NS 1 gm 1 GM/250 ML BAG IV SCH ×2 (09:00→21:00)
[2020-05-15] MEDS ORDERED: MIDAZOLAM HCL 2 MG/2 ML INJ ONE ×2 (09:41→09:57)
[2020-05-15] MEDS ORDERED: propofoL 200 MG/20 ML VIAL IV ONE ×2 (09:51→09:54)
[2020-05-15] MEDS ORDERED: FENTANYL CITR 100 MCG/2 ML ONE ×2 (09:51→09:54)
[2020-05-15] MEDS ORDERED: LIDOCAINE 1% MPF 5 ML VIAL ONE (09:51)
[2020-05-15] MEDS ORDERED: KETOROLAC 30 MG/ML INJ ONE (09:54)
[2020-05-15] MEDS ORDERED: LIDOCAINE 2% MPF 5 ML VIAL ONE (09:54)
[2020-05-15] MEDS ORDERED: dexAMETHasone 4 MG/ML VIAL ONE (09:55)
[2020-05-15] MEDS ORDERED: ROCURONIUM 50 MG/5 ML VIAL IV ONE (09:55)
[2020-05-15] MEDS ORDERED: ONDANSETRON 4 MG/2 ML VIAL ONE (09:55)
--- NOTE | 2020-05-15 10:15 | P.BOP ---
Preoperative diagnosis: necrotic right foot diabetic ulcer with cellulitis/abscess Postoperative diagnosis: same Primary procedure: Debridement subq necrotic right foot diabetic ulcer with abscess drainage Secondary procedure: 6 x 5 x.5 cm Estimated blood loss: <10cc Specimen: culture Anesthesia: MAC Complications: None Transferred to: Recovery Room Condition: Good
[2020-05-15 10:29] VITALS: O2SAT 96
[2020-05-15] MEDS ORDERED: EPOETIN ALFA-EPBX 10,000 UNIT/ML VIAL SQ SCH (11:00)
[2020-05-15] MEDS: DOCOSAHEXANOIC AC/EPA 1000 MG PO SCH ×2 (11:10→20:54)
[2020-05-15] MEDS: ASPIRIN EC 81 MG TAB PO SCH (11:10)
[2020-05-15] MEDS: HYDRALAZINE HCL 25 MG TABLET PO SCH ×3 (11:10→20:55)
[2020-05-15] MEDS: FOLIC ACID 1 MG TABLET PO SCH (11:11)
[2020-05-15] MEDS: HEPARIN 5000 UNIT/ML 1 ML VIAL SQ SCH ×2 (11:11→20:54)
[2020-05-15] MEDS: GABAPENTIN 100 MG CAP PO SCH ×3 (11:11→20:54)
[2020-05-15] MEDS: PROMOD 30 ML DOSE PO SCH ×2 (11:12→21:00)
--- NOTE | 2020-05-15 12:44 | OP ---
Date of Procedure: 05/15/2020 Surgeon: Kody Ledesma MD Preoperative Diagnoses: Necrotic right foot diabetic ulcer with cellulitis and abscess, renal insuff iciency, cardiac disease. Postoperative Diagnoses: Necrotic right foot diabetic ulcer with cellulitis and abscess, renal insuf ficiency, cardiac disease. Procedure: Subcutaneous debridement of necrotic right foot diabetic ulcer with abscess drainage abou t 6 x 5 x 0.5 cm. Specimen: Culture and necrotic tissue. Anesthesia: Sedation plus local. Indications: This is the case of a 44-year-old patient, who comes to us with multiple medical proble ms, also multiple diabetic ulcers, but the right side is necrotic, is infected, has an abscess and pu rulent discharge, needs to be drained. The benefits, alternatives, and risks of debridement fully ex plained which include, but not limited to infection, bleeding, damage to adjacent structures, anesthe dino complication, nonhealing wound, IL, and even . He also understands this may not relieve his symptoms. He might need more than one surgical intervention. He understood, signed a consent. Procedure In Detail: The patient was brought to the operating room and placed in supine position. A nesthesia was done without complication. Right foot was prepped and draped in a sterile fashion. Us ing an 11 blade and pickup, we proceeded to do subcutaneous debridement. There was a large area. Th ere were multiple loculations, a tunneling that we exposed and then opened. Cultures were obtained. Area was irrigated. Local anesthesia was applied. Then, the area was packed with dry dressing. Th e patient tolerated the procedure well. The patient sent to recovery in stable condition. Once agai n, we explained to him the importance of compliance with treatment. He otherwise is going to end up with amputations. More than what he has right now, offloading, diabetic shoes, the important part of his treatment. We encouraged him to come to our [facility] when he gets discharged as a f ollowup to trying to keep this area as clean as we can. MARKIE/SUMEET Voice ID: [id number] Report ID: [id number]
[2020-05-15 12:52] LABS: Hematocrit 25.8 % (39.6-49.0)
--- NOTE | 2020-05-15 13:59 | PN ---
Date of Progress Note: 05/15/2020 Subjective: The patient was admitted with acute kidney injury, osteomyelitis on the left foot. The patient is status post debridement today. The patient's kidney function continued to decline. Physical Examination: Vital Signs: Blood pressure 149/64, pulse of 68, afebrile. The patient had good urine output of 130 0. Chest: Clear to auscultation. Heart: S1, S2. Systolic murmur. Abdomen: Soft, nontender. Extremities: MTA on the right dressing on both feet. Neurologic: Alert and oriented x3. No local. Laboratory Data: WBC 15.8, H and H 8.5/24.5, platelet 271. Sodium 130, potassium 3.5, bicarb 18, BU N 94, creatinine 5.8, GFR of 10, calcium 7.3, magnesium 2.3. Iron saturation of 31, ferritin 1500. B12 of 1100. TSH 1.3. Urinalysis, +3 protein. INR 1.1. Current Medications: The patient on include; 1.Vancomycin. 2.Meropenem. 3.Hydralazine. 4.Metoprolol. 5.Gabapentin. 6.Folic acid. 7.Tramadol. Assessment And Plan: 1.Acute kidney injury secondary to toxic acute tubular necrosis on chronic kidney disease stage 3B, nonoliguric with acidosis, normal size kidney, marginal elevation in the BUN with proteinuric, no nirmala ntification, mostly progression of the disease/acute tubular necrosis secondary to toxic, again nonol iguric, no hyperkalemia. I had long discussion with the patient that the patient may need to initiat e renal replacement therapy given the progression, even though it is possible to be a temporary. The patient is still reluctant to initiate renal replacement therapy, like to watch for another couple o f days or even till we finish this hospitalization. I explained risks, benefits, alternatives for th e patient including cardiac arrest secondary to hyperkalemia. The patient still does not want to pro ceed with dialysis. I am going to go ahead and continue to monitor the patient closely. We will go ahead and send for serology to rule out any other causes. We will send for PTH and vitamin D to eval uate further chronicity of the disease and I am going to send for protein electrophoresis given the p resence of the anemia. 2.Benign hypertension, controlled, not optimal. I am going to go ahead and add calcium channel bloc ker for his regimen and we will continue to monitor. Keep avoiding any YSABEL inhibitor or ARB for the time being. 3.Non-anion gap metabolic acidosis secondary to renal failure. We will start the patient on oral bi carb. 4.Proteinuria close to nephrotic. We will quantify with the presence of the anemia. We will send f or serum protein electrophoresis. 5.Hypokalemia. I am going to avoid supplement for the time being given the progression of the disea se. 6.Hypocalcemia. Corrected calcium on the appropriate side. I do not see any need for replacement. We will send for vitamin D and PTH to evaluate. 7.Hyponatremia secondary to nephrotic/renal failure. We will monitor the patient. 8.Osteomyelitis. Continue current antibiotic. The patient is status post debridement. We will fol low up with the primary. I think the patient is going to need long-term antibiotic with acute kidney injury. The patient should be eligible to evaluate by [facility] and we will follow up with primary. 9.Nephrotic range of proteinuria mostly secondary to diabetes with the presence of the anemia and wo rsening kidney function. We will send for serology and serum protein electrophoresis. NATALIA/SUMEET Voice ID: [id number] Report ID: [id number]
[2020-05-15] MEDS: SODIUM BICARB 325 MG TAB PO SCH (20:54)
[2020-05-16 03:42] LABS: Absolute Lymphocytes (CBC) 1.2 K/uL (0.7-4.9); Basophils % 0.5 % (0-1.3); Hematocrit 24.5 % (39.6-49.0); Lymphocytes % 8.8 % (15.3-44.8); MPV 8.5 fL (7.6-11.3); RBC Red Blood Cell Count 2.75 M/uL (4.33-5.43)
[2020-05-16 03:55] LABS: Albumin 1.4 g/dL (3.4-5.0); Magnesium 2.7 mg/dL (1.8-2.4); Phosphorus 7.5 mg/dL (2.5-4.9); Potassium 3.7 mmol/L (3.5-5.1); Uric Acid 12.2 mg/dL (3.5-7.2)
[2020-05-16] MEDS: METOPROLOL TAR 50 MG TAB PO SCH (06:06)
[2020-05-16] MEDS: INSULIN -REGULAR HUMAN 50 UNIT/0.5 ML ML SQ SCH ×2 (07:30→11:30)
[2020-05-16] MEDS: HEPARIN 5000 UNIT/ML 1 ML VIAL SQ SCH (09:00)
[2020-05-16] MEDS: DOCOSAHEXANOIC AC/EPA 1000 MG PO SCH (09:00)
[2020-05-16] MEDS ORDERED: AMLODIPINE 5 MG TAB PO SCH (09:00)
[2020-05-16] MEDS: PROMOD 30 ML DOSE PO SCH (09:00)
[2020-05-16] MEDS: SODIUM BICARB 325 MG TAB PO SCH (09:00)
[2020-05-16] MEDS: ASPIRIN EC 81 MG TAB PO SCH (09:00)
[2020-05-16] MEDS: FOLIC ACID 1 MG TABLET PO SCH (09:00)
[2020-05-16] MEDS: HYDRALAZINE HCL 25 MG TABLET PO SCH ×2 (09:01→15:11)
[2020-05-16] MEDS: GABAPENTIN 100 MG CAP PO SCH ×2 (09:01→15:11)
[2020-05-16] MEDS: Meropenem 500 MG in NA CHLORIDE 0.9% 100 ML IV SCH (09:02)
--- NOTE | 2020-05-16 09:34 | ECHO ---
HEIGHT: 5 ft 11 in WEIGHT: 228 lb 8 oz DATE OF STUDY: 05/15/[address]: Raghav Tse DO 2-DIMENSIONAL: YES M.MODE: YES DOPPLER: YES COLOR FLOW: YES TDS: NO PORTABLE: NO DEFINITY: NO BUBBLE STUDY: NO DIAGNOSIS: HYPERTENSION/SEPSIS/ CONGESTIVE HEART FAILURE CARDIAC HISTORY: CATHERIZATION: YES SURGERY: NO PROSTHETIC VALVE: NO PACEMAKER: NO MEASUREMENTS (cm) DIASTOLIC (NORMALS) SYSTOLIC (NORMALS) IVSd 1.1 (0.6-1.2) LA Diam 3.8 (1.9-4.0) LVEF 63% LVIDd 5.5 (3.5-5.7) LVIDs 3.6 (2.0-3.5) %FS 35% LVPWd 1.2 (0.6-1.2) Ao Diam 3.1 (2.0-3.7) 2 DIMENSIONAL ASSESSMENT: RIGHT ATRIUM: NORMAL LEFT ATRIUM: NORMAL RIGHT VENTRICLE: NORMAL LEFT VENTRICLE: NORMAL TRICUSPID VALVE: NORMAL MITRAL VALVE: NORMAL PULMONIC VALVE: NORMAL AORTIC VALVE: NORMAL PERICARDIAL EFFUSION: NONE AORTIC ROOT: NORMAL LEFT VENTRICULAR WALL MOTION: NORMAL. DOPPLER/COLOR FLOW: MILD TRICUSPID REGURGITATION. COMMENTS: MILD TRICUSPID REGURGITATION. NORMAL LEFT VENTRICULAR EJECTION FRACTION AND SIZE. NO WALL MOTION ABNORMALITY. TECHNOLOGIST: SAJI CAVAZOS
[2020-05-16 09:52] LABS: Urine Protein/Creatinine Ratio 1.88 ratio (<0.15)
[2020-05-16 09:54] LABS: Rheumatoid Factor NEG (NEG)
[2020-05-16] MEDS ORDERED: EPOETIN ALFA-EPBX 10,000 UNIT/ML VIAL SQ SCH (11:00)
[2020-05-16] MEDS ORDERED: CALCITROL 0.25 MCG CAP PO SCH (11:00)
[2020-05-16] MEDS ORDERED: NA CHLORIDE 0.9% 1,000 ML IV SCH (11:00)
[2020-05-16] MEDS ORDERED: CALCIUM CARBONATE CHEW 500MG TAB PO SCH (11:30)
--- NOTE | 2020-05-16 11:41 | P.DS ---
Admission Date: 05/13/20 Discharge Date: 05/16/20 Primary Care Provider: none Disposition: [facility] Discharge Condition: GOOD Reason for Admission: generalized weakness, malaise and bilateral lower extremity wounds Consultations: Nephrology-Dr. Alvarez Surgery-Dr. Ledesma Procedures: MRI R foot: FINDINGS: Hyperintense T2 signal is present in the distal shaft and head of the first metatarsal diminished in prominence compared to he will. There is very little hypointense T1 signal in this corresponding region. The T1 hypointensity has improved since October. No cortical destruction. The second- fifth metatarsals show normal marrow signal characteristics. No acute or suspicious finding in the fourth and fifth toes. The first- third toes have been resected. Edema is seen in the soft tissues around the big toe. Along the dorsal medial margin of the first metatarsal head there is an 18 x 7 mm fluid collection. This is nonspecific and most likely reactive. No specific finding to indicate that this is abscess. IMPRESSION: Improvement in the signal abnormalities of the first metatarsal since the October study. Continued edema signal surrounding the first metatarsal head and distal shaft. There is a 18 x 7 mm fluid collection along the dorsal medial margin of the first metatarsal head. This is nonspecific and may simply be reactive fluid. No specific finding to indicate abscess. MRI L foot: FINDINGS: Hyperintense T2 and hypointense T1 signal is present in the distal shaft and head of the first metatarsal of the left foot. This signal abnormality has improved from the October 2018 study. No cortical destruction. The second- fifth metatarsals and the remaining fourth and fifth toes show no suspicious marrow signal pattern. The tarsal bones, calcaneus and talus also without suspicious signal findings. Edema signal is present in the soft tissues around the first metatarsal head. There is a 10 x 2 mm oval fluid collection along the medial margin of the first metatarsal head. This is favored to be reactive fluid rather than abscess. IMPRESSION: Left first metatarsal signal abnormalities are present but improved compared October 2018. This could be remnant osteomyelitis. No cortical destruction or evidence for a progressive bone process. No acute findings elsewhere in the bones of the foot. Small fluid collection along the medial margin of the first metatarsal head favored to be reactive fluid rather than abscess. Arterial doppler: FINDINGS: Symmetric brachial pressure measurements are noted. Triphasic waveforms are seen throughout both lower extremity arterial systems to the level of the popliteal arteries. Monophasic waveforms are seen involving both posterior tibial arteries and dorsalis pedis arteries. Right ankle brachial index could not be accurately obtained due to noncompressibility. Left ankle brachial index measures 1.2, normal. IMPRESSION: Moderate peripheral vascular disease is seen below the level of the popliteal arteries bilaterally. Renal US: FINDINGS: The right kidney measures 12.0 x 6.0 x 6.9 cm. The left kidney measures 11.8 x 7.0 x 6.4 cm. Renal cortical thickness and echogenicity are normal. No hydronephrosis or suspicious renal mass. No bladder wall thickening or mass. No intraluminal stone or mass. IMPRESSION: No hydronephrosis or suspicious renal mass. No other significant findings. ECHO: EF 63% LEFT VENTRICULAR WALL MOTION: NORMAL. DOPPLER/COLOR FLOW: MILD TRICUSPID REGURGITATION. COMMENTS: MILD TRICUSPID REGURGITATION. NORMAL LEFT VENTRICULAR EJECTION FRACTION AND SIZE. NO WALL MOTION ABNORMALITY. Surgery: Date of Procedure: 05/15/2020 Surgeon: Kody Ledesma MD Preoperative Diagnoses: Necrotic right foot diabetic ulcer with cellulitis and abscess, renal insufficiency, cardiac disease. Postoperative Diagnoses: Necrotic right foot diabetic ulcer with cellulitis and abscess, renal insufficiency, cardiac disease. Procedure: Subcutaneous debridement of necrotic right foot diabetic ulcer with abscess drainage about 6 x 5 x 0.5 cm. Specimen: Culture and necrotic tissue. Medical Problem List: Right distal 1st metatarsal cellulitis/necrotic right foot diabetic ulcer, possible abscess with MRI negative for osteomyelitis/ left foot MRI shows remnant osteomyelitis of distal 1st metatarsal but improved since October 2018 with no acute finding/ckxlcncrfh-Gyba-bbnekdwq cocci noted Diabetes mellitus type 2 [id number] Acute on chronic renal disease stage 5 with hyponatremia Diabetic neuropathy History of CVA with right-sided residual deficit Hypertension uncontrolled Suspect underlying PVD Anemia of chronic disease Hypertriglyceridemia Brief History of Present Illness: 44-year-old male with multiple medical problems including osteomyelitis of the feet, diabetes mellitus type 2 non-insulin dependent, chronic renal disease, diabetic neuropathy, history of CVA with right-sided weakness, hypertension, peripheral vascular disease, anemia chronic disease and hypertriglyceridemia. Patient presented with increased weakness and fatigue. Patient found to have cellulitis/abscess to the right distal 1st metatarsal region. Patient also found with acute on chronic renal failure stage 5 with hyponatremia. The patient was admitted for further evaluation and treatment. Hospital Course: Patient presents with Right distal 1st metatarsal cellulitis, possible abscess with MRI negative for osteomyelitis and left foot with MRI shows remnant osteomyelitis of distal 1st metatarsal but improved since October 2018. The patient was given IV fluids antibiotic therapy. Patient currently stable on vancomycin and meropenem. The patient was evaluated by surgery. Surgery recommended surgical intervention. Surgery notice necrotic diabetic right foot ulcer. Excisional debridement of necrotic right foot ulcer was performed. Patient remains on IV antibiotic therapy-IV meropenem 500 mg twice daily and vancomycin 1 mg every 48 hr. The patient also presents with acute on chronic renal disease stage 5 with hypernatremia. This has worsened. There appears to be no significant improvement. Case discussed at length with Nephrology. Nephrology recommends possible dialysis. During this time patient was been evaluated for long[facility]. Patient has been improved. The patient will be transferred to [facility] to continue his car e. This will include continue wound care, IV antibiotic treatment with IV meropenem 500 mg twice daily and vancomycin 1 g every 48 hr. Recommendation is for Infectious Disease to evaluate patient to determine further duration, dosage and medication. From a nephrology standpoint, patient will require hemodialysis catheter with initiation of dialysis. This may need to be done long-term. Renal lab pending at this time. Patient with diabetes mellitus type 2 [id number]. A1c 6.5. Patient remained stable on sliding scale. Patient with hypertension. This was originally uncontrolled. At discharge to the [facility] the patient remains on Norvasc 5 mg daily, hydralazine 50 mg 1 pill 3 times a day, and metoprolol 50 mg 1 pill twice daily. This could be further addressed at the long-term acute [facility]. Patient with diabetic neuropathy. Patient on Neurontin 100 mg 3 times a day as needed. Patient with moderate PVD based on artery Doppler. This could be further evaluated by Cardiology at the [facility] or as an outpatient. Patient with anemia chronic disease. Patient is getting erythropoietin. This could be further monitored closely. Recommend transfusion if hemoglobin drops below 7.0. Other meds include sodium bicarbonate 650 mg twice daily, calcitriol 0.5 mcg every 48 hr, calcium carbonate with meals, and normal saline at 50 cc/hour. Case discussed in detail with Nephrology about transfer. Nephrology will continue to monitor the patient at the [facility]. Further evaluation and treatment will be done there. Will need to consider treatment for depression at the facility. Advanced directives addressed in detail. Patient is do not resuscitate. Daughter has been very helpful in his coordination of care. Vital Signs/Physical Exam: Temp Pulse Resp BP Pulse Ox 98.5 F 78 16 138/66 96 05/16/20 08:00 05/16/20 08:00 05/16/20 08:00 05/16/20 08:00 05/16/20 08:00 General: Alert, In no apparent distress, Oriented x3, Cooperative, Other (Appears depressed) HEENT: Atraumatic Neck: Supple Respiratory: Clear to auscultation bilaterally, Normal air movement Cardiovascular: Normal pulses, Regular rate/rhythm Gastrointestinal: Normal bowel sounds, No tenderness, No masses, No rebound, No guarding Integumentary: Other (Bandages to the feet bilateral) Neurological: Other (History of CVA with residual right-sided weakness) Laboratory Data at Discharge: WBC 13.7 K/uL (4.3-10.9) H 05/16/20 03:10 Hgb 8.4 g/dL (13.6-17.9) L 05/16/20 03:10 Hct 24.5 % (39.6-49.0) L 05/16/20 03:10 Plt Count 301 K/uL (152-406) 05/16/20 03:10 PT 12.9 SECONDS (9.5-12.5) H 05/13/20 18:33 INR 1.10 05/13/20 18:33 Sodium 129 mmol/L (136-145) L 05/16/20 03:10 Potassium 3.7 mmol/L (3.5-5.1) 05/16/20 03:10 BUN 104 mg/dL (7-18) H 05/16/20 03:10 Creatinine 6.68 mg/dL (0.55-1.3) H* 05/16/20 03:10 Glucose 127 mg/dL (74-106) H 05/16/20 03:10 Uric Acid 12.2 mg/dL (3.5-7.2) H 05/16/20 03:10 Phosphorus 7.5 mg/dL (2.5-4.9) H 05/16/20 03:10 Magnesium 2.7 mg/dL (1.8-2.4) H 05/16/20 03:10 Total Bilirubin 1.0 mg/dL (0.2-1.0) 05/13/20 18:33 AST 15 U/L (15-37) 05/13/20 18:33 ALT 26 U/L (12-78) 05/13/20 18:33 Alkaline Phosphatase 259 U/L (45-117) H 05/13/20 18:33 Triglycerides 364 mg/dL (<150) H 05/14/20 03:49 Cholesterol 163 mg/dL (<200) 05/14/20 03:49 HDL Cholesterol 9 mg/dL (40-60) L 05/14/20 03:49 Cholesterol/HDL Ratio 18.11 05/14/20 03:49 Home Medications: NK [No Home Meds] 05/13/20 Patient Discharge Instructions: Continue with current plan of care and meds. Currently on Merrem 500 mg IV BID, vancomycin 1 gm IV Daily, Norvasc 5 mg daily, Hydralazine 50 mg TID, Metoprolol 50 mg BID, NaBicarb 650 mg BID, Calcitrol 0.5 mcg every 48 hr, calcium carbonate 500 mg with meals, and IV fluids normal saline at 50 cc/hour. Continue current wound care patient status post irrigation debridement. Diet: Renal Activity: Fall precautions Followup: Unknown,U [Primary Care Provider] - Time spent managing pt's care (in minutes): 55
--- NOTE | 2020-05-16 11:43 | PN ---
Date of Progress Note: 05/16/2020 Subjective: The patient was admitted with foot infection, had acute kidney injury. The patient had debridement yesterday. The patient was started on antibiotic. Physical Examination: Vital Signs: When I saw the patient, blood pressure 138/66, pulse of 78, afebrile. The patient had good urine output of 1270. Chest: Clear to auscultation. Heart: S1, S2. Regular. Systolic murmur. Abdomen: Soft, nontender/ Extremity: Dressing on both feet. Neurologic: Alert and oriented. No tremor. Laboratory Data: WBC 13.7, H and H 8.4/24.5, platelets 301. Sodium 129, potassium 3.7, bicarb 18, B UN 104, creatinine 6.6, uric acid 12.2, calcium 7.3, phosphorus 7.5, magnesium 2.7, albumin 1.4, bridget ected calcium 9.3. PTH 154. Vitamin D still pending. Iron saturation of 31. Current Medications: The patient on include; 1.Aspirin. 2.Meropenem. 3.Vancomycin. 4.Epogen. 5.Amlodipine 5 mg. 6.Hydralazine 50 t.i.d. 7.Metoprolol 50 b.i.d. 8.Gabapentin. 9.Sodium bicarb 650 b.i.d. 10.Tramadol. 11.Tylenol No. 3. Assessment And Plan: 1.Acute kidney injury secondary to toxic acute tubular necrosis looked to me on the dry side. I am going to start the patient on gentle hydration. I had long discussion with the patient again regardi ng the worsening kidney function and the patient need to initiate renal replacement therapy. The pat ient on agreement to start. We will consult surgery for PermCath placement and to initiate dialysis. The patient on the same time has been accepted to LTAC, if we can do also the same as in LTAC arran ging for the PermCath and initiating renal replacement therapy as there is no urgent indication to be started on the right away, although if the patient can stay in the hospital, we will arrange for it, then we transfer. 2.Secondary hyperparathyroidism, start the patient on calcitriol. We will start the patient on calc ium carbonate. 3.Anemia of chronic kidney disease. Start Retacrit. 4.Hyponatremia going to be corrected with dialysis. 5.Acidosis non-anion gap secondary to renal failure. Started on sodium bicarb oral. We will start on calcium carbonate and going to be corrected also on dialysis. 6.Proteinuria nonnephrotic, follow up serology, mostly secondary to diabetes. We will follow up ser um protein electrophoresis. 7.Foot infection. Growing staph aureus Proteus mirabilis with bacteremia. Continue current antibio tic. We will follow up vanc level. NATALIA/SUMEET Voice ID: [id number] Report ID: [id number]
[2020-05-16] MEDS: CODEINE 30MG/APAP 300MG TAB PO PRN (15:10)
[2020-05-16 16:30] VITALS: BP 139/63; TEMP 98
--- NOTE | 2020-05-16 19:49 | CON ---
History Of Present Illness: This is a 44-year-old male with end-stage renal disease, was initially b rought in with noncompliance to his medication. Patient has high blood pressure, type 2 diabetes eber litus complicated with nephropathy and stroke with weakness on the right side. Patient coming to the emergency room with generalized weakness, malaise, and fever. Complaining of generalized body aches at this time. Denies any other problems. No specific area of discomfort. Past Medical History: Includes high blood pressure, hypercholesterolemia, end-stage renal disease, s troke, encephalopathy, hypertension, right-sided weakness, heart stent placement, toe amputation. Social History: Nonsmoker, nondrinker. Family History: Noncontributory. Medications: Include meropenem and vancomycin. See MAR for other medications. Allergies: INCLUDE NO KNOWN DRUG ALLERGIES. Review of Systems: A 10-point review was performed. Physical Examination: General: This is a 44-year-old male, lying in bed, not in any acute cardiopulmonary distress. Vital Signs: Temperature 98.5, pulse 85, respirations 16, blood pressure 137/61. HEENT: Unremarkable. Neck: Supple. Lungs: Basal crackles. Abdomen: Soft, nontender. Bowel sounds present. Heart: S1, S2, regular. Extremity: Right foot in surgical dressing. Laboratory Data: Shows WBC 13.9, hemoglobin 10.8, platelets are 265. Chemistry shows sodium 129, po tassium 3.7, chloride 97, bicarb 18, BUN 104, creatinine 6.68, glucose is 127, albumin is 1.4. Micro data is growing a Staph aureus in blood cultures and foot wound cultures are also growing Staph jessy us. Left foot wound is Proteus mirabilis and Staphylococcus aureus. Right foot has Morganella zachery gabrielle and Staphylococcus aureus. Foot MRI done on 05/13 shows the patient has first metatarsal area di stal shaft showing a collection along the dorsal medial margin of the first metatarsal head indicatin g of abscess. An MRI done on 05/14 of the foot shows patient has left first metatarsal abnormalities present and improved from October 2018. A small fluid collection along the medial margin of first met atarsal head favored to be reactive fluid rather than abscess. Assessment And Plan: This is a 44-year-old male with end-stage renal disease. The patient in hospit al had right side first metatarsal cellulitis and abscess. Surgically debrided left foot with MRI sh ows remnant of osteomyelitis. Recommendation is 6 weeks of IV antibiotic and to be transferred to [facility] acute care in [facility]. Patient also has severe protein-calorie malnourishment, di abetes mellitus, diabetic neuropathy with stroke. Patient with anemia and multiple other medical pro blems. We will continue to follow at [facility] for further management of osteomyelitis and cellulitis of his foot. Thank you Dr. Tse for consult. NF/MODL Voice ID: [id number] Report ID: [id number]
[2020-05-17 19:57] LABS: HBsAG Nonreactive (Nonreactive)
[2020-05-21 08:29] LABS: Vitamin D 1,25-Dihydroxy Total 9 pg/mL (18-72); Vitamin D,1,25-OH2, D2 <8 pg/mL
[2020-05-22 20:15] LABS: Hepatitis C Virus RNA (PCR)log <1.18 log IU/mL
== END 2020-05-16 17:19 | DRG 264 ==
LOC: ER 18:19 → ERHOLD 20:26 → 2ND 21:13
PROVIDERS: ADMIT Internal Medicine; ATTEND Family Medicine
PROC: 0JBQ0ZZ Excision of Right Foot Subcutaneous Tissue and Fascia, Open Approach (ICD-10-PCS; principal; 2020-05-15 09:00)
DX: E11.52 Type 2 diabetes mellitus with diabetic peripheral angiopathy with gangrene (principal); N17.0 Acute kidney failure with tubular necrosis; N18.6 End stage renal disease; E43 Unspecified severe protein-calorie malnutrition; I12.0 Hypertensive chronic kidney disease with stage 5 chronic kidney disease or end stage renal disease; L02.611 Cutaneous abscess of right foot; I96 Gangrene, not elsewhere classified; E87.1 Hypo-osmolality and hyponatremia; I69.351 Hemiplegia and hemiparesis following cerebral infarction affecting right dominant side; R78.81 Bacteremia; E87.2 Acidosis; L03.031 Cellulitis of right toe; L97.519 Non-pressure chronic ulcer of other part of right foot with unspecified severity; L03.032 Cellulitis of left toe; I25.10 Atherosclerotic heart disease of native coronary artery without angina pectoris; E21.1 Secondary hyperparathyroidism, not elsewhere classified; F32.9 Major depressive disorder, single episode, unspecified; E11.621 Type 2 diabetes mellitus with foot ulcer; D63.1 Anemia in chronic kidney disease; E11.40 Type 2 diabetes mellitus with diabetic neuropathy, unspecified; E78.1 Pure hyperglyceridemia; R80.9 Proteinuria, unspecified; D63.8 Anemia in other chronic diseases classified elsewhere; E87.6 Hypokalemia; E11.22 Type 2 diabetes mellitus with diabetic chronic kidney disease; B96.4 Proteus (mirabilis) (morganii) as the cause of diseases classified elsewhere; Z66 Do not resuscitate; Z95.5 Presence of coronary angioplasty implant and graft; Z68.31 Body mass index [BMI] 31.0-31.9, adult; Z79.899 Other long term (current) drug therapy; Z79.4 Long term (current) use of insulin; Z91.14 Patient's other noncompliance with medication regimen; Z89.412 Acquired absence of left great toe; Z89.411 Acquired absence of right great toe; Z91.19 Patient's noncompliance with other medical treatment and regimen; Z20.828 Contact with and (suspected) exposure to other viral communicable diseases
CPT/HCPCS: 36415; 71045; 76770; 80048; 80061; 80069; 80074; 80076; 80202; 81003; 81015; 82570; 82607; 82652; 82728; 82947; 83036; 83520; 83540; 83605; 83735; 83880; 83970; 84145; 84156; 84165; 84443; 84466; 84484; 84550; 85014; 85018; 85025; 85302; 85610; 86021; 86038; 86160; 86225; 86317; 86430; 86704; 86706; 87040; 87070; 87075; 87077; 87186; 87205; 87389; 87522; 88304; 93005; 93306; 93925; 96361; 96365; 96367; 96375; 99285; J0360; J1100; J1644; J2020; J2185; J2250; J2405; J2543; J2704; J3010; J3370; J7030; J7040; J7050; Q5106; S0077; U0003